=== PATIENT | female | born 1965 | race Caucasian/White ===

== ENCOUNTER → 2017-06-25 09:43 | Outpatient (POV) | payer MEDICARE, MEDICAID, SELFPAY ==
[2017-06-25 10:15] VITALS: BP 163/88; PULSE 103; RESP 18; O2SAT 94; BMI 29.5
--- NOTE | 2017-06-25 10:29 | P.CONS_ITS ---
[facility] Pain Management SOAP Note Subjective:: This patient is a pleasant 51-year-old white female who we are treating for low back pain and lumbar radicular symptoms. She had a lumbar epidural steroid injection approximately 6 weeks ago. She is doing very well after this injection with 82% relief of her back pain. She is able to bend forward and has been much more active with less pain. She has now some increased pain in her left hip and left leg. She does have some swelling of her left leg in the area of the thigh. She is worried about a blood clot. However, she is also tender over the left SI joint. She does have a positive Casper's test. I do believe that she would benefit from a left SI joint injection under fluoroscopy. We will seek approval for a left SI joint injection under fluoroscopy. We will also order a DVT ultrasound of the left leg to rule out any DVT. She is also asking for ibuprofen 800 mg 3 times a day. Will write her prescription for ibuprofen 800 mg 3 times a day. Objective:: Alert to ?3 in no acute distress. Patient has antalgic gait. Patient does have some swelling of the left leg in the thigh area bigger than the right leg. Motor strength of the lower extremities is 5/5. There is no gross sensory deficit. Tenderness over left SI joint. Positive Casper's test on the left side. Assessment:: Degenerative disc disease of lumbar spine with lumbar radiculopathy symptoms. Left-sided sacroiliitis. Plan:: I do believe that she would benefit from a left SI joint injection under fluoroscopy. We will seek approval for a left SI joint injection under fluoroscopy. We will also order a DVT ultrasound of the left leg to rule out any DVT. She is also asking for ibuprofen 800 mg 3 times a day. Will write her prescription for ibuprofen 800 mg 3 times a day.
== END ==
PROVIDERS: PCP Family Medicine; Visit Provider Anesthesiology
DX: M51.16 Intervertebral disc disorders with radiculopathy, lumbar region (principal)
CPT/HCPCS: 99212

== ENCOUNTER → 2017-06-26 08:56 | Outpatient (CLI) | payer MEDICARE, SELFPAY ==
--- NOTE | 2017-06-26 08:59 | NVE_ITS ---
Venous Exam Indications: 729.5 Pain in limb. IMPRESSIONS 1. There is no evidence of significant Reflux. 2. Superficial vein thrombosis lesser saphaneous vein left lower extremity Left lower extremity venous duplex evaluation. Doppler flow study including spectral analysis, color and owens scale imaging. Location: Vascular laboratory. Patient status: Outpatient. CRITICAL FINDINGS - Reported to: Beba Nash office - Read back and verified. - 06/26/17 - 919 - SVT LSV LEFT LEG Tables: Venous flow and imaging: + +-------+ + Location Overall Flow properties + +-------+ + Left common femoral Patent Normal phasicity; spontaneous; normal augmentation; compressible + +-------+ + Left saphenofemoral junction Patent Compressible + +-------+ + Left profunda femoral Patent Compressible + +-------+ + Left femoral Patent Normal phasicity; spontaneous; normal augmentation; compressible + +-------+ + Left greater saphenous Patent Normal phasicity; spontaneous; normal augmentation; compressible + +-------+ + Left popliteal Patent Normal phasicity; spontaneous; normal augmentation; compressible + +-------+ + Left posterior tibial Patent Compressible + +-------+ + Left peroneal Patent Compressible + +-------+ + Left gastrocnemius Patent Compressible + +-------+ + Left soleal Patent Compressible + +-------+ + (Report amended ) Electronically signed by: Dipesh Pimentel [id number]
== END ==
PROVIDERS: PCP Family Medicine; Visit Provider Anesthesiology
DX: M79.605 Pain in left leg (principal)
CPT/HCPCS: 93971

== ENCOUNTER → 2017-07-11 14:21 | Outpatient (CLI) | payer MEDICARE, SELFPAY ==
--- NOTE | 2017-07-11 | NVE_ITS ---
Venous Exam Indications: 451.19 Phlebitis and thrombophlebitis of other. IMPRESSIONS 1. 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 2. No evidence of deep vein thrombosis involving the left lower extremity Left lower extremity venous duplex evaluation. Doppler flow study including spectral analysis, color and owens scale imaging. Location: Vascular laboratory. Patient status: Outpatient. Tables: Venous flow and imaging: + +-------+ + + Location Overall Flow properties Comments + +-------+ + + Left common femoral Patent Normal phasicity; spontaneous; normal augmentation; compressible + +-------+ + + Left saphenofemoral Patent Compressible junction + +-------+ + + Left profunda Patent Compressible femoral + +-------+ + + Left femoral Patent Normal phasicity; spontaneous; normal augmentation; compressible + +-------+ + + Left greater Patent Normal phasicity; saphenous spontaneous; normal augmentation; compressible + +-------+ + + Left popliteal Patent Normal phasicity; spontaneous; normal augmentation; compressible + +-------+ + + Left posterior Patent Compressible tibial + +-------+ + + Left peroneal Patent Compressible + +-------+ + + Left gastrocnemius Patent Compressible + +-------+ + + Left soleal Patent Compressible + +-------+ + + Left lesser Patent Diminished Partially co
== END ==
PROVIDERS: PCP Family Medicine; Visit Provider Nurse Practitioner
DX: I82.4Z2 Acute embolism and thrombosis of unspecified deep veins of left distal lower extremity (principal)
CPT/HCPCS: 93971

== ENCOUNTER 2017-08-17 14:02 | Day surgery (SDC) | payer MEDICARE, SELFPAY ==
[2017-08-17 14:25] VITALS: BP 139/81; PULSE 102; RESP 18; O2SAT 95; BMI 28.5
--- NOTE | 2017-08-17 14:32 | PC.NURSE ---
PATIENT ALERT/ORIENTED AND CALM AT ASSESSMENT WITH NON DISTRESS NOTED. PATIENT BREATHING NORMAL, NON LABORED. NO ISSUES MADE KNOWN TO RN DURING ASSESSMENT.
[2017-08-17 15:07] VITALS: BP 159/89; PULSE 105; RESP 20
[2017-08-17 15:08] VITALS: BP 146/107; PULSE 97; RESP 18
--- NOTE | 2017-08-17 15:09 | P.PCN_ITS ---
- Procedure Date: 08/17/17 Time: 15:05 Anesthesiologist:: Bassem Nash MD Complications:: None Pre-procedure Diagnosis:: Sacroiliitis Post-procedure Diagnosis:: Same Indications for Procedure:: This patient is a pleasant 51-year-old white female who we are treating for left -sided hip pain. She is tender over the left SI joint. She does have a positive Casper's test on left side. We are also treating her for low back pain with lumbar radiculopathy symptoms. She is doing better after a lumbar epidural steroid injection. Today we will do a left SI joint injection under fluoroscopy to see if this will help resolve her hip pain. Procedure Details:: Left SI joint injection under fluoroscopy Informed consent was obtained and the risks and benefits of the procedure was going to the patient. Patient was taken to the procedure room. Patient was placed prone on the procedure table. The left hip was prepped using ChloraPrep. The skin and subcutaneous tissues were anesthetized using lidocaine. I placed a 22-gauge spinal needle into the inferior aspect of the left SI joint. Needle placement was confirmed with dye. After this we injected 5 mL bupivacaine 0.25% and Depo-Medrol 40 mg into the left SI joint. The patient tolerated the procedure well with no complication. Plan and Disposition:: We will follow-up with her in 2 weeks. We will reevaluate her symptoms at that time.
[2017-08-17 15:13] VITALS: BP 150/92; PULSE 101; TEMP 36.1; O2SAT 95
== END 2017-08-17 15:15 | disposition home or self-care (01) ==
LOC: SC.PAINP 14:03
PROVIDERS: PCP Family Medicine; Visit Provider Anesthesiology
DX: M46.1 Sacroiliitis, not elsewhere classified (principal)
CPT/HCPCS: 27096; G0260; J1040; Q9966

== ENCOUNTER → 2017-09-03 13:51 | Outpatient (POV) | payer MEDICARE, MEDICAID, SELFPAY ==
[2017-09-03 14:03] VITALS: BP 143/90; PULSE 58; RESP 16; TEMP 36.4; O2SAT 96; BMI 28.5
--- NOTE | 2017-09-03 14:17 | P.CONS_ITS ---
[facility] Pain Management SOAP Note Subjective:: Patient is a pleasant 52-year-old white female who presents today for follow-up after left SI joint injection. Patient states that the injection helped slightly however all of her pain has returned. Patient is rating her pain a 6 out of 10 today. She states it has been constant and achy and sharp at times. Patient states that her back is doing extremely well after lumbar epidural steroid injections. The only pain that she has is this nerve pain. Patient's tried gabapentin in the past however she had side effects to it. Patient is interested in trying Cymbalta. Patient would like to stay away from opioid pain medications due to the way that they make her feel. ROS General: no recent weight change, no fever, no sleep disturbances Respiratory: no cough, no shortness of air, no recurring pulmonary infections Cardiovascular/Peripheral Vascular: No chest pain, No palpitations, no edema, no shortness of breath. Gastrointestinal: no incontinence, normal bowel movements reported Genitourinary: no incontinence Musculoskeletal: Left leg pain Psychiatric: normal mood/ affect Neurological: [denies weakness in extremities], [denies balance issues] Objective:: Physical Exam General: Alert and oriented x3, no acute distress, pleasant and cooperative, [ on room air] Lungs: Resps E/U, Symmetrical chest expansion, Eyes: PERRL Musculoskeletal: Flexion and extension of lumbar spine somewhat guarded secondary to pain, deep tendon reflexes normal, strength in upper and lower extremities [5/5], [abnormal gait noted], positive Casper's test on the left side Neurological: speech clear, outer diameter grinder tool equal, no gross sensory deficits Assessment:: Sacroiliitis, degenerative disc disease of the lumbar spine Plan:: We will call in the patient Cymbalta 30 mg 1 p.o. daily. I will follow-up with her in 1 month. I believe that this may be helpful with her symptomology. Patient's back pain is doing very well at this time. This note was dictated using voice recognition software and may contain errors or omissions
--- NOTE | 2017-09-04 13:07 | PC.PHONENOTE ---
09/03/17-called in Rx for Cymbalta 30mg daily with no refills to pt's pharmacy
== END ==
PROVIDERS: PCP Family Medicine; Visit Provider Clinical Nurse Specialist Family Health
DX: M46.1 Sacroiliitis, not elsewhere classified (principal)
CPT/HCPCS: 99212

== ENCOUNTER → 2017-09-10 08:40 | Outpatient (POV) | payer MEDICARE, MEDICAID, SELFPAY ==
[2017-09-10 09:06] VITALS: BP 127/86; PULSE 93; RESP 20; O2SAT 95; BMI 26.6
--- NOTE | 2017-09-10 09:52 | HMH.PAINSOAP ---
[facility] Pain Management SOAP Note Subjective:: Vision is a pleasant 52-year-old white female who presents today for follow-up. Patient at last visit was prescribed Cymbalta however after taking 2 doses of it she felt very jittery. She states that she felt like she was going to experience a seizure however she did not experience seizure-like activity. Patient felt jittery for the entirety of the day. Patient stated the next day she was fine. Patient quit taking the Cymbalta. Patient rates her pain today a 5 out of 10 she states that it is constant and achy and sharp at times. Patient has a low back pain that radiates into her bilateral legs. She is done extremely well after lumbar epidural steroid injections. Patient would like to stay away from opioid pain medications due to the way that they make her feel. She denies had a long conversation about potentially just taking a tramadol when she feels bad. Not on a scheduled basis. Patient is interested in trying this. We will discontinue the Cymbalta. ROS General: no recent weight change, no fever, no sleep disturbances Respiratory: no cough, no shortness of air, no recurring pulmonary infections Cardiovascular/Peripheral Vascular: No chest pain, No palpitations, no edema, no shortness of breath. Gastrointestinal: no incontinence, normal bowel movements reported Genitourinary: no incontinence Musculoskeletal: Low back and bilateral leg pain Psychiatric: normal mood/ affect, Neurological: [denies weakness in extremities], [denies balance issues] Objective:: Physical Exam General: Alert and oriented x3, no acute distress, pleasant and cooperative, [on room air] Lungs: Resps E/U, Symmetrical chest expansion, Eyes: PERRL Musculoskeletal: Flexion and extension of lumbar spine somewhat guarded secondary to pain, deep tendon reflexes normal, strength in upper and lower extremities [5/5], [abnormal gait noted] Neurological: speech clear, transport technician equal, no gross sensory deficits Assessment:: Sacroiliitis, degenerative disc disease of the lumbar spine Plan:: Patient is to discontinue the Cymbalta. We will call her in tramadol 50 mg 1 tab p.o. twice daily as needed. We will give her 1 month she is to immediately call us if she has any reaction to this medication. I will follow-up with her in 1 month to see how this is doing. Patient and I also discussed a lump of to that she has on her left leg in comparison to her right leg at this time it does not look very concerning but we will continue to monitor it. Patient and I also briefly discussed neuro stimulation. Petey #[id number] reviewed and appropriate. This note was dictated using voice recognition software and may contain errors or omissions
--- NOTE | 2017-09-10 09:57 | P.CONS_ITS ---
[facility] Pain Management SOAP Note Subjective:: Vision is a pleasant 52-year-old white female who presents today for follow-up. Patient at last visit was prescribed Cymbalta however after taking 2 doses of it she felt very jittery. She states that she felt like she was going to experience a seizure however she did not experience seizure-like activity. Patient felt jittery for the entirety of the day. Patient stated the next day she was fine. Patient quit taking the Cymbalta. Patient rates her pain today a 5 out of 10 she states that it is constant and achy and sharp at times. Patient has a low back pain that radiates into her bilateral legs. She is done extremely well after lumbar epidural steroid injections. Patient would like to stay away from opioid pain medications due to the way that they make her feel. She denies had a long conversation about potentially just taking a tramadol when she feels bad. Not on a scheduled basis. Patient is interested in trying this. We will discontinue the Cymbalta. ROS General: no recent weight change, no fever, no sleep disturbances Respiratory: no cough, no shortness of air, no recurring pulmonary infections Cardiovascular/Peripheral Vascular: No chest pain, No palpitations, no edema, no shortness of breath. Gastrointestinal: no incontinence, normal bowel movements reported Genitourinary: no incontinence Musculoskeletal: Low back and bilateral leg pain Psychiatric: normal mood/ affect, Neurological: [denies weakness in extremities], [denies balance issues] Objective:: Physical Exam General: Alert and oriented x3, no acute distress, pleasant and cooperative, [ on room air] Lungs: Resps E/U, Symmetrical chest expansion, Eyes: PERRL Musculoskeletal: Flexion and extension of lumbar spine somewhat guarded secondary to pain, deep tendon reflexes normal, strength in upper and lower extremities [5/5], [abnormal gait noted] Neurological: speech clear, transition manager equal, no gross sensory deficits Assessment:: Sacroiliitis, degenerative disc disease of the lumbar spine Plan:: Patient is to discontinue the Cymbalta. We will call her in tramadol 50 mg 1 tab p.o. twice daily as needed. We will give her 1 month she is to immediately call us if she has any reaction to this medication. I will follow-up with her in 1 month to see how this is doing. Patient and I also discussed a lump of to that she has on her left leg in comparison to her right leg at this time it does not look very concerning but we will continue to monitor it. Patient and I also briefly discussed neuro stimulation. Petey #[id number] reviewed and appropriate. This note was dictated using voice recognition software and may contain errors or omissions
--- NOTE | 2017-09-11 12:51 | PC.PHONENOTE ---
09/10/17-called in Rx for Tramadol 50mg BID x1 month to clinic pharmacy
== END ==
PROVIDERS: PCP Family Medicine; Visit Provider Clinical Nurse Specialist Family Health
DX: M46.1 Sacroiliitis, not elsewhere classified (principal)
CPT/HCPCS: 99212

== ENCOUNTER → 2017-10-01 09:31 | Outpatient (POV) | payer MEDICARE, MEDICAID, SELFPAY ==
[2017-10-01 09:40] VITALS: BP 132/82; PULSE 102; RESP 18; TEMP 36.7; O2SAT 99; BMI 28.6
--- NOTE | 2017-10-01 10:06 | HMH.PAINSOAP ---
[facility] Pain Management SOAP Note Subjective:: This patient is a pleasant 52-year-old white female who presents today for follow-up. Patient was started on Cymbalta however she felt like she was going to experience seizure-like activity with this. Patient then was changed to tramadol 50 mg 1 tab p.o. twice daily. Patient states she is doing very well with this. Patient states she cannot take it every day however when she does take it it decreases her pain 70-80%. Patient denies extreme side effects with this. She says all side effects are tolerable. Patient's CHRIST #[id number] reviewed and appropriate. Patient states she has low back pain that radiates into her bilateral legs. She has done well with lumbar epidural injections in the past. We are utilizing tramadol as a maintenance between injections. ROS General: no recent weight change, no fever, no sleep disturbances Respiratory: no cough, no shortness of air, no recurring pulmonary infections Cardiovascular/Peripheral Vascular: No chest pain, No palpitations, no edema, no shortness of breath. Gastrointestinal: no incontinence, normal bowel movements reported Genitourinary: no incontinence Musculoskeletal: Low back pain, bilateral leg pain Psychiatric: normal mood/ affect, [denies depression], [denies anxiety] Neurological: [denies weakness in extremities], [denies balance issues] Objective:: Physical Exam General: Alert and oriented x3, no acute distress, pleasant and cooperative, [on room air] Lungs: Resps E/U, Symmetrical chest expansion, Eyes: PERRL Musculoskeletal: Flexion and extension of lumbar spine somewhat guarded secondary to pain, deep tendon reflexes normal, strength in upper and lower extremities [5/5], slightly antalgic gait noted Neurological: speech clear, care administrative tech equal, no gross sensory deficits Assessment:: Sacroiliitis, degenerative disc disease of the lumbar spine with lumbar radiculopathy Plan:: Patient does not need any medication today. Patient is doing well with her tramadol 50 mg 1 p.o. twice daily as needed. Patient will call for refill if necessary. Patient's Christ reviewed and appropriate. We will follow-up with this patient in 3 months. Patient has been instructed to call us if she needs us before her appointment. This note was dictated using voice recognition software and may contain errors or omissions
--- NOTE | 2017-10-01 10:09 | P.CONS_ITS ---
[facility] Pain Management SOAP Note Subjective:: This patient is a pleasant 52-year-old white female who presents today for follow-up. Patient was started on Cymbalta however she felt like she was going to experience seizure-like activity with this. Patient then was changed to tramadol 50 mg 1 tab p.o. twice daily. Patient states she is doing very well with this. Patient states she cannot take it every day however when she does take it it decreases her pain 70-80%. Patient denies extreme side effects with this. She says all side effects are tolerable. Patient's CHRIST #[id number] reviewed and appropriate. Patient states she has low back pain that radiates into her bilateral legs. She has done well with lumbar epidural injections in the past. We are utilizing tramadol as a maintenance between injections. ROS General: no recent weight change, no fever, no sleep disturbances Respiratory: no cough, no shortness of air, no recurring pulmonary infections Cardiovascular/Peripheral Vascular: No chest pain, No palpitations, no edema, no shortness of breath. Gastrointestinal: no incontinence, normal bowel movements reported Genitourinary: no incontinence Musculoskeletal: Low back pain, bilateral leg pain Psychiatric: normal mood/ affect, [denies depression], [denies anxiety] Neurological: [denies weakness in extremities], [denies balance issues] Objective:: Physical Exam General: Alert and oriented x3, no acute distress, pleasant and cooperative, [ on room air] Lungs: Resps E/U, Symmetrical chest expansion, Eyes: PERRL Musculoskeletal: Flexion and extension of lumbar spine somewhat guarded secondary to pain, deep tendon reflexes normal, strength in upper and lower extremities [5/5], slightly antalgic gait noted Neurological: speech clear, safety and health manager equal, no gross sensory deficits Assessment:: Sacroiliitis, degenerative disc disease of the lumbar spine with lumbar radiculopathy Plan:: Patient does not need any medication today. Patient is doing well with her tramadol 50 mg 1 p.o. twice daily as needed. Patient will call for refill if necessary. Patient's Christ reviewed and appropriate. We will follow-up with this patient in 3 months. Patient has been instructed to call us if she needs us before her appointment. This note was dictated using voice recognition software and may contain errors or omissions
== END ==
PROVIDERS: PCP Family Medicine; Visit Provider Clinical Nurse Specialist Family Health
DX: M54.16 Radiculopathy, lumbar region (principal); M46.1 Sacroiliitis, not elsewhere classified
CPT/HCPCS: 99212

== ENCOUNTER 2017-12-20 14:54 | Inpatient (IN) ==
[2017-12-20 15:22] LABS: Basophils # 0.2 K/mm3 (0-0.2); Basophils % 0.6 % (0.1-2.0); Eosinophils # 0.5 K/mm3 (0.0-0.4); Eosinophils % 1.7 % (0.1-12.0); Hematocrit 43.5 % (37.0-47.0); Hemoglobin 14.5 g/dL (12.2-16.2); Lymphocytes % 15.7 K/mm3 (10-50); Mean Corpuscular HGB Conc 33.4 g/dL (31.8-35.4); Mean Corpuscular Hemoglobin 31.4 pg (27.0-31.2); Mean Corpuscular Volume 93.8 fl (81-99); Monocytes # 1.6 K/mm3 (0.1-1.0); Neutrophils # 24.7 K/mm3 (1.8-7.8); Platelet Count 721 K/mm3 (142-424); Red Blood Count 4.63 M/mm3 (4.20-5.40); White Blood Count 32.1 K/mm3 (4.8-10.8)
[2017-12-20 15:44] LABS: Albumin Level 3.9 gm/dL (3.4-5.0); Albumin/Globulin Ratio 0.9 (1.1-1.8); Anion Gap 18.8 mEq/L (5-15); Bilirubin,Total 0.3 mg/dL (0.2-1.0); Calcium 9.3 mg/dL (8.5-10.1); Carbamazepine (Tegretol) 8.4 ug/ml (4.0-12.0); Globulin 4.2 gm/dl (1.3-3.2); Potassium 3.8 mmoL/L (3.5-5.1); Total Protein,Serum 8.1 gm/dL (6.4-8.2)
[2017-12-20 16:01] LABS: Lymphocytes % 16 % (10-50); Monocytes % 5 % (2-9); Neutrophils % 79 % (42-76); Total Cells Counted 100
[2017-12-20 16:02] LABS: RBC Morphology Normal
--- NOTE | 2017-12-20 16:04 | Emergency Department Note ---
ED Disposition Clinical Impression: Acute sinusitis, Acute pansinusitis, Leucocytosis, Post splenectomy syndrome Disposition: Still a Patient Condition on Discharge: Fair Instructions: Sinusitis Referrals: Ellen South APRN [Primary Care Provider] - - Critical Care Critical Care Time: No Attestation: On 12/20/17, the high probability of a clinically significant, sudden or life threatening deterioration of the following system(s) required my full and direct attention, intervention and personal management. The time I documented below is in addition to time spent performing reported procedures but includes the following listed in this critical care notation. Medical Decision Making - Petey Inquiry Pt receiving controlled substance: No Petey was queried for this patient: No Vital Signs: 12/20/17 14:55 12/20/17 16:55 Temperature 98.4 F Temperature Source Oral Pulse Rate [Left Radial] 102 H 96 H Respiratory Rate 28 H 20 Blood Pressure [Right Arm] 156/110 134/70 Blood Pressure Mean [Right Arm] 125 91 Blood Pressure Source [Right Arm] Automatic Cuff Blood Pressure Position [Right Arm] Supine 02 Sat by Pulse Oximetry 97 97 Oxygen Delivery Method Room Air Room Air - Lab Data Lab Results 12/20/17 15:10: WBC 32.1 H*, RBC 4.63, Hgb 14.5, Hct 43.5, MCV 93.8, MCH 31.4 H , MCHC 33.4, RDW 12.0, Plt Count 721 H, MPV 7.0 L, Neut % (Auto) 77.0, Lymph % ( Auto) 15.7, [place] % (Auto) 5.0, Eos % (Auto) 1.7, Baso % (Auto) 0.6, Neut # (Auto ) 24.7 H, Lymph # (Auto) 5.0 H, [place] # (Auto) 1.6 H, Eos # (Auto) 0.5 H, Baso # (Auto) 0.2, Total Counted 100, Neutrophils % (Manual) 79 H, Lymphocytes % ( Manual) 16, Monocytes % (Manual) 5, Platelet Estimate Moderate increase, RBC Morphology Normal 12/20/17 15:10: Sodium 137, Potassium 3.8, Chloride 99, Carbon Dioxide 23, Anion Gap 18.8 H, BUN 10, Creatinine 0.74, Estimated Creat Clear 115, Estimated GFR 82, Est GFR ( Amer) 99, Glucose 152 H, Calcium 9.3, Total Bilirubin 0.3, AST 43 H, ALT 23, Alkaline Phosphatase 153 H, Total Protein 8.1, Albumin 3.9, Globulin 4.2 H, Albumin/Globulin Ratio 0.9 L, Amylase 41, Carbamazepine 8.4 12/20/17 15:10: Total Creatine Kinase 47, CK-MB (CK-2) 0.5, CK-MB (CK-2) Rel Index 1.1, Troponin I < 0.02 12/20/17 15:43: Specimen Source Right radial, O2 % Room air, ABG pH 7.46 H, ABG pCO2 33.4 L, ABG pO2 29.1 L, ABG HCO3 23.0, ABG Total CO2 24.0, ABG O2 Saturation 63 L*, ABG Base Excess -0.9, Jayce Test Acceptable 12/20/17 16:30: Lactic Acid 3.4 H Result diagrams: 12/20/17 15:10 12/20/17 15:10 Orders (Tests/Meds): ED MEDICATIONS Generic Name Dose Route Start Last Admin Trade Name Freq PRN Reason Stop Dose Admin Ertapenem 1 gm/ Sodium 50 mls @ 100 mls/hr 12/20/17 16:15 12/20/17 16:56 Chloride IV 01/03/18 16:14 100 mls/hr Q24H BON Administration Protocol ORDERS Category Date Time Status UDS [Drug Screen,Urine] Stat Lab 12/20/17 15:28 Ordered Urinalysis and Microscopic Stat Lab 12/20/17 15:28 Ordered Blood Culture Stat Micro 12/20/17 16:41 Received ABG PH Stat RT 12/20/17 15:26 Ordered - Radiology Data #1 Image(s): Chest Image Reviewed: Yes I have reviewed radiologist's interpretation Preliminary Findings: Normal/NAD IMPRESSION: Negative chest, no acute finding - CT Data CT Scan: Head Time Received: 17:[address] Reviewed: Yes: I have viewed the radiologist's interpretation Preliminary Findings: Abnormal Findings Narrative: MPRESSION: No acute findings at the brain.. Brain within normal limits Incidental note: Mucosal thickening posterior left sphenoid sinus question small air-fluid level here versus more likely area flat appearing mucosal thickening.remainder the paranasal sinuses are clear and unremarkable. . Bilateral mastoid effusions involving mastoid tip and inferior mastoids IMPRESSION 1. No acute findings in the abdomen or pelvis. Appendix normal. No urinary tract calculi nor obstruction. 2. Perhaps slight increased fluid upper normal caliber of proximal small bowel loops. Unimpressive but conceivably could reflect mild ileus or early enteritis. 3. Liver. Generous volume right lobe & increased since 2008 CT.-It now measures 23 cm length. . No focal lesions nor ductal dilatation 4. Splenectomy. Medical Decision Narrative: I asked the patient about her elevated white count if she had that in the morning before or she had here that she has been diagnosed with CLL she declined. The patient was found to have elevated white count with extensive sinus infection and splenectomy. I spoke with her primary care physician Dr. Alegria who agreed to admit her for IV abx therapy. General Adult HPI - General Chief complaint: Anxiety Stated complaint: stomach pains, vomitting for 3 hrs Time Seen by Provider: 12/20/17 15:00 Mode of Arrival: Ambulatory Limitations: No Limitations Description of Symptoms (Recalled from ER Triage Doc. by RN): PT C/O BILATERAL NECK PAIN LAST NIGHT. WOKE UP THIS MORNING WITH A HEADACHE. LAID BACK DOWN THIS MORNING AND WOKE UP AT 12PM AND VOMITED "BILE." PT STATES THAT THE BILE TASTED LIKE URINE. PT STATES SHE FEELS A FUNNY FEELING IN HER CHEST AND ABD PAIN AROUND UMBILICUS. PT ALSO C/O NAUSEA - History of Present Illness HPI narrative: 52 years old white female who has been experiencing sinus pain since yesterday woke up this morning with right-sided neck spasm applied heat to it followed by cold then she started vomiting 3 followed by dry heaving. All the symptoms above the stimulator her anxiety developed palpitations and shakiness and hyperventilation. She contacted the EMS and arrived in a hemodynamically stable condition provided the above history. Onset (ago): day(s) (Sinus pain that started yesterday. Vomiting started this morning.) Location: face Radiation: non-radiation Quality: dull Consistency: constant Relieving factors: none Exacerbating factors: none Associated symptoms: nausea/vomiting Treatments prior to arrival: none - Related Data Home Medications Medication Instructions Recorded Confirmed Colesevelam HCl [Welchol] 1,250 mg PO DAILY 08/17/17 12/20/17 Estradiol 2 mg PO BID 08/17/17 12/20/17 Levothyroxine Sodium [Synthroid 75 mcg PO DAILY 08/17/17 12/20/17 75mcg (0.075mg) tablet] Lisinopril [Lisinopril 20mg Tab] 20 mg PO DAILY 08/17/17 12/20/17 Metformin HCl 1,000 mg OP BID 08/17/17 12/20/17 Omeprazole [Omeprazole 40mg 40 mg PO BID 08/17/17 12/20/17 Capsule] Potassium Chloride [Pot Chlor 10 10 meq PO DAILY 08/17/17 12/20/17 mEq Tab] carBAMazepine [carBAMazepine 200mg 200 mg PO BID 08/17/17 12/20/17 Tablet] hydrOXYzine HCl [Hydroxyzine HCl] 25 mg PO DIRECTED 08/17/17 12/20/17 hydroCHLOROthiazide [HCTZ 12.5mg 12.5 mg PO DAILY 08/17/17 12/20/17 capsule] raNITIdine HCl [Ranitidine HCl] 150 mg PO DAILY 08/17/17 12/20/17 Allergies Allergy/AdvReac Type Severity Reaction Status Date / Time diphenhydramine Allergy Unknown JITTERY Verified 12/20/17 15:13 [From BENADRYL] latex [LATEX] Allergy Unknown I-RASH Verified 12/20/17 15:13 duloxetine [From Cymbalta] AdvReac Severe seizures Verified 12/20/17 15:13 [facility] History I have reviewed the patient's past medical history: No Medical History: Reports:: Diabetes Mellitus Type 2 (MORNING FSBS 114 PER PATIENT), Hypertension Denies:: Diabetes Mellitus Type 1 Other Medical History: Reports: Thyroid Disease Laterality Cases: Bilateral: Myringotomy (Ear Tubes) Other Surgeries: Yes: Other (STOMACH SURGERIES) Amputation: Yes - Social History Smoking Status: Current every day smoker Tobacco Type: cigarettes # Packs/Day (cigarettes): 1 Alcohol Intake: never Occupational Status: disabled Housing: apartment - Psychiatric History Expresses thoughts of harming self/others: None Suicide Plan Description: No Plan ROS Obtained: Yes All systems reviewed & no additional complaints Physical Exam - General General appearance: alert, in no apparent distress - Head Head exam: atraumatic, normocephalic, normal inspection, other (Frontal sinus tenderness.) - Eye Eye exam: Present: normal appearance, PERRL, EOMI - ENT ENT exam: Present: normal exam, normal oropharynx, mucous membranes moist, TM's normal bilaterally, normal external ear exam - Neck Neck exam: Present: normal inspection, full ROM, trachea midline, other ( Stiffness or rigidity. ). Absent: tenderness, meningismus, lymphadenopathy - Chest Chest inspection: Present: normal inspection, symmetric chest wall rise. Absent : tenderness - Respiratory Respiratory exam: Present: normal lung sounds bilaterally. Absent: respiratory distress - Cardiovascular Cardiovascular exam: Present: regular rate, normal rhythm, normal heart sounds. Absent: JVD - Abdominal Exam Abdominal exam: Present: soft, normal bowel sounds, other. Absent: distention, tenderness, guarding, rebound, rigidity, Marshall's sign (Scars of prior surgery, soft abdomen ,nontender no guarding no rigidity, normal bowel sounds.), tenderness at McBurney's Point - External exam: Present: normal external exam - Extremities Exam Extremities exam: Present: normal inspection, full ROM, normal capillary refill. Absent: calf tenderness - Back Exam Back exam: Present: normal inspection. Absent: tenderness - Neurological Exam Neurological exam: Present: alert, oriented X3, CN II-XII intact, motor sensory deficit, reflexes normal, other (No ataxia, no rombergism, no meningeal signs.) - Psychiatric Psychiatric exam: Present: normal affect, normal mood - Skin Skin exam: Present: warm, dry, intact, normal color - Lymphatic Lymphatic Findings: no adenopathy
[2017-12-20 16:08] LABS: ABG Base Excess -0.9 mmol/L (-2.4-2.3); ABG Oxygen Saturation 63 % (90-100); ABG PCO2 33.4 mmhg (35.0-45.0); ABG PH 7.46 mmol/L (7.35-7.45)
[2017-12-20 16:11] LABS: Allen's Test Acceptable; Oxygen ROOM AIR %
[2017-12-20 16:12] LABS: ABG PO2 29.1 mmhg (80-100)
[2017-12-20 16:13] LABS: Creatine Kinase 47 U/L (26-192)
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
--- NOTE | 2017-12-21 07:25 | Pharmacy Consult Notes ---
[facility] Pharmacy VTE Monitoring - Patient Demographics Admission date: 12/20/17 Report Date: 12/21/17 Time: 07:25 Allergies/Adverse Reactions: Patient Allergies diphenhydramine [From BENADRYL] Allergy (Unknown, Verified 12/20/17 15:13) JITTERY latex [LATEX] Allergy (Unknown, Verified 12/20/17 15:13) I-RASH duloxetine [From Cymbalta] Adverse Reaction (Severe, Verified 12/20/17 15:13) seizures Height: 1.7 m Weight: 78.585 kg Patient Problems: Current Active Problems Acute sinusitis (Acute) Acute pansinusitis (Acute) Leucocytosis (Acute) Post splenectomy syndrome (Acute) - VTE Risk Labs: VTE Related Lab Results Hgb 14.5 g/dL (12.2-16.2) 12/20/17 15:10 Hct 43.5 % (37.0-47.0) 12/20/17 15:10 Plt Count 721 K/mm3 (142-424) H 12/20/17 15:10 BUN 10 mg/dL (7-18) 12/20/17 15:10 Creatinine 0.74 mg/dL (0.55-1.02) 12/20/17 15:10 Estimated Creat Clear 115 mL/min (0-300) 12/20/17 15:10 Was VTE Risk Assessment Performed: Yes VTE Score: 1 VTE Risk Level: Very Low Risk - Prophylaxis VTE Prophylaxis Ordered?: Yes Types of VTE Prophylaxis: TEDS Knee High Location of Applied Device: Bilateral Lower Extremeties - VTE Diagnosis Confirmed Treatment or plan recommended: Continue Current Treatment
[2017-12-21 09:09] LABS: Basophils # 0.1 K/mm3 (0-0.2); Basophils % 1.2 % (0.1-2.0); Eosinophils # 0.4 K/mm3 (0.0-0.4); Eosinophils % 3.8 % (0.1-12.0); Lymphocytes # 4.8 K/mm3 (0.7-4.5); Lymphocytes % 49.1 K/mm3 (10-50); Mean Corpuscular HGB Conc 33.1 g/dL (31.8-35.4); Mean Corpuscular Hemoglobin 31.2 pg (27.0-31.2); Mean Corpuscular Volume 94.3 fl (81-99); Mean Platelet Volume 7.3 fl (7.4-10.4); Monocytes # 0.7 K/mm3 (0.1-1.0); Monocytes % 6.9 % (1.7-9.3); Neutrophils # 3.8 K/mm3 (1.8-7.8); Neutrophils % 38.9 % (37.0-80.0); Platelet Count 656 K/mm3 (142-424); Red Blood Count 3.82 M/mm3 (4.20-5.40); White Blood Count 9.8 K/mm3 (4.8-10.8)
[2017-12-21 09:11] LABS: Hemoglobin 11.8 g/dL (12.2-16.2)
== END 2017-12-21 09:11 | disposition home or self-care (01) ==
LOC: 2ND 14:54 → ER 14:54 → 2ND 17:55
PROVIDERS: ADMIT Family Medicine; ATTEND Family Medicine
CPT/HCPCS: 36415; 70450; 71010; 71045; 74176; 80053; 80156; 82150; 82550; 82553; 82803; 82962; 83605; 84484; 85007; 85025; 87040; 93005; 96365; 96375; 96376; 99285; J1335; J1956; J2405

== ENCOUNTER → 2018-01-21 13:43 | Outpatient (POV) | payer MEDICARE, MEDICAID, SELFPAY ==
--- NOTE | 2018-01-21 13:59 | [facility].PAINSOAP ---
[facility] Pain Management SOAP Note Subjective:: Is a pleasant 52-year-old white female who presents today for follow-up. Patient has been on tramadol 50 mg 1 p.o. twice daily as needed and been doing well with this. However patient feels like it is time for another lumbar epidural steroid injection she states that she gets 80-90% relief up to 3 months with injections. Patient would like to move forward with this. Patient is not on any antibiotics and does not have any open wounds. Patient is not on any anticoagulation therapy. Patient rates her pain a 9 out of 10 she is also having some neck pain along with some shoulder pain. Patient and I discussed utilizing Voltaren gel. Patient's CHRIST #[id number] reviewed and appropriate. ROS General: no recent weight change, no fever, no sleep disturbances Respiratory: no cough, no shortness of air, no recurring pulmonary infections Cardiovascular/Peripheral Vascular: No chest pain, No palpitations, no edema, no shortness of breath. Gastrointestinal: no incontinence, normal bowel movements reported Genitourinary: no incontinence Musculoskeletal: Neck pain, back pain, leg pain Psychiatric: normal mood/ affect, Neurological: [denies weakness in extremities], [denies balance issues] Objective:: Physical Exam General: Alert and oriented x3, no acute distress, pleasant and cooperative, [on room air] Lungs: Resps E/U, Symmetrical chest expansion, Eyes: PERRL Musculoskeletal: Flexion and extension of cervical and lumbar spine somewhat guarded secondary to pain, deep tendon reflexes normal, strength in upper and lower extremities [5/5], [abnormal gait noted] positive straight leg raise test bilaterally at 30? 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 3 times daily for the patient we will also call her in some diclofenac gel. We will follow-up with the patient after her lumbar epidural steroid injection. Patient's CHRIST reviewed and appropriate. Dr. Nash is reviewed this chart and agrees with this plan of care. This note was dictated using voice recognition software and may contain errors or omissions
[2018-01-21 14:01] VITALS: BP 146/99; PULSE 107; RESP 18; O2SAT 98; BMI 26.9
--- NOTE | 2018-01-21 14:02 | P.CONS_ITS ---
[facility] Pain Management SOAP Note Subjective:: Is a pleasant 52-year-old white female who presents today for follow-up. Patient has been on tramadol 50 mg 1 p.o. twice daily as needed and been doing well with this. However patient feels like it is time for another lumbar epidural steroid injection she states that she gets 80-90% relief up to 3 months with injections. Patient would like to move forward with this. Patient is not on any antibiotics and does not have any open wounds. Patient is not on any anticoagulation therapy. Patient rates her pain a 9 out of 10 she is also having some neck pain along with some shoulder pain. Patient and I discussed utilizing Voltaren gel. Patient's CHRIST #[id number] reviewed and appropriate. ROS General: no recent weight change, no fever, no sleep disturbances Respiratory: no cough, no shortness of air, no recurring pulmonary infections Cardiovascular/Peripheral Vascular: No chest pain, No palpitations, no edema, no shortness of breath. Gastrointestinal: no incontinence, normal bowel movements reported Genitourinary: no incontinence Musculoskeletal: Neck pain, back pain, leg pain Psychiatric: normal mood/ affect, Neurological: [denies weakness in extremities], [denies balance issues] Objective:: Physical Exam General: Alert and oriented x3, no acute distress, pleasant and cooperative, [on room air] Lungs: Resps E/U, Symmetrical chest expansion, Eyes: PERRL Musculoskeletal: Flexion and extension of cervical and lumbar spine somewhat guarded secondary to pain, deep tendon reflexes normal, strength in upper and lower extremities [5/5], [abnormal gait noted] positive straight leg raise test bilaterally at 30? Neurological: speech clear, dependency program director equal, no gross sensory deficits Assessment:: Degenerative disc disease lumbar spine with lumbar radiculopathy, myofascial pain Plan:: We will call in: Tramadol 50 mg 1 p.o. 3 times daily for the patient we will also call her in some diclofenac gel. We will follow-up with the patient after her lumbar epidural steroid injection. Patient's CHRIST reviewed and appropriate. Dr. Nash is reviewed this chart and agrees with this plan of care. This note was dictated using voice recognition software and may contain errors or omissions
== END ==
PROVIDERS: PCP Nurse Practitioner; Visit Provider Clinical Nurse Specialist Family Health
DX: M51.16 Intervertebral disc disorders with radiculopathy, lumbar region (principal); M79.1 Myalgia
CPT/HCPCS: 99213

== ENCOUNTER → 2018-02-25 15:01 | Outpatient (POV) | payer MEDICARE, MEDICAID, SELFPAY ==
[2018-02-25 15:32] VITALS: BP 167/92; PULSE 97; RESP 18; O2SAT 98; BMI 33.6
--- NOTE | 2018-02-26 08:36 | HMH.PAINSOAP ---
[facility] Pain Management SOAP Note Subjective:: This patient is a pleasant 52-year-old white female who we are treating for low back pain with lumbar radiculopathy. Patient is following up after lumbar epidural steroid injection. Patient states her pain in her back and her leg has been relieved however she is having SI joint pain bilaterally. Patient is interested in getting an injection in this area. Patient is done well with injections in the past. She is still doing a home stretching program. She is also on anti-inflammatories. Patient is on tramadol 50 mg up to 3 times a day however she takes it sparingly. ROS General: no recent weight change, no fever, no sleep disturbances Respiratory: no cough, no shortness of air, no recurring pulmonary infections Cardiovascular/Peripheral Vascular: No chest pain, No palpitations, no edema, no shortness of breath. Gastrointestinal: no incontinence, normal bowel movements reported Genitourinary: no incontinence Musculoskeletal: Bilateral SI joint pain Psychiatric: normal mood/ affect Neurological: [denies weakness in extremities], [denies balance issues] Objective:: Physical Exam General: Alert and oriented x3, no acute distress, pleasant and cooperative, [on room air] Lungs: Resps E/U, Symmetrical chest expansion, Eyes: PERRL Musculoskeletal: Flexion and extension of lumbar spine somewhat guarded secondary to pain, deep tendon reflexes normal, strength in upper and lower extremities [5/5], slightly antalgic gait noted, positive Casper's test bilaterally Neurological: speech clear, beauty culturist equal, no gross sensory deficits Assessment:: Sacroiliitis, degenerative disc disease lumbar spine with lumbar radiculopathy Plan:: We will schedule bilateral SI joint injections for the patient. I will follow-up with her after her injections. Patient did well with injective therapy in the past. This note was dictated using voice recognition software and may contain errors or omissions
--- NOTE | 2018-02-26 08:39 | P.CONS_ITS ---
[facility] Pain Management SOAP Note Subjective:: This patient is a pleasant 52-year-old white female who we are treating for low back pain with lumbar radiculopathy. Patient is following up after lumbar epidural steroid injection. Patient states her pain in her back and her leg has been relieved however she is having SI joint pain bilaterally. Patient is interested in getting an injection in this area. Patient is done well with injections in the past. She is still doing a home stretching program. She is also on anti-inflammatories. Patient is on tramadol 50 mg up to 3 times a day however she takes it sparingly. ROS General: no recent weight change, no fever, no sleep disturbances Respiratory: no cough, no shortness of air, no recurring pulmonary infections Cardiovascular/Peripheral Vascular: No chest pain, No palpitations, no edema, no shortness of breath. Gastrointestinal: no incontinence, normal bowel movements reported Genitourinary: no incontinence Musculoskeletal: Bilateral SI joint pain Psychiatric: normal mood/ affect Neurological: [denies weakness in extremities], [denies balance issues] Objective:: Physical Exam General: Alert and oriented x3, no acute distress, pleasant and cooperative, [on room air] Lungs: Resps E/U, Symmetrical chest expansion, Eyes: PERRL Musculoskeletal: Flexion and extension of lumbar spine somewhat guarded secondary to pain, deep tendon reflexes normal, strength in upper and lower extremities [5/5], slightly antalgic gait noted, positive Casper's test bilaterally Neurological: speech clear, auto radio mechanic equal, no gross sensory deficits Assessment:: Sacroiliitis, degenerative disc disease lumbar spine with lumbar radiculopathy Plan:: We will schedule bilateral SI joint injections for the patient. I will follow- up with her after her injections. Patient did well with injective therapy in the past. This note was dictated using voice recognition software and may contain errors or omissions
== END ==
PROVIDERS: PCP Family Medicine; Visit Provider Clinical Nurse Specialist Family Health
DX: M46.1 Sacroiliitis, not elsewhere classified (principal); M51.16 Intervertebral disc disorders with radiculopathy, lumbar region
CPT/HCPCS: 99213

== ENCOUNTER → 2018-02-26 10:34 | Outpatient (POV) | payer MEDICARE, MEDICAID, SELFPAY | PROVIDERS: PCP Family Medicine; Visit Provider Otolaryngology | DX: Z00.00 Encounter for general adult medical examination without abnormal findings (principal) ==

== ENCOUNTER → 2018-04-29 10:52 | Outpatient (POV) | payer MEDICARE, SELFPAY ==
[2018-04-29 11:02] VITALS: BP 153/98; PULSE 109; RESP 18; O2SAT 98; BMI 26.2
--- NOTE | 2018-04-29 11:16 | HMH.PAINSOAP ---
[facility] Pain Management SOAP Note Subjective:: Patient is a pleasant 52-year-old white female who presents today for follow-up after bilateral SI joint injections. Patient is doing extremely well and denies any pain in her back. Patient does have an odd pain in her thumb. She is also having difficulty moving it. This is on her left hand. She is has an audible clicking when bending her thumb. We will send her for a x-ray today and send her to orthopedics. ROS General: no recent weight change, no fever, no sleep disturbances Respiratory: no cough, no shortness of air, no recurring pulmonary infections Cardiovascular/Peripheral Vascular: No chest pain, No palpitations, no edema, no shortness of breath. Gastrointestinal: no incontinence, normal bowel movements reported Genitourinary: no incontinence Musculoskeletal: Some pain, back pain at times Psychiatric: normal mood/ affect Neurological: [denies weakness in extremities], [denies balance issues] Objective:: Physical Exam General: Alert and oriented x3, no acute distress, pleasant and cooperative, [on room air] Lungs: Resps E/U, Symmetrical chest expansion, Eyes: PERRL Musculoskeletal: deep tendon reflexes normal, strength in upper and lower extremities [5/5], [abnormal gait noted] Neurological: speech clear, misdraw hand equal, no gross sensory deficits Assessment:: Left thumb pain, sacroiliitis Plan:: We will send her for x-rays of her thumb and send her to orthopedics. Patient will follow-up in our clinic on an as-needed basis. This note was dictated using voice recognition software and may contain errors or omissions
--- NOTE | 2018-04-29 11:28 | XR_ITS ---
XR finger LT min 2V CLINICAL INDICATION: ITS.REASON: LT HAND/THUMB PAIN ORDERING PHYSICIAN: Mini Stafford PATIENT AGE: 52 years Comparison: None FINDINGS: No bony or joint abnormality IMPRESSION: Negative left thumb
== END ==
PROVIDERS: PCP Family Medicine; Visit Provider Clinical Nurse Specialist Family Health
DX: M79.645 Pain in left finger(s) (principal); M46.1 Sacroiliitis, not elsewhere classified
CPT/HCPCS: 73140; 99213

== ENCOUNTER → 2018-05-13 15:56 | Outpatient (CLI) | payer MEDICARE, MEDICAID, SELFPAY ==
--- NOTE | 2018-05-13 15:58 | MM_ITS ---
MM Dig screening mamm BI w/CAD ORDERING PHYSICIAN : Nakul Alegria MD PATIENT AGE: 52 years GENDER: Female COMPARISON: December 2013, October 2012, & April 2017 2016 bilateral digital mammograms INDICATION: ITS.REASON: SCREENING taking estrogen. No new complaints noncontributory family history. TECHNIQUE: Standard CC and MLO images were obtained. R2 CAD reviewed. FINDINGS: . Moderately dense areas heterogeneous breast tissue towards upper-outer quadrant but overall stable pattern with no significant new findings. RIGHT BREAST:Stable fibroglandular pattern follow-up in one year. LEFT BREAST:Stable fibroglandular pattern. Heterogeneous areas unchanged follow-up in one year adequate IMPRESSION: Stable bilateral mammogram. No significant new findings Follow-up one year recommended Asymmetric breast with Regions of of moderately dense heterogeneous tissue bilaterally. BI-RADS Category: 2 Benign Finding(s) RECOMMENDED FOLLOW-UP: 1YR 1 YEAR FOLLOW-UP (A letter has been sent to the patient regarding results of the study.)
== END ==
PROVIDERS: PCP Family Medicine; Visit Provider Family Medicine
DX: Z12.31 Encounter for screening mammogram for malignant neoplasm of breast (principal)
CPT/HCPCS: 77067

== ENCOUNTER → 2018-06-04 08:56 | Outpatient (POV) | payer MEDICARE, MEDICAID, SELFPAY ==
[2018-06-04 09:04] VITALS: BP 159/98; PULSE 89; RESP 18; O2SAT 98; BMI 26.5
--- NOTE | 2018-06-04 09:10 | P.CONS_ITS ---
[facility] Pain Management SOAP Note Subjective:: Is a very pleasant 53-year-old white female who presents today for follow-up. Patient had orthopedic appointments for her thumb and states she is doing much better however her back pain is about a 7 out of 10. Patient states is different than her SI joint pain. Patient states occasional movement makes it worse and it is just in the very base of her back with no radiation. Patient does have a history of spondylosis. I believe facet joint injections may be beneficial for her. Patient is looking for a long-term solution in regards to her pain. Patient is on medication along with anti-inflammatories. Patient has tried and failed physical therapy however she is continuing a home stretching program. She has had good relief with injections in the past. ROS General: no recent weight change, no fever, no sleep disturbances Respiratory: no cough, no shortness of air, no recurring pulmonary infections Cardiovascular/Peripheral Vascular: No chest pain, No palpitations, no edema, no shortness of breath. Gastrointestinal: no incontinence, normal bowel movements reported Genitourinary: no incontinence Musculoskeletal: Back pain Psychiatric: normal mood/ affect Neurological: [denies weakness in extremities], [denies balance issues] Objective:: Physical Exam General: Alert and oriented x3, no acute distress, pleasant and cooperative, [on room air] Lungs: Resps E/U, Symmetrical chest expansion, Eyes: PERRL Musculoskeletal: Flexion and extension of lumbar spine somewhat guarded secondary to pain, deep tendon reflexes normal, strength in upper and lower extremities [5/5], slightly antalgic gait noted, positive Kemps test bilateral lumbar spine, positive facet loading lumbar spine Neurological: speech clear, bar pilot equal, no gross sensory deficits Assessment:: Degenerative disc disease lumbar spine with lumbar spondylosis Plan:: We will schedule L3-L4 L4-L5 bilateral medial branch block/facet joint injections to determine if this is beneficial for her. I believe that she may be a candidate for rhizotomy in the future. I will follow-up with her after her injection. She is not on any anticoagulation therapy. This note was dictated using voice recognition software and may contain errors or omissions
== END ==
PROVIDERS: PCP Family Medicine; Visit Provider Clinical Nurse Specialist Family Health
DX: M51.36 Other intervertebral disc degeneration, lumbar region (principal); M47.896 Other spondylosis, lumbar region
CPT/HCPCS: 99213

== ENCOUNTER → 2018-07-01 13:46 | Outpatient (POV) | payer MEDICARE, MEDICAID, SELFPAY ==
[2018-07-01 14:18] VITALS: BP 162/97; PULSE 93; RESP 18; O2SAT 99; BMI 29.6
--- NOTE | 2018-07-01 14:51 | HMH.PAINSOAP ---
[facility] Pain Management SOAP Note Subjective:: Patient is a pleasant 53-year-old white female who presents today after medial branch block at L3-L4 L4-L5. Patient states after her injection she had 90% relief of her symptoms. Patient is doing well she is having some SI joint pain at this time however she states she did really well after the medial branch block and is interested in repeating it. She states she is much more functional after the injection. ROS General: no recent weight change, no fever, no sleep disturbances Respiratory: no cough, no shortness of air, no recurring pulmonary infections Cardiovascular/Peripheral Vascular: No chest pain, No palpitations, no edema, no shortness of breath. Gastrointestinal: no incontinence, normal bowel movements reported Genitourinary: no incontinence Musculoskeletal: Back pain Psychiatric: normal mood/ affect, Neurological: [denies weakness in extremities], [denies balance issues] Objective:: Physical Exam General: Alert and oriented x3, no acute distress, pleasant and cooperative, [on room air] Lungs: Resps E/U, Symmetrical chest expansion, Eyes: PERRL Musculoskeletal: Flexion and extension of lumbar spine somewhat guarded secondary to pain, deep tendon reflexes normal, strength in upper and lower extremities [5/5], slightly antalgic gait noted, positive Kemps test bilateral lumbar spine Neurological: speech clear, plasma processing technician equal, no gross sensory deficits Assessment:: Degenerative disc disease lumbar spine with lumbar spondylosis and facet arthropathy Plan:: We will repeat her L3-L4 L4-L5 bilateral medial branch block/facet joint injection. I do believe she would be a candidate for rhizotomy given her successful medial branch block. She is not on any anticoagulation therapy. She is continuing a home stretching therapy. Patient is on anti-inflammatories. Dr. Nash has reviewed this note and agrees with this plan of care. This note was dictated using voice recognition software and may contain errors or omissions
== END ==
PROVIDERS: PCP Family Medicine; Visit Provider Clinical Nurse Specialist Family Health
DX: M51.36 Other intervertebral disc degeneration, lumbar region (principal); M47.896 Other spondylosis, lumbar region; M54.06 Panniculitis affecting regions of neck and back, lumbar region
CPT/HCPCS: 99213

== ENCOUNTER → 2018-08-06 10:36 | Outpatient (POV) | payer MEDICARE, MEDICAID, SELFPAY ==
[2018-08-06 11:02] VITALS: BP 148/98; PULSE 98; RESP 18; O2SAT 98; BMI 26.3
--- NOTE | 2018-08-06 11:26 | HMH.PAINSOAP ---
[facility] Pain Management SOAP Note Subjective:: Patient is a pleasant 53-year-old white female who presents today for follow-up after her second medial branch block. Patient states that her back pain has pretty much resolved rating her pain a 2 out of 10. Patient is having some left leg weakness and what she states it has foot drop intermittently on the left side. Patient states she has numbness and tingling on the left leg however she does not have the same back pain treated previously. ROS General: no recent weight change, no fever, no sleep disturbances Respiratory: no cough, no shortness of air, no recurring pulmonary infections Cardiovascular/Peripheral Vascular: No chest pain, No palpitations, no edema, no shortness of breath. Gastrointestinal: no incontinence, normal bowel movements reported Genitourinary: no incontinence Musculoskeletal: Back pain, leg pain on the left side Psychiatric: normal mood/ affect Neurological: [denies weakness in extremities], [denies balance issues] Objective:: Physical Exam General: Alert and oriented x3, no acute distress, pleasant and cooperative, [on room air] Lungs: Resps E/U, Symmetrical chest expansion, Eyes: PERRL Musculoskeletal: Flexion and extension of lumbar spine somewhat guarded secondary to pain, deep tendon reflexes normal, strength in upper and right lower extremities [5/5], [abnormal gait noted] left lower extremity 4/5 Neurological: speech clear, pesticide chemist equal, no gross sensory deficits Assessment:: Degenerative disc disease lumbar spine with lumbar radiculopathy and spondylosis Plan:: We will procure a new MRI for the patient given the difference in pain symptomology and involvement of her left leg. I will follow-up with her after her MRI and reassess her symptoms at that time. Dr. Nash has reviewed this note and agrees with this plan of care. This note was dictated using voice recognition software and may contain errors or omissions
== END ==
PROVIDERS: PCP Family Medicine; Visit Provider Clinical Nurse Specialist Family Health
DX: M51.16 Intervertebral disc disorders with radiculopathy, lumbar region (principal); M47.896 Other spondylosis, lumbar region
CPT/HCPCS: 99213

== ENCOUNTER → 2018-08-12 08:14 | Outpatient (CLI) | payer MEDICARE, MEDICAID, SELFPAY | PROVIDERS: PCP Family Medicine; Visit Provider Clinical Nurse Specialist Family Health | DX: M54.5 Low back pain (principal) ==

== ENCOUNTER → 2018-08-14 14:36 | Outpatient (CLI) | payer MEDICARE, MEDICAID, SELFPAY ==
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
== END ==
PROVIDERS: PCP Family Medicine; Visit Provider Clinical Nurse Specialist Family Health
DX: M54.5 Low back pain (principal)
CPT/HCPCS: 72131

== ENCOUNTER → 2018-08-19 14:56 | Outpatient (POV) | payer MEDICARE, MEDICAID, SELFPAY ==
[2018-08-19 15:24] VITALS: BP 167/95; PULSE 87; RESP 18; O2SAT 98; BMI 26.3
--- NOTE | 2018-08-19 15:45 | HMH.PAINSOAP ---
[facility] Pain Management SOAP Note Subjective:: Is a pleasant 53-year-old white female who presents today after CT scan. Patient CT shows doing this along with degenerative disc disease. Patient rates her pain a 6 out of 10. Patient has been battling sinus infections for quite some time she is currently on antibiotics and steroids. She is going to see a new ENT for consultation. I believe that this is important to get this taken care of prior to any more injections. ROS General: no recent weight change, no fever, no sleep disturbances Respiratory: no cough, no shortness of air, no recurring pulmonary infections Cardiovascular/Peripheral Vascular: No chest pain, No palpitations, no edema, no shortness of breath. Gastrointestinal: no incontinence, normal bowel movements reported Genitourinary: no incontinence Musculoskeletal: Back pain, leg pain Psychiatric: normal mood/ affect Neurological: [denies weakness in extremities], [denies balance issues] Objective:: Physical Exam General: Alert and oriented x3, no acute distress, pleasant and cooperative, [on room air] Lungs: Resps E/U, Symmetrical chest expansion, Eyes: PERRL Musculoskeletal: Flexion and extension of lumbar spine somewhat guarded secondary to pain, deep tendon reflexes normal, strength in upper and lower extremities [5/5], [abnormal gait noted] Neurological: speech clear, licensed optical dispenser equal, no gross sensory deficits Assessment:: Degenerative disc disease lumbar radiculopathy Plan:: I believe at this time the patient needs to finish her antibiotics along with seeing her new ENT. We will follow-up with her in a month or 2 after she has been seen and assessed by her ENT. Patient's been instructed to call the office if she has any issues prior to her next appointment. Dr. Nash has reviewed this note and agrees with this plan of care. This note was dictated using voice recognition software and may contain errors or omissions
--- NOTE | 2018-08-19 15:48 | P.CONS_ITS ---
[facility] Pain Management SOAP Note Subjective:: Is a pleasant 53-year-old white female who presents today after CT scan. Patient CT shows doing this along with degenerative disc disease. Patient rates her pain a 6 out of 10. Patient has been battling sinus infections for quite some time she is currently on antibiotics and steroids. She is going to see a new ENT for consultation. I believe that this is important to get this taken care of prior to any more injections. ROS General: no recent weight change, no fever, no sleep disturbances Respiratory: no cough, no shortness of air, no recurring pulmonary infections Cardiovascular/Peripheral Vascular: No chest pain, No palpitations, no edema, no shortness of breath. Gastrointestinal: no incontinence, normal bowel movements reported Genitourinary: no incontinence Musculoskeletal: Back pain, leg pain Psychiatric: normal mood/ affect Neurological: [denies weakness in extremities], [denies balance issues] Objective:: Physical Exam General: Alert and oriented x3, no acute distress, pleasant and cooperative, [on room air] Lungs: Resps E/U, Symmetrical chest expansion, Eyes: PERRL Musculoskeletal: Flexion and extension of lumbar spine somewhat guarded secondary to pain, deep tendon reflexes normal, strength in upper and lower extremities [5/5], [abnormal gait noted] Neurological: speech clear, team otr truck driver equal, no gross sensory deficits Assessment:: Degenerative disc disease lumbar radiculopathy Plan:: I believe at this time the patient needs to finish her antibiotics along with seeing her new ENT. We will follow-up with her in a month or 2 after she has been seen and assessed by her ENT. Patient's been instructed to call the office if she has any issues prior to her next appointment. Dr. Nash has reviewed this note and agrees with this plan of care. This note was dictated using voice recognition software and may contain errors or omissions
== END ==
PROVIDERS: PCP Family Medicine; Visit Provider Clinical Nurse Specialist Family Health
DX: M51.16 Intervertebral disc disorders with radiculopathy, lumbar region (principal)
CPT/HCPCS: 99213

== ENCOUNTER → 2018-08-27 09:52 | Outpatient (CLI) | payer MEDICARE, SELFPAY ==
[2018-08-27 10:40] LABS: Basophils # 0.2 K/mm3 (0-0.2); Basophils % 1.3 % (0.1-2.0); Eosinophils # 0.1 K/mm3 (0.0-0.4); Eosinophils % 0.8 % (0.1-12.0); Hematocrit 44.8 % (37.0-47.0); Hemoglobin 15.1 g/dL (12.2-16.2); Lymphocytes # 6.1 K/mm3 (0.7-4.5); Lymphocytes % 46.3 % (10-50); Mean Corpuscular HGB Conc 33.7 g/dL (31.8-35.4); Mean Corpuscular Hemoglobin 32.7 pg (27.0-31.2); Mean Platelet Volume 6.8 fl (7.4-10.4); Monocytes # 0.9 K/mm3 (0.1-1.0); Monocytes % 6.8 % (1.7-9.3); Neutrophils # 5.9 K/mm3 (1.8-7.8); Neutrophils % 44.8 % (37.0-80.0); Red Blood Count 4.62 M/mm3 (4.20-5.40); Red Cell Distribution Width 12.9 % (11.5-17.5); White Blood Count 13.3 K/mm3 (4.8-10.8)
[2018-08-27 11:21] LABS: C-Reactive Protein 0.9 mg/L (0.0-0.9)
[2018-08-27 11:33] LABS: Erythrocyte Sedimentation Rate 10 mm/hr (0-30)
[2018-08-27 11:48] LABS: Platelet Count 620 K/mm3 (142-424)
[2018-08-28 08:26] LABS: HIV Screen 4th Generation wRfx Non Reactive (Non Reactive)
[2018-08-28 09:16] LABS: Immunoglobulin A, Qn 146 mg/dL (87-352)
[2018-08-28 14:12] LABS: Immunoglobulin M, Qn 31 mg/dL (26-217)
[2018-08-28 16:14] LABS: IgG, Subclass 1 638 mg/dL (248-810); IgG, Subclass 2 251 mg/dL (130-555); IgG, Subclass 3 44 mg/dL (15-102); Immunoglobulin G, Qn 911 mg/dL (700-1600)
[2018-08-29 15:12] LABS: IgG, Subclass 4 38 mg/dL (2-96)
[2018-09-04 14:26] LABS: Immunoglobulin E, Total 17 IU/mL (6-495)
== END ==
PROVIDERS: Visit Provider Otolaryngology
DX: J32.9 Chronic sinusitis, unspecified (principal); J31.0 Chronic rhinitis; F17.210 Nicotine dependence, cigarettes, uncomplicated
CPT/HCPCS: 36415; 82784; 82785; 82787; 85025; 85651; 86140; 86703; G0432

== ENCOUNTER → 2018-10-15 09:23 | Outpatient (POV) | payer MEDICARE, SELFPAY ==
[2018-10-15 09:42] VITALS: BP 153/82; PULSE 102; RESP 18; O2SAT 98; BMI 25.5
--- NOTE | 2018-10-15 09:49 | HMH.PAINSOAP ---
[facility] Pain Management SOAP Note Subjective:: This is a pleasant 53-year-old white female who presents today with complaints of low back pain. He is received injections in the past, but has been battling a sinus infection for quite some time, and was prescribed antibiotics and steroids. She does report that she is feeling better. She is no Longer taking antibiotics or steroids, she does rate her pain 8 out of 10 today. She also reports that the pain is radiating to her left thigh area. She has continued with her home stretching program. ROS General: no recent weight change, no fever, no sleep disturbances Respiratory: no cough, no shortness of air, no recurring pulmonary infections Cardiovascular/Peripheral Vascular: No chest pain, No palpitations, no edema, no shortness of breath. Gastrointestinal: no incontinence, normal bowel movements reported Genitourinary: no incontinence Musculoskeletal: Back pain, leg pain and SI joint pain Psychiatric: normal mood/ affect, [denies depression], [denies anxiety] Neurological: [denies weakness in extremities], [denies balance issues] Objective:: Physical Exam General: Alert and oriented x3, no acute distress, pleasant and cooperative, [on room air] Lungs: Resps E/U, Symmetrical chest expansion, Eyes: PERRL Musculoskeletal: Flexion and extension of lumbar spine somewhat guarded secondary to pain, deep tendon reflexes normal, strength in upper and lower extremities [5/5], slightly antalgic gait noted,Patient does have a positive Kayla test, SI compression test, and Diaz's test bilaterally. Neurological: speech clear, foreign legal consultant equal, no gross sensory deficits Assessment:: Degenerative disc disease lumbar radiculopathy Plan:: We will schedule the patient for bilateral SI joint injections. Patient has had this in the past with up to 80% relief for 2 months. Continue her home stretching program. Refill her tramadol 50 mg 1 p.o. 4 times daily. We will start decreasing this after her injections. Dr. Nash has reviewed this note and agrees with this plan of care. This note was dictated using voice recognition software and may contain errors or omissions
--- NOTE | 2018-10-15 09:52 | P.CONS_ITS ---
[facility] Pain Management SOAP Note Subjective:: This is a pleasant 53-year-old white female who presents today with complaints of low back pain. He is received injections in the past, but has been battling a sinus infection for quite some time, and was prescribed antibiotics and steroids. She does report that she is feeling better. She is no Longer taking antibiotics or steroids, she does rate her pain 8 out of 10 today. She also reports that the pain is radiating to her left thigh area. She has continued with her home stretching program. ROS General: no recent weight change, no fever, no sleep disturbances Respiratory: no cough, no shortness of air, no recurring pulmonary infections Cardiovascular/Peripheral Vascular: No chest pain, No palpitations, no edema, no shortness of breath. Gastrointestinal: no incontinence, normal bowel movements reported Genitourinary: no incontinence Musculoskeletal: Back pain, leg pain and SI joint pain Psychiatric: normal mood/ affect, [denies depression], [denies anxiety] Neurological: [denies weakness in extremities], [denies balance issues] Objective:: Physical Exam General: Alert and oriented x3, no acute distress, pleasant and cooperative, [on room air] Lungs: Resps E/U, Symmetrical chest expansion, Eyes: PERRL Musculoskeletal: Flexion and extension of lumbar spine somewhat guarded secondary to pain, deep tendon reflexes normal, strength in upper and lower extremities [5/5], slightly antalgic gait noted,Patient does have a positive Kayla test, SI compression test, and Diaz's test bilaterally. Neurological: speech clear, ground surveillance systems operator equal, no gross sensory deficits Assessment:: Degenerative disc disease lumbar radiculopathy Plan:: We will schedule the patient for bilateral SI joint injections. Patient has had this in the past with up to 80% relief for 2 months. Continue her home stretching program. Refill her tramadol 50 mg 1 p.o. 4 times daily. We will start decreasing this after her injections. Dr. Nash has reviewed this note and agrees with this plan of care. This note was dictated using voice recognition software and may contain errors or omissions
--- NOTE | 2018-10-16 14:07 | PC.PHONENOTE ---
called in Rx for Tramadol HCL 50mg QID with 1 refill per provider order
== END ==
PROVIDERS: PCP Family Medicine; Visit Provider Clinical Nurse Specialist Family Health
DX: M51.16 Intervertebral disc disorders with radiculopathy, lumbar region (principal)
CPT/HCPCS: 99212

== ENCOUNTER → 2018-11-05 13:00 | Day surgery (SDC) | payer MEDICARE, SELFPAY ==
--- NOTE | 2018-11-05 13:38 | HMH.PMPROC ---
- Procedure Date: 11/05/18 Time: 13:38 Anesthesiologist:: Mini Stafford APRN Complications:: None Pre-procedure Diagnosis:: Sacroiliitis, degenerative disc disease lumbar spine lumbar radiculopathy Post-procedure Diagnosis:: Same Indications for Procedure:: Patient is a pleasant 53-year-old white female who presents today for follow-up bilateral SI joint injections. She is had this in the past with 80% relief up to a month. She rates her pain today an 8 out of 10. She has a positive Kayla test positive Diaz's test and positive SI joint compression test bilaterally. Physical Exam General: Alert and oriented x3, no acute distress, pleasant and cooperative, [on room air] Lungs: Resps E/U, Symmetrical chest expansion, Eyes: PERRL Musculoskeletal: Flexion and extension of lumbar spine somewhat guarded secondary to pain, deep tendon reflexes normal, strength in upper and lower extremities [5/5], slightly antalgic gait noted Neurological: speech clear, director of education and training equal, no gross sensory deficits Procedure Details:: Informed consent was obtained and the risks and benefits of the procedure were explained to the patient. Patient was taken to the procedure room. Patient was placed prone on the procedure table. The [right] hip was prepped using ChloraPrep as a cleansing solution. The skin and subcutaneous tissues were anesthetized using lidocaine. Using fluoroscopic guidance I placed a 22-gauge spinal needle into the inferior aspect of the [right] SI joint. After this I injected 5 mL bupivacaine 0.25% and Depo-Medrol 40 mg into the [right] SI joint. The patient tolerated the procedure well with no complication. We then moved onto the left side The left hip was prepped using ChloraPrep as a cleansing solution. The skin and subcutaneous tissues were anesthetized using lidocaine. Using fluoroscopic guidance I placed a 22-gauge spinal needle into the inferior aspect of the left SI joint. After this I injected 5 mL bupivacaine 0.25% and Depo-Medrol 40 mg into the left SI joint. The patient tolerated the procedure well with no complication. Plan and Disposition:: We will see the patient back in 2 to 3 weeks reassess her symptoms at that time she instructed to call the office if she has any issues prior to her next appointment. Dr. Nash has reviewed this note and agrees with this plan of care. This note was dictated using voice recognition software and may contain errors or omissions
[2018-11-05 13:39] VITALS: BP 142/106; PULSE 110; RESP 18; TEMP 36.7; O2SAT 94; BMI 26.3
[2018-11-05 13:49] VITALS: BP 139/80; PULSE 90; RESP 18; TEMP 36.7; O2SAT 94
[2018-11-05 15:10] VITALS: BP 168/91; PULSE 100; RESP 18; O2SAT 98; O2SAT 99
== END ==
PROVIDERS: PCP Family Medicine; Visit Provider Clinical Nurse Specialist Family Health
DX: M46.1 Sacroiliitis, not elsewhere classified (principal); M51.16 Intervertebral disc disorders with radiculopathy, lumbar region
CPT/HCPCS: 27096; G0260; J1030; Q9966

== ENCOUNTER → 2018-11-26 10:25 | Outpatient (POV) | payer MEDICARE, SELFPAY ==
[2018-11-26 10:42] VITALS: BP 179/84; PULSE 111; RESP 18; O2SAT 98; BMI 29.8
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
== END ==
PROVIDERS: PCP Family Medicine; Visit Provider Clinical Nurse Specialist Family Health
DX: M51.16 Intervertebral disc disorders with radiculopathy, lumbar region (principal); M54.2 Cervicalgia
CPT/HCPCS: 99212

== ENCOUNTER → 2018-12-02 13:39 | Outpatient (CLI) | payer MEDICARE, SELFPAY ==
--- NOTE | 2018-12-02 13:42 | CT_ITS ---
CT CERVICAL SPINE WITHOUT CONTRAST CT RECONSTRUCTIONS HISTORY:Neck pain radiating down the left arm ORDERING PHYSICIAN: Nanda De Souza PATIENT AGE: 53 years COMPARISON: None Technique: All CT scans at the facility use one or more dose reduction, viz: automated exposure control, ma/kV adjustment per patient size (including targeted exams where dose is matched to indication, i.e. head), or iterative reconstruction technique PROCEDURE: Axial spiral CT scanning performed of the cervical spine beginning at the base of the skull and continuing to the upper T-spine. 3-D multiplanar reconstruction with 3-D manipulation of volumetric data set in image rendering was completed by the radiologist and/or technologist with the supervision of the radiologist on independent workstation. FINDINGS: There is normal alignment. No fracture or dislocation evident. C2-C3: Minimal left foraminal narrowing from facet and uncovertebral hypertrophy. C3-C4: Mild degenerative disc disease with moderate right-sided foraminal narrowing from facet and uncovertebral hypertrophy. C4-C5: Facet hypertrophic change on the left with mild left-sided foraminal narrowing. Mild degenerative disc disease C5-C6: Left-sided facet hypertrophic change with mild left-sided foraminal narrowing. Mild degenerative disc disease C6-C7: Mild right foraminal narrowing from facet hypertrophy. C7-T1: Unremarkable. There are small blebs in the lung apices. There is partial opacification of left mastoid air cells. IMPRESSION: 1. Mild multilevel cervical spondylosis with degenerative disc disease along with facet and uncovertebral arthropathy as described above. Please see above for detailed description at each level 2. Left mastoid sinus disease
== END ==
PROVIDERS: PCP Family Medicine; Visit Provider Psychiatry & Neurology Neurology
DX: M50.30 Other cervical disc degeneration, unspecified cervical region (principal)
CPT/HCPCS: 72125

== ENCOUNTER → 2018-12-02 14:12 | Outpatient (POV) | payer MEDICARE, SELFPAY ==
--- NOTE | 2018-12-02 14:25 | HMH.PAINSOAP ---
[facility] Pain Management SOAP Note Subjective:: Patient is a pleasant 53-year-old white female who presents today for increased neck pain. Patient had occipital nerve blocks in which she has had complete relief of her headaches. Since then she has had an exacerbation of neck pain that is on the left side. It worsens with turning her head. Patient and I discussed a medial branch block and she is interested in this. She is failed oral medications in regards to this. She rates her pain as a 5 out of 10 today. ROS General: no recent weight change, no fever, no sleep disturbances Respiratory: no cough, no shortness of air, no recurring pulmonary infections Cardiovascular/Peripheral Vascular: No chest pain, No palpitations, no edema, no shortness of breath. Gastrointestinal: no incontinence, normal bowel movements reported Genitourinary: no incontinence Musculoskeletal: Neck pain Psychiatric: normal mood/ affect Neurological: [denies weakness in extremities], [denies balance issues] Objective:: Physical Exam General: Alert and oriented x3, no acute distress, pleasant and cooperative, [on room air] Lungs: Resps E/U, Symmetrical chest expansion, Eyes: PERRL Musculoskeletal: Flexion and extension of cervical spine somewhat guarded secondary to pain, deep tendon reflexes normal, strength in upper and lower extremities [5/5], slightly antalgic gait noted positive facet loading cervical spine on the left side Neurological: speech clear, child support agent equal, no gross sensory deficits , Positive Spurling's test Assessment:: Degenerative disc disease cervical spine, cervical facet arthropathy Plan:: We will schedule a C4-C5 C5-C6 medial branch block on the left side believe it be beneficial given her symptomology a follow-up with the patient after her injection reassess her symptoms at that time. She has failed conservative measures including medications. She is also continuing a home stretching program. And is on anti-inflammatories. She is not on any anticoagulation therapy. Dr. Nash has reviewed this note and agrees with this plan of care. This note was dictated using voice recognition software and may contain errors or omissions
[2018-12-02 14:26] VITALS: BP 136/88; PULSE 85; RESP 18; O2SAT 98; BMI 25.8
== END ==
PROVIDERS: PCP Family Medicine; Visit Provider Clinical Nurse Specialist Family Health
DX: M50.30 Other cervical disc degeneration, unspecified cervical region (principal); M54.02 Panniculitis affecting regions of neck and back, cervical region; M54.12 Radiculopathy, cervical region; R51 Headache
CPT/HCPCS: 72125; 99212

== ENCOUNTER → 2019-01-06 13:50 | Outpatient (POV) | payer MEDICARE, SELFPAY ==
[2019-01-06 13:57] VITALS: BP 186/85; PULSE 110; RESP 18; O2SAT 98; BMI 25.8
--- NOTE | 2019-01-06 14:05 | HMH.PAINSOAP ---
[facility] Pain Management SOAP Note Subjective:: Patient is a pleasant 53-year-old white female who presents today for follow-up after C4-C5 C5-C6 bilateral cervical medial branch block. Patient is done extremely well she rates her pain in her neck is 0 she states she is able to turn her neck she is able to lay down on a pillow she is also not having any more headaches. Overall she is extremely pleased with her progress. Patient states her only complaint of pain today is her lower back. It is very facet-like in nature. She has difficulty twisting. It is worse on the left side. She is not on any anticoagulation therapy and is continuing a home stretching program. She is on anti-inflammatories and tramadol 50 mg 1 p.o. 4 times daily that she takes as needed. [facility] #[id number] reviewed and appropriate. ROS General: no recent weight change, no fever, no sleep disturbances Respiratory: no cough, no shortness of air, no recurring pulmonary infections Cardiovascular/Peripheral Vascular: No chest pain, No palpitations, no edema, no shortness of breath. Gastrointestinal: no incontinence, normal bowel movements reported Genitourinary: no incontinence Musculoskeletal: Back pain Psychiatric: normal mood/ affect Neurological: [denies weakness in extremities], [denies balance issues] Objective:: Physical Exam General: Alert and oriented x3, no acute distress, pleasant and cooperative, [on room air] Lungs: Resps E/U, Symmetrical chest expansion, Eyes: PERRL Musculoskeletal: Flexion and extension of lumbar spine somewhat guarded secondary to pain, deep tendon reflexes normal, strength in upper and lower extremities [5/5], slightly antalgic gait noted, positive facet loading lumbar spine positive Kemps test Neurological: speech clear, police booking officer equal, no gross sensory deficits Assessment:: 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 Patient's not on any anticoagulation therapy. He is continuing home stretching program. Dr. Nash has reviewed this note and agrees with this plan of care. This note was dictated using voice recognition software and may contain errors or omissions Pain Management Hx Components *Have you ever received a pneumonia vaccine?: Yes *Have you received a flu vaccine this season?: Yes - *Social History *Occupational Status:: other *Travel in the last 8 weeks: None
--- NOTE | 2019-01-06 14:08 | P.CONS_ITS ---
[facility] Pain Management SOAP Note Subjective:: Patient is a pleasant 53-year-old white female who presents today for follow-up after C4-C5 C5-C6 bilateral cervical medial branch block. Patient is done extremely well she rates her pain in her neck is 0 she states she is able to turn her neck she is able to lay down on a pillow she is also not having any more headaches. Overall she is extremely pleased with her progress. Patient states her only complaint of pain today is her lower back. It is very facet- like in nature. She has difficulty twisting. It is worse on the left side. She is not on any anticoagulation therapy and is continuing a home stretching program. She is on anti-inflammatories and tramadol 50 mg 1 p.o. 4 times daily that she takes as needed. [facility] #[id number] reviewed and appropriate. ROS General: no recent weight change, no fever, no sleep disturbances Respiratory: no cough, no shortness of air, no recurring pulmonary infections Cardiovascular/Peripheral Vascular: No chest pain, No palpitations, no edema, no shortness of breath. Gastrointestinal: no incontinence, normal bowel movements reported Genitourinary: no incontinence Musculoskeletal: Back pain Psychiatric: normal mood/ affect Neurological: [denies weakness in extremities], [denies balance issues] Objective:: Physical Exam General: Alert and oriented x3, no acute distress, pleasant and cooperative, [on room air] Lungs: Resps E/U, Symmetrical chest expansion, Eyes: PERRL Musculoskeletal: Flexion and extension of lumbar spine somewhat guarded secondary to pain, deep tendon reflexes normal, strength in upper and lower extremities [5/5], slightly antalgic gait noted, positive facet loading lumbar spine positive Kemps test Neurological: speech clear, structural steel painter 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 Patient's not on any anticoagulation therapy. He is continuing home stretching program. Dr. Nash has reviewed this note and agrees with this plan of care. This note was dictated using voice recognition software and may contain errors or omissions Pain Management Hx Components *Have you ever received a pneumonia vaccine?: Yes *Have you received a flu vaccine this season?: Yes - *Social History *Occupational Status:: other *Travel in the last 8 weeks: None
== END ==
PROVIDERS: PCP Family Medicine; Visit Provider Clinical Nurse Specialist Family Health
DX: M50.30 Other cervical disc degeneration, unspecified cervical region (principal); M51.36 Other intervertebral disc degeneration, lumbar region; M47.9 Spondylosis, unspecified
CPT/HCPCS: 99212

== ENCOUNTER → 2019-02-03 10:46 | Outpatient (POV) | payer MEDICARE, MEDICAID, SELFPAY ==
[2019-02-03 12:29] VITALS: BP 182/89; PULSE 90; RESP 18; O2SAT 98; BMI 25.8
--- NOTE | 2019-02-03 12:37 | HMH.PAINSOAP ---
[facility] Pain Management SOAP Note Subjective:: Patient is a very pleasant 53-year-old white female who presents today for follow-up after lumbar facet joint injection. She got 100% relief of her symptoms and is doing extremely well. Her neck pain has returned. She has had one cervical medial branch block/facet joint injection at C4-C5 C5-C6 where she got 90% relief of her symptoms for over 3 weeks. Patient is interested in repeating this and potentially having a rhizotomy. She has no current infection. She is not on any anticoagulation therapy. She is failed 6 months of conservative therapy. She is on anti-inflammatories. She is continuing a home stretching program. ROS General: no recent weight change, no fever, no sleep disturbances Respiratory: no cough, no shortness of air, no recurring pulmonary infections Cardiovascular/Peripheral Vascular: No chest pain, No palpitations, no edema, no shortness of breath. Gastrointestinal: no incontinence, normal bowel movements reported Genitourinary: no incontinence Musculoskeletal: Neck pain Psychiatric: normal mood/ affect Neurological: [denies weakness in extremities], [denies balance issues] Objective:: Physical Exam General: Alert and oriented x3, no acute distress, pleasant and cooperative, [on room air] Lungs: Resps E/U, Symmetrical chest expansion, Eyes: PERRL Musculoskeletal: Flexion and extension of cervical spine somewhat guarded secondary to pain, deep tendon reflexes normal, strength in upper and lower extremities [5/5], normal gait noted Neurological: speech clear, credit review analyst equal, no gross sensory deficits Assessment:: Degenerative disc disease cervical spine with cervical spondylosis and facet arthropathy, degenerative disc disease lumbar spine with lumbar facet arthropathy Plan:: We will schedule a repeat C4-C5 C5-C6 cervical medial branch block/facet joint injection bilaterally. Given the efficacy of this in the past I do believe it would be beneficial for her she may be a candidate for rhizotomy in the future. She is been instructed to call the office if she has any issues prior to her next appointment. Dr. Nash has reviewed this note and agrees with this plan of care. This note was dictated using voice recognition software and may contain errors or omissions Pain Management Hx Components *Have you ever received a pneumonia vaccine?: Yes *Have you received a flu vaccine this season?: Yes - *Social History *Occupational Status:: other *Travel in the last 8 weeks: None
== END ==
PROVIDERS: PCP Family Medicine; Visit Provider Clinical Nurse Specialist Family Health
DX: M50.30 Other cervical disc degeneration, unspecified cervical region (principal); M47.892 Other spondylosis, cervical region; M51.36 Other intervertebral disc degeneration, lumbar region; M54.06 Panniculitis affecting regions of neck and back, lumbar region
CPT/HCPCS: 99212

== ENCOUNTER → 2019-03-11 08:29 | Outpatient (POV) | payer MEDICARE, SELFPAY ==
[2019-03-11 08:46] VITALS: BP 138/78; PULSE 88; RESP 18; O2SAT 96; BMI 25.7
--- NOTE | 2019-03-11 12:39 | HMH.PAINSOAP ---
[facility] Pain Management SOAP Note Subjective:: Patient is a pleasant 53-year-old white female who presents today for follow-up after cervical medial branch block. Overall she is doing well she rates her pain a 2 out of 10. She is much more functional. Patient is continuing on her tramadol and is doing well with this as well. ROS General: no recent weight change, no fever, no sleep disturbances Respiratory: no cough, no shortness of air, no recurring pulmonary infections Cardiovascular/Peripheral Vascular: No chest pain, No palpitations, no edema, no shortness of breath. Gastrointestinal: no new onset incontinence, normal bowel movements reported Genitourinary: no new onset incontinence Musculoskeletal: Neck pain Psychiatric: normal mood/ affect Neurological: [denies new onset weakness in extremities], [denies new onset balance issues] Objective:: Physical Exam General: Alert and oriented x3, no acute distress, pleasant and cooperative, [on room air] Lungs: Resps E/U, Symmetrical chest expansion, Eyes: PERRL Musculoskeletal: Flexion and extension of: Cervical and lumbar spine somewhat guarded secondary to pain, deep tendon reflexes normal, strength in upper and lower extremities [5/5], [abnormal gait noted] Neurological: speech clear, dealer support technician equal, no gross sensory deficits Assessment:: 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 Patient is not in need of refills today. Dr. Nash has reviewed this note and agrees with this plan of care. This note was dictated using voice recognition software and may contain errors or omissions [facility] History I have reviewed the patient's past medical history: Yes Medical History: Reports:: Diabetes Mellitus Type 2, Hypertension, MRSA, Seizures Denies:: Cancer, Diabetes Mellitus Type 1 *Have you ever received a pneumonia vaccine?: Yes *Have you received a flu vaccine this season?: No Other Medical History: Reports: Thyroid Disease Laterality Cases: Bilateral: Myringotomy (Ear Tubes) Other Surgeries: Yes: Cholecystectomy, Colonoscopy, Hysterectomy-Total, Splenectomy, Other Amputation: No Fractures: No - *Social History Smoking Status: Current every day smoker Tobacco Type: cigarettes # Packs/Day (cigarettes): 1 Alcohol Intake: never *Occupational Status:: other Housing: apartment Household Members: none *Travel in the last 8 weeks: None Family Hx:: Diabetes, Thyroid Disorder
== END ==
PROVIDERS: PCP Family Medicine; Visit Provider Clinical Nurse Specialist Family Health
DX: M50.30 Other cervical disc degeneration, unspecified cervical region (principal); M54.02 Panniculitis affecting regions of neck and back, cervical region; M51.36 Other intervertebral disc degeneration, lumbar region; M54.06 Panniculitis affecting regions of neck and back, lumbar region
CPT/HCPCS: 99212

== ENCOUNTER → 2019-05-05 12:24 | Outpatient (POV) | payer MEDICARE, MEDICAID, SELFPAY ==
[2019-05-05 13:11] VITALS: BP 155/95; PULSE 90; RESP 18; O2SAT 99; BMI 26.6
--- NOTE | 2019-05-05 13:42 | HMH.PAINSOAP ---
[facility] Pain Management SOAP Note Subjective:: Patient is a pleasant 53-year-old white female who presents today for follow-up. Patient is having additional left leg and low back pain. Patient is done well with injections in the past. Patient would like to move forward with an injection. She has had this in the past with good relief. She rates her pain today an 8 out of 10. ROS General: no recent weight change, no fever, no sleep disturbances Respiratory: no cough, no shortness of air, no recurring pulmonary infections Cardiovascular/Peripheral Vascular: No chest pain, No palpitations, no edema, no shortness of breath. Gastrointestinal: no new onset incontinence, normal bowel movements reported Genitourinary: no new onset incontinence Musculoskeletal: Pain, left leg pain Psychiatric: normal mood/ affect Neurological: [denies new onset weakness in extremities], [denies new onset balance issues] Objective:: Physical Exam General: Alert and oriented x3, no acute distress, pleasant and cooperative, [on room air] Lungs: Resps E/U, Symmetrical chest expansion, Eyes: PERRL Musculoskeletal: Flexion and extension of lumbar spine somewhat guarded secondary to pain, deep tendon reflexes normal, strength in upper and lower extremities [5/5], [abnormal gait noted] Neurological: speech clear, plant attendant or assistant operator equal, no gross sensory deficits Assessment:: Degenerative disc disease lumbar spine with lumbar radiculopathy Plan:: We will schedule an L4-L5 left transforaminal MARIALUISA for the patient. I believeIt would be beneficial given her symptomology. She is not on any anticoagulation therapy and is continuing a home stretching program. I will follow-up with her after her injection reassess her symptoms at that time she is been instructed to call the office if she has any issues prior to her next appointment. Dr. Nash has reviewed this note and agrees with this plan of care. This note was dictated using voice recognition software and may contain errors or omissions [facility] History I have reviewed the patient's past medical history: Yes Medical History: Reports:: Diabetes Mellitus Type 2, Hypertension, MRSA, Seizures Denies:: Cancer, Diabetes Mellitus Type 1 *Have you ever received a pneumonia vaccine?: Yes *Have you received a flu vaccine this season?: Yes Other Medical History: Reports: Thyroid Disease Laterality Cases: Bilateral: Myringotomy (Ear Tubes) Other Surgeries: Yes: Cholecystectomy, Colonoscopy, Hysterectomy-Total, Splenectomy, Other Amputation: No Fractures: No - *Social History Smoking Status: Current every day smoker Tobacco Type: cigarettes # Packs/Day (cigarettes): 1 Alcohol Intake: never *Occupational Status:: other Housing: apartment Household Members: none *Travel in the last 8 weeks: None Family Hx:: Diabetes, Thyroid Disorder
--- NOTE | 2019-05-05 14:03 | P.CONS_ITS ---
[facility] Pain Management SOAP Note Subjective:: Patient is a pleasant 53-year-old white female who presents today for follow-up. Patient is having additional left leg and low back pain. Patient is done well with injections in the past. Patient would like to move forward with an injection. She has had this in the past with good relief. She rates her pain today an 8 out of 10. ROS General: no recent weight change, no fever, no sleep disturbances Respiratory: no cough, no shortness of air, no recurring pulmonary infections Cardiovascular/Peripheral Vascular: No chest pain, No palpitations, no edema, no shortness of breath. Gastrointestinal: no new onset incontinence, normal bowel movements reported Genitourinary: no new onset incontinence Musculoskeletal: Pain, left leg pain Psychiatric: normal mood/ affect Neurological: [denies new onset weakness in extremities], [denies new onset balance issues] Objective:: Physical Exam General: Alert and oriented x3, no acute distress, pleasant and cooperative, [on room air] Lungs: Resps E/U, Symmetrical chest expansion, Eyes: PERRL Musculoskeletal: Flexion and extension of lumbar spine somewhat guarded secondary to pain, deep tendon reflexes normal, strength in upper and lower extremities [5/5], [abnormal gait noted] Neurological: speech clear, structural design engineer equal, no gross sensory deficits Assessment:: Degenerative disc disease lumbar spine with lumbar radiculopathy Plan:: We will schedule an L4-L5 left transforaminal MARIALUISA for the patient. I believeIt would be beneficial given her symptomology. She is not on any anticoagulation therapy and is continuing a home stretching program. I will follow-up with her after her injection reassess her symptoms at that time she is been instructed to call the office if she has any issues prior to her next appointment. Dr. Nash has reviewed this note and agrees with this plan of care. This note was dictated using voice recognition software and may contain errors or omissions [facility] History I have reviewed the patient's past medical history: Yes Medical History: Reports:: Diabetes Mellitus Type 2, Hypertension, MRSA, Seizures Denies:: Cancer, Diabetes Mellitus Type 1 *Have you ever received a pneumonia vaccine?: Yes *Have you received a flu vaccine this season?: Yes Other Medical History: Reports: Thyroid Disease Laterality Cases: Bilateral: Myringotomy (Ear Tubes) Other Surgeries: Yes: Cholecystectomy, Colonoscopy, Hysterectomy-Total, Splenectomy, Other Amputation: No Fractures: No - *Social History Smoking Status: Current every day smoker Tobacco Type: cigarettes # Packs/Day (cigarettes): 1 Alcohol Intake: never *Occupational Status:: other Housing: apartment Household Members: none *Travel in the last 8 weeks: None Family Hx:: Diabetes, Thyroid Disorder
== END ==
PROVIDERS: PCP Family Medicine; Visit Provider Clinical Nurse Specialist Family Health
DX: M51.16 Intervertebral disc disorders with radiculopathy, lumbar region (principal)
CPT/HCPCS: 99212

== ENCOUNTER → 2019-05-19 15:47 | Outpatient (CLI) | payer MEDICARE, MEDICAID, SELFPAY ==
--- NOTE | 2019-05-19 16:11 | MM_ITS ---
PROCEDURE: MM DIG SCREENING MAMM BI W/CAD CLINICAL INDICATION: SCREENING There is a history of breast cancer in the patient's maternal grandmother and maternal aunt. COMPARISON: [facility] DIG MAMM-SCREEN [facility] from 05/08/2016 [facility] DIG MAMM-SCREEN [facility] W/CAD from 05/14/2017 [facility] MM Dig screening mamm BI w/CAD from 05/13/2018 TECHNIQUE: Standard CC and MLO images were obtained. R2 CAD reviewed. FINDINGS: Moderate diffuse heterogenic fibroglandular densities are seen throughout both breasts. There are stable areas of asymmetric glandular elements in the upper outer quadrants of both breast. There is no new or suspicious lesion in either breast and no suspicious microcalcifications. IMPRESSION: Moderate breast density with no suspicious lesions seen BI-RAD Category: 1 Negative FOLLOW-UP: 1YR 1 Year Follow-up (A letter has been sent to the patient regarding results of the study.) Dictated by: Dr. Kris Villa MD 05/21/2019 13:[address] Kris Villa MD in [place] 05/21/2019 13:19
== END ==
PROVIDERS: PCP Family Medicine; Visit Provider Family Medicine
DX: Z12.31 Encounter for screening mammogram for malignant neoplasm of breast (principal)
CPT/HCPCS: 77067

== ENCOUNTER → 2019-05-26 14:59 | Outpatient (POV) | payer MEDICARE, MEDICAID, SELFPAY ==
[2019-05-26 16:26] LABS: Basophils # 0.2 K/mm3 (0-0.2); Basophils % 1.4 % (0.1-2.0); Eosinophils # 0.2 K/mm3 (0.0-0.4); Hematocrit 44.7 % (37.0-47.0); Hemoglobin 14.2 g/dL (12.2-16.2); Lymphocytes # 5.2 K/mm3 (0.7-4.5); Mean Corpuscular HGB Conc 31.8 g/dL (31.8-35.4); Mean Corpuscular Hemoglobin 31.2 pg (27.0-31.2); Mean Platelet Volume 6.7 fl (7.4-10.4); Monocytes # 0.6 K/mm3 (0.1-1.0); Monocytes % 4.9 % (1.7-9.3); Neutrophils # 5.7 K/mm3 (1.8-7.8); Neutrophils % 47.7 % (37.0-80.0); Platelet Count 604 K/mm3 (142-424); Red Blood Count 4.57 M/mm3 (4.20-5.40); Red Cell Distribution Width 13.6 % (11.5-17.5); White Blood Count 11.9 K/mm3 (4.8-10.8)
[2019-05-26 17:37] LABS: Alanine Aminotransferase 11 U/L (12-78); Alkaline Phosphatase 98 U/L (46-116); Anion Gap 15.3 mEq/L (5-15); Aspartate Amino Transferase 21 U/L (15-37); Bilirubin,Total 0.2 mg/dL (0.2-1.0); Blood Urea Nitrogen 7 mg/dL (7-18); Calcium 8.9 mg/dL (8.5-10.1); Carbon Dioxide 25 mmol/L (21.0-32.0); Chloride 98 mmol/L (98-107); Creatinine,Serum 0.42 mg/dL (0.55-1.02); Estimated Glomerular Filt Rate 157 ml/min (>60); GFR (African American) 190 ML/MIN (>60); Glucose 126 mg/dL (74-106); Potassium 4.3 mmoL/L (3.5-5.1); Sodium 134 mmol/L (136-145); Total Protein,Serum 7.2 gm/dL (6.4-8.2)
[2019-05-26 18:23] LABS: Albumin Level 3.7 gm/dL (3.4-5.0); Albumin/Globulin Ratio 1.1 (1.1-1.8); Globulin 3.5 gm/dl (1.3-3.2)
== END ==
PROVIDERS: Visit Provider Nurse Practitioner Family
DX: R10.32 Left lower quadrant pain (principal); R19.4 Change in bowel habit
CPT/HCPCS: 36415; 80053; 85025

== ENCOUNTER → 2019-06-04 08:39 | Outpatient (CLI) | payer MEDICARE, MEDICAID, SELFPAY ==
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
== END ==
PROVIDERS: PCP Family Medicine; Visit Provider Nurse Practitioner Family
DX: R19.4 Change in bowel habit (principal); R10.32 Left lower quadrant pain
CPT/HCPCS: 74177; Q9967

== ENCOUNTER → 2019-06-23 08:43 | Outpatient (POV) | payer MEDICARE, MEDICAID, SELFPAY ==
[2019-06-23 09:20] VITALS: BP 157/92; PULSE 98; RESP 18; O2SAT 98; BMI 26.3
--- NOTE | 2019-06-23 16:27 | P.CONS_ITS ---
[facility] Pain Management SOAP Note Subjective:: Patient is a pleasant 54-year-old white female who presents to day with increased pain. Patient's main pain is in her neck and arm. She rates her pain a 6 out of 10. Patient had a left sided transforaminal epidural injection. She states that it was extremely painful for her and she would like to not do that again. Patient is having blurriness it with her vision along with other issues in regards to her sinuses. She is had rare sinus infections that are fungal in nature in the past. I encouraged her to go see her primary care physician. I do believe that potentially could be exacerbating any pain that she is having. Patient and I discussed doing a short round of steroids to see if this is beneficial but then I do believe we need to discuss a more long-term solution to her plane such as neuro stimulation. ROS General: no recent weight change, no fever, no sleep disturbances Respiratory: no cough, no shortness of air, no recurring pulmonary infections Cardiovascular/Peripheral Vascular: No chest pain, No palpitations, no edema, no shortness of breath. Gastrointestinal: no new onset incontinence, normal bowel movements reported Genitourinary: no new onset incontinence Musculoskeletal: Neck pain, back pain Psychiatric: normal mood/ affect Neurological: [denies new onset weakness in extremities], [denies new onset balance issues] Objective:: Physical Exam General: Alert and oriented x3, no acute distress, pleasant and cooperative, [on room air] Lungs: Resps E/U, Symmetrical chest expansion, Eyes: PERRL Musculoskeletal: Flexion and extension of cervical and lumbar spine somewhat guarded secondary to pain, deep tendon reflexes normal, strength in upper and lower extremities [5/5], [abnormal gait noted] Neurological: speech clear, crane operator cab equal, no gross sensory deficits Assessment:: Degenerative disc disease cervical and lumbar spine with radiculopathy Plan:: I encouraged the patient to see her primary care to get different antibiotics and potentially prophylactic fungal medication for her sinus infection. Patient understands. We will also start her on prednisone 20 mg 1 p.o. twice daily for 5 days. I will follow-up with her in a week reassess her symptoms at that time she has been instructed to call the office if she has any issues prior to her next appointment. Dr. Nash has reviewed this note and agrees with this plan of care. This note was dictated using voice recognition software and may contain errors or omissions [facility] History I have reviewed the patient's past medical history: Yes Medical History: Reports:: Diabetes Mellitus Type 2, Hypertension, MRSA, Seizures Denies:: Cancer, Diabetes Mellitus Type 1 *Have you ever received a pneumonia vaccine?: Yes *Have you received a flu vaccine this season?: Yes Other Medical History: Reports: Thyroid Disease Laterality Cases: Bilateral: Myringotomy (Ear Tubes) Other Surgeries: Yes: Cholecystectomy, Colonoscopy, Hysterectomy-Total, Splenectomy, Other Amputation: No Fractures: No - *Social History Smoking Status: Current every day smoker Tobacco Type: cigarettes # Packs/Day (cigarettes): 1 Alcohol Intake: never *Occupational Status:: other Housing: apartment Household Members: none *Travel in the last 8 weeks: None Family Hx:: Diabetes, Thyroid Disorder
== END ==
PROVIDERS: PCP Family Medicine; Visit Provider Clinical Nurse Specialist Family Health
DX: M50.10 Cervical disc disorder with radiculopathy, unspecified cervical region (principal); E11.9 Type 2 diabetes mellitus without complications; I10 Essential (primary) hypertension; Z86.14 Personal history of Methicillin resistant Staphylococcus aureus infection; Z72.0 Tobacco use
CPT/HCPCS: 99212

== ENCOUNTER → 2019-07-01 09:37 | Outpatient (POV) | payer MEDICARE, MEDICAID, SELFPAY ==
[2019-07-01 09:46] VITALS: BP 136/84; PULSE 98; RESP 18; O2SAT 99; BMI 25.8
--- NOTE | 2019-07-01 09:58 | P.CONS_ITS ---
[facility] Pain Management SOAP Note Subjective:: Patient is a very pleasant 54-year-old white female who presents today for follow-up. Patient is having continual low back and left leg pain. Patient states that it has become an issue in regards to her being able to do her activities of daily living. Patient has had multiple epidural injections and sympathetic blocks which have given her short-term relief however she has not had any long-term relief from it. Patient rates her pain today a 5 out of 10. Patient and I discussed a neurostimulator and she is interested in moving forward with that. Patient is having left leg swelling along with color changes in that area. Patient has burning numbness and tingling in that left leg as well. Patient is tried and failed medications including anticonvulsants and antidepressants. Patient's tried other medications as well however due to side effects she is unable to continue them. Patient has done physical therapy in the past and has continued a home stretching therapy program with the physical therapist guided instruction. She is had pain for over 2 years. ROS General: no recent weight change, no fever, no sleep disturbances Respiratory: no cough, no shortness of air, no recurring pulmonary infections Cardiovascular/Peripheral Vascular: No chest pain, No palpitations, no edema, no shortness of breath. Gastrointestinal: no new onset incontinence, normal bowel movements reported Genitourinary: no new onset incontinence Musculoskeletal: Back pain, left leg pain Psychiatric: normal mood/ affect Neurological: [denies new onset weakness in extremities], [denies new onset balance issues] Objective:: Physical Exam General: Alert and oriented x3, no acute distress, pleasant and cooperative, [on room air] Lungs: Resps E/U, Symmetrical chest expansion, Eyes: PERRL Musculoskeletal: Flexion and extension of lumbar spine somewhat guarded se condary to pain, deep tendon reflexes normal, strength in upper and lower extremities [5/5], [abnormal gait noted] Neurological: speech clear, planimeter operator equal, no gross sensory deficits Assessment:: Degenerative disc disease lumbar spine with lumbar radiculopathy and CRPS type II Plan:: We will schedule the patient for a psychological evaluation to determine if she is a good candidate for a neurostimulator. Patient will be a [employer] neurostimulator trial. We will focus on her low back and leg pain. I will follow-up with her after her psychological evaluation and reassess her at that time. Dr. Nash has reviewed this note and agrees with this plan of care. This note was dictated using voice recognition software and may contain errors or omissions [facility] History I have reviewed the patient's past medical history: Yes Medical History: Reports:: Diabetes Mellitus Type 2, Hypertension, MRSA, Seizures Denies:: Cancer, Diabetes Mellitus Type 1 *Have you ever received a pneumonia vaccine?: Yes *Have you received a flu vaccine this season?: Yes Other Medical History: Reports: Thyroid Disease Laterality Cases: Bilateral: Myringotomy (Ear Tubes) Other Surgeries: Yes: Cholecystectomy, Colonoscopy, Hysterectomy-Total, Splenectomy, Other Amputation: No Fractures: No - *Social History Smoking Status: Current every day smoker Tobacco Type: cigarettes # Packs/Day (cigarettes): 1 Alcohol Intake: never *Occupational Status:: other Housing: apartment Household Members: none *Travel in the last 8 weeks: None Family Hx:: Diabetes, Thyroid Disorder
== END ==
PROVIDERS: PCP Family Medicine; Visit Provider Clinical Nurse Specialist Family Health
DX: M51.16 Intervertebral disc disorders with radiculopathy, lumbar region (principal); G57.72 Causalgia of left lower limb
CPT/HCPCS: 99212

== ENCOUNTER → 2019-10-01 09:12 | Outpatient (CLI) | payer MEDICARE, MEDICAID, SELFPAY ==
[2019-10-01 08:28] VITALS: BMI 26.3
[2019-10-01 10:11] LABS: Basophils # 0.2 K/mm3 (0-0.2); Basophils % 1.6 % (0.1-2.0); Eosinophils # 0.2 K/mm3 (0.0-0.4); Eosinophils % 1.3 % (0.1-12.0); Hematocrit 45.2 % (37.0-47.0); Hemoglobin 14.9 g/dL (12.2-16.2); Lymphocytes # 3.7 K/mm3 (0.7-4.5); Lymphocytes % 32.1 % (10-50); Mean Corpuscular HGB Conc 32.9 g/dL (31.8-35.4); Mean Corpuscular Hemoglobin 32.8 pg (27.0-31.2); Mean Corpuscular Volume 99.5 fl (81-99); Monocytes # 0.8 K/mm3 (0.1-1.0); Monocytes % 7.3 % (1.7-9.3); Neutrophils # 6.6 K/mm3 (1.8-7.8); Neutrophils % 57.7 % (37.0-80.0); Platelet Count 642 K/mm3 (142-424); Red Blood Count 4.54 M/mm3 (4.20-5.40); Red Cell Distribution Width 12.3 % (11.5-17.5); White Blood Count 11.5 K/mm3 (4.8-10.8)
[2019-10-01 11:05] LABS: Anion Gap 13.3 mEq/L (5-15); Blood Urea Nitrogen 8 mg/dl (7-17); Carbon Dioxide 24 mmol/L (22.0-30.0); Chloride 97 mmol/L (98-107); Creatinine Clearance Estimated 189 mL/min (50-200); Estimated Glomerular Filt Rate 165 ml/min (>60); GFR (African American) 200 ML/MIN (>60); Glucose 146 mg/dl (74-100); Potassium 4.3 mmoL/L (3.5-5.1); Sodium 130 mmol/L (136-145)
[2019-10-02 15:06] LABS: Covid-19 Nasal PCR Sendout Lex NOT DETECTED
== END ==
PROVIDERS: Visit Provider Anesthesiology
DX: Z01.818 Encounter for other preprocedural examination (principal); M51.36 Other intervertebral disc degeneration, lumbar region
CPT/HCPCS: 36415; 80048; 85025; U0003

== ENCOUNTER 2019-10-03 10:21 | Day surgery (SDC) | payer MEDICARE, MEDICAID, SELFPAY ==
--- NOTE | 2019-09-30 09:29 | SUR.PREOP ---
09/30/19 @ 4896--PHONE CALL MADE TO PATIENT. PATIENT UNDERSTANDS THAT LAB WORK AND COVID TESTING NEEDS TO BE COMPLETED @ 0900 ON 10/01/19. PATIENT UNDERSTANDS IF LAB WORK AND COVID-19 TESTS ARE NOT COMPLETED BY 12PM ON THAT DATE, THE SURGERY SCHEDULED WILL BE CANCELLED AND RESCHEDULED FOR ANOTHER TIME.
[2019-10-01 08:05] VITALS: BMI 26.3
[2019-10-02 09:03] VITALS: BMI 27.7
[2019-10-03] VITALS (9 sets, daily range): BP systolic 104–186; BP diastolic 68–101; PULSE 90–96; RESP 18; TEMP 36.1; O2SAT 95–99
--- NOTE | 2019-10-03 12:41 | P.PN_ITS ---
[facility] Anesthesia Checklist - Patient Identification Patient Identification: Arm Band - Structural Data Admitted From: Home Planned Operative Procedure/s: neurostimulator trial leads placement under fluoroscopy Consent for Planned Operative Procedure(s) Verified: Yes Verified Documents: Surgical Consent, History and Physical - NPO Status Verified Time NPO: 00:00 - Additional verifications Anesthesia Reactions: No Hx Blood Transfusions: Yes Blood Transfusion Reaction: No - Airway Assessment C-Spine Mobility Assessed: Yes (mp2) TMJ Mobility Assessed: Yes Dentition: Good Dentition - Neurological Assessment Level of Consciousness: Awake, Alert - Anesthesia Plan Anesthesia Risk discussed: Yes Anesthesia Plan: Verified ASA Class: III Anesthesia Type: MAC [facility] History I have reviewed the patient's past medical history: Yes Medical History: Reports:: Diabetes Mellitus Type 2, Hypertension, MRSA, Seizures Denies:: Cancer, Diabetes Mellitus Type 1, Internal Pacemaker *Have you ever received a pneumonia vaccine?: Yes *Have you received a flu vaccine this season?: Yes Other Medical History: Reports: Thyroid Disease. Denies: Blood Transfusion Reaction Anesthesia experience/problems:: nac Laterality Cases: Bilateral: Myringotomy (Ear Tubes) Other Surgeries: Yes: Cholecystectomy, Colonoscopy, Hysterectomy-Total, Splenectomy, Other. No: Pacemaker Amputation: No Fractures: No - *Social History Educational Level: Completed High School Smoking Status: Current every day smoker Tobacco Type: cigarettes # Packs/Day (cigarettes): 1 Alcohol Intake: never Substance Use Type: denies use *Occupational Status:: disabled Housing: apartment Household Members: none *Travel in the last 8 weeks: None Family Hx:: Cancer, Diabetes, Heart Attack, Hyperlipidemia, Hypertension, Kidney Disease, Thyroid Disorder, Substance abuse, Alcoholism
--- NOTE | 2019-10-03 13:36 | P.OP_ITS ---
Date of procedure: 10/03/19 Pre-op Diagnosis:: Degenerative disc disease of lumbar spine with lumbar radiculopathy symptoms Post-op Diagnosis:: Same Procedure performed:: Spinal cord stimulator trial with epidural lead placement x2 Surgeon:: Bassem Nash MD [employer]VIR[employer]MENT[employer]UDIES FACULTY MEMBER:: Prateek Carmona Anesthesia: MAC Estimated blood loss (mL): 1 Clinical Note:: This patient is a pleasant 54-year-old white female who we are treating for low back pain with lumbar radicular symptoms. She has increasing pain in her low back radiating down her left leg. She does have some numbness and tingling in her left leg as well. She is failed all conservative treatments including injections, oral medications and she is not a surgical candidate. She has had a successful psychological evaluation. We will do a spinal cord stimulator trial today to see if this will help with her radicular symptoms and her back pain. Operative findings:: None Operative note:: Spinal cord stimulator trial Informed consent was obtained the risk and benefits of the procedure were explained to the patient. Patient was taken to the procedure room. Back was prepped using ChloraPrep. The skin and subcutaneous tissues were anesthetized using lidocaine. I placed a 17-gauge epidural needle and advanced into the L2- L3 interspace. After confirmation of needle placement in the epidural space stimulating lead was inserted and advanced very easily to the T8-T9 vertebral body. Placement was checked in AP and lateral views. After this a second needle was inserted and advanced again into the L2-L3 interspace. Again after confirmation of needle placement in the epidural space a second stimulating lead was inserted and again advanced very easily to the T8-T9 vertebral body. Placement was checked in AP and lateral views. The stylette and needles were withdrawn. The leads were secured in place. Patient was taken to recovery in stable condition. Patient was programmed by the [employer] resources representative and got good stimulation in all areas of pain. Patient tolerated the procedure well with no complications. Patient was discharged home neurologically intact with good relief of her pain symptoms. Plan and disposition: We will follow-up with her in 3 days for reprogramming. We will follow-up in 1 week for lead pull. If she has any problems or questions she is to call us back in the pain clinic. Condition: stable Disposition: PACU Complications:: None
[2019-10-03 14:25] LABS: POC Glucose,Bedside 132 (70-110)
== END 2019-10-03 14:58 | disposition home or self-care (01) ==
LOC: OR 10:23
PROVIDERS: PCP Family Medicine; Visit Provider Anesthesiology
DX: M51.16 Intervertebral disc disorders with radiculopathy, lumbar region (principal); E11.9 Type 2 diabetes mellitus without complications; I10 Essential (primary) hypertension; E07.9 Disorder of thyroid, unspecified; Z86.69 Personal history of other diseases of the nervous system and sense organs; Z86.14 Personal history of Methicillin resistant Staphylococcus aureus infection; Z72.0 Tobacco use; Z80.9 Family history of malignant neoplasm, unspecified; Z83.3 Family history of diabetes mellitus; Z82.49 Family history of ischemic heart disease and other diseases of the circulatory system; Z83.438 Family history of other disorder of lipoprotein metabolism and other lipidemia; Z81.1 Family history of alcohol abuse and dependence
CPT/HCPCS: 63650 ×2; 82962; 96374; C1778; J2704; J3370

== ENCOUNTER 2019-10-08 10:32 | Outpatient (POV) | payer MEDICARE, MEDICAID, SELFPAY ==
[2019-10-08 09:30] VITALS: BP 137/76; PULSE 94; RESP 18; O2SAT 97; BMI 28.1
--- NOTE | 2019-10-08 14:50 | HMH.PAINSOAP ---
[facility] Pain Management SOAP Note Subjective:: Patient is a pleasant 54-year-old white female who underwent spinal cord stimulator trial with [employer] system. She had 80 to 90% relief in her pain symptoms. She is much more functional. She did very well. This was a successful spinal cord stimulator trial. We will pull her leads today. Her leads were at the T8-T9 vertebral bodies. She had good programming in this area. Objective:: Leads were pulled intact. Patient does have an antalgic gait. Motor strength of the upper and lower extremities is 5/5. There are no gross sensory deficit. Assessment:: Degenerative disc disease of lumbar spine with lumbar radiculopathy symptoms Plan:: We will plan on permanent placement of spinal cord stimulator system. This is a [employer] system. Leads will be at the T8-T9 vertebral bodies. [facility] History I have reviewed the patient's past medical history: Yes Medical History: Reports:: Diabetes Mellitus Type 2, Hypertension, MRSA, Seizures Denies:: Cancer, Diabetes Mellitus Type 1, Internal Pacemaker *Have you ever received a pneumonia vaccine?: Yes *Have you received a flu vaccine this season?: Yes Other Medical History: Reports: Thyroid Disease. Denies: Blood Transfusion Reaction Laterality Cases: Bilateral: Myringotomy (Ear Tubes) Other Surgeries: Yes: Cholecystectomy, Colonoscopy, Hysterectomy-Total, Splenectomy, Other. No: Pacemaker Amputation: No Fractures: No - *Social History Smoking Status: Current every day smoker Tobacco Type: cigarettes # Packs/Day (cigarettes): 1 Alcohol Intake: never Substance Use Type: denies use *Occupational Status:: employed Housing: apartment Household Members: none *Travel in the last 8 weeks: None Family Hx:: Cancer, Diabetes, Heart Attack, Hyperlipidemia, Hypertension, Kidney Disease, Thyroid Disorder, Substance abuse, Alcoholism
== END 2019-10-08 10:50 | disposition home or self-care (01) ==
LOC: SC.PAIN 10:32
PROVIDERS: PCP Family Medicine; Visit Provider Anesthesiology
DX: M51.16 Intervertebral disc disorders with radiculopathy, lumbar region (principal)
CPT/HCPCS: 99212

== ENCOUNTER → 2020-02-10 07:53 | Outpatient (CLI) | payer MEDICARE, MEDICAID, SELFPAY ==
[2020-02-10 08:25] LABS: Basophils # 0.2 K/mm3 (0-0.2); Basophils % 1.6 % (0.1-2.0); Eosinophils # 0.2 K/mm3 (0.0-0.4); Eosinophils % 1.8 % (0.1-12.0); Hematocrit 41.7 % (37.0-47.0); Hemoglobin 14.5 g/dL (12.2-16.2); Lymphocytes # 5.5 K/mm3 (0.7-4.5); Lymphocytes % 44.6 % (10-50); Mean Corpuscular HGB Conc 34.7 g/dL (31.8-35.4); Mean Corpuscular Volume 97.8 fl (81-99); Mean Platelet Volume 7.1 fl (7.4-10.4); Monocytes # 0.9 K/mm3 (0.1-1.0); Neutrophils # 5.6 K/mm3 (1.8-7.8); Platelet Count 633 K/mm3 (142-424); Red Blood Count 4.26 M/mm3 (4.20-5.40); Red Cell Distribution Width 12.4 % (11.5-17.5); White Blood Count 12.4 K/mm3 (4.8-10.8)
[2020-02-10 09:02] LABS: Chloride 93 mmol/L (98-107); Sodium 129 mmol/L (136-145)
[2020-02-10 09:05] LABS: Blood Urea Nitrogen 7 mg/dl (7-17); Estimated Glomerular Filt Rate 230 ml/min (>60); GFR (African American) 278 ML/MIN (>60)
[2020-02-10 09:06] LABS: Calcium 9.5 mg/dl (8.4-10.2); Carbon Dioxide 27 mmol/L (22.0-30.0); Glucose 134 mg/dl (74-100)
[2020-02-10 10:14] LABS: Coronavirus 19 IgG Antibody Negative (Negative); Coronavirus 19 IgM Antibody Negative (Negative)
== END ==
PROVIDERS: Visit Provider Anesthesiology
DX: Z01.818 Encounter for other preprocedural examination (principal); M51.36 Other intervertebral disc degeneration, lumbar region
CPT/HCPCS: 36415; 80048; 85025; 86328

== ENCOUNTER 2020-02-11 07:12 | Day surgery (SDC) | payer MEDICARE, MEDICAID, SELFPAY ==
[2020-02-09 13:58] VITALS: BMI 25.2
[2020-02-11] VITALS (7 sets, daily range): BP systolic 117–153; BP diastolic 72–85; PULSE 99–108; RESP 14–18; TEMP 36.1–36.3; O2SAT 94–97
[2020-02-11 07:45] LABS: POC Glucose,Bedside 134 (70-110)
--- NOTE | 2020-02-11 09:47 | HMH.ANESCL ---
[facility] Anesthesia Checklist - Structural Data Admitted From: Home Planned Operative Procedure/s: nerve stimulator implant Consent for Planned Operative Procedure(s) Verified: Yes - Additional verifications Anesthesia Reactions: No Hx Blood Transfusions: Yes Blood Transfusion Reaction: No - Airway Assessment C-Spine Mobility Assessed: Yes TMJ Mobility Assessed: Yes Dentition: Good Dentition - Neurological Assessment Level of Consciousness: Awake, Alert, Appropriate - Anesthesia Plan Anesthesia Risk discussed: Yes Anesthesia Plan: Verified ASA Class: II Anesthesia Type: MAC [facility] History I have reviewed the patient's past medical history: Yes Medical History: Reports:: Diabetes Mellitus Type 2, Hypertension, Seizures Denies:: Cancer, Diabetes Mellitus Type 1, Internal Pacemaker, MRSA *Have you ever received a pneumonia vaccine?: No *Have you received a flu vaccine this season?: No Other Medical History: Reports: Thyroid Disease. Denies: Blood Transfusion Reaction Anesthesia experience/problems:: none Laterality Cases: Bilateral: Myringotomy (Ear Tubes) Other Surgeries: Yes: Cholecystectomy, Colonoscopy, Hysterectomy-Total, Splenectomy, Other. No: Pacemaker Amputation: No Fractures: No - *Social History Last grade of school completed: High school graduate Smoking Status: Current every day smoker Tobacco Type: cigarettes # Packs/Day (cigarettes): 1 Alcohol Intake: never Substance Use Type: denies use *Occupational Status:: disabled Housing: apartment Household Members: none *Travel in the last 8 weeks: None Family Hx:: Unable to obtain
--- NOTE | 2020-02-11 10:08 | HMH.OPNOTE ---
Date of procedure: 02/11/20 Pre-op Diagnosis:: Degenerative disc disease of lumbar spine with lumbar radiculopathy symptoms Post-op Diagnosis:: Same Procedure performed:: Permanent placement of [employer] spinal cord stimulator system with permanent placement of epidural leads x 2 with tunneling Surgeon:: Bassem Nash MD GUEST RELATIONS COORDINATOR:: Javed Josue Anesthesia: MAC Estimated blood loss (mL): 5 Clinical Note:: Patient is a pleasant 54-year-old white female who we are treating for low back pain with lumbar radicular symptoms. She is failed all previous conservative treatments including physical therapy, oral medications, injections and she has not a surgical candidate. She has had a successful psychological evaluation. She has had a successful spinal cord stimulator trial with 80 to 90% relief in her pain symptoms. She is also much more functional. She presents for permanent placement of her spinal cord stimulator today. Operative findings:: None Operative note:: Informed consent was obtained and the risk and benefits of the procedure was explained to the patient. Patient was taken to the operating room placed prone on the procedure table. She was prepped and draped in sterile fashion. C-arm fluoroscopy was used to view the lumbar spine. The skin and subcutaneous tissues adjacent to the L2-L3 and L3-L4 interspace were anesthetized using lidocaine. I made an incision and dissected down to the lumbar paraspinous fascia. A 17-gauge epidural needle was inserted and advanced into the L3-L4 interspace. After confirmation of needle placement in the epidural space stimulating lead was inserted and advanced very easily to the T7-T8-T9 vertebral body. Lead placement was checked in AP and lateral view. A second needle was then inserted and advanced into the L2-L3 interspace. After confirmation of needle placement in the epidural space stimulating lead was inserted and advanced very easily again to the T7-T8-T9 vertebral body. Again lead placement was checked in AP and lateral views. One lead was at midline and one lead was left of midline. The needles and stylets were withdrawn. The leads were secured in place with anchoring devices and 2-0 Prolene. I tunneled leads from the back to the generator incision created by Dr. Jo I attached the leads to the generator. Impedances were checked and found to be okay. Both incisions were irrigated with bacitracin solution. Both incisions were then closed with 2-0 Vicryl followed by 4-0 nylon. A wound VAC was placed over both incisions. The patient was placed in an abdominal binder and taken recovery in stable condition. She is programmed by the [employer] customer counter representative with good programming and pain relief and stimulation in all areas of pain. Patient tolerated the procedure well with no complications. Patient was discharged home neurologically intact with good relief of pain symptoms. Plan and disposition: We will follow-up with this patient in 1 week for wound check and reprogramming. We will follow-up in 2 weeks for suture removal. If she has any problems or questions she is to call us back in the pain clinic. Condition: stable Disposition: PACU Complications:: None
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
--- NOTE | 2020-02-11 10:23 | P.OP_ITS ---
Date of procedure: 02/11/20 Pre-op Diagnosis:: Degenerative disc disease of the lumbar spine with radiculopathy Post-op Diagnosis:: Same Procedure performed:: Placement of pain stimulator generator Surgeon:: Jaylon Jo MD PLASTIC PARTS FABRICATOR TRIMMER:: Javed Josue, Nakul Serrano, Prateek Carmona, Dung Marcano, Other Anesthesia: MAC Estimated blood loss (mL): 5 Operative findings:: Not applicable Operative note:: Patient was placed prone on the operating table on her back and flank region was prepped and draped in sterile fashion. Once adequate local anesthesia was obtained is 1% Xylocaine with epinephrine as well as IV sedation utilizing anesthesia a paraspinal incision was made by Dr. Stone which 2 epidural leads were placed in the epidural space to the area desired by Dr. Arceo. These leads were then fixed the paraspinal fascia with fixation devices and 2-0 Prolene suture. A right flank incision was then made arch made a pocket for placement of the generator. Utilize a tunneling device and leads were passed on the paraspinal incision of the pocket incision. Both incisions were irrigated with antibiotic solution. Leads fixed to the generator and placed in the pocket cysts. System noted to be working well. Subcutaneous tissues closed with 2-0 Vicryl and skin closed with 4-0 nylon. Wound VAC dressing and a binder applied to the wound. The patient tolerated procedure well was taken recovery room in stable condition. Upon recovery the patient will be discharged home follow-up 1 week for removal of the wound VAC and 2 weeks for removal of this sutures. Antibiotic x1 week per protocol Condition: stable Disposition: PACU Complications:: None
[2020-02-11 10:56] LABS: POC Glucose,Bedside 175 (70-110)
--- NOTE | 2020-02-11 12:51 | PC.NURSE ---
wound vac not suctioning properly, to help rep reinforce dressings . Placed pt on left side lying position. Rep removed right side dressing and reapplied sponge and pravena dressing, reattached suction tube and wound vac worked properly when finished
== END 2020-02-11 12:20 | disposition home or self-care (01) ==
LOC: OR 07:13
PROVIDERS: PCP Family Medicine; Visit Provider Anesthesiology
PROC: (CPT 63650; principal; 2020-02-11 09:00)
DX: M51.16 Intervertebral disc disorders with radiculopathy, lumbar region (principal); E11.9 Type 2 diabetes mellitus without complications; I10 Essential (primary) hypertension; R56.9 Unspecified convulsions; E03.9 Hypothyroidism, unspecified; F41.9 Anxiety disorder, unspecified; F32.9 Major depressive disorder, single episode, unspecified; Z90.49 Acquired absence of other specified parts of digestive tract; Z90.710 Acquired absence of both cervix and uterus; Z90.81 Acquired absence of spleen; Z72.0 Tobacco use; Z96.22 Myringotomy tube(s) status
CPT/HCPCS: 63650 ×2; 63685; 82962; 96374; C1778; C1820; J3370

== ENCOUNTER → 2020-02-20 14:44 | Outpatient (POV) | payer MEDICARE, MEDICAID, SELFPAY ==
[2020-02-20 14:58] VITALS: BP 193/97; PULSE 106; RESP 20; TEMP 36.6; O2SAT 92; BMI 25.2
--- NOTE | 2020-02-20 15:46 | P.CONS_ITS ---
[facility] Pain Management SOAP Note Subjective:: This patient is a pleasant 54-year-old white female who we are treating for low back pain with lumbar radiculopathy symptoms. She is status post permanent placement spinal cord stimulator system with 80 to 90% relief in her pain symptoms. She is doing very well with her stimulator. Incisions have healed very nicely. She has been reprogrammed today to optimize her stimulation. Objective:: Alert and oriented x3 no acute distress. Patient does have an antalgic gait. M otor strength of the lower extremities is 5/5. There are no gross sensory deficit. Incisions are healing very nicely. Assessment:: Degenerative disc disease of lumbar spine with lumbar radiculopathy symptoms Plan:: We will follow-up with her in 1 week. Sutures will be removed at that time. We will reprogram further if needed. [facility] History Medical History: Reports:: Diabetes Mellitus Type 2, Hypertension, Seizures Denies:: Cancer, Diabetes Mellitus Type 1, Internal Pacemaker, MRSA *Have you ever received a pneumonia vaccine?: No *Have you received a flu vaccine this season?: No Other Medical History: Reports: Thyroid Disease. Denies: Blood Transfusion Reaction Laterality Cases: Bilateral: Myringotomy (Ear Tubes) Other Surgeries: Yes: Cholecystectomy, Colonoscopy, Hysterectomy-Total, Splenectomy, Other. No: Pacemaker Amputation: No Fractures: No - *Social History Smoking Status: Current every day smoker Tobacco Type: cigarettes # Packs/Day (cigarettes): 1 Alcohol Intake: never Substance Use Type: denies use *Occupational Status:: other Housing: apartment Household Members: none *Travel in the last 8 weeks: None Family Hx:: Unable to obtain
== END ==
PROVIDERS: PCP Family Medicine; Visit Provider Anesthesiology
DX: M51.16 Intervertebral disc disorders with radiculopathy, lumbar region (principal)
CPT/HCPCS: 99212

== ENCOUNTER → 2020-03-04 11:25 | Outpatient (POV) | payer MEDICARE, MEDICAID, SELFPAY ==
[2020-03-04 12:14] VITALS: BP 112/74; PULSE 85; RESP 18; O2SAT 98; BMI 25.2
--- NOTE | 2020-03-04 12:25 | HMH.PAINSOAP ---
[facility] Pain Management SOAP Note Subjective:: Patient is a very pleasant 54-year-old white female who presents today for follow-up after [employer] spinal cord stimulator placement. Patient says that she was doing well with her stimulator, however, the stimulation has now changed from the left leg and low back to the right leg. Patient says she is not having any pain in the right low back or right leg area. Patient says she is unsure why the stimulation has changed. She did think she was here to see the [employer] stimulator surgical sales representative today, however, the surgical sales representative is unavailable for reprogramming today. She is also here to have her stitches removed. She rates her pain a 4 out of 10. Review of Systems General: No recent weight changes, no fever, no sleep disturbances Respiratory: No cough, no shortness of air, no recurring pulmonary infections Cardiovascular/peripheral vascular: No chest pain, no palpitations, no edema, no shortness of breath Gastrointestinal: No new onset incontinence, normal bowel movements reported Genitourinary: No new onset incontinence Musculoskeletal: Left low back pain, left leg pain with numbness and tingling Psychiatric: Normal mood/affect Neurological: [Denies weakness in extremities], [denies balance issues] Objective:: Physical exam General: Alert and oriented x3, no acute distress, pleasant and cooperative, [on room air] Lungs: Respirations even and unlabored, symmetrical chest expansion Eyes: PERRL Musculoskeletal: Flexion and extension of lumbar spine somewhat guarded secondary to pain, deep tendon reflexes normal, strength in upper and lower extremities [5/5], [abnormal gait noted] Neurological: Speech clear, labor/excavator equal, no gross sensory deficit Integumentary: Incision is well approximated, no redness, no drainage noted to site, no edema noted. Sutures removed Assessment:: Degenerative disc disease lumbar spine with lumbar radiculopathy symptoms Plan:: We will plan to see the patient back in a week for reprogramming with the [employer] spinal cord stimulator. The patient has been instructed to contact the clinic if she has any concerns before next appointment. Her sutures were removed today the incision was well approximated, no redness, no drainage, no edema was noted to the site. The patient and I specifically discussed risk factors for COVID19. These risks include, but are not limited to age greater than 60, heart or lung disease, diabetes, immunosuppression, and travel. We also discussed NSAIDs may worsen COVID19 infection or symptoms. Patient should not use NSAIDs to treat COVID19 signs or symptoms. Patient was also informed that any type of corticosteroid of any form (oral or injection) will decrease the patient's immune system response and may increase the likelihood of COVID19 infection and symptoms[address]. Nash has reviewed this note and agrees with this plan of care. This note was dictated using voice recognition software and make contain errors or omissions. [facility] History I have reviewed the patient's past medical history: Yes Medical History: Reports:: Diabetes Mellitus Type 2, Hypertension, Seizures Denies:: Cancer, Diabetes Mellitus Type 1, Internal Pacemaker, MRSA *Have you ever received a pneumonia vaccine?: Yes *Have you received a flu vaccine this season?: Yes Other Medical History: Reports: Thyroid Disease. Denies: Blood Transfusion Reaction Laterality Cases: Bilateral: Myringotomy (Ear Tubes) Other Surgeries: Yes: Cholecystectomy, Colonoscopy, Hysterectomy-Total, Splenectomy, Other. No: Pacemaker Amputation: No Fractures: No - *Social History Smoking Status: Current every day smoker Tobacco Type: cigarettes # Packs/Day (cigarettes): 1 Alcohol Intake: never Substance Use Type: denies use *Occupational Status:: other Housing: apartment Household Members: none *Travel in the last 8 weeks: None Family Hx:: Unable to obtain
== END ==
PROVIDERS: PCP Family Medicine; Visit Provider Clinical Nurse Specialist Family Health
DX: M51.16 Intervertebral disc disorders with radiculopathy, lumbar region (principal)
CPT/HCPCS: 99213

== ENCOUNTER → 2020-03-18 10:18 | Outpatient (POV) | payer MEDICARE, MEDICAID, SELFPAY ==
[2020-03-18 10:49] VITALS: BP 132/85; PULSE 85; RESP 18; TEMP 36.3; O2SAT 98; BMI 33.2
--- NOTE | 2020-03-18 12:32 | HMH.PAINSOAP ---
[facility] Pain Management SOAP Note Subjective:: Patient is a 54-year-old white female who presents today for follow-up. She is being treated for chronic low back pain with lumbar radiculopathy symptoms. The patient does have a [employer] spinal cord stimulator. She is here today for follow-up. Patient says that she is doing well overall with her stimulator. She does report, however, to have left lateral thigh pain. She says that the stimulator is helping for her left low back area and into her left hip. She also says that she gets relief with the stimulator and to the left lower leg area. She reports to have a pocket to left outer thigh area that is not getting any type of stimulation. She would like to discuss this with the [employer] spinal cord stimulator senior customer service representative. She did make an attempt to contact the senior customer service representative, however, has not been in touch with her. She would like us to contact the stimulator senior customer service representative so that she can meet with her for reprogramming. She says that she still has some occasional low back pain intermittently, however, she says it is very rare and most often only occurs with physical activity. Patient rates her pain a 2 out of 10. Patient did undergo conservative therapies prior to having her stimulator placement. Review of Systems General: No recent weight changes, no fever, no sleep disturbances Respiratory: No cough, no shortness of air, no recurring pulmonary infections Cardiovascular/peripheral vascular: No chest pain, no palpitations, no edema, no shortness of breath Gastrointestinal: No new onset incontinence, normal bowel movements reported Genitourinary: No new onset incontinence Musculoskeletal: Left lateral thigh pain, intermittent left low back pain Psychiatric: Normal mood/affect Neurological: [Denies weakness in extremities], [denies balance issues] Objective:: Physical exam General: Alert and oriented x3, no acute distress, pleasant and cooperative, [on room air] Lungs: Respirations even and unlabored, symmetrical chest expansion Eyes: PERRL Musculoskeletal: Flexion and extension of lumbar spine somewhat guarded secondary to pain, deep tendon reflexes normal, strength in upper and lower extremities [5/5], slightly antalgic gait noted Neurological: Speech clear, military nurse equal, no gross sensory deficit Integumentary: Incision is healed, no redness, no drainage, no edema noted to site Assessment:: Degenerative disc disease lumbar spine with lumbar radiculopathy symptoms Plan:: Overall the patient's doing well with her stimulator. She will likely need some reprogramming with the stimulator senior customer service representative to see if it can help with her left lateral thigh pain. She does feel that the stimulator is very beneficial to her pain at this time. We will plan to see her back for reprogramming. She has been educated to call the clinic if she has any concerns before her next appointment. The patient and I specifically discussed risk factors for COVID19. These risks include, but are not limited to age greater than 60, heart or lung disease, diabetes, immunosuppression, and travel. We also discussed NSAIDs may worsen COVID19 infection or symptoms. Patient should not use NSAIDs to treat COVID19 signs or symptoms. Patient was also informed that any type of corticosteroid of any form (oral or injection) will decrease the patient's immune system response and may increase the likelihood of COVID19 infection [address] symptoms[address] Nash has reviewed this note and agrees with this plan of care. This note was dictated using voice recognition software and make contain errors or omissions. [facility] History I have reviewed the patient's past medical history: Yes Medical History: Reports:: Diabetes Mellitus Type 2, Hypertension, Seizures Denies:: Cancer, Diabetes Mellitus Type 1, Internal Pacemaker, MRSA *Have you ever received a pneumonia vaccine?: Yes *Have you received a flu vaccine this
--- NOTE | 2020-05-12 10:23 | PC.NURSE ---
called in Rx for prednisone 20mg BID x5 days per md order
== END ==
PROVIDERS: PCP Family Medicine; Visit Provider Clinical Nurse Specialist Family Health
DX: M51.16 Intervertebral disc disorders with radiculopathy, lumbar region (principal)
CPT/HCPCS: 99212

== ENCOUNTER → 2020-05-24 08:55 | Outpatient (CLI) | payer MEDICARE, MEDICAID, SELFPAY ==
--- NOTE | 2020-05-24 08:55 | MM_ITS ---
PROCEDURE: MM DIG SCREENING MAMM BI W/CAD Digital Breast Tomosynthesis Included CLINICAL INDICATION: Routine Screening Mammogram There is a history of breast cancer in the patient's maternal grandmother and 2 maternal aunts. Patient is currently on estrogen COMPARISON: MG DMSB DIG MAMM-SCREEN CHARY W/CAD from 05/14/2017 MG SCBI MM Dig screening mamm BI w/CAD from 05/13/2018 MG MM DIG SCREENING MAMM BI W/CAD from 05/19/2019 TECHNIQUE: Standard CC and MLO images and 3D Tomosynthesis was obtained. R2 CAD reviewed. FINDINGS: Moderate diffuse somewhat heterogenic fibroglandular densities are seen in the central portions of both breast and the findings are fairly symmetrical and bilateral. There is a mole marker left breast. There is minimal faint vascular calcification each breast. There are stable focal glandular elements outer quadrant right breast. There is no suspicious lesion and no suspicious microcalcifications. IMPRESSION: Moderate breast density with no suspicious lesions seen BI-RAD Category: 2 Benign Finding(s) FOLLOW-UP: 1YR 1 Year Follow-up (A letter has been sent to the patient regarding results of the study.) Dictated by: Dr. Kris Villa MD 05/26/2020 13:11 Dr. Kris Villa MD in [place] 05/26/2020 13:11
== END ==
PROVIDERS: PCP Family Medicine; Visit Provider Nurse Practitioner Obstetrics & Gynecology
DX: Z12.31 Encounter for screening mammogram for malignant neoplasm of breast (principal)
CPT/HCPCS: 77063; 77067

== ENCOUNTER → 2020-06-14 12:25 | Outpatient (CLI) | payer MEDICARE, MEDICAID, SELFPAY ==
--- NOTE | 2020-06-14 12:33 | XR_ITS ---
PROCEDURE: XR HAND RT MIN 3V CLINICAL INDICATION: BL trigger thumb COMPARISON: No exams were available for comparison FINDINGS: No fracture or dislocation. No lytic or blastic change. There is normal mineralization. The joint spaces are well-preserved. No significant degenerative/arthritic changes. No erosive changes evident. Other findings:Small ununited ossification center noted at the tip of the ulnar styloid IMPRESSION: Negative right hand Dictated by: Jayce Yeung MD 06/14/2020 15:00 Jayce Yeung MD in [place] 06/14/2020 15:00
--- NOTE | 2020-06-14 12:33 | XR_ITS ---
PROCEDURE: XR HAND LT MIN 3V CLINICAL INDICATION: BL trigger thumb COMPARISON: CR XR HAND RT MIN 3V from 06/14/2020 FINDINGS: No fracture or dislocation. No lytic or blastic change. There is normal mineralization. The joint spaces are well-preserved. No significant degenerative/arthritic changes. No erosive changes evident. Other findings:None. IMPRESSION: Negative left hand Dictated by: Jayce Yeung MD 06/14/2020 15:01 Jayce Yeung MD in [place] 06/14/2020 15:01
--- NOTE | 2020-06-14 12:33 | XR_ITS ---
PROCEDURE: XR CERVICAL SPINE 5V CLINICAL INDICATION: CERVICALGIA Right-sided neck pain COMPARISON: No exams were available for comparison FINDINGS: No fracture or dislocation. No lytic or blastic change. Mild degenerative disc disease C3-C4. Minimal anterolisthesis noted at C3-C4 C4-C5 and C5-C6 which may be physiologic. Facet arthritic changes are present C3-C7 with resultant foraminal narrowing on the right at C3-C4 and on the left at C4-C5 and C5-C6. No lytic or blastic change. IMPRESSION: Cervical spondylosis and facet arthritic change as described above Dictated by: Jayce Yeung MD 06/14/2020 14:58 Jayce Yeung MD in [place] 06/14/2020 14:58
== END ==
PROVIDERS: PCP Nurse Practitioner Family; Visit Provider Orthopaedic Surgery
DX: M65.311 Trigger thumb, right thumb (principal); M65.312 Trigger thumb, left thumb; M54.2 Cervicalgia
CPT/HCPCS: 72050; 73130

== ENCOUNTER → 2020-06-17 09:51 | Outpatient (POV) | payer MEDICARE, MEDICAID, SELFPAY ==
[2020-06-17 10:21] VITALS: BP 122/74; PULSE 74; RESP 18; O2SAT 98; BMI 24.9
--- NOTE | 2020-06-17 16:56 | HMH.PAINSOAP ---
[facility] Pain Management SOAP Note Subjective:: Patient is a pleasant 55-year-old white female who presents today for follow-up. She is being treated for chronic low back pain with lumbar radiculopathy symptoms. Patient is having increased pain. She does have a [employer] spinal cord stimulator which does work well however her pain is new and increasing. She rates her pain a 7 out of 10. She is not had any updated imaging. I am concerned in regards to her pain. Patient states that she gets reprogrammed and she has about 3 days of success however her pain then returned. Patient has tried and failed anti-inflammatory medications. ROS General: no recent weight change, no fever, no sleep disturbances Respiratory: no cough, no shortness of air, no recurring pulmonary infections Cardiovascular/Peripheral Vascular: No chest pain, No palpitations, no edema, no shortness of breath. Gastrointestinal: no new onset incontinence, normal bowel movements reported Genitourinary: no new onset incontinence Musculoskeletal: Back pain, leg pain Psychiatric: normal mood/ affect Neurological: [denies new onset weakness in extremities], [denies new onset balance issues] Objective:: Physical Exam General: Alert and oriented x3, no acute distress, pleasant and cooperative, [on room air] Lungs: Resps E/U, Symmetrical chest expansion, Eyes: PERRL Musculoskeletal: Flexion and extension of lumbar spine somewhat guarded secondary to pain, deep tendon reflexes normal, strength in upper and lower extremities [5/5], [abnormal gait noted] Neurological: speech clear, gynecologist equal, no gross sensory deficits Assessment:: Degenerative disc disease lumbar spine lumbar radiculopathy symptoms Plan:: Patient's failed anti-inflammatories along with steroids. Patient and I discussed an updated CT scan she would like to move forward with this. She does have a neurostimulator. It will be reprogrammed tomorrow. I will follow-up with her after the CT reassess her symptoms at that time she has been instructed to call the office if she has any issues prior to her next appointment. Dr. Nash has reviewed this note and agrees with this plan of care. This note was dictated using voice recognition software and may contain errors or omissions [facility] History I have reviewed the patient's past medical history: Yes Medical History: Reports:: Diabetes Mellitus Type 2, Hypertension, Seizures Denies:: Cancer, Diabetes Mellitus Type 1, Internal Pacemaker, MRSA *Have you ever received a pneumonia vaccine?: Yes *Have you received a flu vaccine this season?: Yes Other Medical History: Reports: Arthritis, Thyroid Disease. Denies: Blood Transfusion Reaction Laterality Cases: Bilateral: Myringotomy (Ear Tubes) Other Surgeries: Yes: Cholecystectomy, Colonoscopy, Diagnostic Lap, Hysterectomy-Total, Splenectomy, Other. No: Pacemaker Amputation: No Fractures: No - *Social History Smoking Status: Current every day smoker Tobacco Type: cigarettes # Packs/Day (cigarettes): 1 Alcohol Intake: never Substance Use Type: denies use *Occupational Status:: other Housing: apartment Household Members: none *Travel in the last 8 weeks: None Family Hx:: Unable to obtain
== END ==
PROVIDERS: PCP Family Medicine; Visit Provider Clinical Nurse Specialist Family Health
DX: M51.16 Intervertebral disc disorders with radiculopathy, lumbar region (principal)
CPT/HCPCS: 99212; G0463

== ENCOUNTER → 2020-06-22 09:47 | Outpatient (CLI) | payer MEDICARE, MEDICAID, SELFPAY ==
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
== END ==
PROVIDERS: PCP Family Medicine; Visit Provider Clinical Nurse Specialist Family Health
DX: M54.5 Low back pain (principal)
CPT/HCPCS: 72131

== ENCOUNTER → 2020-07-01 15:01 | Outpatient (POV) | payer MEDICARE, MEDICAID, SELFPAY ==
[2020-07-01 16:12] VITALS: BP 139/85; PULSE 71; RESP 18; TEMP 36.8; O2SAT 99; BMI 26.3
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
== END ==
PROVIDERS: PCP Family Medicine; Visit Provider Clinical Nurse Specialist Family Health
DX: M51.16 Intervertebral disc disorders with radiculopathy, lumbar region (principal)
CPT/HCPCS: 99212; G0463

== ENCOUNTER → 2020-09-20 09:45 | Outpatient (POV) | payer MEDICARE, MEDICAID, SELFPAY ==
[2020-09-20 09:59] VITALS: BP 138/71; PULSE 68; RESP 18; O2SAT 98; BMI 25.8
--- NOTE | 2020-09-20 10:06 | P.CONS_ITS ---
[facility] Pain Management SOAP Note Subjective:: Patient is a pleasant 55-year-old white female who presents today for follow-up. Patient rates her pain today 7 out of 10. She states that this is better than it has been recently. Patient has a [employer] neurostimulator. She states she has met with the small business sales representative multiple times with no success in regards to programming. Patient is interested in getting it removed. Patient has been seen by Dr. Brito and has completed a myelogram. Her follow-up will be next month. Patient is on tramadol. Patient's not getting much relief of her back pain and her leg pain. Patient states that when she gets reprogram she will have about 24 hours of relief and then her pain returns and she starts having intercostal issues as well. ROS General: no recent weight change, no fever, no sleep disturbances Respiratory: no cough, no shortness of air, no recurring pulmonary infections Cardiovascular/Peripheral Vascular: No chest pain, No palpitations, no edema, no shortness of breath. Gastrointestinal: no new onset incontinence, normal bowel movements reported Genitourinary: no new onset incontinence Musculoskeletal: Back pain, leg pain Psychiatric: normal mood/ affect Neurological: [denies new onset weakness in extremities], [denies new onset balance issues] Objective:: Physical Exam General: Alert and oriented x3, no acute distress, pleasant and cooperative, [on room air] Lungs: Resps E/U, Symmetrical chest expansion, Eyes: PERRL Musculoskeletal: Flexion and extension of lumbar spine somewhat guarded secondary to pain, deep tendon reflexes normal, strength in upper and lower extremities [5/5], [abnormal gait noted] Neurological: speech clear, pot filler equal, no gross sensory deficits Assessment:: Degenerative disc disease lumbar spine lumbar radiculopathy, back pain Plan:: We will schedule the patient for neurostimulator removal. Patient's been instructed to call the office if she has any issues prior to her next appointment. Patient will continue her tramadol. I will follow-up with the patient after her explant. Patient's not on any blood thinners. Dr. Nash has reviewed this note and agrees with this plan of care. This note was dictated using voice recognition software and may contain errors or omissions [facility] History I have reviewed the patient's past medical history: Yes Medical History: Reports:: Diabetes Mellitus Type 2, Hypertension, Seizures Denies:: Cancer, Diabetes Mellitus Type 1, Internal Pacemaker, MRSA *Have you ever received a pneumonia vaccine?: Yes *Have you received a flu vaccine this season?: Yes Other Medical History: Reports: Arthritis, Thyroid Disease. Denies: Blood Transfusion Reaction Laterality Cases: Bilateral: Myringotomy (Ear Tubes) Other Surgeries: Yes: Cholecystectomy, Colonoscopy, Diagnostic Lap, Hysterectomy-Total, Splenectomy, Other. No: Pacemaker Amputation: No Fractures: No - *Social History Smoking Status: Current every day smoker Tobacco Type: cigarettes # Packs/Day (cigarettes): 1 Alcohol Intake: never Substance Use Type: denies use *Occupational Status:: other Housing: apartment Household Members: none *Travel in the last 8 weeks: None Family Hx:: Unable to obtain
== END ==
PROVIDERS: PCP Family Medicine; Visit Provider Clinical Nurse Specialist Family Health
DX: M51.16 Intervertebral disc disorders with radiculopathy, lumbar region (principal)
CPT/HCPCS: 99212; G0463

== ENCOUNTER → 2020-10-11 07:22 | Outpatient (CLI) | payer MEDICARE, MEDICAID, SELFPAY ==
[2020-10-11 08:10] LABS: Basophils # 0.2 K/mm3 (0-0.2); Basophils % 1.5 % (0.1-2.0); Eosinophils # 0.2 K/mm3 (0.0-0.4); Eosinophils % 1.6 % (0.1-12.0); Hematocrit 45.1 % (37.0-47.0); Hemoglobin 14.3 g/dL (12.2-16.2); Lymphocytes # 5.7 K/mm3 (0.7-4.5); Lymphocytes % 47.4 % (10-50); Mean Corpuscular HGB Conc 31.8 g/dL (31.8-35.4); Mean Corpuscular Hemoglobin 31.8 pg (27.0-31.2); Mean Corpuscular Volume 99.9 fl (81-99); Mean Platelet Volume 6.8 fl (7.4-10.4); Monocytes % 8.3 % (1.7-9.3); Neutrophils % 41.2 % (37.0-80.0); Platelet Count 562 K/mm3 (142-424); Red Blood Count 4.51 M/mm3 (4.20-5.40); Red Cell Distribution Width 11.9 % (11.5-17.5); White Blood Count 12.1 K/mm3 (4.8-10.8)
[2020-10-11 09:18] LABS: Chloride 98 mmol/L (98-107); Potassium 4.8 mmoL/L (3.5-5.1); Sodium 134 mmol/L (136-145)
[2020-10-11 09:20] LABS: Blood Urea Nitrogen 10 mg/dl (7-17)
[2020-10-11 09:21] LABS: Anion Gap 14.8 mEq/L (5-15); Calcium 9.6 mg/dl (8.4-10.2); Carbon Dioxide 26 mmol/L (22.0-30.0); Estimated Glomerular Filt Rate 165 ml/min (>60); GFR (African American) 199 ML/MIN (>60); Glucose 123 mg/dl (74-100)
== END ==
PROVIDERS: Visit Provider Anesthesiology
DX: Z01.818 Encounter for other preprocedural examination (principal); Z20.822 Contact with and (suspected) exposure to COVID-19
CPT/HCPCS: 36415; 80048; 85025; U0003

== ENCOUNTER 2020-10-13 06:11 | Day surgery (SDC) | payer MEDICARE, MEDICAID, SELFPAY ==
[2020-10-06 13:07] VITALS: BMI 26.2
[2020-10-13] VITALS (11 sets, daily range): BP systolic 102–158; BP diastolic 69–87; PULSE 84–105; RESP 16–20; TEMP 36.1–36.5; O2SAT 94–98
[2020-10-13 06:40] LABS: POC Glucose,Bedside 134 (70-110)
--- NOTE | 2020-10-13 07:07 | HMH.ANESCL ---
[facility] Anesthesia Checklist - Patient Identification Patient Identification: Arm Band - Structural Data Admitted From: Home Planned Operative Procedure/s: Stimulator explant Consent for Planned Operative Procedure(s) Verified: Yes - NPO Status Verified Time NPO: 00:00 - Additional verifications Anesthesia Reactions: No Hx Blood Transfusions: Yes Blood Transfusion Reaction: No - Airway Assessment C-Spine Mobility Assessed: Yes TMJ Mobility Assessed: Yes Dentition: Poor Dentition (Broken) - Neurological Assessment Level of Consciousness: Awake Hx Seizures: Yes Numbness or tingling in extremities: No - Anesthesia Plan Anesthesia Risk discussed: Yes Anesthesia Plan: Verified ASA Class: III Anesthesia Type: General [facility] History I have reviewed the patient's past medical history: Yes Medical History: Reports:: Diabetes Mellitus Type 2, Hypertension, Seizures Denies:: Cancer, Diabetes Mellitus Type 1, Internal Pacemaker, MRSA *Have you ever received a pneumonia vaccine?: Yes *Have you received a flu vaccine this season?: Yes Other Medical History: Reports: Arthritis, Thyroid Disease. Denies: Blood Transfusion Reaction Anesthesia experience/problems:: Woke up in the OR Laterality Cases: Bilateral: Myringotomy (Ear Tubes) Other Surgeries: Yes: Cholecystectomy, Colonoscopy, Diagnostic Lap, Hysterectomy-Total, Splenectomy, Other. No: Pacemaker Amputation: No Fractures: No - *Social History Smoking Status: Current every day smoker Tobacco Type: cigarettes # Packs/Day (cigarettes): 1 Alcohol Intake: never Substance Use Type: denies use *Occupational Status:: disabled Housing: house Household Members: none *Travel in the last 8 weeks: None Family Hx:: No significant family history
--- NOTE | 2020-10-13 08:05 | HMH.OPNOTE ---
Date of procedure: 10/13/20 Pre-op Diagnosis:: Malfunctioning pain stimulator system Post-op Diagnosis:: Same Procedure performed:: Removal of pain stimulator system (leads and generator) Surgeon:: Jaylon Jo MD DIGITAL SALES REPRESENTATIVE:: Javed Josue, Nakul Serrano, Prateek Carmona, Dung Marcano, Other Anesthesia: GETA Estimated blood loss (mL): 2 Operative findings:: Not applicable Operative note:: Once adequate general endotracheal anesthesia was obtained the patient was placed prone on the operating table and her back and flank regions were prepped and draped in sterile fashion. Preoperatively the patient was examined with fluoroscopy noting only 2 leads. An incision was then made over the lead insertion site and with careful dissection the leads and the fixation devices were removed without difficulty. An incision was then made over the generator and it was likewise removed as well as the residual leads. Both incisions irrigated with antibiotic solution. Subcutaneous tissues closed with 2-0 Vicryl. Skin closed arm stitches of 4-0 nylon. Wound VAC dressings and a binder applied to the wound. The patient taught procedure well taken recovery and stabilization. Upon recovery the patient be discharged home follow-up in 1 week for removal of the wound VAC system and in 2 weeks for removal of the stitches Bactrim DS twice daily x1 week per protocol. The patient tolerated procedure well Condition: stable Disposition: PACU Complications:: None
--- NOTE | 2020-10-13 08:48 | P.PN_ITS ---
[facility] Anesthesia Record Part I Intake, IV Amount: 500 Estimated blood loss (mL): 0 Urine output (mL): 0 Blood Pressure: 158/87 SaO2: 97 Pulse Rate: 105 Respiratory Rate: 20 Temperature: 97.7 F Patient is:: Drowsy Stable to PACU at:: 08:44
[2020-10-13 09:07] LABS: POC Glucose,Bedside 130 (70-110)
[2020-10-14 10:03] VITALS: BP 124/72; PULSE 91; TEMP 36.5
--- NOTE | 2020-10-14 10:03 | HMH.ANESII ---
[facility] Anesthesia Record Part II Discharge Time: 09:14 Destination: Surgical Day Care (OP Surgery) PACU nurse assessment reviewed?: Yes Patient Condition:: Good Anesthesia Complications:: None Swallowing reflex intact?: Yes Cyanosis?: No Blood Pressure: 124/72 Pulse Rate: 91 Temperature: 97.7 F Mental Status: Alert & Oriented Pain level:: 4 Nausea and/or vomitting:: None Intake, IV Amount: 500
== END 2020-10-13 10:30 | disposition home or self-care (01) ==
LOC: OR 06:13
PROVIDERS: PCP Family Medicine; Visit Provider Surgery
DX: T85.192A Other mechanical complication of implanted electronic neurostimulator of spinal cord electrode (lead), initial encounter (principal); E11.9 Type 2 diabetes mellitus without complications; I10 Essential (primary) hypertension; R56.9 Unspecified convulsions; M19.90 Unspecified osteoarthritis, unspecified site; E07.9 Disorder of thyroid, unspecified; Z90.49 Acquired absence of other specified parts of digestive tract; Z90.81 Acquired absence of spleen; Z90.710 Acquired absence of both cervix and uterus; Z72.0 Tobacco use; Z88.8 Allergy status to other drugs, medicaments and biological substances; Z91.040 Latex allergy status; Z79.899 Other long term (current) drug therapy
CPT/HCPCS: 63661; 63688; 82962; 96374; J3370

== ENCOUNTER → 2020-10-21 08:28 | Outpatient (POV) | payer MEDICARE, MEDICAID, SELFPAY ==
[2020-10-21 08:44] VITALS: BP 159/90; PULSE 85; RESP 18; O2SAT 98; BMI 26.2
--- NOTE | 2020-10-21 09:18 | HMH.PAINSOAP ---
[facility] Pain Management SOAP Note Subjective:: Patient is a 55-year-old white female who presents today for follow-up after explant of [employer] spinal cord stimulator. Patient is having a 9 out of 10 pain today. She says that her pain is in her left low back area radiating into her left leg. She is having difficulty standing and walking on her left leg. She says she is having to manually lift her leg for movement. She did see Dr. Brito and Dr. Langley recently and had a nerve conduction study as well as a myelogram. She was told she does have nerve impingement in her left lower extremity, however, is not a surgical candidate. She has been taking Tylenol as well as tramadol and ibuprofen with no relief. She says that the pain is also going into her left buttock. She is having numbness as well as burning and tingling into her left lower extremity. The pain does not go to the foot. She does report to have neuropathy, however in her bilateral lower extremities. She has tried gabapentin in the past with no relief. She says that it caused her to feel drunk . She would like to try a different type of medication. She has asked for a change in her tramadol. She and I discussed we can try Lyrica to see if this gives her relief of her neuropathic pain. Has not tried Lyrica in the past. Review of Systems General: No recent weight changes, no fever, no sleep disturbances Respiratory: No cough, no shortness of air, no recurring pulmonary infections Cardiovascular/peripheral vascular: No chest pain, no palpitations, no edema, no shortness of breath Gastrointestinal: No new onset incontinence, normal bowel movements reported Genitourinary: No new onset incontinence Musculoskeletal: Left low back pain with radiation into left buttock, left leg numbness and tingling Psychiatric: Normal mood/affect Neurological: Weakness in left lower extremity, recent balance issues and left leg Objective:: Physical exam General: Alert and oriented x3, no acute distress, pleasant and cooperative, [on room air] Lungs: Respirations even and unlabored, symmetrical chest expansion Eyes: PERRL Musculoskeletal: Flexion and extension of lumbar spine somewhat guarded secondary to pain, deep tendon reflexes normal, strength in upper and lower extremities [5/5], [abnormal gait noted] Neurological: Speech clear, bell clerk equal, no gross sensory deficit Assessment:: Degenerative disc disease lumbar spine with lumbar radiculopathy symptoms Plan:: We will start the patient on Lyrica 75 mg 1 tablet p.o. twice daily. We will see if this gives the patient any relief. We will follow up with her in 2 weeks to reevaluate her symptoms. Her Petey #[id number] has been reviewed and is appropriate. Risks and benefits of the medication have been explained to the patient. Dr. Nash has reviewed this note and agrees with this plan of care. This note was dictated using voice recognition software and make contain errors or omissions. [facility] History I have reviewed the patient's past medical history: Yes Medical History: Reports:: Diabetes Mellitus Type 2, Hypertension, Seizures Denies:: Cancer, Diabetes Mellitus Type 1, Internal Pacemaker, MRSA *Have you ever received a pneumonia vaccine?: Yes *Have you received a flu vaccine this season?: Yes Other Medical History: Reports: Arthritis, Thyroid Disease. Denies: Blood Transfusion Reaction Laterality Cases: Bilateral: Myringotomy (Ear Tubes) Other Surgeries: Yes: Cholecystectomy, Colonoscopy, Diagnostic Lap, Hysterectomy-Total, Splenectomy, Other. No: Pacemaker Amputation: No Fractures: No - *Social History Smoking Status: Current every day smoker Tobacco Type: cigarettes # Packs/Day (cigarettes): 1 Alcohol Intake: never Substance Use Type: denies use *Occupational Status:: other Housing: house Household Members: none *Travel in the last 8 weeks: None Family Hx:: No significant family history
== END ==
PROVIDERS: Visit Provider Clinical Nurse Specialist Family Health
DX: M51.16 Intervertebral disc disorders with radiculopathy, lumbar region (principal)
CPT/HCPCS: 99212; G0463

== ENCOUNTER → 2020-11-04 10:37 | Outpatient (POV) | payer MEDICARE, MEDICAID, SELFPAY ==
[2020-11-04 10:51] VITALS: BP 194/100; PULSE 99; RESP 18; O2SAT 97; BMI 24.7
--- NOTE | 2020-11-04 10:55 | HMH.PAINSOAP ---
[facility] Pain Management SOAP Note Subjective:: Patient is a 55-year-old white female who presents today after explant of [employer] spinal cord stimulator. Her pain is a 4 out of 10. She is here today to have her sutures removed. She has seen Dr. Brito and Dr. Langley recently to have a nerve conduction study as well as a myelogram. She was told she does have nerve impingement in her left lower extremity and is not a surgical candidate. Patient was previously taking Tylenol and tramadol as well as ibuprofen with no relief. She was started on gabapentin 75 mg 1 tablet p.o. twice daily at her last visit. She says this is giving her more relief than anything she has tried at this point. Unfortunately, the medication is causing her to have severe drowsiness. She also takes tramadol 50 mg 1 tablet p.o. 4 times daily. We did discuss decreasing her Lyrica dosing to 50 mg 1 tablet p.o. 3 times daily to see if this is beneficial for her drowsiness. She would like to try this. She will also have her sutures removed today. Review of Systems General: No recent weight changes, no fever, no sleep disturbances Respiratory: No cough, no shortness of air, no recurring pulmonary infections Cardiovascular/peripheral vascular: No chest pain, no palpitations, no edema, no shortness of breath Gastrointestinal: No new onset incontinence, normal bowel movements reported Genitourinary: No new onset incontinence Musculoskeletal: Left leg pain, low back pain Psychiatric: Normal mood/affect Neurological: [Denies weakness in extremities], [denies balance issues] Objective:: Physical exam General: Alert and oriented x3, no acute distress, pleasant and cooperative, [on room air] Lungs: Respirations even and unlabored, symmetrical chest expansion Eyes: PERRL Musculoskeletal: Flexion and extension of lumbar spine somewhat guarded secondary to pain, deep tendon reflexes normal, strength in upper and lower extremities [5/5], [abnormal gait noted] Neurological: Speech clear, application coordinator equal, no gross sensory deficit Assessment:: Degenerative disc disease lumbar spine with lumbar radiculopathy symptoms Plan:: We will decrease the patient's Lyrica to 50 mg 1 tablet p.o. 3 times daily. We will follow up with her in 2 weeks to reevaluate her symptoms. Patient sutures were removed today. No redness, drainage, or edema is noted to the site. Risks and benefits of the medication have been explained in detail to the patient. The patient has been advised to consult with his/her primary care provider and pharmacist regarding drug-drug interaction of medications currently prescribed. Patient has been instructed to contact the clinic with any concerns before the next appointment. Dr. Nash has reviewed this note and agrees with this plan of care. This note was dictated using voice recognition software and make contain errors or omissions. [facility] History I have reviewed the patient's past medical history: Yes Medical History: Reports:: Diabetes Mellitus Type 2, Hypertension, Seizures Denies:: Cancer, Diabetes Mellitus Type 1, Internal Pacemaker, MRSA *Have you ever received a pneumonia vaccine?: Yes *Have you received a flu vaccine this season?: Yes Other Medical History: Reports: Arthritis, Thyroid Disease. Denies: Blood Transfusion Reaction Laterality Cases: Bilateral: Myringotomy (Ear Tubes) Other Surgeries: Yes: Cholecystectomy, Colonoscopy, Diagnostic Lap, Hysterectomy-Total, Splenectomy, Other. No: Pacemaker Amputation: No Fractures: No - *Social History Smoking Status: Current every day smoker Tobacco Type: cigarettes # Packs/Day (cigarettes): 1 Alcohol Intake: never Substance Use Type: denies use *Occupational Status:: unemployed Housing: house Household Members: none *Travel in the last 8 weeks: None Family Hx:: No significant family history
== END ==
PROVIDERS: Visit Provider Clinical Nurse Specialist Family Health
DX: M51.16 Intervertebral disc disorders with radiculopathy, lumbar region (principal)
CPT/HCPCS: 99212; G0463

== ENCOUNTER → 2020-11-18 10:29 | Outpatient (POV) | payer MEDICARE, MEDICAID, SELFPAY ==
[2020-11-18 10:45] VITALS: BP 154/84; PULSE 89; RESP 18; O2SAT 95; BMI 24.7
--- NOTE | 2020-11-18 13:29 | P.CONS_ITS ---
[facility] Pain Management SOAP Note Subjective:: Patient is a 55-year-old white female who presents today after explant of [employer] spinal cord stimulator. Her pain is a 4 out of 10 today. She is complaining mostly of bilateral hand pain. She says that she has been doing more activity recently and is noticing to be having some inflammation of her hands. She does have arthritis. She is requesting oral steroids today. She and I discussed that we would want her to be 6 weeks postoperative of her explant before giving her oral steroids. We would like to assure the patient has healed well from her procedure. She is 4 weeks postoperative at this time. Patient is managed in the clinic with tramadol 50 mg 1 tablet p.o. 4 times daily and Lyrica 50 mg 1 tablet p.o. 3 times daily. She is doing well with her medication regimen. She will need refills today. The patient's Petey and drug screens have been appropriate. Review of Systems General: No recent weight changes, no fever, no sleep disturbances Respiratory: No cough, no shortness of air, no recurring pulmonary infections Cardiovascular/peripheral vascular: No chest pain, no palpitations, no edema, no shortness of breath Gastrointestinal: No new onset incontinence, normal bowel movements reported Genitourinary: No new onset incontinence Musculoskeletal: Bilateral hand pain Psychiatric: Normal mood/affect Neurological: [Denies weakness in extremities], [denies balance issues] Objective:: Physical exam General: Alert and oriented x3, no acute distress, pleasant and cooperative, [on room air] Lungs: Respirations even and unlabored, symmetrical chest expansion Eyes: PERRL Musculoskeletal: Flexion and extension of bilateral wrist somewhat guarded secondary to pain, deep tendon reflexes normal, strength in upper and lower extremities [5/5], normal gait noted Neurological: Speech clear, director funeral equal, no gross sensory deficit Assessment:: Bilateral hand pain, degenerative disc disease lumbar spine with lumbar radiculopathy symptoms Plan:: We will refill the patient's tramadol 50 mg 1 tablet p.o. 4 times daily and Lyrica 50 mg 1 tablet p.o. 3 times daily. We will give her 3 months of medication see her back in the clinic in 3 months for reevaluation. We are cindy ble to give the patient corticosteroids at this time due to her recent explant. [facility] History I have reviewed the patient's past medical history: Yes Medical History: Reports:: Diabetes Mellitus Type 2, Hypertension, Seizures Denies:: Cancer, Diabetes Mellitus Type 1, Internal Pacemaker, MRSA *Have you ever received a pneumonia vaccine?: Yes *Have you received a flu vaccine this season?: Yes Other Medical History: Reports: Arthritis, Thyroid Disease. Denies: Blood Transfusion Reaction Laterality Cases: Bilateral: Myringotomy (Ear Tubes) Other Surgeries: Yes: Cholecystectomy, Colonoscopy, Diagnostic Lap, Hysterectomy-Total, Splenectomy, Other. No: Pacemaker Amputation: No Fractures: No - *Social History Smoking Status: Current every day smoker Tobacco Type: cigarettes # Packs/Day (cigarettes): 1 Alcohol Intake: never Substance Use Type: denies use *Occupational Status:: unemployed Housing: house Household Members: none *Travel in the last 8 weeks: None Family Hx:: No significant family history
== END ==
PROVIDERS: Visit Provider Clinical Nurse Specialist Family Health
DX: M51.16 Intervertebral disc disorders with radiculopathy, lumbar region (principal)
CPT/HCPCS: 99212; G0463

== ENCOUNTER → 2021-02-17 10:38 | Outpatient (POV) | payer MEDICARE, MEDICAID, SELFPAY ==
[2021-02-17 11:01] VITALS: BP 155/97; PULSE 102; RESP 18; O2SAT 95; BMI 25.7
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
== END ==
PROVIDERS: PCP Family Medicine; Visit Provider Clinical Nurse Specialist Family Health
DX: M50.10 Cervical disc disorder with radiculopathy, unspecified cervical region (principal); M51.16 Intervertebral disc disorders with radiculopathy, lumbar region
CPT/HCPCS: 99212; G0463

== ENCOUNTER → 2021-02-21 06:56 | Outpatient (CLI) | payer MEDICARE, MEDICAID, SELFPAY ==
--- NOTE | 2021-02-21 07:00 | CT_ITS ---
PROCEDURE: CT CERVICAL SPINE WO CON CLINICAL INDICATION: NECK PAIN COMPARISON: CT SPCERVWO CT cervical spine wo con from 12/02/2018 TECHNIQUE: Axial images obtained with sagittal and coronal reformats. All CT scans at the facility use one or more dose reduction, viz: automated exposure control, ma/kV adjustment per patient size (including targeted exams where dose is matched to indication, i.e. head), or iterative reconstruction technique. Axial spiral CT scanning performed of the cervical spine beginning at the base of the skull and continuing to the upper T-spine. 3-D multiplanar reconstruction with 3-D manipulation of volumetric data set in image rendering was completed by the radiologist and/or technologist with the supervision of the radiologist on independent workstation. FINDINGS: There is 2 mm anterolisthesis of C2 on C3-C3 on C4-C4 on C5 and C5 on C6. No acute fracture or dislocation. No lytic or blastic change. C2-C3: Mild degenerative disc disease. Mild left-sided foraminal narrowing from facet hypertrophic change C3-C4: Degenerative disc disease. Moderate right-sided foraminal narrowing from facet and uncovertebral hypertrophy not significantly changed. C4-C5: Mild degenerative disc disease with mild left-sided foraminal narrowing from facet hypertrophy slightly worse. C5-C6: Mild degenerative disc disease with mild left-sided foraminal narrowing from facet hypertrophy not significantly changed C6-C7: Mild right-sided foraminal narrowing from facet hypertrophic change not significantly changed. Upper thoracic images show COPD with centrilobular emphysema. There is mild opacification of the inferior aspect of the mastoid sinus on the left IMPRESSION: Multilevel cervical spondylosis as described above. No acute fracture or dislocation. Dictated by: Jayce Yeung MD 02/21/2021 12:28 Jayce Yeung MD in [place] 02/21/2021 12:28
== END ==
PROVIDERS: PCP Family Medicine; Visit Provider Clinical Nurse Specialist Family Health
DX: M54.2 Cervicalgia (principal)
CPT/HCPCS: 72125

== ENCOUNTER → 2021-03-08 08:47 | Outpatient (POV) | payer MEDICARE, MEDICAID, SELFPAY ==
[2021-03-08 09:02] VITALS: BP 151/92; PULSE 97; RESP 18; O2SAT 96; BMI 25.8
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
== END ==
PROVIDERS: Visit Provider Clinical Nurse Specialist Family Health
DX: M51.16 Intervertebral disc disorders with radiculopathy, lumbar region (principal); M50.10 Cervical disc disorder with radiculopathy, unspecified cervical region
CPT/HCPCS: 99212; G0463

== ENCOUNTER 2021-03-18 14:08 | Day surgery (SDC) | payer MEDICARE, MEDICAID, SELFPAY ==
[2021-03-18 14:53] VITALS: BP 151/79; PULSE 101; RESP 18; TEMP 36.5; O2SAT 97; BMI 25.5
--- NOTE | 2021-03-18 15:48 | HMH.PMPROC ---
- Procedure Date: 03/18/21 Time: 15:48 Anesthesiologist:: Bassem Nash MD Complications:: None Pre-procedure Diagnosis:: Degenerative disc disease of the cervical spine with cervical radiculopathy symptoms Post-procedure Diagnosis:: Same Indications for Procedure:: Patient is a pleasant 55-year-old white female who we are treating for neck pain with cervical radiculopathy symptoms. She has increasing neck pain with radicular symptoms into both shoulders and arms. We will plan on cervical epidural steroid injection today to see if this helps with her pain symptoms. Procedure Details:: Cervical epidural steroid injection under fluoroscopy Informed consent was obtained and the risks and benefits of the procedure was explained to the patient. The patient was taken to the procedure room placed prone on the procedure table. The neck was prepped using ChloraPrep. The skin and subcutaneous tissues were anesthetized using lidocaine. I placed a 18-gauge epidural needle into the C5-C6 interspace and advanced using [id number] to air and fluoroscopic guidance. After confirmation of needle placement in the epidural space with dye, I injected 3 mL's lidocaine 1.5% and Depo-Medrol 80 mg. The patient tolerated the procedure well with no complications. Plan and Disposition:: We will follow-up with her in 2 weeks. Will reevaluate symptoms at that time.
[2021-03-18 15:53] VITALS: BP 158/89; PULSE 82; RESP 20; O2SAT 96
[2021-03-18 15:55] VITALS: BP 152/85; PULSE 80; RESP 20; O2SAT 96
[2021-03-18 16:07] VITALS: BP 148/85; PULSE 86; RESP 18; TEMP 36.5
== END 2021-03-18 16:05 | disposition home or self-care (01) ==
LOC: SC.PAINP 14:09
PROVIDERS: PCP Family Medicine; Visit Provider Anesthesiology
DX: M50.10 Cervical disc disorder with radiculopathy, unspecified cervical region (principal); I10 Essential (primary) hypertension; E11.9 Type 2 diabetes mellitus without complications; R56.9 Unspecified convulsions; K21.9 Gastro-esophageal reflux disease without esophagitis; E07.9 Disorder of thyroid, unspecified; F41.9 Anxiety disorder, unspecified; F32.9 Major depressive disorder, single episode, unspecified; Z72.0 Tobacco use; Z91.040 Latex allergy status; Z91.09 Other allergy status, other than to drugs and biological substances
CPT/HCPCS: 62321; J1040; Q9966

== ENCOUNTER → 2021-04-05 10:04 | Outpatient (POV) | payer MEDICARE, MEDICAID, SELFPAY ==
[2021-04-05 10:27] VITALS: BP 170/90; PULSE 103; RESP 18; O2SAT 95; BMI 25.0
--- NOTE | 2021-04-05 12:01 | HMH.PAINSOAP ---
[facility] Pain Management SOAP Note Subjective:: Patient is a 55-year-old white female who presents today for follow-up after a cervical epidural steroid injection at C5-C6 area. She was previously having severe neck pain with radicular symptoms into both shoulders and arms. Patient says she got excellent relief with the injection. She does rate her pain a 3 out of 10. She says the pain is now soreness only to the area. She is much more functional and able to use her arms and hands without pain. She reports the numbness and tingling to her left arm to also have subsided since the injection. Heat does make the pain worse to her neck and arm. She says cold packs gave her significant relief to the area. We do manage the patient for neck and low back pain in our clinic with Rifton 5 mg 1 tablet p.o. 3 times daily as well as Lyrica 50 mg 1 tablet p.o. 3 times daily. The medications give the patient significant relief, up to 60% as well. Overall she is doing well since the injection. Review of Systems General: No recent weight changes, no fever, no sleep disturbances Respiratory: No cough, no shortness of air, no recurring pulmonary infections Cardiovascular/peripheral vascular: No chest pain, no palpitations, no edema, no shortness of breath Gastrointestinal: No new onset incontinence, normal bowel movements reported Genitourinary: No new onset incontinence Musculoskeletal: Intermittent neck pain, intermittent low back pain Psychiatric: [Normal mood/affect] Neurological: [Denies weakness in extremities], [denies balance issues] Objective:: Physical exam General: Alert and oriented x3, no acute distress, pleasant and cooperative Lungs: Respirations even and unlabored, symmetrical chest expansion Eyes: PERRL Musculoskeletal: Flexion and extension of cervical and lumbar [spine] somewhat guarded secondary to pain, normal gait noted Neurological: Speech clear, no gross sensory deficit Assessment:: Degenerative disc disease cervical spine cervical radiculopathy symptoms, degenerative disc disease lumbar spine with lumbar radiculopathy symptoms Plan:: Patient is a 55-year-old white female following up after cervical epidural steroid injection. She got significant relief. She says that she has gotten approximately 90% relief at this time I have her neck pain and left shoulder and left arm pain. The numbness and tingling has subsided. The left arm pain has nearly subsided as well. We do manage the patient with oral medications for her chronic low back pain and neck pain with Rifton 5 mg 1 tablet p.o. 3 times daily and Lyrica as 50 mg 1 tablet p.o. 3 times daily. The patient will get refill on her Rifton at this time. She does not need refills on the Lyrica. We will see her back in 1 month for medication refill. The patient's Christ #[id number] has been reviewed and is appropriate. Drug screens have been appropriate. Morphine equivalent is 15. Risks and benefits of the medication have been explained in detail to the patient. The patient does understand the risk of dependence on the medication when given over a prolonged period. Patient has been advised of risks of oversedation with the prescribed medication. Narcan has been offered to the paitent in the event of oversedation. Patient has been advised that a family member should also be educated regarding administration of Narcan. The patient has been advised to consult with his/her primary care provider and pharmacist regarding drug-drug interaction of medications currently prescribed. Patient has been prescribed a controlled substance after being counseled on the medication, medication safety, and possible side effects. [facility] report has been obtained and reviewed prior to prescription and found to be appropriate. Opioid contract was reviewed and signed by the patient, and that they have agreed to all of the terms set forth by our compliance program. Patient has been inst
== END ==
PROVIDERS: Visit Provider Clinical Nurse Specialist Family Health
DX: M50.10 Cervical disc disorder with radiculopathy, unspecified cervical region (principal); M51.16 Intervertebral disc disorders with radiculopathy, lumbar region
CPT/HCPCS: 99212; G0463

== ENCOUNTER → 2021-05-05 10:33 | Outpatient (POV) | payer MEDICARE, MEDICAID, SELFPAY ==
[2021-05-05 10:44] VITALS: BP 177/80; PULSE 110; RESP 18; O2SAT 96; BMI 26.7
--- NOTE | 2021-05-05 10:56 | HMH.PAINSOAP ---
[facility] Pain Management SOAP Note Subjective:: Patient is a 55-year-old white female who presents today for follow-up after cervical epidural steroid injection at C5-C6 area. She is continuing to get significant relief. Today, patient rates her pain a 3/10. She is also managed with oral medications. She gets Waverly 5 mg 1 tablet p.o. 3 times daily and Lyrica 50 mg 1 tablet p.o. 3 times daily. She gets up to 60% relief with her oral medication for her low back pain. She is here today for refills. Patient's [facility] #[id number] has been reviewed and is appropriate. Drug screen is appropriate. Morphine equivalent is 15. Review of Systems General: No recent weight changes, no fever, no sleep disturbances Respiratory: No cough, no shortness of air, no recurring pulmonary infections Cardiovascular/peripheral vascular: No chest pain, no palpitations, no edema, no shortness of breath Gastrointestinal: No new onset incontinence, normal bowel movements reported Genitourinary: No new onset incontinence Musculoskeletal: Low back pain with radiation into bilateral lower extremities Psychiatric: [Normal mood/affect] Neurological: [Denies weakness in extremities], [denies balance issues] Objective:: Physical exam General: Alert and oriented x3, no acute distress, pleasant and cooperative Lungs: Respirations even and unlabored, symmetrical chest expansion Eyes: PERRL Musculoskeletal: Flexion and extension of lumbar [spine] somewhat guarded secondary to pain, [antalgic gait noted] Neurological: Speech clear, no gross sensory deficit Assessment:: Degenerative disc disease lumbar spine with lumbar radiculopathy symptoms, degenerative disc disease cervical spine with cervical radiculopathy symptoms Plan:: We will continue the patient's Waverly 5 mg 1 tablet p.o. 3 times daily and Lyrica 50 mg 1 tablet p.o. 3 times daily. We will give the patient a month medication see her back in 1 month for further evaluation. Risks and benefits of the medication have been explained in detail to the patient. The patient does understand the risk of dependence on the medication when given over a prolonged period. Patient has been advised of risks of oversedation with the prescribed medication. Narcan has been offered to the paitent in the event of oversedation. Patient has been advised that a family member should also be educated regarding administration of Narcan. The patient has been advised to consult with his/her primary care provider and pharmacist regarding drug-drug interaction of medications currently prescribed. Patient has been prescribed a controlled substance after being counseled on the medication, medication safety, and possible side effects. [facility] report has been obtained and reviewed prior to prescription and found to be appropriate. Opioid contract was reviewed and signed by the patient, and that they have agreed to all of the terms set forth by our compliance program. Patient has been instructed to contact the clinic with any concerns before the next appointment. Dr. Nash has reviewed this note and agrees with this plan of care. This note was dictated using voice recognition software and make contain errors or omissions. [facility] History I have reviewed the patient's past medical history: Yes Medical History: Reports:: Diabetes Mellitus Type 2, Hypertension Denies:: Cancer, Diabetes Mellitus Type 1, Internal Pacemaker, MRSA, Seizures *Have you ever received a pneumonia vaccine?: No *Have you received a flu vaccine this season?: Yes Other Medical History: Reports: Arthritis, Thyroid Disease. Denies: Blood Transfusion Reaction Laterality Cases: Bilateral: Myringotomy (Ear Tubes) Other Surgeries: Yes: Cholecystectomy, Colonoscopy, Diagnostic Lap, Hysterectomy-Total, Splenectomy, Other. No: Pacemaker Amputation: No Fractures: No - *Social History Smoking Status: Current every day smoker Tobacco Type: cigarettes # Packs/Day (cigar
== END ==
PROVIDERS: Visit Provider Clinical Nurse Specialist Family Health
DX: M51.16 Intervertebral disc disorders with radiculopathy, lumbar region (principal); M50.10 Cervical disc disorder with radiculopathy, unspecified cervical region
CPT/HCPCS: 99212; G0463

== ENCOUNTER → 2021-06-06 10:21 | Outpatient (POV) | payer MEDICARE, MEDICAID, SELFPAY ==
[2021-06-06 10:33] VITALS: BP 181/80; PULSE 97; RESP 18; O2SAT 96; BMI 25.8
--- NOTE | 2021-06-06 11:33 | HMH.PAINSOAP ---
[facility] Pain Management SOAP Note Subjective:: Patient is a 56-year-old white female who presents today for follow-up. She recently had a cervical epidural steroid injection C5-C6 area. Patient did get significant relief. Pain is starting to return. She rates her pain 4 out of 10. She is also managing the clinic with Phoenix 5 mg 1 tablet p.o. 3 times daily and Lyrica 50 mg 1 tablet p.o. 3 times daily. Patient is having inner ear infections and is on chronic corticosteroids. She has been advised to stop taking Lyrica while taking steroids due to history of seizures with Lyrica and corticosteroids given together. She has not been taking Lyrica. She is only taking her Phoenix at this time. She does not need refill on the Lyrica. She would like to proceed with a repeat cervical epidural steroid injection. She did get significant relief her neck pain and left arm pain. She says the pain does radiate into the left shoulder and left arm. She has tried physical therapy for more than 6 weeks, continues with stretching, and has had anti-inflammatories in the past. Review of Systems General: No recent weight changes, no fever, no sleep disturbances Respiratory: No cough, no shortness of air, no recurring pulmonary infections Cardiovascular/peripheral vascular: No chest pain, no palpitations, no edema, no shortness of breath Gastrointestinal: No new onset incontinence, normal bowel movements reported Genitourinary: No new onset incontinence Musculoskeletal: Neck pain with radiation to left shoulder and arm with numbness and tingling Psychiatric: [Normal mood/affect] Neurological: Weakness left upper extremity Objective:: Physical exam General: Alert and oriented x3, no acute distress, pleasant and cooperative Lungs: Respirations even and unlabored, symmetrical chest expansion Eyes: PERRL Musculoskeletal: Flexion and extension of cervical [spine] somewhat guarded secondary to pain, normal gait noted Neurological: Speech clear, no gross sensory deficit Assessment:: Degenerative disc disease cervical spine cervical radiculopathy symptoms Plan:: We will schedule the patient for a repeat cervical epidural steroid injection at C5-C6 area. She did get significant relief with her previous injection. We will continue Phoenix 5 mg 1 tablet p.o. 3 times daily. She will hold her Lyrica at this time while taking corticosteroids. [facility] #[id number] has been reviewed and is appropriate. Drug screen is appropriate. Morphine equivalency is 15. Possible side effects of corticosteroids have been discussed with the patient. Risks and benefits of the procedure have been explained to the patient. Patient would like to proceed with the procedure. Patient has been instructed to contact the clinic with any concerns before the next appointment. Risks and benefits of the medication have been explained in detail to the patient. The patient does understand the risk of dependence on the medication when given over a prolonged period. Patient has been advised of risks of oversedation with the prescribed medication. Narcan has been offered to the paitent in the event of oversedation. Patient has been advised that a family member should also be educated regarding administration of Narcan. The patient has been advised to consult with his/her primary care provider and pharmacist regarding drug-drug interaction of medications currently prescribed. Patient has been prescribed a controlled substance after being counseled on the medication, medication safety, and possible side effects. [facility] report has been obtained and reviewed prior to prescription and found to be appropriate. Opioid contract was reviewed and signed by the patient, and that they have agreed to all of the terms set forth by our compliance program. Patient has been instructed to contact the clinic with any concerns before the next appointment. Dr. Nash has reviewed this note a
== END ==
PROVIDERS: Visit Provider Clinical Nurse Specialist Family Health
DX: M50.10 Cervical disc disorder with radiculopathy, unspecified cervical region (principal)
CPT/HCPCS: 99212; G0463

== ENCOUNTER 2021-06-24 09:00 | Day surgery (SDC) | payer MEDICARE, MEDICAID, SELFPAY ==
[2021-06-24 09:09] VITALS: BP 190/97; PULSE 101; RESP 20; TEMP 36.7; O2SAT 95; BMI 25.8
[2021-06-24 09:58] VITALS: BP 176/86; PULSE 96; RESP 18; O2SAT 97
[2021-06-24 10:01] VITALS: PULSE 99; RESP 18; O2SAT 97
--- NOTE | 2021-06-24 10:17 | HMH.PMPROC ---
- Procedure Date: 06/24/21 Time: 10:17 Anesthesiologist:: Bassem Nash MD Complications:: None Pre-procedure Diagnosis:: Degenerative disc disease of the cervical spine with cervical radiculopathy symptoms Post-procedure Diagnosis:: Same Indications for Procedure:: This patient is a pleasant 56-year-old white female who we are treating for neck pain with cervical radicular symptoms. She is done well with previous cervical epidural steroid injections. Her last 1 was a few months ago. Her pain is starting to return. We will plan on a repeat cervical epidural steroid injection under fluoroscopy today. Procedure Details:: Cervical epidural steroid injection under fluoroscopy Informed consent was obtained and the risks and benefits of the procedure was explained to the patient. The patient was taken to the procedure room placed prone on the procedure table. The neck was prepped using ChloraPrep. The skin and subcutaneous tissues were anesthetized using lidocaine. I placed a 18-gauge epidural needle into the C5-C6 interspace and advanced using [id number] to air and fluoroscopic guidance. After confirmation of needle placement in the epidural space with dye, I injected 3 mL's lidocaine 1.5% and Depo-Medrol 80 mg. The patient tolerated the procedure well with no complications. Plan and Disposition:: We will follow-up with her in 2 weeks. Will reevaluate symptoms at that time.
[2021-06-24 10:20] VITALS: BP 190/89; PULSE 98; RESP 20; O2SAT 96
== END 2021-06-24 10:21 | disposition home or self-care (01) ==
LOC: SC.PAINP 09:02
PROVIDERS: PCP Family Medicine; Visit Provider Anesthesiology
DX: M50.13 Cervical disc disorder with radiculopathy, cervicothoracic region (principal); I10 Essential (primary) hypertension; E11.9 Type 2 diabetes mellitus without complications; E78.5 Hyperlipidemia, unspecified; K21.9 Gastro-esophageal reflux disease without esophagitis; M19.90 Unspecified osteoarthritis, unspecified site; Z72.0 Tobacco use; Z88.8 Allergy status to other drugs, medicaments and biological substances
CPT/HCPCS: 62321; J1040; Q9966

== ENCOUNTER → 2021-07-07 10:45 | Outpatient (POV) | payer MEDICARE, MEDICAID, SELFPAY ==
[2021-07-07 11:03] VITALS: BP 162/90; PULSE 112; RESP 18; O2SAT 96; BMI 25.8
--- NOTE | 2021-07-07 11:41 | HMH.PAINSOAP ---
[facility] Pain Management SOAP Note Subjective:: Patient is a 56-year-old white female who presents today for follow-up. She did have an epidural steroid injection on 06/24/2021. She got significant relief, but pain has returned to the neck and is worse in the low back at this time. Patient says she did go shopping over the last few days and felt the pain to worsen due to prolonged standing and walking. Pain is better with extension at waist. She says that it is low back going into buttock. She has had lumbar epidural steroid injections in the past which have given her relief for short-term at about 70 to 80%. Actually do anything she is also managed with oral medications. We did give the patient Highland. Review of Systems General: No recent weight changes, no fever, no sleep disturbances Respiratory: No cough, no shortness of air, no recurring pulmonary infections Cardiovascular/peripheral vascular: No chest pain, no palpitations, no edema, no shortness of breath Gastrointestinal: No new onset incontinence, normal bowel movements reported Genitourinary: No new onset incontinence Musculoskeletal: Low back pain, chronic neck pain Psychiatric: [Normal mood/affect] Neurological: [Denies weakness in extremities], [denies balance issues] Objective:: Physical exam General: Alert and oriented x3, no acute distress, pleasant and cooperative Lungs: Respirations even and unlabored, symmetrical chest expansion Eyes: PERRL Musculoskeletal: Flexion and extension of cervical and lumbar [spine] somewhat guarded secondary to pain, [antalgic gait noted] Neurological: Speech clear, no gross sensory deficit Assessment:: Degenerative disc disease cervical lumbar spine with cervical lumbar radiculopathy symptoms Plan:: Patient will get refill on her oral medication today of Highland 5 mg 1 tablet p.o. 3 times daily. She will likely need a lumbar epidural steroid injection in the future. She would like to postpone at this time but will likely call the clinic in the next few weeks to discuss scheduling the procedure. If she does wish to proceed we will schedule her for lumbar epidural steroid injection at L IV-L V. We will also, at this time, give her prednisone 20 mg 1 tablet p.o. twice daily for 5 days. Risks and benefits of the medication have been explained in detail to the patient. The patient does understand the risk of dependence on the medication when given over a prolonged period. Patient has been advised of risks of oversedation with the prescribed medication. Narcan has been offered to the paitent in the event of oversedation. Patient has been advised that a family member should also be educated regarding administration of Narcan. The patient has been advised to consult with his/her primary care provider and pharmacist regarding drug-drug interaction of medications currently prescribed. Patient has been prescribed a controlled substance after being counseled on the medication, medication safety, and possible side effects. [facility] report has been obtained and reviewed prior to prescription and found to be appropriate. Opioid contract was reviewed and signed by the patient, and that they have agreed to all of the terms set forth by our compliance program. Patient has been instructed to contact the clinic with any concerns before the next appointment. Dr. Nash has reviewed this note and agrees with this plan of care. This note was dictated using voice recognition software and make contain errors or omissions. [facility] History I have reviewed the patient's past medical history: Yes Medical History: Reports:: Diabetes Mellitus Type 2, Hyperlipidemia, Hypertension Denies:: Cancer, Diabetes Mellitus Type 1, Internal Pacemaker, MRSA, Seizures *Have you ever received a pneumonia vaccine?: No *Have you received a flu vaccine this season?: Yes Other Medical History: Reports: Arthritis, Thyroid Disease. Denies: Blood Transfusion Reaction Laterality
== END ==
PROVIDERS: Visit Provider Clinical Nurse Specialist Family Health
DX: M50.13 Cervical disc disorder with radiculopathy, cervicothoracic region (principal)
CPT/HCPCS: 99212; G0463

== ENCOUNTER → 2021-07-20 15:27 | Outpatient (CLI) | payer MEDICARE, MEDICAID, SELFPAY ==
--- NOTE | 2021-07-20 15:27 | MM_ITS ---
PROCEDURE INFORMATION: Exam: MG Bilateral Screening 3D Mammography Exam date and time: 07/20/2021 3:27 PM Age: 56 years old Clinical indication: Encounter for screening mammogram for malignant neoplasm of breast TECHNIQUE: Imaging protocol: Bilateral Screening tomosynthesis and 2D mammography including computer-aided detection (CAD) when performed. COMPARISON: 1. MG MM DIG SCREENING MAMM BI W/CAD 05/24/2020 9:03 AM 2. MG MM DIG SCREENING MAMM BI W/CAD 05/19/2019 4:28 PM FINDINGS: MAMMOGRAPHY: Breast composition: The breast tissue is heterogeneously dense, which may obscure small masses. Mass: Questionable 0.8 cm mass in the middle third of the right upper outer quadrant Architectural distortion: None. Calcifications: No suspicious calcifications. Asymmetric density: None. Skin thickening: None. Axillary adenopathy: None. IMPRESSION: Patient to be recalled for spot compression views of the right breast in the CC and MLO projections, a full 90 degree lateral view, and right breast ultrasound for further evaluation of a right breast mass. ASSESSMENT: BI-RADS Category 0: Incomplete- Need Additional Imaging Evaluation and/or Prior Mammograms for Comparison
== END ==
PROVIDERS: PCP Family Medicine; Visit Provider Nurse Practitioner Obstetrics & Gynecology
DX: Z12.31 Encounter for screening mammogram for malignant neoplasm of breast (principal)
CPT/HCPCS: 77063; 77067

== ENCOUNTER → 2021-08-03 14:29 | Outpatient (CLI) | payer MEDICARE, MEDICAID, SELFPAY ==
--- NOTE | 2021-08-03 14:29 | MM_ITS ---
PROCEDURE INFORMATION: Exam: US Right Breast, Complete MG Right Diagnostic Breast Tomosynthesis Exam date and time: 08/03/2021 2:29 PM Age: 56 years old Clinical indication: Callback from screening mammogram for a questionable mass in the right upper outer quadrant. TECHNIQUE: Imaging protocol: Complete ultrasound of all four quadrants of the Right breast and the retroareolar regions, including ultrasound of the axilla when performed. Right Diagnostic tomosynthesis and 2D mammography including computer-aided detection (CAD) when performed. Unilateral or bilateral exam. COMPARISON: 1. MG MM DIG SCREENING MAMM BI W/CAD 07/20/2021 3:25 PM 2. MG MM DIG SCREENING MAMM BI W/CAD 05/24/2020 9:03 AM 3. MG MM DIG SCREENING MAMM BI W/CAD 05/19/2019 4:28 PM FINDINGS: MAMMOGRAPHY: In the right upper outer quadrant there is a persistent 1.2 cm mixed density, circumscribed mass on spot compression views, best seen on MLO projection. ULTRASOUND: Probably benign isoechoic to hyperechoic circumscribed solid mass in parallel orientation in the 2 o'clock position 6 cm from the nipple measures approximately 0.8 x 0.8 x 0.3 cm. This may represent a lipoma and is an incidental finding. This does not correlate with the finding in the right upper outer quadrant on mammogram. Follow-up is recommended. In the 10 o'clock position 8 cm from the nipple there is a heterogeneous complex mixed echogenicity solid mass measuring 1.4 x 1.0 x 1.5 cm. Internal area of increased echogenicity also noted within the mass. Some posterior acoustical shadowing is noted. This possibly correlates with the mammographic finding. Tissue sampling is recommended. Probably benign septated cyst in the 10 o'clock position 10 cm from the nipple measuring 0.7 x 0.7 x 0.4 cm. This is an incidental finding. Follow-up is recommended. Anechoic benign-appearing simple cyst in the retroareolar right breast measures 0.3 x 0.2 x 0.3 cm. Benign-appearing fatty lymph nodes in the right axilla, largest measuring 1.2 cm. IMPRESSION: Recommend right breast ultrasound-guided core needle biopsy of a suspicious indeterminate complex 1.5 cm solid mass in the 10 o'clock position of the right upper outer quadrant . This mass possibly correlates with the screening detected mass however one-to-one correlation is uncertain. Recommend post biopsy diagnostic mammogram to confirm biopsy clip placement and to confirm concordance with the targeted mammographic finding. Also recommend 6 month follow-up ultrasound of the right breast to confirm stability of a probably benign solid mass in the 2 o'clock position and a probably benign septated cyst in the 10 o'clock position, both incidental findings. ASSESSMENT: BI-RADS Category 4: Suspicious
== END ==
PROVIDERS: PCP Family Medicine; Visit Provider Nurse Practitioner Obstetrics & Gynecology
DX: R92.8 Other abnormal and inconclusive findings on diagnostic imaging of breast (principal)
CPT/HCPCS: 76641; 77061; 77065; G0279

== ENCOUNTER → 2021-08-04 10:34 | Outpatient (POV) | payer MEDICARE, MEDICAID, SELFPAY ==
[2021-08-04 11:00] VITALS: BP 180/99; PULSE 114; RESP 20; TEMP 36.7; O2SAT 98; BMI 26.6
--- NOTE | 2021-08-04 15:40 | HMH.PAINSOAP ---
[facility] Pain Management SOAP Note Subjective:: Patient is a pleasant 56-year-old female who is here for medication refill and follow-up. Patient is currently being treated for degenerative disc disease of the cervical ,lumbar spine with cervical ,lumbar radiculopathy symptoms. Patient is being managed with Toughkenamon 5 mg 3 times a day. Patient denies any side effects from the medications. Patient denies any changes to the location and type of pain. Patient states that this is adequately helping manage his pain. Rates pain as 3 out of 10. [facility] number [id number] with an active morphine equivalent 15. Drug screens have been reviewed and appropriate. General: No recent weight changes, no fever, no sleep disturbances Respiratory: No cough, no shortness of air, no recurring pulmonary infections Cardiovascular/peripheral vascular: No chest pain, no palpitations, no edema, no shortness of breath Gastrointestinal: No new onset incontinence, normal bowel movements reported Genitourinary: No new onset incontinence Musculoskeletal: Low back pain Psychiatric: [Normal mood/affect] Neurological: [Denies weakness in extremities], [denies balance issues] Objective:: General: Alert and oriented x3, no acute distress, pleasant and cooperative, [on room air] Lungs: Respirations even and unlabored, symmetrical chest expansion Eyes: PERRL Musculoskeletal: Flexion and extension of cervical and lumbar [spine] somewhat guarded secondary to pain, [antalgic gait noted] Neurological: Speech clear, no gross sensory deficit Assessment:: Degenerative disc disease of the cervical and lumbar spine with cervical and lumbar radiculopathy symptoms Plan:: We will continue the patient's Toughkenamon 5 mg 3 times a day. We will provide the patient with 1 month of refills. We would like to see the patient back in 1 month for follow-up and reevaluation of chronic pain syndrome. Patient has been advised of risks of oversedation with the prescribed medication. Narcan has been offered to the paitent in the event of oversedation. Patient has been advised that a family member should also be educated regarding administration of Narcan. Patient has been instructed to contact the clinic with any concerns before the next appointment. Dr. Nash has reviewed this note and agrees with this plan of care. This note was dictated using voice recognition software and make contain errors or omissions. [facility] History Medical History: Reports:: Diabetes Mellitus Type 2, Hyperlipidemia, Hypertension Denies:: Cancer, Diabetes Mellitus Type 1, Internal Pacemaker, MRSA, Seizures *Have you ever received a pneumonia vaccine?: Yes *Have you received a flu vaccine this season?: Yes Other Medical History: Reports: Arthritis, Thyroid Disease. Denies: Blood Transfusion Reaction Laterality Cases: Bilateral: Myringotomy (Ear Tubes) Other Surgeries: Yes: Cholecystectomy, Colonoscopy, Diagnostic Lap, Hysterectomy-Total, Splenectomy, Other. No: Pacemaker Amputation: No Fractures: No - *Social History Smoking Status: Current every day smoker Tobacco Type: cigarettes # Packs/Day (cigarettes): 1 Alcohol Intake: never Substance Use Type: denies use *Occupational Status:: unemployed Housing: house Household Members: none *Travel in the last 8 weeks: None Family Hx:: Other
== END ==
PROVIDERS: Visit Provider Student in an Organized Health Care Education/Training Program
DX: M50.10 Cervical disc disorder with radiculopathy, unspecified cervical region (principal); M54.16 Radiculopathy, lumbar region
CPT/HCPCS: 99212; G0463

== ENCOUNTER → 2021-09-01 07:31 | Outpatient (CLI) | payer MEDICARE, MEDICAID, SELFPAY ==
--- NOTE | 2021-09-01 07:32 | US_ITS ---
FINAL REPORT CLINICAL HISTORY: rt breast nodule 1000 --CORE BX-- DR CARBAJAL TO READ FINDINGS: ULTRASOUND-GUIDED right as BIOPSY TECHNIQUE: Limited images were obtained to localize region of interest. The was prepped in a routine sterile fashion and locally anesthetized with 1% lidocaine. Using ultrasound guidance a 19 gauge guide needle was directed toward the lesion of interest. Coaxial technique was utilized. The needle was positioned within the outer periphery of the lesion. A total of 4 passes were made with a 18-gauge gauge core biopsy needle. Biopsy marker clip was deployed within the lesion. Procedure was well tolerated . CONCLUSION: 1. Technically successful ultrasound guided core biopsy of right breast lesion as above. 2. Biopsy marker clip deployed in good position Authenticated by Jake Carbajal MD on 09/02/2021 06:00:08 PM [facility]
--- NOTE | 2021-09-01 08:29 | MM_ITS ---
FINAL REPORT CLINICAL HISTORY: . clip placement , s/p breast biopsy with clip placement FINDINGS: MAMMOGRAM RIGHT TECHNIQUE: Standard digital 2-D views COMPARISON: 08/03/2021 DENSITY: There are scattered areas of fibroglandular density FINDINGS: Partially obscured rounded focal asymmetry is again noted in the right upper outer quadrant. Biopsy marker clip is noted along the lateral aspect of the lesion corresponding to recently biopsied sonographic nodule. Clip is noted to be in good position. IMPRESSION: Imaging document satisfactory position of clip placement within partially obscured right breast nodule RECOMMENDATION: Pending histopathology results Authenticated by Jake Gagnon MD on 09/02/2021 06:01:40 PM [facility]
== END ==
PROVIDERS: PCP Family Medicine; Visit Provider Nurse Practitioner Obstetrics & Gynecology
DX: R92.8 Other abnormal and inconclusive findings on diagnostic imaging of breast (principal)
CPT/HCPCS: 19083; 77065; 88305

== ENCOUNTER → 2021-09-06 08:50 | Outpatient (POV) | payer MEDICARE, MEDICAID, SELFPAY ==
[2021-09-06 08:58] VITALS: BP 177/97; PULSE 117; RESP 20; TEMP 36.3; O2SAT 97; BMI 25.7
--- NOTE | 2021-09-06 09:14 | HMH.PAINSOAP ---
[facility] Pain Management SOAP Note Subjective:: This patient is a very pleasant 56-year-old white female who returns to our clinic today for medication refill appointment. Is currently being managed on [place] 5 mg 3 times daily. Patient states pain medicine significantly reduces her pain in her cervical spine as well as left shoulder and left arm. However, at times she has breakthrough pain in the left cervical spine. She is responded very well to facet cervical blocks in the past. We will schedule this for her again today in the next 3 to 4 weeks. [facility] #[id number] was reviewed and appropriate. Objective:: Is awake alert oriented x3. In no acute distress. Some slight resistance to flexion and extension of the cervical spine due to pain on the left side. Deep tendon reflexes upper and lower extremities normal. Gait is normal. There is no gross sensory deficit. Assessment:: Degenerative disc disease cervical spine multilevels. Cervical facet arthropathy. Plan:: We will schedule the patient for left-sided C5-6, C6-7 cervical facet blocks. [facility] History Medical History: Reports:: Diabetes Mellitus Type 2, Hyperlipidemia, Hypertension Denies:: Cancer, Diabetes Mellitus Type 1, Internal Pacemaker, MRSA, Seizures *Have you ever received a pneumonia vaccine?: Yes *Have you received a flu vaccine this season?: Yes Other Medical History: Reports: Arthritis, Thyroid Disease. Denies: Blood Transfusion Reaction Laterality Cases: Bilateral: Myringotomy (Ear Tubes) Other Surgeries: Yes: Cholecystectomy, Colonoscopy, Diagnostic Lap, Hysterectomy-Total, Splenectomy, Other. No: Pacemaker Amputation: No Fractures: No - *Social History Smoking Status: Current every day smoker Tobacco Type: cigarettes # Packs/Day (cigarettes): 1 Alcohol Intake: never Substance Use Type: denies use *Occupational Status:: unemployed Housing: house Household Members: none *Travel in the last 8 weeks: None Family Hx:: Other
[2021-09-06 12:01] LABS: Amphetamine/Metha Screen,Urine Negative ng/ml (<1000); Barbiturates Screen,Urine Negative ng/ml (<200)
[2021-09-06 12:02] LABS: Benzodiazepines Screen,Urine Negative ng/ml (<200); Cannabinoid Screen,Urine Negative ng/ml (<50)
[2021-09-06 12:03] LABS: Cocaine Screen,Urine Negative ng/ml (<300)
[2021-09-06 12:04] LABS: Methadone Screen,Urine Negative ng/ml (<300); Opiate Screen,Urine Positive ng/ml (<300)
[2021-09-06 12:05] LABS: Phencyclidine Screen,Urine Negative ng/ml (<25)
[2021-09-14 20:09] LABS: Codeine Negative (Cutoff=100); Hydrocodone Positive (.); Hydromorphone Positive (.); Morphine Negative (Cutoff=100); Opiates Positive (.)
== END ==
PROVIDERS: Visit Provider Nurse Anesthetist, Certified Registered
DX: M50.10 Cervical disc disorder with radiculopathy, unspecified cervical region (principal); Z79.891 Long term (current) use of opiate analgesic
CPT/HCPCS: 80305; 80361; 80365; 99212; G0463; G0480

== ENCOUNTER → 2021-09-06 14:52 | Outpatient (POV) | payer MEDICARE, MEDICAID, SELFPAY | PROVIDERS: Visit Provider Dermatology | DX: Z00.00 Encounter for general adult medical examination without abnormal findings (principal) ==

== ENCOUNTER → 2021-10-06 08:27 | Outpatient (POV) | payer MEDICARE, MEDICAID, SELFPAY ==
[2021-10-06 08:40] VITALS: BP 159/93; PULSE 98; RESP 20; TEMP 36.2; O2SAT 95; BMI 27.6
--- NOTE | 2021-10-06 09:14 | HMH.PAINSOAP ---
[facility] Pain Management SOAP Note Subjective:: Patient is a pleasant 56-year-old female who is here for medication refill and follow-up. Patient is currently being treated for degenerative disc disease of the cervical spine with cervical radicular symptoms, left shoulder and left arm pain. Patient is being managed with [place] 5 mg 3 times a day. Patient denies any side effects from the medications. Patient denies any changes to the location and type of pain. Patient states that this is adequately helping manage their pain. Rates pain as 5 out of 10. [facility] number [id number] with an active morphine equivalent 15. Drug screens have been reviewed and appropriate. Patient also presents today with more frequent falls in the last 2 to 3 weeks. Patient states that she just feels like her left knee gives up on her. She says that she has some pins and needle pains at night. She denies any swelling, constant pain, warmness on her knee. She has never been diagnosed with arthritis of the left knee. Review of Systems: General: No recent weight changes, no fever, no sleep disturbances Respiratory: No cough, no shortness of air, no recurring pulmonary infections Cardiovascular/peripheral vascular: No chest pain, no palpitations, no edema, no shortness of breath Gastrointestinal: No new onset incontinence, normal bowel movements reported Genitourinary: No new onset incontinence Musculoskeletal: Neck pain, left shoulder pain, left arm pain Psychiatric: [Normal mood/affect] Neurological: [Denies weakness in extremities], [denies balance issues] Objective:: Physical Exam: General: Alert and oriented x3, no acute distress, pleasant and cooperative Lungs: Respirations even and unlabored, symmetrical chest expansion Eyes: PERRL Musculoskeletal: Flexion and extension of cervical [spine] somewhat guarded secondary to pain, [antalgic gait noted]; Left Knee: There is no swelling, erythema, warmness. There is full range of motion. Negative anterior drawer test. Negative valgus and varus stress test. No tenderness to palpation around the left knee. Neurological: Speech clear, no gross sensory deficit Assessment:: Degenerative disc disease of cervical spine with cervical radiculopathy symptoms chronic left shoulder pain, left arm pain Left knee pain Plan:: We will continue the patient's [place] 5 mg 3 times a day. We will provide the patient with 1 month of refills. We would like to see the patient back in 1 month for follow-up and reevaluation of chronic pain syndrome. For the patient's left knee, we will order a bilateral weighted knee x-ray. If the patient is negative for osteoarthritis, we will consider referring the patient to orthopedics for further evaluation. Patient has been advised of risks of oversedation with the prescribed medication. Narcan has been offered to the patient in the event of oversedation. Patient has been advised that a family member should also be educated regarding administration of Narcan. Patient has been instructed to contact the clinic with any concerns before the next appointment. Dr. Nash has reviewed this note and agrees with this plan of care. This note was dictated using voice recognition software and make contain errors or omissions. [facility] History Medical History: Reports:: Diabetes Mellitus Type 2, Hyperlipidemia, Hypertension Denies:: Cancer, Diabetes Mellitus Type 1, Internal Pacemaker, MRSA, Seizures *Have you ever received a pneumonia vaccine?: Yes *Have you received a flu vaccine this season?: Yes Other Medical History: Reports: Arthritis, Thyroid Disease. Denies: Blood Transfusion Reaction Laterality Cases: Bilateral: Myringotomy (Ear Tubes) Other Surgeries: Yes: Cholecystectomy, Colonoscopy, Diagnostic Lap, Hysterectomy-Total, Splenectomy, Other. No: Pacemaker Amputation: No Fractures: No - *Social History Smoking Status: Current every day smoker Tobacco Type: cigarettes # Packs/Day (cigarettes):
== END ==
PROVIDERS: Visit Provider Student in an Organized Health Care Education/Training Program
DX: M50.10 Cervical disc disorder with radiculopathy, unspecified cervical region (principal); M25.512 Pain in left shoulder; G89.29 Other chronic pain; M79.602 Pain in left arm
CPT/HCPCS: 99212; G0463

== ENCOUNTER → 2021-10-27 09:21 | Outpatient (CLI) | payer MEDICARE, MEDICAID, SELFPAY ==
--- NOTE | 2021-10-27 09:28 | XR_ITS ---
FINAL REPORT CLINICAL HISTORY: CHARY KNEE PAIN FINDINGS: LEFT KNEE: 4 views of the left knee obtained. There is no acute fracture or dislocation. The joint spaces are intact. No joint effusion is identified. There is no soft tissue abnormality. IMPRESSION: No acute fracture Reviewed, Interpreted and Dictated by Josh Cameron III, MD Transcribed by Rosamaria Trammell Authenticated and . [facility]
--- NOTE | 2021-10-27 09:28 | XR_ITS ---
FINAL REPORT CLINICAL HISTORY: CHARY KNEE PAIN FINDINGS: RIGHT KNEE: 4 views of the right knee obtained. There is no acute fracture or dislocation. There are mild degenerative changes. No joint effusion is identified. There is no soft tissue abnormality. IMPRESSION: Degenerative changes with no acute fracture. Reviewed, Interpreted and Dictated by Josh Cameron III, MD Transcribed by Rosamaria Trammell Authenticated and [facility][1]
== END ==
PROVIDERS: PCP Family Medicine; Visit Provider Anesthesiology
DX: M25.562 Pain in left knee (principal); M25.561 Pain in right knee
CPT/HCPCS: 73564

== ENCOUNTER 2021-10-28 08:53 | Day surgery (SDC) | payer MEDICARE, MEDICAID, SELFPAY ==
[2021-10-28 09:18] VITALS: BP 180/98; PULSE 100; RESP 18; TEMP 36.6; O2SAT 96; BMI 27.7
[2021-10-28 09:35] VITALS: BP 200/100; PULSE 98; RESP 18; O2SAT 98
[2021-10-28 09:36] VITALS: BP 210/100; PULSE 98; RESP 18; O2SAT 98
--- NOTE | 2021-10-28 09:43 | HMH.PMPROC ---
- Procedure Date: 10/28/21 Time: 09:43 Anesthesiologist:: Bassem Nash MD Complications:: None Pre-procedure Diagnosis:: Degenerative disc disease of cervical spine with cervical radiculopathy symptoms Post-procedure Diagnosis:: Same Indications for Procedure:: Patient is a pleasant 56-year-old white female who been treating for neck pain with cervical radicular symptoms. Most of her pain previously was on the left side and she was scheduled for cervical medial branch blocks today however she got best relief from the cervical epidural steroid injection. She would like to repeat cervical epidural steroid injection today. We will plan on a cervical epidural steroid injection under fluoroscopy today. Procedure Details:: Cervical epidural steroid injection under fluoroscopy Informed consent was obtained and the risks and benefits of the procedure was explained to the patient. The patient was taken to the procedure room placed prone on the procedure table. The neck was prepped using ChloraPrep. The skin and subcutaneous tissues were anesthetized using lidocaine. I placed a 18-gauge epidural needle into the C5-C6 interspace and advanced using [id number] to air and fluoroscopic guidance. After confirmation of needle placement in the epidural space with dye, I injected 3 mL's lidocaine 1.5% and Depo-Medrol 80 mg. The patient tolerated the procedure well with no complications. Plan and Disposition:: We will follow-up with her in 2 weeks. Will reevaluate her symptoms at that time.
[2021-10-28 09:47] VITALS: BP 181/93; PULSE 92; RESP 19; O2SAT 96
== END 2021-10-28 09:48 | disposition home or self-care (01) ==
LOC: SC.PAINP 08:54
PROVIDERS: PCP Nurse Practitioner Family; Visit Provider Anesthesiology
DX: M50.122 Cervical disc disorder at C5-C6 level with radiculopathy (principal); I10 Essential (primary) hypertension; E11.9 Type 2 diabetes mellitus without complications; E78.5 Hyperlipidemia, unspecified; Z91.040 Latex allergy status; M47.896 Other spondylosis, lumbar region
CPT/HCPCS: 62321; J1040; Q9966

== ENCOUNTER 2021-11-11 10:00 | Day surgery (SDC) | payer MEDICARE, MEDICAID, SELFPAY ==
[2021-11-11 10:11] VITALS: BP 157/85; PULSE 105; RESP 20; TEMP 36.6; O2SAT 94; BMI 27.6
[2021-11-11 10:28] VITALS: BP 179/99; PULSE 79; RESP 20
[2021-11-11 10:38] VITALS: BP 167/89; PULSE 94; RESP 20; O2SAT 97
--- NOTE | 2021-11-11 10:50 | HMH.PMPROC ---
- Procedure Date: 11/11/21 Time: 10:50 Anesthesiologist:: Diaz Mcnair CRNA Complications:: None Pre-procedure Diagnosis:: Of disc disease lumbar spine multilevels. Lumbar radiculopathy symptoms. Post-procedure Diagnosis:: Same Indications for Procedure:: Patient is a very pleasant 56-year-old female who comes to our clinic today for lumbar epidural steroid injection. She has had these in the past with significant provement. She describes her low back pain at is constant, dull, aching. She also complains of bilateral hip and leg radicular symptoms. She rates her pain 7/10. Procedure Details:: Procedure: Lumbar epidural steroid injection under fluoroscopy Informed consent was obtained and the risks and benefits of the procedure were explained to the patient. The patient was taken to the procedure room and noninvasive monitors placed, including noninvasive blood pressure cuff and pulse oximeter. The back was viewed using C-arm Fluoroscopy and prepped using Betadine as a cleansing solution and the L4-L5 interspace was palpated. Skin and subcutaneous tissues were anesthetized using lidocaine 1.5% and a 25-gauge needle. After this, an 18-gauge Touhy epidural needle was placed into the L4-L5 interspace and advanced using fluoroscopic guidance and loss of resistance to air until the epidural space was encountered. After confirmation of needle placement in the epidural space, with dye, a solution containing lidocaine 1.5%, 4 mL and Depo-Medrol 80 mg were incrementally injected into the lumbar epidural space. The patient tolerated the procedure well with no complications. The patient was observed in the Pain Clinic and then discharged home neurologically intact. Plan and Disposition:: Patient was discharged without incident.
== END 2021-11-11 10:39 | disposition home or self-care (01) ==
LOC: SC.PAINP 10:01
PROVIDERS: PCP Nurse Practitioner Family; Visit Provider Nurse Anesthetist, Certified Registered
DX: M51.16 Intervertebral disc disorders with radiculopathy, lumbar region (principal); I10 Essential (primary) hypertension
CPT/HCPCS: 62323; J1040

== ENCOUNTER → 2021-12-06 13:52 | Outpatient (POV) | payer MEDICARE, MEDICAID, SELFPAY ==
[2021-12-06 14:15] VITALS: BP 189/96; PULSE 104; RESP 20; TEMP 36.4; O2SAT 96; BMI 26.2
--- NOTE | 2021-12-06 14:23 | HMH.PAINSOAP ---
[facility] Pain Management SOAP Note Subjective:: This patient is a very pleasant 56-year-old female that comes our clinic today for medication refills. We are currently managing her with [place] 5 mg 1 p.o. 3 times daily. Patient doing very well on her current medical regime. Also, patient is recently status post lumbar epidural steroid injection at the L4-5 level. This was on 11/11/2021. Patient reports significant improvement terms of her lumbar back pain as well as bilateral hip and leg radicular symptoms. Patient denies any side effects from the pain medication. Her Petey #[id number] has been reviewed and appropriate. Her UDS has been appropriate. Patient complaining of some left knee pain. She states when walking any distance the pain increases significantly. Patient has been told in the past she has some arthritis in both knees. However, only the left one is painful. She describes pain as intermittent, constant, stabbing, dull aching. I discussed in detail with the patient regarding intra-articular cortisone injection to the left knee. She wishes to proceed. We will get this scheduled for her. Objective:: Patient is awake alert [place] x3. In no acute distress. Flexion-extension lumbar spine normal. Deep tendon reflexes upper lower extremities normal. Motor strength upper and lower extremities normal. There is no gross sensory deficit. Gait is normal. Assessment:: Degenerative disc disease lumbar spine multilevels. Lumbar radiculopathy symptoms. Osteoarthritis left knee. Plan:: We will refill the patient's pain medication. [place] 5 mg 1 p.o. 3 times daily. Also, we will schedule the patient for left intra-articular steroid injection. [facility] History Medical History: Reports:: Diabetes Mellitus Type 2, Hyperlipidemia, Hypertension Denies:: Cancer, Diabetes Mellitus Type 1, Internal Pacemaker, MRSA, Seizures *Have you ever received a pneumonia vaccine?: Yes *Have you received a flu vaccine this season?: Yes Other Medical History: Reports: Arthritis, Hypothyroidism, Thyroid Disease. Denies: Blood Transfusion Reaction Laterality Cases: Bilateral: Myringotomy (Ear Tubes) Other Surgeries: Yes: Cholecystectomy, Colonoscopy, Diagnostic Lap, Hysterectomy-Total, Splenectomy, Other. No: Pacemaker Amputation: No Fractures: No - *Social History Smoking Status: Current every day smoker Tobacco Type: cigarettes # Packs/Day (cigarettes): 1 Alcohol Intake: never Substance Use Type: denies use *Occupational Status:: unemployed Housing: house Household Members: none *Travel in the last 8 weeks: None Family Hx:: No significant family history
== END ==
PROVIDERS: PCP Nurse Practitioner Family; Visit Provider Nurse Anesthetist, Certified Registered
DX: M51.16 Intervertebral disc disorders with radiculopathy, lumbar region (principal); M17.12 Unilateral primary osteoarthritis, left knee
CPT/HCPCS: 99212; G0463

== ENCOUNTER 2021-12-16 12:59 | Day surgery (SDC) | payer MEDICARE, MEDICAID, SELFPAY ==
[2021-12-16 13:06] VITALS: BP 154/78; PULSE 94; RESP 18; TEMP 36.5; O2SAT 94; BMI 27.7
--- NOTE | 2021-12-16 13:12 | HMH.PMPROC ---
- Procedure Date: 12/16/21 Time: 13:12 Anesthesiologist:: Diaz Mcnair CRNA Complications:: None Pre-procedure Diagnosis:: Osteoarthritis left knee Post-procedure Diagnosis:: Same Indications for Procedure:: Patient is a very pleasant 56-year-old female who comes our clinic today for left intra-articular knee injection. Patient states pain intensifies with ambulation. Patient complains of pain with flexion and extension. She rates her pain 7/10 today. Procedure Details:: Details of the procedure were explained to the patient. The patient's left knee was cleansed using chlorhexidine as a cleansing solution. Using a 25-gauge inch and half needle the left knee joint was accessed from the left lateral anterior position. This was done without difficulty. No resistance. After negative aspiration a solution containing 4 cc of 1% lidocaine +4 cc of 0.25% Marcaine and 40 mg of Depo-Medrol was injected. Patient tolerated the procedure without difficulty. There were no complications. Plan and Disposition:: Patient was discharged without incident.
[2021-12-16 13:15] VITALS: BP 125/85; PULSE 65; RESP 20
[2021-12-16 13:16] VITALS: BP 166/82; PULSE 97; RESP 20; O2SAT 95
== END 2021-12-16 13:17 | disposition home or self-care (01) ==
LOC: SC.PAINP 12:59
PROVIDERS: PCP Nurse Practitioner Family; Visit Provider Nurse Anesthetist, Certified Registered
DX: M17.12 Unilateral primary osteoarthritis, left knee (principal); E11.9 Type 2 diabetes mellitus without complications; I10 Essential (primary) hypertension; E78.5 Hyperlipidemia, unspecified; Z72.0 Tobacco use
CPT/HCPCS: 20610; J1040

== ENCOUNTER → 2022-01-05 14:22 | Outpatient (POV) | payer MEDICARE, MEDICAID, SELFPAY ==
[2022-01-05 14:29] VITALS: BP 187/89; PULSE 100; RESP 20; BMI 27.7
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
[2022-01-05 15:33] LABS: Amphetamine/Metha Screen,Urine Negative ng/ml (<1000); Barbiturates Screen,Urine Negative ng/ml (<200)
[2022-01-05 15:34] LABS: Benzodiazepines Screen,Urine Negative ng/ml (<200)
[2022-01-05 15:35] LABS: Cannabinoid Screen,Urine Negative ng/ml (<50); Cocaine Screen,Urine Negative ng/ml (<300)
[2022-01-05 15:36] LABS: Methadone Screen,Urine Negative ng/ml (<300); Opiate Screen,Urine Positive ng/ml (<300)
[2022-01-05 15:37] LABS: Phencyclidine Screen,Urine Negative ng/ml (<25)
[2022-01-10 17:31] LABS: Codeine Negative (Cutoff=100); Hydrocodone Positive (.); Hydromorphone Positive (.); Morphine Negative (Cutoff=100); Opiates Positive (.)
== END ==
PROVIDERS: PCP Nurse Practitioner Family; Visit Provider Nurse Practitioner Family
DX: M51.16 Intervertebral disc disorders with radiculopathy, lumbar region (principal); M46.1 Sacroiliitis, not elsewhere classified; M70.62 Trochanteric bursitis, left hip; M17.12 Unilateral primary osteoarthritis, left knee; Z79.891 Long term (current) use of opiate analgesic
CPT/HCPCS: 80305; 80361; 80365; 99212; G0463; G0480

== ENCOUNTER → 2022-02-07 09:29 | Outpatient (POV) | payer MEDICARE, MEDICAID, SELFPAY ==
[2022-02-07 09:38] VITALS: BP 172/87; PULSE 110; RESP 20; O2SAT 96; BMI 27.7
--- NOTE | 2022-02-07 09:47 | EXP.PAIN.SOA ---
[facility] Pain Management SOAP Note Subjective:: Patient is a pleasant 56-year-old female who presents today for follow-up and medication refill. We are currently treating the patient for degenerative disc disease of lumbar spine multilevels with lumbar radiculopathy symptoms, osteoarthritis of her left knee, sacroiliitis. Patient states her pain today is a 4 out of 10. She states primarily in her low back and radiating into her left leg. Patient describes this as a ache, throbbing sensation accompanied by numbness. Patient has recently been lifting 24 packs of water and feels like she may have thrown her back out. Patient also states she has had additional stiffness in the mornings however it is relieved when she is up and moving around. She believes this is just from her arthritis which she takes Tylenol arthritis as needed for this issue. Patient is currently managed with [place] 5 mg 3 times a day. Patient denies any side effects from this medication. She states this medication is adequately managing her pain. She is requesting a refill at today's visit. Review of systems General: No recent weight changes, no fever no sleep disturbances Respiratory: No cough, no shortness of air, no recurring pulmonary infections cardiovascular/peripheral vascular: No chest pain, no palpitations, no edema, no shortness of breath Gastrointestinal: No new onset incontinence, normal bowel movements reported Genitourinary: No new onset incontinence Musculoskeletal: Low back pain, left leg pain Psychiatric: Normal mood/affect Neurological: Denies weakness in extremities, denies balance issues Objective:: Physical exam General: Alert and oriented x3, no acute distress, pleasant and cooperative Respiratory: Respirations even and unlabored, symmetrical chest expansion Eyes: PERRL Musculoskeletal: Flexion and extension of lumbar spine somewhat guarded secondary to pain, antalgic gait noted. Extreme point tenderness along left SI and positive left Casper's, Kulwant's, Gaenslen's, compression and distraction exam Neurological: Speech clear, no gross sensory deficit Assessment:: Degenerative disc disease of lumbar spine multilevels with lumbar radiculopathy symptoms, osteoarthritis of left knee, sacroiliitis. Plan:: Patient is experiencing moderate pain in her low back that radiates into her left leg. Patient had extreme point tenderness along her left SI and positive left Casper's, Kulwant's, Gaenslen's, compression and distraction exam during today's visit. Patient is already scheduled for SI injections in the next week or 2. I will reorder the patient's [place] 5 mg 3 times a day and provide a 1 month supply of this medication. Patient will follow-up in 1 month. Patient will return to clinic in 1 month for reevaluation of symptoms and medication refill. Patient has been instructed to contact the clinic with any concerns before the next appointment. Dr. Nash has reviewed this note and agrees with this plan of care. This note was dictated using voice recognition software and may contain errors or omissions. PFSH PFSH Social History Smoking Status: Current every day smoker tobacco type: cigarettes packs per day: 1 second hand exposure: No alcohol intake: never substance use type: denies use current occupational status: other Travel in the last 8 weeks: None household members: none housing: house current occupational exposures/hazards: No caffeine: Yes
== END | disposition home or self-care (01) ==
PROVIDERS: PCP Nurse Practitioner Family; Visit Provider Nurse Anesthetist, Certified Registered
DX: M51.16 Intervertebral disc disorders with radiculopathy, lumbar region (principal); M17.12 Unilateral primary osteoarthritis, left knee; Z72.0 Tobacco use
CPT/HCPCS: 99212; G0463

== ENCOUNTER 2022-02-14 08:31 | Day surgery (SDC) | payer MEDICARE, MEDICAID, SELFPAY ==
[2022-02-14 09:08] VITALS: BP 155/93; PULSE 100; RESP 18; TEMP 36.6; O2SAT 94; BMI 28.1
[2022-02-14 09:16] VITALS: RESP 18; O2SAT 95
[2022-02-14 09:17] VITALS: RESP 18; O2SAT 95
--- NOTE | 2022-02-14 09:22 | EXP.PAIN.PRO ---
Procedure Date: 02/14/22 Time: : Anesthesiologist:: Diaz Mcnair CRNA Complications:: None Pre-procedure Diagnosis:: Left sacroiliitis Post-procedure Diagnosis:: Same Indications for Procedure:: Patient is a pleasant Degenerative disc disease of cervical spine with cervical radiculopathy symptoms, low back pain, right hip pain 56-year-old female that comes to our clinic today for left SI joint injection. Also sharp stabbing at times. She rates her pain 7/10. She has had this done in the past with significant improvement. She describes her left SI joint pain as constant, dull, aching. Procedure Details:: Details of the procedure were explained to the patient. The patient taken the procedure room placed in the prone position. The area over the left posterior hip was cleaned using chlorhexidine as a cleansing solution. Under fluoroscopy guidance a marker was placed over the left SI joint. The skin and subcutaneous tissue was anesthetized using 1% lidocaine and 25-gauge needle. At this time using fluoroscopy guidance a 3 and half inch 22-gauge spinal needle was used to access the left lower one third of the SI joint. After negative aspiration. 4 cc of 0.25% Marcaine and 1 cc of 40 mg Depo-Medrol was injected. Patient tolerated procedure without difficulty. There are no complications. Plan and Disposition:: Patient was discharged without incident.
[2022-02-14 09:25] VITALS: BP 172/100; PULSE 105; RESP 18; O2SAT 96
== END 2022-02-14 09:25 | disposition home or self-care (01) ==
PROVIDERS: PCP Nurse Practitioner Family; Visit Provider Nurse Anesthetist, Certified Registered
DX: M46.1 Sacroiliitis, not elsewhere classified (principal); M50.10 Cervical disc disorder with radiculopathy, unspecified cervical region
CPT/HCPCS: 27096; G0260; J1030

== ENCOUNTER → 2022-03-02 13:39 | Outpatient (CLI) | payer MEDICARE, MEDICAID, SELFPAY ==
--- NOTE | 2022-03-02 13:39 | MM_ITS ---
PROCEDURE INFORMATION: Exam: US Right Breast, Complete MG Right Diagnostic Breast Tomosynthesis Exam date and time: 03/02/2022 2:50 PM Age: 56 years old Clinical indication: Short-term radiographic followup; Right breast; mass. Benign right breast biopsy TECHNIQUE: Imaging protocol: Complete ultrasound of all four quadrants of the Right breast and the retroareolar regions, including ultrasound of the axilla when performed. Right Diagnostic tomosynthesis and 2D mammography including computer-aided detection (CAD) when performed. Unilateral or bilateral exam. COMPARISON: US BIOPSY BREAST RT 09/01/2021 7:57 AM FINDINGS: MAMMOGRAPHY: The breasts are heterogeneously dense, which may obscure small masses. There is no stellate mass, architectural distortion or suspicious microcalcifications to suggest malignancy. A clip guo the site of biopsy in the middle third of the right upper outer quadrant. No skin thickening or axillary adenopathy. ULTRASOUND: Sonographic images of the right 2 o'clock axis 6 cm from the nipple demonstrates cursors over a prominent subcutaneous fat lobule. In the right 9 o'clock axis 2 cm from the nipple is a hypoechoic heterogeneous well-circumscribed ovoid mass likely representing focal fibrocystic change measuring 0.5 x 0.4 x 0.2 cm in dimension, new compared to prior examination. An island of dense fibroglandular structures with minimal interspersed subcentimeter cystic change measuring 1.4 x 1.1 x 1.4 cm in the 10 o'clock axis 8 cm from the nipple is a stable finding. This is the site of prior biopsy. Subcentimeter cystic changes noted in the right 10 o'clock axis 6 cm from the nipple as well as in the retroareolar region. No axillary adenopathy. IMPRESSION: 1. Interval development of a sonographically visible probably benign mass in the 9 o'clock axis 2 cm from the nipple. A six-month follow-up targeted right breast ultrasound is recommended to ensure stability over time. 2. Accurate correlation between the mammographic and sonographic findings of a right upper outer quadrant breast mass. Biopsy revealed pseudoangiomatous stromal hyperplasia. 3. Previously noted solid 0.8 cm mass in the 2 o'clock axis 6 cm from the nipple is not seen on the current examination. ASSESSMENT: BI-RADS Category 3: Probably benign
== END ==
PROVIDERS: PCP Nurse Practitioner Family; Visit Provider Surgery
DX: R92.8 Other abnormal and inconclusive findings on diagnostic imaging of breast (principal)
CPT/HCPCS: 76641; 77061; 77065; G0279

== ENCOUNTER → 2022-03-06 08:41 | Outpatient (POV) | payer MEDICARE, MEDICAID, SELFPAY ==
[2022-03-06 09:00] VITALS: BP 168/81; PULSE 118; RESP 20; TEMP 36.6; O2SAT 98; BMI 28.5
--- NOTE | 2022-03-06 09:40 | A.OFFVIS_ITS ---
[facility] Pain Management SOAP Note Subjective:: Patient is a pleasant 56-year-old female who presents today for follow-up after a left SI injection on 02/14/2022. Patient's Been treated for left-sided sacroiliitis, chronic low back pain. After her injection, patient had significant relief of about 70 to 80%. Denies any issues after an injection. States that she was able to increase her activity after the injection. She typically gets injections every 2 to 3 months for management of her left SI pain. She is also taking oral medications. She is prescribed Wausa 5 mg 3 times a day. Denies any side effects from this medication. She is stable on this medication. She is needing refills on this medication. Petey [id number] fibronectin morphine equivalent of 15. Drug screen is appropriate. Review of Systems: General: No recent weight changes, no fever, no sleep disturbances Respiratory: No cough, no shortness of air, no recurring pulmonary infections Cardiovascular/peripheral vascular: No chest pain, no palpitations, no edema, no shortness of breath Gastrointestinal: No new onset incontinence, normal bowel movements reported Genitourinary: No new onset incontinence Musculoskeletal: Low back pain, left hip pain Psychiatric: [Normal mood/affect] Neurological: [Denies weakness in extremities], [denies balance issues] Objective:: Physical Exam: General: Alert and oriented x3, no acute distress, pleasant and cooperative Lungs: Respirations even and unlabored, symmetrical chest expansion Eyes: PERRL Musculoskeletal: Flexion and extension of lumbar [spine] somewhat guarded secondary to pain, [antalgic gait noted]; improving left hip pain Neurological: Speech clear, no gross sensory deficit Assessment:: Sacroiliitis, degenerative disease lumbar spine with lumbar radiculopathy symptoms Plan:: Patient is still getting relief from the left SI injection. She typically gets 2 to 3 months of relief from this injection. We will continue the patient's Wausa 5 mg 3 times a day. We will provide the patient with 1 month worth of refill. We will follow this patient in 1 month. Patient has been instructed to contact the clinic with any concerns before the next appointment. Dr. Nash has reviewed this note and agrees with this plan of care. This note was dictated using voice recognition software and make contain errors or omissions. [facility] Social History Smoking Status: Current every day smoker tobacco type: cigarettes packs per day: 1 second hand exposure: No alcohol intake: never substance use type: denies use current occupational status: disabled Travel in the last 8 weeks: None household members: none housing: house current occupational exposures/hazards: No caffeine: Yes
== END | disposition home or self-care (01) ==
PROVIDERS: Visit Provider Nurse Practitioner Family
DX: M51.16 Intervertebral disc disorders with radiculopathy, lumbar region (principal); M46.1 Sacroiliitis, not elsewhere classified; Z72.0 Tobacco use
CPT/HCPCS: 99212; G0463

== ENCOUNTER → 2022-04-06 09:28 | Outpatient (POV) | payer MEDICARE, MEDICAID, SELFPAY ==
--- NOTE | 2022-04-06 09:47 | EXP.PAIN.SOA ---
[facility] Pain Management SOAP Note Subjective:: Patient is a pleasant 56-year-old female who presents today for medication refill and follow-up. We are currently treating the patient for sacroiliitis, chronic low back pain. Today the patient rates her pain a 5 out of 10. She states the pain is primarily in her neck along both sides that radiates into her shoulders. Patient denies any new trauma or injury. Patient denies any change location or type of pain she experiences. Patient does states this affects her ability to perform activities of daily living due to limited range of motion of her neck. Patient is currently managed with Glenwood 5 mg 3 times a day. Patient denies any side effects from this medication. She states this medication does adequately help manage her pain symptoms. Patient states she will need a refill on the of this month. Patient previously has done injective therapy that has provided significant improvement of her symptoms including SI injections. Patient states she is currently doing well still in her left SI region following her last injection on 02/14/2022. her Petey is [phone]. It has been reviewed and appropriate. Review of Systems: General: No recent weight changes, no fever, no sleep disturbances Respiratory: No cough, no shortness of air, no recurring pulmonary infections Cardiovascular/peripheral vascular: No chest pain, no palpitations, no edema, no shortness of breath Gastrointestinal: No new onset incontinence, normal bowel movements reported Genitourinary: No new onset incontinence Musculoskeletal: Neck pain, bilateral shoulder pain Psychiatric: [Normal mood/affect] Neurological: [Denies weakness in extremities], [denies balance issues] Objective:: Physical Exam: General: Alert and oriented x3, no acute distress, pleasant and cooperative Lungs: Respirations even and unlabored, symmetrical chest expansion Eyes: PERRL Musculoskeletal: Flexion and extension of cervical [spine] somewhat guarded secondary to pain, [antalgic gait noted]. Extreme point tenderness along bilateral cervical paraspinous and bilateral trapezius muscles Neurological: Speech clear, no gross sensory deficit Assessment:: Sacroiliitis, chronic low back pain, neck pain, myofascial pain of bilateral cervical paraspinous and bilateral trapezius Plan:: Patient is experiencing significant pain along her neck and bilateral shoulders. Patient did have limited range of motion of her cervical spine and extreme point tenderness along bilateral cervical paraspinous and bilateral trapezius muscles during today's exam. I have recommended that we do trigger point injections at the sites. Risk and benefits were discussed with the patient. She would like to proceed forward with this plan of care. I will refill the patient's Glenwood 5 mg 3 times a day and provide a 1 month supply of this medication. We will schedule the patient for TPI of bilateral cervical paraspinous and bilateral trapezius muscles. Patient has been advised of risks of oversedation with the prescribed medication. Narcan has been offered to the patient in the event of oversedation. Patient has been advised that a family member should also be educated regarding administration of Narcan. Patient has been instructed to contact the clinic with any concerns before the next appointment. Dr. Nash has reviewed this note and agrees with this plan of care. This note was dictated using voice recognition software and make contain errors or omissions. [facility] Social History Smoking Status: Current every day smoker tobacco type: cigarettes packs per day: 1 second hand exposure: No alcohol intake: never substance use type: denies use current occupational status: disabled Travel in the last 8 weeks: None household members: none housing: house current occupational exposures/hazards: No caffeine: Yes
[2022-04-06 10:17] VITALS: BP 171/86; PULSE 106; RESP 18; O2SAT 96; BMI 27.6
== END | disposition home or self-care (01) ==
PROVIDERS: PCP Nurse Practitioner Family; Visit Provider Nurse Practitioner Family
DX: M46.1 Sacroiliitis, not elsewhere classified (principal); M79.18 Myalgia, other site; M54.2 Cervicalgia; M54.50 Low back pain, unspecified; G89.29 Other chronic pain
CPT/HCPCS: 99212; G0463

== ENCOUNTER → 2022-04-06 10:03 | Outpatient (CLI) | payer MEDICARE, MEDICAID, SELFPAY ==
[2022-04-06 10:50] LABS: Amphetamine/Metha Screen,Urine Negative ng/ml (<1000)
[2022-04-06 10:52] LABS: Barbiturates Screen,Urine Negative ng/ml (<200); Cannabinoid Screen,Urine Negative ng/ml (<50)
[2022-04-06 10:53] LABS: Benzodiazepines Screen,Urine Negative ng/ml (<200)
[2022-04-06 10:54] LABS: Cocaine Screen,Urine Negative ng/ml (<300); Methadone Screen,Urine Negative ng/ml (<300)
[2022-04-06 10:55] LABS: Opiate Screen,Urine Positive ng/ml (<300)
[2022-04-06 10:56] LABS: Phencyclidine Screen,Urine Negative ng/ml (<25)
[2022-04-11 22:17] LABS: Codeine Negative (Cutoff=100); Hydrocodone Positive (.); Hydromorphone Positive (.); Morphine Negative (Cutoff=100); Opiates Positive (.)
== END ==
PROVIDERS: PCP Nurse Practitioner Family; Visit Provider Nurse Practitioner Family
DX: Z79.891 Long term (current) use of opiate analgesic (principal)
CPT/HCPCS: 80305; 80361; 80365; 99212; G0463; G0480

== ENCOUNTER 2022-05-09 13:32 | Day surgery (SDC) | payer MEDICARE, MEDICAID, SELFPAY ==
[2022-05-09 13:47] VITALS: BP 160/91; PULSE 101; RESP 18; TEMP 36.3; O2SAT 97; BMI 26.2
--- NOTE | 2022-05-09 13:59 | EXP.PAIN.PRO ---
Procedure Date: 05/09/22 Time: 13:48 Anesthesiologist:: Diaz Mcnair CRNA Complications:: None Pre-procedure Diagnosis:: Myofascial pain bilateral trapezius muscles Post-procedure Diagnosis:: Same. Indications for Procedure:: Patient is a very pleasant 56-year-old female that comes our clinic today for bilateral trapezius muscles trigger point injection. Patient has extreme point tenderness over the bilateral trapezius muscles bilaterally. Patient rates the pain 8/10. Patient has had trigger point injections in the these muscles in the past with significant improvement. We also medically manage the patient with hydrocodone 5 mg 1 p.o. 3 times daily. She is due a refill at this time. We will send this in for her today. Patient does not complain of any side effects from the pain medication. Patient states pain medication does help with her pain. Her Petey #[id number] has been reviewed and appropriate. Her UDS is been appropriate in the past. Procedure Details:: Details of the procedure were explained to the patient. The patient taken the procedure room placed in the sitting position. The area over the bilateral trapezius muscles was cleansed using chlorhexidine as a cleansing solution. Using a solution of 0.25% Marcaine and 1% lidocaine and 40 mg of Depo-Medrol and a 25-gauge needle 3 separate areas on the left trapezius muscle was injected with 2 cc after negative aspiration. The same procedure was carried out over the right trapezius muscle. Patient tolerated procedure without difficulty. There are no complications. Plan and Disposition:: Patient was discharged without incident.
[2022-05-09 14:00] VITALS: BP 169/80; PULSE 101; RESP 18; TEMP 36.3; O2SAT 100
== END 2022-05-09 14:02 | disposition home or self-care (01) ==
PROVIDERS: PCP Nurse Practitioner Family; Visit Provider Nurse Anesthetist, Certified Registered
DX: M79.18 Myalgia, other site (principal); F17.210 Nicotine dependence, cigarettes, uncomplicated
CPT/HCPCS: 20552; J1040

== ENCOUNTER → 2022-06-01 15:04 | Outpatient (POV) | payer MEDICARE, MEDICAID, SELFPAY ==
[2022-06-01 15:27] VITALS: BP 151/84; PULSE 105; RESP 18; O2SAT 98; BMI 27.6
--- NOTE | 2022-06-01 15:32 | EXP.PAIN.SOA ---
[facility] Pain Management SOAP Note Subjective:: Patient is a pleasant 57-year-old female who presents today for follow-up of trigger point injections at bilateral trapezius muscles on 05/09/2022. We are currently treating the patient for neck pain, cervical radiculopathy symptoms, shoulder pain, myofascial pain of bilateral trapezius muscles, sacroiliitis, chronic low back pain. Today she rates her pain a 3 out of 10. Patient states her trigger point injections only helped for approximately 2 to 3 days and then caused worsening symptoms for approximately 1 week after. Patient states she continues to experience pain throughout her body however the most bothersome currently is her neck pain with some radiating symptoms into her shoulders. Patient did previously have a injection earlier last year that did provide approximately 4 to 6 months relief at at least 50% improvement. Patient is interested in repeating this injection at today's visit. Patient is currently managed with Groom 5 mg 3 times a day. Patient denies any side effects from this medication. She states this medication does help with her pain symptoms. She is requesting a refill at today's visit. Patient does not drive and is requesting oral medication of steroid until she can get in for her next injection. Her Petey is [phone]. Its been reviewed and appropriate. Review of Systems: General: No recent weight changes, no fever, no sleep disturbances Respiratory: No cough, no shortness of air, no recurring pulmonary infections Cardiovascular/peripheral vascular: No chest pain, no palpitations, no edema, no shortness of breath Gastrointestinal: No new onset incontinence, normal bowel movements reported Genitourinary: No new onset incontinence Musculoskeletal: Neck pain Psychiatric: [Normal mood/affect] Neurological: [Denies weakness in extremities], [denies balance issues] Objective:: Physical Exam: General: Alert and oriented x3, no acute distress, pleasant and cooperative Lungs: Respirations even and unlabored, symmetrical chest expansion Eyes: PERRL Musculoskeletal: Flexion and extension of cervical [spine] somewhat guarded secondary to pain, [antalgic gait noted] Neurological: Speech clear, no gross sensory deficit ORT score updated with low risk Family history of alcohol abuse Personal history of depression Assessment:: Neck pain, cervical radiculopathy symptoms, shoulder pain, myofascial pain of bilateral trapezius muscles, sacroiliitis, chronic low back pain Plan:: Patient continues to experience significant pain in her neck with radiating symptoms into her shoulders. Patient did have limited range of motion of her cervical spine during today's visit. I have discussed with the patient that she may benefit from a repeat cervical epidural steroid injection. Risk and benefits were discussed with the patient and she would like to proceed forward with this plan of care. Patient previously had a cervical epidural in October 2021 that provided 50% improvement lasting 4 to 6 months. I will refill the patient's Groom 5 mg 3 times a day and provide a 1 month supply of this medication. I will also send in a prescription for prednisone 20 mg twice daily for 5 days. We will schedule the patient for a SHERRY C5-C6. Patient has been advised of risks of oversedation with the prescribed medication. Narcan has been offered to the patient in the event of oversedation. Patient has been advised that a family member should also be educated regarding administration of Narcan. Patient has been instructed to contact the clinic with any concerns before the next appointment. Dr. Nash has reviewed this note and agrees with this plan of care. This note was dictated using voice recognition software and make contain errors or omissions. [facility] Disclaimer: The information contained in this section may have been updated after the patient was seen, as this information can be updated by other users. Med[facility]
== END | disposition home or self-care (01) ==
PROVIDERS: PCP Nurse Practitioner Family; Visit Provider Nurse Practitioner Family
DX: M54.12 Radiculopathy, cervical region (principal); M54.50 Low back pain, unspecified; G89.29 Other chronic pain; M46.1 Sacroiliitis, not elsewhere classified; M79.18 Myalgia, other site; M25.519 Pain in unspecified shoulder
CPT/HCPCS: 99212; G0463

== ENCOUNTER 2022-06-06 13:53 | Day surgery (SDC) | payer MEDICARE, MEDICAID, SELFPAY ==
[2022-06-06 14:12] VITALS: BP 159/79; PULSE 115; RESP 16; TEMP 36.7; O2SAT 96; BMI 27.6
--- NOTE | 2022-06-06 14:29 | P.PCN_ITS ---
Procedure Date: 06/06/22 Time: 14:29 Anesthesiologist:: Diaz Mncair CRNA Complications:: None Pre-procedure Diagnosis:: Degenerative disc disease cervical spine multilevels. Cervical radiculopathy. Post-procedure Diagnosis:: Same. Indications for Procedure:: Very pleasant 57-year-old female that comes our clinic today for a therapeutic cervical epidural steroid injection. Patient has had significant improvement in her cervical neck pain as well as bilateral arm radicular symptoms with previous cervical epidural steroid injections. She rates her pain today 6/10. Procedure Details:: Procedure:Cervical epidural steroid injection Informed consent was obtained and the risks and benefits of the procedure were explained to the patient. The patient was taken to the procedure room and noninvasive monitors placed, including noninvasive blood pressure cuff and pulse oximeter. The neck was prepped using Chloraprep as a cleansing solution. The C7- T1 interspace was viewed using fluroscopy. The skin and subcutaneous tissues were anesthetized using lidocaine 1.5% and a 25-gauge needle. After this an 18- gauge Touhy epidural needle was placed into the C7-T1 interspace under fluroscopy guidance and advanced using loss of resistance to air until the epidural space was encountered. After confirmation of needle placement in the epidural space using contrast dye, a solution containing normal saline, 2 mL and Depo-Medrol 80 mg was incrementally injected into the cervical epidural space.~ The patient tolerated the procedure well with no complications. The patient was observed in the Pain Clinic and then discharged home neurologically intact. Plan and Disposition:: Patient was discharged without incident.
[2022-06-06 14:30] VITALS: BP 166/93; PULSE 108; RESP 18; O2SAT 96
== END 2022-06-06 14:30 | disposition home or self-care (01) ==
PROVIDERS: PCP Nurse Practitioner Family; Visit Provider Nurse Anesthetist, Certified Registered
DX: M50.13 Cervical disc disorder with radiculopathy, cervicothoracic region (principal); F17.210 Nicotine dependence, cigarettes, uncomplicated
CPT/HCPCS: 62321; J1040; Q9966

== ENCOUNTER → 2022-07-10 09:34 | Outpatient (POV) | payer MEDICARE, MEDICAID, SELFPAY ==
--- NOTE | 2022-07-10 10:00 | EXP.PAIN.SOA ---
[facility] Pain Management SOAP Note Subjective:: Patient is a pleasant 57-year-old female who presents today for follow-up of cervical epidural at C7-T1 on 06/06/2022. We are currently treating the patient for degenerative disc disease of cervical and lumbar spine with cervical and lumbar radiculopathy symptoms, shoulder pain, myofascial pain, sacroiliitis, chronic pain. Today she rates her pain a 3 out of 10. Patient states that she has had at least 80% improvement in her neck and radicular symptoms following the cervical epidural. Patient does state that she is experiencing a flareup of her low back pain along the left side that radiates into her left leg. Patient does describe this as a aching, throbbing sensation that is worse with increased activity. Patient cannot tolerate prolonged sitting, standing, walking due to the pain. Patient does state this affects her ability to perform activities of daily living such as cooking and cleaning. Patient denies any new trauma or injury. Patient denies any change location or type of pain she experiences. Patient has had multiple injections in the past including epidurals and SI injections that did provide significant improvement. Patient is currently managed with Hamburg 5 mg 3 times a day. Patient denies any side effects from this medication. She is requesting a refill at today's visit. Her Petey is [phone]. Its been reviewed and appropriate. Review of Systems: General: No recent weight changes, no fever, no sleep disturbances Respiratory: No cough, no shortness of air, no recurring pulmonary infections Cardiovascular/peripheral vascular: No chest pain, no palpitations, no edema, no shortness of breath Gastrointestinal: No new onset incontinence, normal bowel movements reported Genitourinary: No new onset incontinence Musculoskeletal: Low back pain, left leg pain Psychiatric: [Normal mood/affect] Neurological: [Denies weakness in extremities], [denies balance issues] Objective:: Physical Exam: General: Alert and oriented x3, no acute distress, pleasant and cooperative Lungs: Respirations even and unlabored, symmetrical chest expansion Eyes: PERRL Musculoskeletal: Flexion and extension of lumbar [spine] somewhat guarded secondary to pain, [antalgic gait noted] point tenderness along left SI with positive left Casper's, Kulwant's, Gaenslen's, compression and distraction exam Neurological: Speech clear, no gross sensory deficit Assessment:: Degenerative disc disease of cervical and lumbar spine with cervical and lumbar radiculopathy symptoms, shoulder pain, myofascial pain, sacroiliitis, chronic pain Plan:: Patient had significant relief of her neck and radiating upper extremities following her cervical epidural. Patient is experiencing worsening pain symptoms in her low back with limited range of motion. I have discussed with the patient that she may benefit from a repeat left SI injection. Patient did have point tenderness along her left SI with positive left Casper's, Kulwant's, Gaenslen's, compression and distraction exam. Risk and benefits of this injection were explained to the patient. She would like to proceed forward with this plan of care. I will also refill the patient's Hamburg 5 mg 3 times a day and provide a 1 month supply of this medication. We will schedule the patient for a diagnostic left SI injection. Patient has been advised of risks of oversedation with the prescribed medication. Narcan has been offered to the patient in the event of oversedation. Patient has been advised that a family member should also be educated regarding administration of Narcan. Patient has been instructed to contact the clinic with any concerns before the next appointment. Dr. Nash has reviewed this note and agrees with this plan of care. This note was dictated using voice recognition software and make contain errors or omissions. [facility] Disclaimer: The information contained in this section may have been updat
[2022-07-10 10:43] VITALS: BP 149/87; PULSE 103; RESP 19; O2SAT 97; BMI 27.6
== END | disposition home or self-care (01) ==
PROVIDERS: PCP Nurse Practitioner Family; Visit Provider Nurse Practitioner Family
DX: M51.16 Intervertebral disc disorders with radiculopathy, lumbar region (principal); M50.13 Cervical disc disorder with radiculopathy, cervicothoracic region
CPT/HCPCS: 99212; G0463

== ENCOUNTER → 2022-07-10 10:13 | Outpatient (CLI) | payer MEDICARE, MEDICAID, SELFPAY ==
[2022-07-10 14:24] LABS: Amphetamine/Metha Screen,Urine Negative ng/ml (<1000); Barbiturates Screen,Urine Negative ng/ml (<200); Benzodiazepines Screen,Urine Negative ng/ml (<200); Cannabinoid Screen,Urine Negative ng/ml (<50); Cocaine Screen,Urine Negative ng/ml (<300); Methadone Screen,Urine Negative ng/ml (<300); Opiate Screen,Urine Positive ng/ml (<300); Phencyclidine Screen,Urine Negative ng/ml (<25)
[2022-07-15 16:10] LABS: Codeine Negative (Cutoff=100); Hydrocodone Positive (.); Hydromorphone Positive (.); Morphine Negative (Cutoff=100); Opiates Positive (.)
== END ==
LOC: LAB 10:15
PROVIDERS: PCP Nurse Practitioner Family; Visit Provider Nurse Practitioner Family
DX: Z79.891 Long term (current) use of opiate analgesic (principal)
CPT/HCPCS: 80305; 80361; 80365; 99212; G0463; G0480

== ENCOUNTER 2022-08-01 07:44 | Day surgery (SDC) | payer MEDICARE, MEDICAID, SELFPAY ==
[2022-08-01 08:13] VITALS: BP 164/96; PULSE 104; RESP 18; TEMP 36.5; O2SAT 97; BMI 27.6
[2022-08-01 08:18] VITALS: BP 135/78; PULSE 78; RESP 18; O2SAT 97
[2022-08-01 08:21] VITALS: BP 185/90; PULSE 99; RESP 18; O2SAT 97
[2022-08-01 08:27] VITALS: BP 135/78; PULSE 78; RESP 18; O2SAT 97
--- NOTE | 2022-08-01 08:47 | EXP.PAIN.PRO ---
Procedure Date: 08/01/22 Time: 08:05 Anesthesiologist:: Diaz Mcnair CRNA Complications:: None Pre-procedure Diagnosis:: Left sacroiliitis Post-procedure Diagnosis:: Same Indications for Procedure:: Very pleasant 57-year-old female who returns our clinic today for a therapeutic left sacroiliac joint injection. Patient had significant improvement in terms of her left posterior hip pain as well as left low lumbar pain after receiving her first left sacroiliac joint injection. She rates her pain today 10. Procedure Details:: Procedure: Left sacroiliac injection under fluoroscopy Informed consent was obtained and the risk and benefits of the procedure were explained to the patient.~ The patient was taken to the procedure room and noninvasive monitors were placed including noninvasive blood pressure cuff and pulse oximeter.~ The patient was placed prone on the procedure table.~ The~ left hip was cleansed using Betadine as a cleansing solution.~ C-arm fluorosocpy was used to view the left SI joint.~ The skin and subcutaneous tissues were anesthetized using Lidocaine 1.5% and a 25-gauge needle.~ After this, a 22-gauge spinal needle was inserted under fluoroscopic guidance into the inferior aspect of the left SI joint.~ Omnipaque dye was injected and a good spread was seen throughout the joint.~ After this, approximately 5 mL of bupivacaine 0.25% and Depo-Medrol 40 mg was incrementally injected into the sacroiliac joint.~ The patient tolerated the procedure well with no complications.~ The patient was observed in the Pain Clinic for a period of 30-45 minutes, then discharged home neurologically intact.~ Plan and Disposition:: Patient was discharged without incident.
== END 2022-08-01 08:21 | disposition home or self-care (01) ==
LOC: SC.PAINP 07:44
PROVIDERS: PCP Nurse Practitioner Family; Visit Provider Nurse Anesthetist, Certified Registered
DX: M46.1 Sacroiliitis, not elsewhere classified (principal); F17.210 Nicotine dependence, cigarettes, uncomplicated
CPT/HCPCS: 27096; G0260; J1040

== ENCOUNTER → 2022-08-10 08:35 | Outpatient (CLI) | payer MEDICARE, MEDICAID, SELFPAY ==
--- NOTE | 2022-08-10 08:38 | CT_ITS ---
FINAL REPORT TECHNIQUE: Thin section axial CT images were obtained through the neck after intravenous contrast administration. Coronal and sagittal reformats were also obtained. This study was performed with techniques to keep radiation doses as low as reasonably achievable (ALARA). Individualized dose reduction techniques using automated exposure control or adjustment of mA and/or kV according to the patient''s size were employed. CLINICAL HISTORY: CERVICAL ADENOPATHY COMPARISON: CT cervical spine 02/21/2021 FINDINGS: The nasopharynx, oropharynx, hypopharynx and larynx are unremarkable. There are multiple small bilateral nodes which are stable. No neck mass identified. There is no adenopathy. The thyroid gland is unremarkable. There is mild mucosal thickening of the left sphenoid sinus. There are moderate degenerative changes of the cervical spine. IMPRESSION: Multiple small bilateral stable nodes in the neck. No neck mass or adenopathy identified. Reviewed, Interpreted and Dictated by Josh Cameron III, MD Transcribed by Farhana Leo Authenticated and . [facility]
== END ==
LOC: RAD 08:35
PROVIDERS: PCP Nurse Practitioner Family; Visit Provider Nurse Practitioner Family
DX: R59.0 Localized enlarged lymph nodes (principal)
CPT/HCPCS: 70491; Q9967

== ENCOUNTER → 2022-08-17 10:15 | Outpatient (POV) | payer MEDICARE, MEDICAID, SELFPAY ==
[2022-08-17 11:05] VITALS: BP 118/77; PULSE 108; RESP 18; O2SAT 97; BMI 25.7
--- NOTE | 2022-08-17 11:09 | EXP.PAIN.SOA ---
[facility] Pain Management SOAP Note Subjective:: Patient is a pleasant 57-year-old female who presents today for follow-up of left SI injection on 08/01/2022. We are currently treating the patient for degenerative disc disease of cervical and lumbar spine with cervical and lumbar radiculopathy symptoms, shoulder pain, myofascial pain, sacroiliitis, chronic pain. Today she states that she has had significant improvement following this injection of at least 70%. She does state that her leg pain has completely gone away. She does state that she has been able to increase her activity with less pain symptoms and do more activities of daily living such as cooking and cleaning with less pain symptoms. Patient is currently managed with R[place] 5 mg 3 times a day. Patient denies any side effects from this medication. Her Petey is [phone]. Its been reviewed and appropriate. Review of Systems: General: No recent weight changes, no fever, no sleep disturbances Respiratory: No cough, no shortness of air, no recurring pulmonary infections Cardiovascular/peripheral vascular: No chest pain, no palpitations, no edema, no shortness of breath Gastrointestinal: No new onset incontinence, normal bowel movements reported Genitourinary: No new onset incontinence Musculoskeletal: Low back pain Psychiatric: [Normal mood/affect] Neurological: [Denies weakness in extremities], [denies balance issues] Objective:: Physical Exam: General: Alert and oriented x3, no acute distress, pleasant and cooperative Lungs: Respirations even and unlabored, symmetrical chest expansion Eyes: PERRL Musculoskeletal: Flexion and extension of lumbar [spine] somewhat guarded secondary to pain, [antalgic gait noted] Neurological: Speech clear, no gross sensory deficit Assessment:: Degenerative disc disease of cervical and lumbar spine with cervical and lumbar radiculopathy symptoms, shoulder pain, myofascial pain, sacroiliitis, chronic pain Plan:: Patient has had significant improvement following her left SI injection and does not require any additional injective therapy at this time. I will refill the patient's R[place] 5 mg 3 times a day and provide a 1 month supply of this medication. Patient will return to clinic in 1 month for reevaluation of symptoms, medication refill and follow-up. Patient has been advised of risks of oversedation with the prescribed medication. Narcan has been offered to the patient in the event of oversedation. Patient has been advised that a family member should also be educated regarding administration of Narcan. Patient has been instructed to contact the clinic with any concerns before the next appointment. Dr. Nash has reviewed this note and agrees with this plan of care. This note was dictated using voice recognition software and make contain errors or omissions. [facility] Disclaimer: The information contained in this section may have been updated after the patient was seen, as this information can be updated by other users. Medical History Anxiety Arthritis Chronic GERD Depression Diabetes mellitus Hyperlipidemia Hypertension Family History Other No significant family history Social History Smoking Status: Current every day smoker tobacco type: cigarettes packs per day: 1 second hand exposure: No alcohol intake: never substance use type: denies use current occupational status: disabled Travel in the last 8 weeks: None household members: none housing: house current occupational exposures/hazards: No caffeine: Yes
== END | disposition home or self-care (01) ==
PROVIDERS: PCP Nurse Practitioner Family; Visit Provider Nurse Practitioner Family
DX: M51.16 Intervertebral disc disorders with radiculopathy, lumbar region (principal); M50.10 Cervical disc disorder with radiculopathy, unspecified cervical region; M25.519 Pain in unspecified shoulder; M79.10 Myalgia, unspecified site; M46.1 Sacroiliitis, not elsewhere classified; G89.29 Other chronic pain
CPT/HCPCS: 99212; G0463

== ENCOUNTER → 2022-09-14 08:40 | Outpatient (POV) | payer MEDICARE, MEDICAID, SELFPAY ==
[2022-09-14 09:01] VITALS: BP 157/78; PULSE 101; RESP 18; O2SAT 97; BMI 29.7
--- NOTE | 2022-09-14 09:01 | EXP.PAIN.SOA ---
[facility] Pain Management SOAP Note Subjective:: Patient is a pleasant 57-year-old female who presents today for follow-up. We are currently treating the patient for degenerative disc disease of cervical and lumbar spine with cervical and lumbar radiculopathy symptoms, shoulder pain, myofascial pain, sacroiliitis, chronic pain. Today she rates her pain a 3 out of 10. Patient states she has been experiencing new pain going down her right leg and describes it as an aching, throbbing sensation that only presents at night. Patient states she is unsure whether or not if she pulled something. She does state that her back is still doing well from her last epidural as well as her left SI continues to do well. Patient is currently managed with [place] 5 mg 3 times a day. She states that she does not need a refill on this medication at this time. Her Petey is [phone]. Its been reviewed and appropriate. Review of Systems: General: No recent weight changes, no fever, no sleep disturbances Respiratory: No cough, no shortness of air, no recurring pulmonary infections Cardiovascular/peripheral vascular: No chest pain, no palpitations, no edema, no shortness of breath Gastrointestinal: No new onset incontinence, normal bowel movements reported Genitourinary: No new onset incontinence Musculoskeletal: Right leg pain Psychiatric: [Normal mood/affect] Neurological: [Denies weakness in extremities], [denies balance issues] Objective:: Physical Exam: General: Alert and oriented x3, no acute distress, pleasant and cooperative Lungs: Respirations even and unlabored, symmetrical chest expansion Eyes: PERRL Musculoskeletal: Flexion and extension of lumbar [spine] somewhat guarded secondary to pain, [antalgic gait noted] Neurological: Speech clear, no gross sensory deficit Assessment:: Degenerative disc disease of cervical and lumbar spine with cervical and lumbar radiculopathy symptoms, right shoulder pain, myofascial pain, sacroiliitis, chronic pain Plan:: Patient is experiencing significant pain in her lower extremities that is worse at night. I have discussed with the patient that I will order ropinirole 0.25 mg at bedtime and provide a 14-day supply of this medication. Patient has been counseled to contact our office if this does provide significant improvement for additional refills. Patient will return to clinic in 1 month for medication refill and follow-up. Patient has been instructed to contact the clinic with any concerns before the next appointment. Dr. Nash has reviewed this note and agrees with this plan of care. This note was dictated using voice recognition software and make contain errors or omissions. [facility] Disclaimer: The information contained in this section may have been updated after the patient was seen, as this information can be updated by other users. Medical History Anxiety Arthritis Chronic GERD Depression Diabetes mellitus Hyperlipidemia Hypertension Family History Other No significant family history Social History Smoking Status: Current every day smoker tobacco type: cigarettes packs per day: 1 second hand exposure: No alcohol intake: never substance use type: denies use current occupational status: disabled Travel in the last 8 weeks: None household members: none housing: house current occupational exposures/hazards: No caffeine: Yes
== END | disposition home or self-care (01) ==
PROVIDERS: PCP Nurse Practitioner Family; Visit Provider Nurse Practitioner Family
DX: M51.16 Intervertebral disc disorders with radiculopathy, lumbar region (principal); M50.10 Cervical disc disorder with radiculopathy, unspecified cervical region; M46.1 Sacroiliitis, not elsewhere classified; M25.511 Pain in right shoulder; M79.10 Myalgia, unspecified site; G89.29 Other chronic pain
CPT/HCPCS: 99212; G0463

== ENCOUNTER → 2022-09-21 09:07 | Outpatient (CLI) | payer MEDICARE, MEDICAID, SELFPAY ==
[2022-09-21 10:11] LABS: Basophils # 0.1 K/mm3 (0-0.2); Eosinophils # 0.2 K/mm3 (0.0-0.4); Eosinophils % 1.5 % (0.1-12.0); Hematocrit 43.3 % (37.0-47.0); Hemoglobin 14.6 g/dL (12.2-16.2); Lymphocytes % 34.7 % (10-50); Mean Corpuscular HGB Conc 33.7 g/dL (31.8-35.4); Mean Corpuscular Hemoglobin 33.6 pg (27.0-31.2); Mean Corpuscular Volume 99.6 fl (81-99); Mean Platelet Volume 7.7 fl (7.4-10.4); Monocytes # 0.9 K/mm3 (0.1-1.0); Monocytes % 7.5 % (1.7-9.3); Neutrophils # 6.4 K/mm3 (1.8-7.8); Neutrophils % 55.4 % (37.0-80.0); Platelet Count 609 K/mm3 (142-424); Red Blood Count 4.35 M/mm3 (4.20-5.40); Red Cell Distribution Width 12.6 % (11.5-17.5); White Blood Count 11.5 K/mm3 (4.8-10.8)
[2022-09-21 10:29] LABS: Iron 170 ug/dL (37-170)
[2022-09-21 11:53] LABS: Total Iron Binding Capacity 319 ug/dL (265-497)
== END ==
PROVIDERS: PCP Nurse Practitioner Family; Visit Provider Internal Medicine Medical Oncology
DX: D72.820 Lymphocytosis (symptomatic) (principal); D64.9 Anemia, unspecified; D75.838 Other thrombocytosis
CPT/HCPCS: 36415; 81270; 82728; 83540; 83550; 85025

== ENCOUNTER → 2022-10-05 08:04 | Outpatient (POV) | payer MEDICARE, MEDICAID, SELFPAY ==
[2022-10-05 08:14] VITALS: BP 139/76; PULSE 107; RESP 18; O2SAT 98; BMI 27.1
--- NOTE | 2022-10-05 08:41 | EXP.PAIN.SOA ---
[facility] Pain Management SOAP Note Subjective:: Patient is a pleasant 57-year-old female who presents today for medication refill and follow-up. We are currently treating the patient for degenerative disc disease of cervical and lumbar spine with cervical and lumbar radiculopathy symptoms, shoulder pain, myofascial pain, sacroiliitis, chronic pain, left knee pain. Today she rates her pain a 9 out of 10. Patient does state that she is experiencing more pain in her low back and left knee. Patient denies any new trauma or injury. She denies any change to location or type of pain she experiences. Patient states that she continues to use her heating pad and is managed with her [place] 5 mg 3 times a day. Patient denies any side effects from this medication. Patient is possibly interested in injection in the future however she states due to her busy schedule here the last little bit she believes it will not be until next month when she will be available. She does state that she has some trouble getting rides to these doctors visits and her sister is currently working in the school system. She states that when school is over she should have more availability. She does state that she is scheduled to have a procedure with her urologist at the end of the month. At her last visit she was prescribed ropinirole 0.25 mg at night and she does state this did provide significant improvement in her leg symptoms however after a couple of nights it made her more jittery to where she could not sleep. She does state that occasionally certain medications will do this. Her Petey is [phone]. Its been reviewed and appropriate. Review of Systems: General: No recent weight changes, no fever, no sleep disturbances Respiratory: No cough, no shortness of air, no recurring pulmonary infections Cardiovascular/peripheral vascular: No chest pain, no palpitations, no edema, no shortness of breath Gastrointestinal: No new onset incontinence, normal bowel movements reported Genitourinary: No new onset incontinence Musculoskeletal: Low back pain, left knee pain Psychiatric: [Normal mood/affect] Neurological: [Denies weakness in extremities], [denies balance issues] Objective:: Physical Exam: General: Alert and oriented x3, no acute distress, pleasant and cooperative Lungs: Respirations even and unlabored, symmetrical chest expansion Eyes: PERRL Musculoskeletal: Flexion and extension of lumbar [spine] somewhat guarded secondary to pain, [antalgic gait noted] Neurological: Speech clear, no gross sensory deficit Assessment:: Degenerative disc disease of cervical and lumbar spine with cervical and lumbar radiculopathy symptoms, myofascial pain, shoulder pain, sacroiliitis, left knee pain, chronic pain Plan:: I will refill her [place] 5 mg 3 times a day and provide a 1 month supply of this medication. I will also send in a prescription of pramipexole 0.25 mg at bedtime and provide a 2-week supply of this medication. I have counseled the patient that she may benefit from a lumbar epidural steroid injection. Risk and benefits were discussed with the patient and she states that she may want to proceed forward at a later date. Patient can call and schedule this injection of a LESI L4-L5 over the phone. Patient will return to clinic in 1 month for reevaluation of symptoms, medication refill and follow-up. Patient has been advised of risks of oversedation with the prescribed medication. Narcan has been offered to the patient in the event of oversedation. Patient has been advised that a family member should also be educated regarding administration of Narcan. Patient has been instructed to contact the clinic with any concerns before the next appointment. Dr. Nash has reviewed this note and agrees with this plan of care. This note was dictated using voice recognition software and make contain errors or omissions. [facility] Disclaimer: The information contained in this section may have been upda
== END | disposition home or self-care (01) ==
PROVIDERS: PCP Nurse Practitioner Family; Visit Provider Nurse Practitioner Family
DX: M51.16 Intervertebral disc disorders with radiculopathy, lumbar region (principal); M50.10 Cervical disc disorder with radiculopathy, unspecified cervical region; M79.10 Myalgia, unspecified site; M25.519 Pain in unspecified shoulder; M46.1 Sacroiliitis, not elsewhere classified; M25.562 Pain in left knee; G89.29 Other chronic pain
CPT/HCPCS: 99212; G0463

== ENCOUNTER → 2022-10-05 08:48 | Outpatient (CLI) | payer MEDICARE, MEDICAID, SELFPAY ==
[2022-10-05 10:10] LABS: Amphetamine/Metha Screen,Urine Negative ng/ml (<1000); Benzodiazepines Screen,Urine Negative ng/ml (<200)
[2022-10-05 10:11] LABS: Barbiturates Screen,Urine Negative ng/ml (<200)
[2022-10-05 10:12] LABS: Cannabinoid Screen,Urine Negative ng/ml (<50); Methadone Screen,Urine Negative ng/ml (<300)
[2022-10-05 10:13] LABS: Cocaine Screen,Urine Negative ng/ml (<300)
[2022-10-05 10:14] LABS: Opiate Screen,Urine Positive ng/ml (<300); Phencyclidine Screen,Urine Negative ng/ml (<25)
[2022-10-12 18:08] LABS: Codeine Negative (Cutoff=100); Hydrocodone Positive (.); Hydromorphone Positive (.); Morphine Negative (Cutoff=100); Opiates Positive (.)
== END ==
LOC: LAB 08:49
PROVIDERS: PCP Nurse Practitioner Family; Visit Provider Nurse Practitioner Family
DX: Z79.891 Long term (current) use of opiate analgesic (principal)
CPT/HCPCS: 80305; 80361; 80365; 99212; G0463; G0480

== ENCOUNTER → 2022-11-06 08:59 | Outpatient (POV) | payer MEDICARE, MEDICAID, SELFPAY ==
--- NOTE | 2022-11-06 09:28 | EXP.PAIN.SOA ---
[facility] Pain Management SOAP Note Subjective:: Patient is a pleasant 57-year-old female who presents today for medication refill and follow-up. We are currently treating the patient for degenerative disc disease of cervical and lumbar spine with cervical and lumbar radiculopathy symptoms, shoulder pain, left knee pain, myofascial pain, sacroiliitis, chronic pain. Today she rates her pain a 3 out of 10. Patient denies any new trauma or injury. Patient denies any change in location or type of pain she experiences. She does state today that her left knee is bothering her. She does describe this as an aching, throbbing sensation that is worse with increased activity. Patient denies believe it is related to arthritis. She states the last 3 days have been persistently worse due to the cool wet weather. Patient has had 1 intra-articular injection in the past that did provide significant relief. She is interested in repeating this injection at today's visit. Patient does state her pain does interfere with the ability to perform activities of daily living such as cooking and cleaning. She is currently managed with [place] 5 mg 3 times a day. Patient denies any side effects from this medication. Her Petey is [phone]. Its been reviewed and appropriate. Review of Systems: General: No recent weight changes, no fever, no sleep disturbances Respiratory: No cough, no shortness of air, no recurring pulmonary infections Cardiovascular/peripheral vascular: No chest pain, no palpitations, no edema, no shortness of breath Gastrointestinal: No new onset incontinence, normal bowel movements reported Genitourinary: No new onset incontinence Musculoskeletal: Left knee pain Psychiatric: [Normal mood/affect] Neurological: [Denies weakness in extremities], [denies balance issues] Objective:: Physical Exam: General: Alert and oriented x3, no acute distress, pleasant and cooperative Lungs: Respirations even and unlabored, symmetrical chest expansion Eyes: PERRL Musculoskeletal: Flexion and extension of left knee somewhat guarded secondary to pain, [antalgic gait noted] Neurological: Speech clear, no gross sensory deficit Assessment:: Degenerative disc disease of cervical and lumbar spine with cervical and lumbar radiculopathy symptoms, shoulder pain, left knee pain, myofascial pain, sacroiliitis, chronic pain Plan:: Patient is experiencing significant pain in her left knee with limited range of motion. I have discussed with the patient that she may benefit from a left knee intra-articular injection. Risk and benefits were discussed with the patient and she would like to proceed forward with this plan of care. I will refill the patient's [place] 5 mg 3 times a day and provide a 1 month supply of this medication. We will schedule the patient for a left intra-articular knee injection. Patient has been advised of risks of oversedation with the prescribed medication. Narcan has been offered to the patient in the event of oversedation. Patient has been advised that a family member should also be educated regarding administration of Narcan. Patient has been instructed to contact the clinic with any concerns before the next appointment. Dr. Nash has reviewed this note and agrees with this plan of care. This note was dictated using voice recognition software and make contain errors or omissions. [facility] Disclaimer: The information contained in this section may have been updated after the patient was seen, as this information can be updated by other users. Medical History Anxiety Arthritis Chronic GERD Depression Diabetes mellitus Hyperlipidemia Hypertension Hypothyroidism Seizures Surgical History Hx of myringotomy Family History Other No significant family history Social History (Reviewed 10/19/22 @ 0
[2022-11-06 09:53] VITALS: BP 127/84; PULSE 104; RESP 18; O2SAT 97; BMI 60.4
== END | disposition home or self-care (01) ==
PROVIDERS: PCP Nurse Practitioner Family; Visit Provider Nurse Practitioner Family
DX: M51.16 Intervertebral disc disorders with radiculopathy, lumbar region (principal); M50.10 Cervical disc disorder with radiculopathy, unspecified cervical region; M79.10 Myalgia, unspecified site; M46.1 Sacroiliitis, not elsewhere classified; M25.562 Pain in left knee; G89.29 Other chronic pain
CPT/HCPCS: 99212; G0463

== ENCOUNTER 2022-11-14 07:42 | Day surgery (SDC) | payer MEDICARE, MEDICAID, SELFPAY ==
[2022-11-14 08:05] VITALS: BP 166/88; PULSE 92; RESP 16; TEMP 36.3; O2SAT 96; BMI 27.6
[2022-11-14 08:31] VITALS: BP 170/100; PULSE 86; RESP 18; O2SAT 98
[2022-11-14 08:33] VITALS: BP 170/100; PULSE 86; RESP 18; O2SAT 98
[2022-11-14 08:35] VITALS: BP 161/90; PULSE 83; RESP 18; O2SAT 96
--- NOTE | 2022-11-14 08:39 | P.PCN_ITS ---
Procedure Date: 11/14/22 Time: 08:20 Anesthesiologist:: Diaz Mcnair CRNA Complications:: None Pre-procedure Diagnosis:: Osteoarthritis left knee. Chronic left knee pain. Post-procedure Diagnosis:: Same. Indications for Procedure:: Very pleasant 57-year-old female that comes our clinic today for left intra- articular knee injection. Patient reports having intra-articular left knee injection in the past with significant improvement terms of her overall left knee pain. She rates her pain today 7/10. Patient complains of pain in the knee joint with ambulation. Procedure Details:: Procedure Details: Left intra-articular knee injection Informed consent was obtained risk and benefits of the procedure were explained to the patient. Patient was taken the procedure room the left knee was prepped using ChloraPrep. A 25-gauge needle was used to inject 10 mL bupivacaine 0.25% and Depo-Medrol 40 mg into the left knee. The patient tolerated the procedure well with no complications. Plan and Disposition:: Patient was discharged without incident.
== END 2022-11-14 08:35 | disposition home or self-care (01) ==
LOC: SC.PAINP 07:43
PROVIDERS: PCP Nurse Practitioner Family; Visit Provider Nurse Anesthetist, Certified Registered
DX: M17.12 Unilateral primary osteoarthritis, left knee (principal); M25.562 Pain in left knee; G89.29 Other chronic pain
CPT/HCPCS: 20610; J1040

== ENCOUNTER → 2022-12-06 14:57 | Outpatient (POV) | payer MEDICARE, MEDICAID, SELFPAY ==
--- NOTE | 2022-12-06 15:04 | EXP.PAIN.SOA ---
[facility] Pain Management SOAP Note Subjective:: Patient is a pleasant 57-year-old female who presents today for follow-up of left intra-articular knee injection on 11/22/2022. We are currently treating the patient for degenerative disc disease of cervical and lumbar spine with cervical and lumbar radiculopathy symptoms, shoulder pain, left knee pain, myofascial pain, sacroiliitis, chronic pain. Today she rates her pain a 2 out of 10. Patient denies any new trauma or injury. Patient denies any change location or type of pain she experiences. She does state that following her knee injection she did have approximately 90% improvement and did last up until about the last week. She does state that following the injection the stabbing and dull ache pain she had been experiencing has not returned. she does state that she has been having a little bit more neck pain however she did recently come down with a sinus infection and was prescribed prednisone and that has helped her neck pain as well. She is currently managed with [place] 5 mg 3 times a day. Patient denies any side effects from this medication. Her Petey is [phone]. Its been reviewed and appropriate. Review of Systems: General: No recent weight changes, no fever, no sleep disturbances Respiratory: No cough, no shortness of air, no recurring pulmonary infections Cardiovascular/peripheral vascular: No chest pain, no palpitations, no edema, no shortness of breath Gastrointestinal: No new onset incontinence, normal bowel movements reported Genitourinary: No new onset incontinence Musculoskeletal: Neck pain Psychiatric: [Normal mood/affect] Neurological: [Denies weakness in extremities], [denies balance issues] Objective:: Physical Exam: General: Alert and oriented x3, no acute distress, pleasant and cooperative Lungs: Respirations even and unlabored, symmetrical chest expansion Eyes: PERRL Musculoskeletal: Flexion and extension of cervical [spine] somewhat guarded secondary to pain, [antalgic gait noted] Neurological: Speech clear, no gross sensory deficit Assessment:: Degenerative disc disease of cervical and lumbar spine with cervical and lumbar radiculopathy symptoms, shoulder pain, left knee pain, myofascial pain, sacroiliitis, chronic pain Plan:: I will refill the patient's [place] 5 mg 3 times a day and provide a 1 month supply of this medication. Patient will return to clinic in 1 month for reevaluation of symptoms and medication refill. Patient has been advised of risks of oversedation with the prescribed medication. Narcan has been offered to the patient in the event of oversedation. Patient has been advised that a family member should also be educated regarding administration of Narcan. Patient has been instructed to contact the clinic with any concerns before the next appointment. Dr. Nash has reviewed this note and agrees with this plan of care. This note was dictated using voice recognition software and make contain errors or omissions. [facility] Disclaimer: The information contained in this section may have been updated after the patient was seen, as this information can be updated by other users. Medical History Anxiety Arthritis Chronic GERD Depression Diabetes mellitus Hyperlipidemia Hypertension Hypothyroidism Seizures Surgical History Hx of myringotomy Family History Other No significant family history Social History Smoking Status: Current every day smoker tobacco type: cigarettes packs per day: 1 second hand exposure: No alcohol intake: never substance use type: denies use current occupational status: disabled Travel in the last 8 weeks: None household members: none housing: house current occupational exposures/hazards: No caff
[2022-12-06 15:17] VITALS: BP 149/88; PULSE 112; RESP 18; O2SAT 96; BMI 27.4
== END | disposition home or self-care (01) ==
PROVIDERS: PCP Nurse Practitioner Family; Visit Provider Nurse Practitioner Family
DX: M50.10 Cervical disc disorder with radiculopathy, unspecified cervical region (principal); M51.16 Intervertebral disc disorders with radiculopathy, lumbar region; M25.519 Pain in unspecified shoulder; M25.562 Pain in left knee; M79.10 Myalgia, unspecified site; M46.1 Sacroiliitis, not elsewhere classified; G89.29 Other chronic pain
CPT/HCPCS: 99212; G0463

== ENCOUNTER → 2022-12-13 11:00 | Outpatient (CLI) | payer MEDICARE, MEDICAID, SELFPAY | PROVIDERS: Visit Provider Student in an Organized Health Care Education/Training Program | DX: J32.9 Chronic sinusitis, unspecified (principal); B95.7 Other staphylococcus as the cause of diseases classified elsewhere | CPT/HCPCS: 87070; 87186 ==

== ENCOUNTER → 2022-12-19 07:06 | Outpatient (CLI) | payer MEDICARE, MEDICAID, SELFPAY ==
--- NOTE | 2022-12-19 07:07 | CT_ITS ---
FINAL REPORT TECHNIQUE: Multiple axial CT sections were performed through the face without IV contrast. Coronal reconstruction images were performed. This study was performed with techniques to keep radiation doses as low as reasonably achievable (ALARA). Individualized dose reduction techniques using automated exposure control or adjustment of mA and/or kV according to the patient's size were employed. CLINICAL HISTORY: sinusitis, left ear and face pressure, sinus headache COMPARISON: 12/20/2017 FINDINGS: Facial Bones: No displaced facial bone fractures. Paranasal sinuses, nasal passages and mastoid air cells: There is mild mucosal thickening of the left sphenoid sinus. The remaining paranasal sinuses are clear. The nasal septum is minimally deviated to the right. The left inferior turbinate is extremely hypoplastic or surgically resected. The middle ear space is clear. There is near complete opacification of the left mastoid air cells which may be seen with mastoiditis., new since previous. The right mastoid air cells are clear. Bony orbits and optic globes: No orbital fractures. The optic globes are unremarkable and symmetric. Soft tissues: No significant soft tissue swelling. IMPRESSION: Mild left sphenoid sinus inflammatory change. Opacification of the left mastoid air cells raising question of mastoiditis. Reviewed, Interpreted and Dictated by Jake Gagnon MD Transcribed by Catherine Rojo Authenticated and [facility]
== END ==
LOC: RAD 07:07
PROVIDERS: PCP Nurse Practitioner Family; Visit Provider Student in an Organized Health Care Education/Training Program
DX: J32.9 Chronic sinusitis, unspecified (principal)
CPT/HCPCS: 70486

== ENCOUNTER → 2023-01-10 15:26 | Outpatient (POV) | payer MEDICARE, MEDICAID, SELFPAY ==
[2023-01-10 15:53] VITALS: BP 163/91; PULSE 98; RESP 18; O2SAT 95; BMI 25.3
--- NOTE | 2023-01-10 16:01 | EXP.PAIN.SOA ---
[facility] Pain Management SOAP Note Subjective:: Patient is a pleasant 57-year-old female who presents today for medication refill and follow-up. We are currently treating the patient for degenerative disc disease of cervical and lumbar spine with cervical and lumbar radiculopathy symptoms, shoulder pain, left knee pain, myofascial pain, sacroiliitis, chronic pain. Today she rates her pain a 4 out of 10. Patient denies any new trauma or injury. She does state that her pain today is more related to her neck. She states she has tenderness into both her shoulders and that this has been going on the last week unrelated to any new injury. She states the pain is an aching sensation that is worse with increased activity. Patient has been sleeping on a heating pad and taking Tylenol arthritis for additional improvement. She is currently managed with [place] 5 mg 3 times a day. She denies any side effects from this medication. Her Petey is [id number]. Its been reviewed and appropriate. Review of Systems: General: No recent weight changes, no fever, no sleep disturbances Respiratory: No cough, no shortness of air, no recurring pulmonary infections Cardiovascular/peripheral vascular: No chest pain, no palpitations, no edema, no shortness of breath Gastrointestinal: No new onset incontinence, normal bowel movements reported Genitourinary: No new onset incontinence Musculoskeletal: Neck pain, shoulder pain Psychiatric: [Normal mood/affect] Neurological: [Denies weakness in extremities], [denies balance issues] Objective:: Physical Exam: General: Alert and oriented x3, no acute distress, pleasant and cooperative Lungs: Respirations even and unlabored, symmetrical chest expansion Eyes: PERRL Musculoskeletal: Flexion and extension of cervical [spine] somewhat guarded secondary to pain, [antalgic gait noted] point tenderness along bilateral cervical paraspinous, trapezius and rhomboid muscles Neurological: Speech clear, no gross sensory deficit Assessment:: degenerative disc disease of cervical and lumbar spine with cervical and lumbar radiculopathy symptoms, shoulder pain, left knee pain, myofascial pain, sacroiliitis, chronic pain Plan:: Patient is experiencing significant pain in her neck and shoulders with tenderness on palpation around her bilateral cervical paraspinous, trapezius and rhomboid muscles. I have discussed with the patient that she may benefit from trigger point injections at these locations. Risk and benefits were explained to the patient and she would like to proceed forward with this plan of care. I will also refill the patient's [place] 5 mg 3 times a day and provide a 1 month supply of this medication. Patient will be scheduled for trigger point injections of her bilateral cervical paraspinous, trapezius and rhomboid muscles. Patient has been advised of risks of oversedation with the prescribed medication. Narcan has been offered to the patient in the event of oversedation. Patient has been advised that a family member should also be educated regarding administration of Narcan. Patient has been instructed to contact the clinic with any concerns before the next appointment. Dr. Nash has reviewed this note and agrees with this plan of care. This note was dictated using voice recognition software and make contain errors or omissions. [facility] Disclaimer: The information contained in this section may have been updated after the patient was seen, as this information can be updated by other users. Medical History Anxiety Arthritis Chronic GERD Depression Diabetes mellitus Hyperlipidemia Hypertension Hypothyroidism Seizures Surgical History Hx of myringotomy Family History Other No significant family history Social History (Reviewed 12/13/22 @ 15:34 by Aletha Rader
== END | disposition home or self-care (01) ==
PROVIDERS: PCP Nurse Practitioner Family; Visit Provider Nurse Practitioner Family
DX: M50.10 Cervical disc disorder with radiculopathy, unspecified cervical region (principal); M51.16 Intervertebral disc disorders with radiculopathy, lumbar region; M25.519 Pain in unspecified shoulder; M25.562 Pain in left knee; M79.10 Myalgia, unspecified site; M46.1 Sacroiliitis, not elsewhere classified; G89.29 Other chronic pain
CPT/HCPCS: 99212; G0463

== ENCOUNTER 2023-01-30 07:55 | Day surgery (SDC) | payer MEDICARE, SELFPAY ==
[2023-01-30 08:14] VITALS: BP 145/89; PULSE 103; RESP 18; TEMP 36.5; O2SAT 96; BMI 24.7
[2023-01-30 08:27] VITALS: BP 164/95; PULSE 88; RESP 18; O2SAT 97
[2023-01-30 08:29] VITALS: BP 164/95; PULSE 88; RESP 18; O2SAT 97
[2023-01-30 08:40] VITALS: BP 160/90; PULSE 82; RESP 20
--- NOTE | 2023-01-30 08:42 | P.PCN_ITS ---
Procedure Date: 01/30/23 Time: 08:15 Anesthesiologist:: Diaz Mcnair CRNA Complications:: None Pre-procedure Diagnosis:: Myofascial pain posterior cervical paraspinous as well as bilateral trapezius muscles. Post-procedure Diagnosis:: Same Indications for Procedure:: Very pleasant 57-year-old female comes our clinic today for bilateral inferior cervical paraspinous muscle injection as well as bilateral trapezius muscle trigger point injections. Patient has posterior cervical neck pain as well as bilateral shoulder pain she describes as constant, dull, aching. She is responding very well to trigger point injections in these areas in the past. She rates her pain 7/10 Procedure Details:: Details of the procedure explained the patient. Patient taken to procedure room placed in sitting position. The area over the posterior cervical spine as well as bilateral trapezius muscle was cleansed using chlorhexidine as a cleansing solution. Using a solution of 0.25% Marcaine +1% lidocaine and 40 mg of Depo- Medrol 2 cc was injected after negative aspiration in the bilateral inferior cervical paraspinous muscles of the bilateral trapezius muscles in 2 separate areas. Patient tolerated procedure without difficulty. There are no co mplications Plan and Disposition:: Patient was discharged without incident.
== END 2023-01-30 08:40 | disposition home or self-care (01) ==
PROVIDERS: PCP Nurse Practitioner Family; Visit Provider Nurse Anesthetist, Certified Registered
DX: M79.18 Myalgia, other site (principal)
CPT/HCPCS: 20553; J1040

== ENCOUNTER → 2023-02-14 08:41 | Outpatient (POV) | payer MEDICARE, SELFPAY ==
[2023-02-14 08:58] VITALS: BP 161/97; PULSE 93; RESP 18; O2SAT 96; BMI 25.2
--- NOTE | 2023-02-14 08:59 | EXP.PAIN.SOA ---
[facility] Pain Management SOAP Note Subjective:: Patient is a pleasant 57-year-old female who presents today for follow-up of trigger point injections of her posterior cervical paraspinous and bilateral trapezius muscles on 01/30/2023. We are currently treating the patient for degenerative disc disease of cervical and lumbar spine with cervical and lumbar radiculopathy symptoms, shoulder pain, left knee pain, myofascial pain, sacroiliitis, chronic pain. Today she rates her pain a 5 out of 10. Patient states she did have 95% improvement following her trigger point injections. Today she does state that her pain is more related to her left knee and some in her low back. Patient states she has been moving and feels like she may have aggravated her knee pain. She does describe this as a aching sensation that is worse with increased activity. Patient does state the pain interferes with her ability perform activities of daily living such as cooking and cleaning. Patient does also use a heating pad and take Tylenol arthritis in addition to her prescribed [place] 5 mg 3 times a day. Her Petey is [phone]. Its been reviewed and appropriate. Review of Systems: General: No recent weight changes, no fever, no sleep disturbances Respiratory: No cough, no shortness of air, no recurring pulmonary infections Cardiovascular/peripheral vascular: No chest pain, no palpitations, no edema, no shortness of breath Gastrointestinal: No new onset incontinence, normal bowel movements reported Genitourinary: No new onset incontinence Musculoskeletal: Left knee pain, low back pain Psychiatric: [Normal mood/affect] Neurological: [Denies weakness in extremities], [denies balance issues] Objective:: Physical Exam: General: Alert and oriented x3, no acute distress, pleasant and cooperative Lungs: Respirations even and unlabored, symmetrical chest expansion Eyes: PERRL Musculoskeletal: Flexion and extension of left knee somewhat guarded secondary to pain, [antalgic gait noted] Neurological: Speech clear, no gross sensory deficit Assessment:: Degenerative disc disease of cervical and lumbar spine with cervical and lumbar radiculopathy symptoms, shoulder pain, left knee pain, myofascial pain, sacroiliitis, chronic pain syndrome Plan:: Patient has had significant improvement following her trigger point injections however she does have a flareup of her knee pain. Patient did have limited range of motion of her left knee during today's exam. I have discussed with the patient that she may benefit from an intra-articular knee injection. Risk and benefits were discussed with the patient and she would like to proceed forward with this plan of care. I will also send in the patient's [place] 5 mg 3 times a day and provide a 1 month supply of this medication. Patient will be scheduled for left knee intra-articular injection. Patient has been instructed to contact the clinic with any concerns before the next appointment. Dr. Nash has reviewed this note and agrees with this plan of care. This note was dictated using voice recognition software and make contain errors or omissions. [facility] Disclaimer: The information contained in this section may have been updated after the patient was seen, as this information can be updated by other users. Medical History Anxiety Arthritis Chronic GERD Depression Diabetes mellitus Hyperlipidemia Hypertension Hypothyroidism Seizures Surgical History Hx of myringotomy Family History Other No significant family history Social History Smoking Status: Current every day smoker tobacco type: cigarettes packs per day: 1 second hand exposure: No alcohol intake: never substance use type: denies use current occupational status: other Travel
== END | disposition home or self-care (01) ==
PROVIDERS: Visit Provider Nurse Practitioner Family
DX: M50.10 Cervical disc disorder with radiculopathy, unspecified cervical region (principal); M51.16 Intervertebral disc disorders with radiculopathy, lumbar region; M25.519 Pain in unspecified shoulder; M25.562 Pain in left knee; M79.18 Myalgia, other site; M46.1 Sacroiliitis, not elsewhere classified; G89.4 Chronic pain syndrome
CPT/HCPCS: 99212; G0463

== ENCOUNTER 2023-02-27 08:31 | Day surgery (SDC) | payer MEDICARE, SELFPAY ==
[2023-02-27 08:44] VITALS: BP 147/80; PULSE 82; RESP 18; TEMP 36.6; O2SAT 98; BMI 24.3
[2023-02-27 09:18] VITALS: BP 153/86; PULSE 77; RESP 16; O2SAT 98
--- NOTE | 2023-02-27 09:43 | EXP.PAIN.PRO ---
Procedure Date: 02/27/23 Time: 09:00 Anesthesiologist:: Diaz Mcnair CRNA Complications:: None Pre-procedure Diagnosis:: Degenerative disc disease lumbar spine multilevels. Lumbar radiculopathy. Post-procedure Diagnosis:: Same. Indications for Procedure:: Patient is a very pleasant 57-year-old female who comes our clinic today for right L2-3 and L3-4 transforaminal epidural steroid injection. Patient currently having low back pain she describes as constant, dull, aching. Also, patient complains of right hip and leg radicular symptoms to the foot. Patient has [employer] spinal cord stimulator. Patient is concerned there has been a movement in 1 or both leads since repositioned 3 months ago. Examining the leads under live fluoroscopy left spinal cord stimulator lead has indeed slipped caudad to vertebral levels. I had a conversation with Dr. Nash regarding this development. He will see her on March 16 to discuss options of treatment. Procedure Details:: Details of the procedure were explained to the patient. The patient was taken the procedure room placed in the prone position. The area of the lumbar spine was cleansed using chlorhexidine as a cleansing solution. At this time using fluoroscopy guidance markers were placed on the right lateral border of the L2 and L3 vertebral body. The skin and subcutaneous tissue was anesthetized using 1% lidocaine and 25-gauge needle. At this time using a 22-gauge 3-1/2 inch spinal needle the right upper one third of the L2-3 foramen was accessed. The same was done at the right L3-4 foramen. Needle positions were confirmed and a lateral view using fluoroscopy and contrast dye. At this time 1 cc of 1% lidocaine +20 mg of Depo-Medrol was injected at each level after negative aspiration. Coffey were removed. Band-Aid applied. Patient tolerated the procedure without difficulty. There are no complications. Plan and Disposition:: Patient was discharged without incident.
--- NOTE | 2023-02-27 09:55 | EXP.PAIN.PRO ---
Procedure Date: 02/27/23 Time: 09:00 Anesthesiologist:: Diaz Mcnair CRNA Complications:: None Pre-procedure Diagnosis:: Osteoarthritis left knee. Chronic left knee pain. Post-procedure Diagnosis:: Same. Indications for Procedure:: Patient is a very pleasant 57-year-old female comes our clinic today for a left intra-articular knee injection of cortisone. Patient has had this in the past with significant improvement terms of her overall left knee pain. Patient has difficulty with ambulation due to left knee pain. Patient has difficulty standing due to left knee pain. She rates her pain 8/10. Patient discussed with me regarding low back pain she describes as constant, dull, aching. Patient also complains of bilateral hip and leg radicular symptoms at times. She will discuss this further at her next follow-up. Procedure Details:: Informed consent was obtained risk and benefits of the procedure were explained to the patient. Patient was taken the procedure room the left knee was prepped using ChloraPrep. A 25-gauge needle was used to inject 10 mL bupivacaine 0.25% and Depo-Medrol 40 mg into each knee. The patient tolerated the procedure well with no complications. Plan and Disposition:: Plan and Disposition:: Patient was discharged without incident.
== END 2023-02-27 09:18 | disposition home or self-care (01) ==
PROVIDERS: PCP Nurse Practitioner; Visit Provider Nurse Anesthetist, Certified Registered
DX: M17.12 Unilateral primary osteoarthritis, left knee (principal); M25.562 Pain in left knee; G89.29 Other chronic pain
CPT/HCPCS: 20610; J1040

== ENCOUNTER → 2023-03-19 12:42 | Outpatient (CLI) | payer MEDICARE, SELFPAY ==
[2023-03-19 13:05] LABS: Basophils # 0.2 K/mm3 (0-0.2); Basophils % 1.4 % (0.1-2.0); Eosinophils # 0.1 K/mm3 (0.0-0.4); Eosinophils % 1.3 % (0.1-12.0); Hematocrit 41.5 % (37.0-47.0); Hemoglobin 14.5 g/dL (12.2-16.2); Lymphocytes # 5.5 K/mm3 (0.7-4.5); Lymphocytes % 50.4 % (10-50); Mean Corpuscular Hemoglobin 34.5 pg (27.0-31.2); Mean Corpuscular Volume 98.6 fl (81-99); Mean Platelet Volume 7.4 fl (7.4-10.4); Monocytes # 0.6 K/mm3 (0.1-1.0); Monocytes % 5.5 % (1.7-9.3); Neutrophils # 4.5 K/mm3 (1.8-7.8); Neutrophils % 41.5 % (37.0-80.0); Platelet Count 546 K/mm3 (142-424); Red Cell Distribution Width 12.4 % (11.5-17.5); White Blood Count 10.9 K/mm3 (4.8-10.8)
[2023-03-19 13:09] LABS: MANUAL DIFFERENTIAL MANUAL DIFFERENTIAL (MANUAL DIFF)
[2023-03-19 13:24] LABS: Chloride 95 mmol/L (98-107); Potassium 4.3 mmoL/L (3.5-5.1); Sodium 129 mmol/L (136-145)
[2023-03-19 13:27] LABS: Anion Gap 12.3 mEq/L (5-15); Blood Urea Nitrogen 8 mg/dl (7-17); Calcium 9.4 mg/dl (8.4-10.2); Carbon Dioxide 26 mmol/L (22.0-30.0); Estimated Glomerular Filt Rate 163 ml/min (>60); GFR (African American) 198 ML/MIN (>60); Glucose 103 mg/dl (74-100)
[2023-03-19 13:35] LABS: Eosinophils % 1 % (0-3); Lymphocytes % 61 % (10-50); Monocytes % 2 % (2-9); Neutrophils % 36 % (42-76); Platelet Estimate Moderate Increase; Total Cells Counted 100
[2023-03-19 13:36] LABS: Macrocytosis 1+; RBC Morphology Normal
== END ==
PROVIDERS: PCP Family Medicine; Visit Provider Student in an Organized Health Care Education/Training Program
DX: Z01.818 Encounter for other preprocedural examination (principal)
CPT/HCPCS: 36415; 80048; 85007; 85025

== ENCOUNTER → 2023-03-23 08:26 | Outpatient (POV) | payer MEDICARE, SELFPAY ==
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
[2023-03-23 09:49] VITALS: BP 126/75; PULSE 89; RESP 18; O2SAT 96; BMI 24.3
== END ==
LOC: SC.PAIN 08:27
PROVIDERS: PCP Nurse Practitioner; Visit Provider Anesthesiology
DX: M51.16 Intervertebral disc disorders with radiculopathy, lumbar region (principal); M47.26 Other spondylosis with radiculopathy, lumbar region; M25.562 Pain in left knee; M46.1 Sacroiliitis, not elsewhere classified
CPT/HCPCS: 99212; G0463

== ENCOUNTER 2023-03-28 06:02 | Day surgery (SDC) | payer MEDICARE, SELFPAY ==
[2023-03-26 13:37] VITALS: BMI 25.5
[2023-03-28] VITALS (10 sets, daily range): BP systolic 112–146; BP diastolic 69–91; PULSE 80–95; RESP 14–18; TEMP 36.3–36.7; O2SAT 93–96
--- NOTE | 2023-03-28 06:19 | ECG_ITS ---
APPROVED REPORT Exam: Resting ECG HR:74 bpm ECG Measurements Heart Rate 74 AXES NV 196 P 66 QRSd 81 QRS 52 QT 395 T 65 QTc 422 Conclusion SINUS RHYTHM NORMAL ECG UNCONFIRMED REPORT Electronically signed by : Nakul Alvarez MD 03/29/2023 21:41:07
[2023-03-28 06:31] LABS: POC Glucose,Bedside 147 (70-110)
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
--- NOTE | 2023-03-28 07:58 | EXP.OP.NOTE ---
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 Patient was prepped and draped in usual fashion. First examined the left ear. Patient had significant tympanosclerosis from her previous sets of ear tubes. She had a monomeric area more posteriorly as well as retraction of her pars flaccida though there was no obvious cholesteatoma. A myringotomy was made in the anterior-inferior quadrant through some of the existing tympanosclerosis. Mild serous effusion was suctioned from the middle ear space. A Pan modified T-tube was then placed. Ciprodex drops were instilled into the ear and the patient was turned back over to anesthesia to be awoken. Condition: stable Disposition: PACU Complications:: none
--- NOTE | 2023-03-28 08:11 | EXP.ANES.I ---
[facility] Anesthesia Record Part I Anesthesia Record I Intake, IV Amount: 800 Hydration: Adequate Estimated blood loss (mL): 0 Urine output (mL): 0 Blood Products used (#): none Blood Pressure: 126/91 SaO2: 94 Pulse Rate: 95 Airway Patency: Patent Respiratory Rate: 18 Temperature: 97.7 F Patient is:: Drowsy and Stable
[2023-03-28 08:18] LABS: POC Glucose,Bedside 129 (70-110)
--- NOTE | 2023-03-28 12:20 | EXP.ANES.II ---
[facility] Anesthesia Record Part II Anesthesia Record Part II Discharge Time: 08:32 Destination: Surgical Day Care (OP Surgery) PACU nurse assessment reviewed?: Yes Patient Condition:: Good Anesthesia Complications:: None Swallowing reflex intact?: Yes Airway Patency: Patent Cyanosis?: No Blood Pressure: 128/75 SaO2: 94 Respiratory Rate: 15 Pulse Rate: 85 Temperature: 97.8 F Mental Status: Alert & Oriented Pain level:: 0 Nausea and/or vomitting:: None Intake, IV Amount: 0 Hydration: Adequate
== END 2023-03-28 08:53 | disposition home or self-care (01) ==
PROVIDERS: PCP Nurse Practitioner; Visit Provider Student in an Organized Health Care Education/Training Program
PROC: (CPT 69436; principal; 2023-03-28 07:30)
DX: H69.92 Unspecified Eustachian tube disorder, left ear (principal); H74.02 Tympanosclerosis, left ear; H65.02 Acute serous otitis media, left ear; E11.9 Type 2 diabetes mellitus without complications
CPT/HCPCS: 69436; 82962; 93005; J2405

== ENCOUNTER 2023-04-03 11:13 | Day surgery (SDC) | payer MEDICARE, SELFPAY ==
[2023-04-03 11:25] VITALS: BP 145/83; PULSE 94; RESP 16; TEMP 36.4; O2SAT 97; BMI 24.5
[2023-04-03 11:32] VITALS: BP 162/78; PULSE 100; O2SAT 97
[2023-04-03 11:36] VITALS: BP 162/78; PULSE 88; O2SAT 97
--- NOTE | 2023-04-03 11:37 | P.PCN_ITS ---
Procedure Date: 04/03/23 Time: 11:30 Anesthesiologist:: Diaz Mcnair CRNA Complications:: None Pre-procedure Diagnosis:: Right sacroiliitis. Post-procedure Diagnosis:: Same. Indications for Procedure:: Patient is a very pleasant 57-year-old female that comes our clinic today for a right sacroiliac joint injection. Patient has extreme point tenderness over the right posterior hip/sacroiliac joint. She has difficulty transitioning from sitting to standing. Difficulty with ambulation secondary to increased pain in the posterior hip region. She rates her pain 7/10. Procedure Details:: Procedure: Right sacroliliac joint injection under fluoroscopy Informed consent was obtained and the risk and benefits of the procedure were explained to the patient.~ The patient was taken to the procedure room and noninvasive monitors were placed including noninvasive blood pressure cuff and pulse oximeter.~ The patient was placed prone on the procedure table.~ The~ right hip was cleansed using Betadine as a cleansing solution.~ C-arm fluoros ocpy was used to view the right SI joint.~ The skin and subcutaneous tissues were anesthetized using Lidocaine 1.5% and a 25-gauge needle.~ After this, a 22- gauge spinal needle was inserted under fluoroscopic guidance into the inferior aspect of the right SI joint.~ Omnipaque dye was injected and a good spread was seen throughout the joint.~ After this, approximately 5 mL of bupivacaine 0.25% and Depo-Medrol 40 mg was incrementally injected into the sacroiliac joint.~ The patient tolerated the procedure well with no complications.~ The patient was observed in the Pain Clinic, then discharged home neurologically intact.~ Plan and Disposition:: Patient was discharged without incident.
[2023-04-03 11:40] VITALS: BP 171/85; PULSE 86; RESP 16; O2SAT 97
== END 2023-04-03 11:40 | disposition home or self-care (01) ==
PROVIDERS: PCP Nurse Practitioner; Visit Provider Nurse Anesthetist, Certified Registered
DX: M46.1 Sacroiliitis, not elsewhere classified (principal)
CPT/HCPCS: 27096; G0260; J1040

== ENCOUNTER → 2023-04-16 12:56 | Outpatient (POV) | payer MEDICARE, SELFPAY ==
--- NOTE | 2023-04-16 13:06 | EXP.PAIN.SOA ---
[facility] Pain Management SOAP Note Subjective:: Patient is a pleasant 57-year-old female who presents today for follow-up of right SI injection on 04/03/2023. We are currently treating the patient for degenerative disc disease of cervical and lumbar spine with cervical and lumbar radiculopathy symptoms, shoulder pain, left knee pain, myofascial pain, sacroiliitis, chronic pain. Today she rates her pain a 5 out of 10. She denies any new trauma or injury. She does state that she had at least 90% improvement following this injection and it is providing additional relief even now. Patient does state her pain today is more related to her arthritis that is throughout multiple joints. She continues to use a heating pad and take Tylenol arthritis in addition to her prescribed Milford 5 mg 3 times a day. She denies any side effects from this medication. She is requesting a refill. Her Petey has been reviewed and appropriate. Review of Systems: General: No recent weight changes, no fever, no sleep disturbances Respiratory: No cough, no shortness of air, no recurring pulmonary infections Cardiovascular/peripheral vascular: No chest pain, no palpitations, no edema, no shortness of breath Gastrointestinal: No new onset incontinence, normal bowel movements reported Genitourinary: No new onset incontinence Musculoskeletal: Hand pain, left hip pain Psychiatric: [Normal mood/affect] Neurological: [Denies weakness in extremities], [denies balance issues] Objective:: Physical Exam: General: Alert and oriented x3, no acute distress, pleasant and cooperative Lungs: Respirations even and unlabored, symmetrical chest expansion Eyes: PERRL Musculoskeletal: Flexion and extension of lumbar [spine] somewhat guarded secondary to pain, [antalgic gait noted] Neurological: Speech clear, no gross sensory deficit Assessment:: Degenerative disc disease of cervical and lumbar spine with cervical and lumbar radiculopathy symptoms, myofascial pain, shoulder pain, hip pain, left leg pain, sacroiliitis, chronic pain syndrome Plan:: Patient has had significant improvement in her right SI following her injection and does not require any additional injection therapy at this time. I will refill the patient's Milford 5 mg 3 times a day and provide a 1 month supply of this medication. Patient will return to clinic in 1 month for reevaluation of symptoms and plan of care. Patient has been advised of risks of oversedation with the prescribed medication. Narcan has been offered to the patient in the event of oversedation. Patient has been advised that a family member should also be educated regarding administration of Narcan. Patient has been instructed to contact the clinic with any concerns before the next appointment. Dr. Nash has reviewed this note and agrees with this plan of care. This note was dictated using voice recognition software and make contain errors or omissions. [facility] Disclaimer: The information contained in this section may have been updated after the patient was seen, as this information can be updated by other users. Medical History Anxiety Arthritis Chronic GERD COPD (chronic obstructive pulmonary disease) Depression Diabetes mellitus Hyperlipidemia Hypertension Hypothyroidism Pre-op exam Seizure disorder Seizures Surgical History Hx of myringotomy Family History Other Family history of myocardial infarction Family history of stroke No significant family history Social History Smoking Status: Current every day smoker tobacco type: cigarettes packs per day: 1 second hand exposure: No alcohol intake: never substance use type: denies use current occupational status: other Travel in the last 8 weeks: None ho
[2023-04-16 13:12] VITALS: BP 117/77; PULSE 94; RESP 18; O2SAT 95; BMI 23.5
== END | disposition home or self-care (01) ==
PROVIDERS: PCP Nurse Practitioner Family; Visit Provider Nurse Practitioner Family
DX: M50.10 Cervical disc disorder with radiculopathy, unspecified cervical region (principal); M51.16 Intervertebral disc disorders with radiculopathy, lumbar region; M79.10 Myalgia, unspecified site; M25.519 Pain in unspecified shoulder; M25.562 Pain in left knee; M46.1 Sacroiliitis, not elsewhere classified; G89.4 Chronic pain syndrome; M79.605 Pain in left leg
CPT/HCPCS: 99212; G0463

== ENCOUNTER → 2023-04-30 11:07 | Outpatient (CLI) | payer MEDICARE, SELFPAY ==
[2023-04-30 12:36] LABS: Alanine Aminotransferase 16 U/L (12-78); Albumin Level 4.1 g/dl (3.5-5.0); Albumin/Globulin Ratio 1.5 (1.1-1.8); Alkaline Phosphatase 80 U/L (38-126); Anion Gap 11.5 mEq/L (5-15); Aspartate Amino Transferase 31 U/L (14-36); Bilirubin,Total 0.3 mg/dl (0.2-1.3); Blood Urea Nitrogen 10 mg/dl (7-17); Calcium 8.9 mg/dl (8.4-10.2); Carbon Dioxide 27 mmol/L (22.0-30.0); Chloride 95 mmol/L (98-107); Estimated Glomerular Filt Rate 163 ml/min (>60); GFR (African American) 198 ML/MIN (>60); Globulin 2.8 g/dL (1.3-3.2); Glucose 96 mg/dl (74-100); Potassium 4.5 mmoL/L (3.5-5.1); Sodium 129 mmol/L (136-145); Total Protein,Serum 6.9 g/dl (6.3-8.2)
== END ==
PROVIDERS: PCP Nurse Practitioner; Visit Provider Nurse Practitioner
DX: R10.30 Lower abdominal pain, unspecified (principal)
CPT/HCPCS: 36415; 80053

== ENCOUNTER → 2023-05-03 07:27 | Outpatient (CLI) | payer MEDICARE, SELFPAY ==
--- NOTE | 2023-05-03 07:32 | CT_ITS ---
FINAL REPORT CLINICAL HISTORY: LOWER ABD PAIN COMPARISON: 06/04/2019 FINDINGS: CT OF THE ABDOMEN AND PELVIS WITH CONTRAST Axial CT images of the abdomen and pelvis were obtained after the administration of oral and iv contrast. Coronal reformatted images were also obtained and reviewed.This study was performed with techniques to keep radiation doses as low as reasonably achievable (ALARA). Individualized dose reduction techniques using automated exposure control or adjustment of mA and/or kV according to the patient's size were employed. Abdomen: The lung bases are clear. The heart is normal in size. There has been partial hepatic resection. The liver is otherwise unremarkable. Post cholecystectomy. Post splenectomy. There are several presumed splenules in the upper abdomen. No adrenal mass is present. The pancreas has an unremarkable appearance. The kidneys are normal, without evidence of mass or hydronephrosis. The aorta is normal in caliber. There is no free fluid or adenopathy. No mass or abnormal fluid collection is seen. Multiple radiopaque foreign bodies in the thorax and abdomen are stable. Pelvis: The appendix normal. There are several colonic diverticula. Post hysterectomy. The urinary bladder is unremarkable. No inflammatory process is seen. There is no evidence of mass or adenopathy. There is no evidence of bowel obstruction. IMPRESSION: Chronic changes without evidence of acute intra-abdominal process. Reviewed, Interpreted and Dictated by Josh Cameron III, MD Transcribed by Farhana Leo Authenticated and [facility]
== END ==
LOC: RAD 07:28
PROVIDERS: PCP Nurse Practitioner; Visit Provider Nurse Practitioner
DX: R10.30 Lower abdominal pain, unspecified (principal)
CPT/HCPCS: 74177; Q9967

== ENCOUNTER → 2023-05-14 08:44 | Outpatient (POV) | payer MEDICARE, SELFPAY ==
--- NOTE | 2023-05-14 08:56 | EXP.PAIN.SOA ---
[facility] Pain Management SOAP Note Subjective:: Patient is a pleasant 57-year-old female who presents today for 1 month follow-up and medication refill. We are currently treating the patient for degenerative disc disease of cervical and lumbar spine with cervical and lumbar radiculopathy symptoms, shoulder pain, knee pain, myofascial pain, sacroiliitis, chronic pain syndrome. Today she rates her pain a 5 out of 10. Patient denies any new trauma or injury. She does state that she has started to have more pain in her low back and it radiates down her bilateral lower extremities. Patient states that she has been waking up in the morning around 4 AM for the last week due to the pain. She describes it as an aching, throbbing sensation with numbness and tingling. Patient does state the pain interferes with her ability perform activities of daily living such as cooking and cleaning. Patient has had epidurals in the past that did provide more than 50% relief. Patient is interested in injection therapy. She is currently prescribed Orient 5 mg 3 times a day and does take Tylenol arthritis as well. Patient continues to use a heating pad and do home exercise and stretching for longer than 6 weeks with minimal relief. Her Petey has been reviewed and is appropriate. Review of Systems: General: No recent weight changes, no fever, no sleep disturbances Respiratory: No cough, no shortness of air, no recurring pulmonary infections Cardiovascular/peripheral vascular: No chest pain, no palpitations, no edema, no shortness of breath Gastrointestinal: No new onset incontinence, normal bowel movements reported Genitourinary: No new onset incontinence Musculoskeletal: Low back pain, bilateral leg pain Psychiatric: [Normal mood/affect] Neurological: [Denies weakness in extremities], [denies balance issues] Objective:: Physical Exam: General: Alert and oriented x3, no acute distress, pleasant and cooperative Lungs: Respirations even and unlabored, symmetrical chest expansion Eyes: PERRL Musculoskeletal: Flexion and extension of lumbar [spine] somewhat guarded secondary to pain, [antalgic gait noted] Neurological: Speech clear, no gross sensory deficit Assessment:: Degenerative disc disease of cervical and lumbar spine with cervical and lumbar radiculopathy symptoms, shoulder pain, left knee pain, myofascial pain, sacroiliitis, chronic pain syndrome Plan:: Patient is experiencing worsening pain in her low back and legs with limited range of motion. I have discussed with patient that she may benefit from a lumbar epidural steroid injection. Risk and benefits were discussed with the patient and she would like to proceed forward with this plan of care. I will also send in a refill of her Orient 5 mg 3 times a day and provide a 1 month supply of this medication. Patient will be scheduled for an LESI L4-L5. All epidurals are done under fluoroscopic guidance to confirm placement. Patient has been advised of risks of oversedation with the prescribed medication. Narcan has been offered to the patient in the event of oversedation. Patient has been advised that a family member should also be educated regarding administration of Narcan. Patient has been instructed to contact the clinic with any concerns before the next appointment. Dr. Nash has reviewed this note and agrees with this plan of care. This note was dictated using voice recognition software and make contain errors or omissions. [id number] Disclaimer: The information contained in this section may have been updated after the patient was seen, as this information can be updated by other users. Medical History Anxiety Arthritis Chronic GERD COPD (chronic obstructive pulmonary disease) Depression Diabetes mellitus Hyperlipidemia Hypertension Hypothyroidism Pre-op exam Seizure disorder Seizures Surgical History (Reviewed 04/03/23 @ 11:25 by Mesha Otero
[2023-05-14 08:57] VITALS: BP 162/72; PULSE 106; RESP 18; O2SAT 95; BMI 23.5
== END ==
LOC: SC.PAIN 08:45
PROVIDERS: PCP Family Medicine; Visit Provider Nurse Practitioner Family
DX: M50.10 Cervical disc disorder with radiculopathy, unspecified cervical region (principal); M51.16 Intervertebral disc disorders with radiculopathy, lumbar region; M25.519 Pain in unspecified shoulder; M25.562 Pain in left knee; M79.10 Myalgia, unspecified site; M46.1 Sacroiliitis, not elsewhere classified; G89.4 Chronic pain syndrome
CPT/HCPCS: 99212; G0463

== ENCOUNTER 2023-05-24 13:12 | Emergency (ER) | payer MEDICARE, SELFPAY ==
[2023-05-24 13:21] VITALS: BP 126/71; PULSE 88; RESP 20; TEMP 36.8; O2SAT 95; BMI 23.0
[2023-05-24 13:30] VITALS: BP 110/61; PULSE 85; O2SAT 97
--- NOTE | 2023-05-24 13:52 | XR_ITS ---
FINAL REPORT CLINICAL HISTORY: n/v COMPARISON: None FINDINGS: The heart size is normal. The mediastinum is normal. There is no focal infiltrate or edema. There are mild chronic changes in the lung bases. There are no pleural effusions. There is no pneumothorax. There is no osseous abnormality. IMPRESSION: No acute cardiopulmonary process Reviewed, Interpreted and Dictated by Pacheco Shoemaker MD Transcribed by Malka Goldberg Authenticated and [facility]
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
[2023-05-24 14:00] VITALS: BP 138/73; PULSE 89; O2SAT 96
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
[2023-05-24 14:12] LABS: Alanine Aminotransferase 19 U/L (12-78); Albumin Level 4.1 g/dl (3.5-5.0); Albumin/Globulin Ratio 1.5 (1.1-1.8); Alkaline Phosphatase 97 U/L (38-126); Anion Gap 10.6 mEq/L (5-15); Aspartate Amino Transferase 40 U/L (14-36); Bilirubin,Total 0.5 mg/dl (0.2-1.3); Blood Urea Nitrogen 15 mg/dl (7-17); Carbon Dioxide 26 mmol/L (22.0-30.0); Chloride 100 mmol/L (98-107); Creatinine Clearance Estimated 141 mL/min (50-200); Estimated Glomerular Filt Rate 163 ml/min (>60); GFR (African American) 198 ML/MIN (>60); Globulin 2.8 g/dL (1.3-3.2); Glucose 150 mg/dl (74-100); Potassium 3.6 mmoL/L (3.5-5.1); Sodium 133 mmol/L (136-145); Total Protein,Serum 6.9 g/dl (6.3-8.2)
--- NOTE | 2023-05-24 14:13 | ECG_ITS ---
APPROVED REPORT Exam: Resting ECG HR:84 bpm ECG Measurements Heart Rate 84 AXES DE 201 P 71 QRSd 82 QRS 64 QT 378 T 73 QTc 419 Conclusion SINUS RHYTHM NONSPECIFIC T-WAVE ABNORMALITY BORDERLINE ECG UNCONFIRMED REPORT Electronically signed by : Nakul Alvarez MD 05/25/2023 07:47:42
[2023-05-24] MEDS: LACTATED RINGERS 1000ML 1,000 ML 999 ML IV (14:17)
[2023-05-24] MEDS: carBAMazepine 200MG TABLET 200 MG PO (14:17)
[2023-05-24 14:21] LABS: Basophils # 0.1 K/mm3 (0-0.2); Basophils % 0.8 % (0.1-2.0); Eosinophils # 0.1 K/mm3 (0.0-0.4); Eosinophils % 0.8 % (0.1-12.0); Hematocrit 44.8 % (37.0-47.0); Hemoglobin 15.3 g/dL (12.2-16.2); Lymphocytes # 1.4 K/mm3 (0.7-4.5); Lymphocytes % 9.6 % (10-50); Mean Corpuscular HGB Conc 34.2 g/dL (31.8-35.4); Mean Corpuscular Hemoglobin 33.8 pg (27.0-31.2); Mean Corpuscular Volume 98.9 fl (81-99); Mean Platelet Volume 8.1 fl (7.4-10.4); Monocytes # 0.7 K/mm3 (0.1-1.0); Monocytes % 4.8 % (1.7-9.3); Neutrophils % 83.9 % (37.0-80.0); Platelet Count 605 K/mm3 (142-424); Red Blood Count 4.53 M/mm3 (4.20-5.40); Red Cell Distribution Width 12.5 % (11.5-17.5); White Blood Count 14.3 K/mm3 (4.8-10.8)
[2023-05-24 14:34] LABS: Troponin I < 0.01 ng/ml (0.00-0.034)
[2023-05-24] MEDS: SODIUM CHLORIDE 0.9% 10ML FLUSH SYRINGE 10 ML IV (14:43)
[2023-05-24] MEDS: IOPAMIDOL-370 (76%);100ML BOTTLE 75 ML IV (14:44)
[2023-05-24 15:00] VITALS: BP 150/81; PULSE 83; O2SAT 97
[2023-05-24 15:04] LABS: Microscopic, Urine URINE MICROSCOPIC (MICROSCOPIC)
[2023-05-24 15:08] LABS: Appearance,Urine SL CLOUDY (Clear); Blood, Urine Negative (Negative); Color,Urine YELLOW (Yellow); Glucose,Urine (UA) Negative (Negative); Ketones,Urine TRACE (Negative); Leukocyte Esterase,Urine Negative (Negative); Nitrate,Urine Negative (Negative); Protein,Urine TRACE (Negative); Specific Gravity, Urine 1.025 (1.005-1.030); Urobilinogen,Urine 0.2 EU/dl (0.2)
[2023-05-24 15:11] LABS: Bilirubin,Urine 1+ (Negative)
[2023-05-24 15:28] LABS: Bacteria,Urine 2+ /lpf
[2023-05-24 15:30] VITALS: BP 145/76; PULSE 86; O2SAT 96
--- NOTE | 2023-05-24 16:05 | PC.NURSE ---
Dr. Aguero at to discuss POC/results
--- NOTE | 2023-05-24 16:12 | ED_ITS ---
Discharge Plan Disposition Patient Disposition: Still a Patient Prescriptions Prescriptions: New promethazine 12.5 mg suppository 12.5 mg IA TID PRN (Reason: nausea and vomiting) Qty: 12 0RF Rx Instructions: do not give 3rd daily dose after evening meal or within 4hr before bed ondansetron 4 mg tablet,disintegrating 4 mg PO Q6H PRN (Reason: nausea and vomiting) 5 Days Qty: 20 0RF No Action aspirin [Soren Chewable Aspirin] 81 mg tablet,chewable 81 mg PO DAILY cholecalciferol (vitamin D3) 50,000 unit capsule 50,000 unit PO QWEEK ergocalciferol (vitamin D2) 1,250 mcg (50,000 unit) capsule 1,250 mcg PO DAILY Patient Comments: TAKE ONE CAPSULE BY MOUTH ONCE A WEEK hydroxyzine pamoate [Vistaril] 25 mg capsule 50 mg PO QHS PRN (Reason: anxiety ) potassium chloride 20 mEq tablet,ER particles/crystals 20 meq PO DAILY lisinopril 20 mg tablet 20 mg PO DAILY fluoxetine 10 mg capsule 20 mg PO DAILY calcipotriene 0.005 % cream 1 applic topical BID Patient Comments: APPLY TOPICALLY TO THE AFFECTED AREA(S) TWICE DAILY DIRECTED -- FOR EXTERNAL USE ONLY-- icosapent ethyl 1 gram capsule 2 g PO BID Patient Comments: TAKE TWO CAPSULES BY MOUTH TWICE DAILY montelukast [Singulair] 10 mg tablet 10 mg PO DAILY omeprazole magnesium [Prilosec OTC] 20 mg tablet,delayed release (DR/EC) 20 mg PO DAILY estradiol 2 mg tablet 2 mg PO BID Qty: 180 4RF Probiotic 10 billion cell Capsule 1 cell PO DAILY levothyroxine 75 MCG tablet 75 mcg PO DAILY carbamazepine 200 MG tablet 200 mg PO BID Patient Comments: metformin 1,000 MG tablet 500 mg PO BID Patient Comments: hydrochlorothiazide 12.5 MG capsule 12.5 mg PO DAILY Patient Comments: hydrocodone-acetaminophen 5-325 mg tablet 1 tab PO TID Qty: 90 0RF Referrals Follow up/Referrals: Davina Sunshine MD [Primary Care Provider] - See instructions Activity Restrictions/Add. Instructions Additional Instructions/Restrictions: Your workup today did not yield an emergent medical condition. Your symptoms are most likely consistent with a viral syndrome with nausea vomiting and diarrhea he also had associated dehydration. Nausea medications have been sent to your pharmacy please return with significant worsening of your abdominal pain inability to tolerate any fluids by mouth or any other concerns Clinical Impressions Clinical Impression: Nausea vomiting and diarrhea, Acute dehydration Instructions Patient Instructions: DI for Diarrhea and Traveler's Diarrhea -- Adult, DI for Diarrhea and Traveler's Diarrhea -- Child, DI for Nausea -- Adult, DI for Nausea -- Child Discharge ED Provider: Delroy Colindres Adult HPI <Dhruv Aguero MD - Last Filed: 05/24/23 16:14> General Chief complaint: Nausea/Vomiting/Diarrhea Stated complaint: N/V Time Seen by Provider: 05/24/23 13:44 Mode of Arrival: EMS Source of Information: Patient and EMS Limitations: No Limitations Description of Symptoms (Recalled from ER Triage Doc. by RN): pt to ed via ems c/o n/v/d and generalized weakness. pt states she has not been able to keep her daily seizure medications down and is concerned she may have one. Related Data Home Medications Medication Instructions Recorded Confirmed carbamazepine 200 mg tablet 200 mg PO BID SEIZURE 08/17/17 05/14/23 hydrochlorothiazide 12.5 mg capsule 12.5 mg PO DAILY High blood 08/17/17 05/14/23 pressure levothyroxine 75 mcg tablet 75 mcg PO DAILY THYROID 08/17/17 05/14/23 metformin 1,000 mg tablet 500 mg PO BID Diabetes 08/17/17 05/14/23 aspirin 81 mg chewable tablet 81 mg PO DAILY Blood thinner 05/13/18 05/14/23 (Soren Chewable Low Dose Aspirin) cholecalciferol (vitamin D3) 1,250 50,000 unit PO QWEEK Supplement 05/13/18 05/14/23 mcg (50,000 unit) capsule calcipotriene 0.005 % topical cream 1 applic topical BID Skin condition 09/21/22 05/14/23 fluoxetine 10 mg capsule 20 mg PO DAILY MOOD 09/21/22 05/14/23 hydroxyzine pamoate 25 mg capsule 50 mg PO QHS PRN anxiety 09/21/22 05/14/23 (Vistaril) icosapent ethyl 1 gram capsule 2 g PO BID Cholesterol 09/21/22 05/14/23 lisinopril 20 mg tablet 20 mg PO DAILY BLOOD PRESSURE 09/21/22 05/14/23 potassium chloride 20 mEq 20 meq PO DAILY SUPPLIMENT 09/21/22 05/14/23 tablet,extended release(part/cryst) montelukast 10 mg tablet 10 mg PO DAILY Breathing Problems 12/13/22 05/14/23 (Singulair) omeprazole magnesium 20 mg 20 mg PO DAILY STOMACH 12/13/22 05/14/23 tablet,delayed release (Prilosec OTC) ergocalciferol (vitamin D2) 1,250 1,250 mcg PO DAILY . 01/24/23 05/14/23 mcg (50,000 unit) capsule Lactobacillus acidophilus 10 1 cell PO DAILY stomach 03/26/23 05/14/23 billion cell capsule (Probiotic) Previous Rx's Medication Instructions Recorded estradiol 2 mg tablet 2 mg PO BID Supplement #180 tabs 05/17/18 hydrocodone 5 mg-acetaminophen 325 1 tab PO TID . #90 tabs 05/14/23 mg tablet ondansetron 4 mg disintegrating 4 mg PO Q6H PRN nausea and 05/24/23 tablet vomiting 5 days #20 tabs promethazine 12.5 mg rectal 12.5 mg IA TID PRN nausea and 05/24/23 suppository vomiting #12 ea Allergies Allergy/AdvReac Type Severity Reaction Status Date / Time [id number] Reductase Allergy Mild dizzy Verified 04/03/23 11:25 Inhibitor [Snpsrym-Umg-Egg Reductase Inhibitor] diphenhydramine Allergy Unknown JITTERY Verified 04/03/23 11:25 [From BENADRYL] latex [LATEX] Allergy Unknown I-RASH Verified 04/03/23 11:25 duloxetine [From Cymbalta] AdvReac Severe seizures Verified 04/03/23 11:25 <Delroy Colindres MD - Last Filed: 06/17/23 09:36> History of Present Illness HPI narrative: 58-year-old female with history of seizures presents to the ER with concerns of nausea, vomiting, diarrhea and generalized weakness. Patient states she has not been able to keep anything down since late last night and is concerned that by missing her antiepileptic medications she may have a seizure. She has not had a seizure today but wants to get her symptoms under control so she can take her medications. [facility] <Dhruv Aguero MD - Last Filed: 05/24/23 16:14> [facility] Disclaimer: The information contained in this section may have been updated after the patient was seen, as this information can be updated by other users. Medical History (Updated 05/24/23 @ 16:12 by Dhruv Aguero MD) Anxiety Arthritis Chronic GERD COPD (chronic obstructive pulmonary disease) Depression Diabetes mellitus Hyperlipidemia Hypertension Hypothyroidism Pre-op exam Seizure disorder Seizures Surgical History Hx of myringotomy Family History Other Family history of myocardial infarction Family history of stroke No significant family history Social History Smoking Status: Never smoker second hand exposure: No alcohol intake: never substance use type: denies use current occupational status: other Travel in the last 8 weeks: None household members: none housing: house current occupational exposures/hazards: No caffeine: Yes <Dhruv Aguero MD - Last Filed: 05/24/23 16:14> ROS Obtained: Yes All systems reviewed & no additional complaints except as documented <Delroy Colindres MD - Last Filed: 06/17/23 09:36> Constitutional Constitutional: Denies chills, Denies fever(s), Denies headache(s) and Denies weakness Eyes Eyes: Denies change in vision ENT Ears, Nose, Mouth, and Throat: Denies dizziness, Denies headache(s), Denies nasal congestion and Denies sore throat Cardiovascular Cardiovascular: Denies chest pain, Denies dyspnea and Denies leg edema Respiratory Respiratory: Denies cough and Denies dyspnea Gastrointestinal Gastrointestingal: Reports diarrhea, nausea and vomiting; Denies abdominal pain or constipation Genitourinary Female Genitourinary: Denies dysuria Musculoskeletal Musculoskeletal: Denies arthralgias, Denies myalgias, Denies numbness and Denies tingling Integumentary/Breasts Skin/Breast: Denies change in pigmentation Neurologic Neurologic: Denies dizziness, Denies headache(s), Denies numbness, Denies tingling and Denies weakness Physical Exam <Dhruv Aguero MD - Last Filed: 05/24/23 16:14> General General appearance: alert and in no apparent distress Respiratory Respiratory exam: Present normal lung sounds bilaterally Cardiovascular Cardiovascular exam: Present regular rate Neurological Exam Neurological exam: Present alert and oriented X3 <Delroy Colindres MD - Last Filed: 06/17/23 09:36> Head Head exam: atraumatic and normocephalic Eye Eye exam: Present PERRL and EOMI ENT ENT exam: Present mucous membranes moist Neck Neck exam: Present normal inspection and full ROM Chest Chest inspection: Present symmetric chest wall rise Respiratory Respiratory exam: Absent wheezes or stridor Abdominal Exam Abdominal exam: Present soft and tenderness (Very mild diffuse tenderness, no nacute abdomen); Absent distention, guarding or rebound Extremities Exam Extremities exam: Present full ROM Psychiatric Psychiatric exam: Present normal affect and normal mood Skin Skin exam: Present warm and dry Medical Decision Making <Dhruv Aguero MD - Last Filed: 05/24/23 16:14> Petey Inquiry Pt receiving controlled substance: No Vital Signs: 05/24/23 13:21 05/24/23 13:30 05/24/23 14:00 Temperature 98.2 F Temperature Source Tympanic Pulse Rate 85 89 Pulse Rate [Left Radial] 88 Respiratory Rate 20 Blood Pressure 110/61 138/73 Blood Pressure [Right Arm] 126/71 Blood Pressure Mean 77 93 Blood Pressure Mean [Right Arm] 89 02 Sat by Pulse Oximetry 95 97 96 Oxygen Delivery Method Room Air Room Air Room Air 05/24/23 15:00 05/24/23 15:30 05/24/23 16:32 Temperature 98.2 F Temperature Source Pulse Rate 83 86 86 Pulse Rate [Left Radial] Respiratory Rate 20 Blood Pressure 150/81 H 145/76 H 162/85 H Blood Pressure [Right Arm] Blood Pressure Mean 97 94 Blood Pressure Mean [Right Arm] 02 Sat by Pulse Oximetry 97 96 Oxygen Delivery Method Room Air Room Air Room Air Lab Data Lab results reviewed: Yes I reviewed the patient's lab results. Lab Results 05/24/23 13:20: WBC 14.3 H, RBC 4.53, Hgb 15.3, Hct 44.8, MCV 98.9, MCH 33.8 H, MCHC 34.2, RDW 12.5, Plt Count 605 H, MPV 8.1, Neut % (Auto) 83.9 H, Lymph % (Auto) 9.6 L, Lane % (Auto) 4.8, Eos % (Auto) 0.8, Baso % (Auto) 0.8, Neut # (Auto) 12.0 H, Lymph # (Auto) 1.4, Lane # (Auto) 0.7, Eos # (Auto) 0.1, Baso # (Auto) 0.1, Sodium 133 L, Potassium 3.6, Chloride 100, Carbon Dioxide 26, Anion Gap 10.6, BUN 15, Creatinine 0.40 L, Estimated Creat Clear 141, Estimated GFR 163, Est GFR ( Amer) 198, Glucose 150 H, Calcium 8.0 L, Total Bilirubin 0.5, AST 40 H, ALT 19, Alkaline Phosphatase 97, Troponin I < 0.01, Total Protein 6.9, Albumin 4.1, Globulin 2.8, Albumin/Globulin Ratio 1.5 05/24/23 14:23: Urine Color Yellow, Urine Appearance Sl cloudy, Urine pH 6.0, Ur Specific [place] 1.025, Urine Protein Trace, Urine Glucose (UA) Negative, Urine Ketones Trace, Urine Blood Negative, Urine Nitrate Negative, Urine Bilirubin 1+ A, Urine Urobilinogen 0.2, Ur Leukocyte Esterase Negative, Urine RBC None, Urine WBC None, Ur Squamous Epith Cells 5-10, Urine Bacteria 2+ 05/24/23 13:20 05/24/23 13:20 Orders (Tests/Meds): ED MEDICATIONS Discontinued Medications Generic Name Dose Route Start Last Admin Trade Name Carterq PRN Reason Stop Dose Admin Carbamazepine 200 mg 05/24/23 09:00 05/24/23 14:17 Carbamazepine 200mg Tablet PO 05/24/23 09:01 200 mg ONCE ONE Administration Lactated Ringer's 1,000 mls @ 999 mls/hr 05/24/23 13:52 05/24/23 14:17 Lactated Ringer's 1000 Ml Bag IV 05/24/23 14:52 999 mls/hr .Q1H1M ONE Administration Iopamidol 75 ml 05/24/23 14:42 05/24/23 14:44 Iopamidol-370 (76%);100ml Bottle IV 05/24/23 14:43 75 ml ONCE ONE Administration Sodium Chloride 10 ml 05/24/23 13:27 05/24/23 14:43 Sodium Chloride 0.9% 10ml Flush Syringe IV 06/23/23 13:26 10 ml NEEDED PRN Administration Maintain IV Site Sodium Chloride 10 ml 05/24/23 14:42 Sodium Chloride 0.9% 10ml Syr (Rad Only) IV 06/23/23 14:41 NEEDED PRN Maintain IV Site ORDERS Category Date Time Status CT abdomen pelvis w con Stat Cat Scan 05/24/23 13:52 Completed CXR --portable [XR chest portable] Stat Exams 05/24/23 13:52 Completed CBC w/Auto Diff [Complete Blood Count Auto Diff] Stat Lab 05/24/23 13:20 Completed CMP [Comprehensive Metabolic Panel] Stat Lab 05/24/23 13:20 Completed Trop I [Troponin I] Stat Lab 05/24/23 13:20 Completed Urinalysis and Microscopic Stat Lab 05/24/23 14:23 Completed Urine Culture Stat Micro 05/24/23 14:23 Completed ECG initial [place] Routine Y 05/24/23 14:13 Completed Medical Decision Narrative: I took over care from Dr. Colindres at 4 PM. Chest x-ray performed which I first interpreted shows no acute cardiopulmonary emergency labs largely unremarkable there is a nonspecific leukocytosis and thrombocytosis which are likely secondary to acute inflammatory or infectious etiology. Given the patient's nausea vomiting diarrhea this is most likely viral in pathology. Serial abd ominal exams were benign she is tolerating p.o. and feels much better after IV fluids and symptomatic medications. CT scan performed which I personally interpreted which shows some fluid-filled nondilated loops of bowel which are most likely associated with enteritis however may represent a mild ileus nonetheless this is not consistent with a obstruction and her symptoms are dramatically improved on my serial assessments. T medics were prescribed for the patient return precautions discussed and she was discharged in improved and stable condition. <Delroy Colindres MD - Last Filed: 06/17/23 09:36> Vital Signs: 05/24/23 13:21 05/24/23 13:30 05/24/23 14:00 Temperature 98.2 F Temperature Source Tympanic Pulse Rate 85 89 Pulse Rate [Left Radial] 88 Respiratory Rate 20 Blood Pressure 110/61 138/73 Blood Pressure [Right Arm] 126/71 Blood Pressure Mean 77 93 Blood Pressure Mean [Right Arm] 89 02 Sat by Pulse Oximetry 95 97 96 Oxygen Delivery Method Room Air Room Air Room Air 05/24/23 15:00 05/24/23 15:30 05/24/23 16:32 Temperature 98.2 F Temperature Source Pulse Rate 83 86 86 Pulse Rate [Left Radial] Respiratory Rate 20 Blood Pressure 150/81 H 145/76 H 162/85 H Blood Pressure [Right Arm] Blood Pressure Mean 97 94 Blood Pressure Mean [Right Arm] 02 Sat by Pulse Oximetry 97 96 Oxygen Delivery Method Room Air Room Air Room Air Lab Data Lab Results 05/24/23 13:20: WBC 14.3 H, RBC 4.53, Hgb 15.3, Hct 44.8, MCV 98.9, MCH 33.8 H, MCHC 34.2, RDW 12.5, Plt Count 605 H, MPV 8.1, Neut % (Auto) 83.9 H, Lymph % (Auto) 9.6 L, Lane % (Auto) 4.8, Eos % (Auto) 0.8, Baso % (Auto) 0.8, Neut # (Auto) 12.0 H, Lymph # (Auto) 1.4, Lane # (Auto) 0.7, Eos # (Auto) 0.1, Baso # (Auto) 0.1, Sodium 133 L, Potassium 3.6, Chloride 100, Carbon Dioxide 26, Anion Gap 10.6, BUN 15, Creatinine 0.40 L, Estimated Creat Clear 141, Estimated GFR 163, Est GFR ( Amer) 198, Glucose 150 H, Calcium 8.0 L, Total Bilirubin 0.5, AST 40 H, ALT 19, Alkaline Phosphatase 97, Troponin I < 0.01, Total Protein 6.9, Albumin 4.1, Globulin 2.8, Albumin/Globulin Ratio 1.5 05/24/23 14:23: Urine Color Yellow, Urine Appearance Sl cloudy, Urine pH 6.0, Ur Specific [place] 1.025, Urine Protein Trace, Urine Glucose (UA) Negative, Urine Ketones Trace, Urine Blood Negative, Urine Nitrate Negative, Urine Bilirubin 1+ A, Urine Urobilinogen 0.2, Ur Leukocyte Esterase Negative, Urine RBC None, Urine WBC None, Ur Squamous Epith Cells 5-10, Urine Bacteria 2+ Orders (Tests/Meds): ED MEDICATIONS Discontinued Medications Generic Name Dose Route Start Last Admin Trade Name Freq PRN Reason Stop Dose Admin Carbamazepine 200 mg 05/24/23 09:00 05/24/23 14:17 Carbamazepine 200mg Tablet PO 05/24/23 09:01 200 mg ONCE ONE Administration Lactated Ringer's 1,000 mls @ 999 mls/hr 05/24/23 13:52 05/24/23 14:17 Lactated Ringer's 1000 Ml Bag IV 05/24/23 14:52 999 mls/hr .Q1H1M ONE Administration Iopamidol 75 ml 05/24/23 14:42 05/24/23 14:44 Iopamidol-370 (76%);100ml Bottle IV 05/24/23 14:43 75 ml ONCE ONE Administration Sodium Chloride 10 ml 05/24/23 13:27 05/24/23 14:43 Sodium Chloride 0.9% 10ml Flush Syringe IV 06/23/23 13:26 10 ml NEEDED PRN Administration Maintain IV Site Sodium Chloride 10 ml 05/24/23 14:42 Sodium Chloride 0.9% 10ml Syr (Rad Only) IV 06/23/23 14:41 NEEDED PRN Maintain IV Site ORDERS Category Date Time Status CT abdomen pelvis w con Stat Cat Scan 05/24/23 13:52 Completed CXR --portable [XR chest portable] Stat Exams 05/24/23 13:52 Completed CBC w/Auto Diff [Complete Blood Count Auto Diff] Stat Lab 05/24/23 13:20 Completed CMP [Comprehensive Metabolic Panel] Stat Lab 05/24/23 13:20 Completed Trop I [Troponin I] Stat Lab 05/24/23 13:20 Completed Urinalysis and Microscopic Stat Lab 05/24/23 14:23 Completed Urine Culture Stat Micro 05/24/23 14:23 Completed ECG initial [place] Routine Y 05/24/23 14:13 Completed Medical Decision Narrative: In summary, this 58year old female with a history of epilepsy on antiepileptic medications which she has been unable to take today which complicates current condition and increases overall morbidity presents to the emergency department today with nausea, vomiting, diarrhea. On initial evaluation patient is hemodynamically stable, afebrile, abdominal exam is nonacute but does demon strate mild diffuse tenderness without rebound or guarding. Differential diagnosis includes but is not limited to viral syndrome, colitis, enteritis, electrolyte abnormality, dehydration, leukocytosis, anemia, urinary tract infection, bowel obstruction, ileus, and less likely but still considered is atypical presentation of ACS. Based on these concerns, I ordered appropriate labs and imaging including CT abdomen pelvis and cardiac workup. ECG personally interpreted demonstrates normal sinus rhythm, rate 84, normal axis, no STEMI. Patient received IV fluids, antiemetics for treatment. Labs personally reviewed demonstrate mild leukocytosis, no anemia, thrombocytosis present, nonactionable. No actionable electrolyte abnormalities, no significant findings of dehydration, no kidney dysfunction, UA negative for signs of infection, initial troponin undetectably low at less than 0.01. XR personally interpreted demonstrates no acute intrathoracic abnormality such as pneumothorax, lobar infiltrate, or mediastinal widening. See radiology read for full interpretation. CT imaging pending at the time of physician handoff. Patient handed off to Dr. Aguero for further management and disposition. I took over care from Dr. Colindres at 4 PM. Chest x-ray performed which I first interpreted shows no acute cardiopulmonary emergency labs largely unremarkable there is a nonspecific leukocytosis and thrombocytosis which are likely secondary to acute inflammatory or infectious etiology. Given the patient's nausea vomiting diarrhea this is most likely viral in pathology. Serial abdominal exams were benign she is tolerating p.o. and feels much better after IV fluids and symptomatic medications. CT scan performed which I personally interpreted which shows some fluid-filled nondilated loops of bowel which are most likely associated with enteritis however may represent a mild ileus nonetheless this is not consistent with a obstruction and her symptoms are dramatically improved on my serial assessments. T medics were prescribed for the patient return precautions discussed and she was discharged in improved and stable condition. Critical Care <Dhruv Aguero MD - Last Filed: 05/24/23 16:14> Critical Care Time Critical Care Time: No
[2023-05-24 16:32] VITALS: BP 162/85; PULSE 86; RESP 20; TEMP 36.8; O2SAT 96
== END 2023-05-24 16:33 | disposition still patient (30) ==
PROVIDERS: Emergency Provider Emergency Medicine; PCP Family Medicine
DX: E86.0 Dehydration (principal); R11.2 Nausea with vomiting, unspecified; R19.7 Diarrhea, unspecified; R53.1 Weakness; G40.909 Epilepsy, unspecified, not intractable, without status epilepticus; J44.9 Chronic obstructive pulmonary disease, unspecified; E11.9 Type 2 diabetes mellitus without complications; I10 Essential (primary) hypertension; E78.5 Hyperlipidemia, unspecified
CPT/HCPCS: 71045; 74177; 80053; 81001; 84484; 85025; 87086; 93005; 96360; 99285; Q9967

== ENCOUNTER 2023-06-05 08:40 | Day surgery (SDC) | payer MEDICARE, MEDICAID, SELFPAY ==
[2023-06-05 08:59] VITALS: BP 158/96; PULSE 100; RESP 18; O2SAT 100; BMI 23.0
[2023-06-05 09:27] VITALS: BP 159/90; PULSE 98; RESP 16; O2SAT 100
--- NOTE | 2023-06-05 09:53 | EXP.PAIN.PRO ---
Procedure Date: 06/05/23 Time: 09:15 Anesthesiologist:: Diaz Mcnair CRNA Complications:: None Pre-procedure Diagnosis:: Degenerative disc lumbar spine multilevels. Lumbar radiculopathy. Degenerative disc cervical spine multilevels. Cervical radiculopathy. Post-procedure Diagnosis:: Same. Indications for Procedure:: Patient is a very pleasant 58-year-old female that comes our clinic today for lumbar epidural steroid injection at the L4-5 level. Patient reports having low back pain as well as bilateral hip and leg radicular symptoms in the feet. She rates her pain 8/10. Procedure Details:: Procedure: Lumbar epidural steroid injection under fluoroscopy Informed consent was obtained and the risks and benefits of the procedure were explained to the patient. The patient was taken to the procedure room and noninvasive monitors placed, including noninvasive blood pressure cuff and pulse oximeter. The back was viewed using C-arm Fluoroscopy and prepped using Chloraprep as a cleansing solution and the L4-L5 interspace was palpated. Skin and subcutaneous tissues were anesthetized using lidocaine 1.5% and a 25-gauge needle. After this, an 18-gauge Touhy epidural needle was placed into the L4-L5 interspace and advanced using fluoroscopic guidance and loss of resistance to air until the epidural space was encountered. After confirmation of needle placement in the epidural space, with dye, a solution containing normal saline, 3 mL and Depo-Medrol 80 mg were incrementally injected into the lumbar epidural space. The patient tolerated the procedure well with no complications. The patient was observed in the Pain Clinic and then discharged home neurologically intact. Plan and Disposition:: Patient was discharged out incident.
[2023-06-05] MEDS: methylPREDNISolone ACETATE 80MG/ML VIAL 80 MG (09:54)
[2023-06-05 09:55] VITALS: BP 142/85; PULSE 96; RESP 18; O2SAT 97
[2023-06-05 09:56] VITALS: BP 142/85; PULSE 68; RESP 18; O2SAT 97
== END 2023-06-05 09:27 | disposition home or self-care (01) ==
LOC: SC.PAINP 08:41
PROVIDERS: PCP Family Medicine; Visit Provider Nurse Anesthetist, Certified Registered
DX: M51.16 Intervertebral disc disorders with radiculopathy, lumbar region (principal)
CPT/HCPCS: 62323; J1040

== ENCOUNTER 2023-06-06 12:02 | Outpatient (CLI) | payer MEDICARE, MEDICAID, SELFPAY ==
[2023-06-06 12:16] LABS: Adenovirus F 40/41, stool Not Detected (NotDetected); Astrovirus Not Detected (NotDetected); Clostridium Difficile A/B, PCR Not Detected (NotDetected); Cryptosporidium Not Detected (NotDetected); Cyclospora Cayetanesis Not Detected (NotDetected); Entamoeba histolytica Not Detected (NotDetected); Enteroaggregative E coli Not Detected (NotDetected); Enteropathogenic E coli Not Detected (NotDetected); Enterotoxigenic E coli Not Detected (NotDetected); Giardia lamblia Not Detected (NotDetected); Norovirus Not Detected (NotDetected); Plesimonas Shigalloides, PCR Not Detected (NotDetected); Rotavirus A Not Detected (NotDetected); Salmonella, PCR Not Detected (NotDetected); Sapovirus Not Detected (NotDetected); Shiga-like toxin E coli Not Detected (NotDetected); Shigella Enterovasive E coli Not Detected (NotDetected); Vibrio Cholerae Not Detected (NotDetected); Vibrio, PCR Not Detected (NotDetected); Yersinia Entercolitica, PCR Not Detected (NotDetected)
[2023-06-06 14:02] LABS: C-Reactive Protein 9.4 mg/L (0-4)
[2023-06-07 15:10] LABS: Deamidated Gliadin Abs, IgA 3 units (0-19); Deamidated Gliadin Abs, IgG 2 units (0-19); Tissue Transglutaminase IgA Ab <2 U/mL (0-3); Tissue Transglutaminase IgG Ab <2 U/mL (0-5)
[2023-06-07 16:46] LABS: Endomysial IgA Antibody Negative (Negative)
[2023-06-08 08:29] LABS: Reticulin IgA Antibody Negative titer (Neg:<1:2.5)
[2023-06-08 14:12] LABS: Strongyloides IgG Antibody Negative (Negative)
[2023-06-09 22:35] LABS: Calprotectin, Fecal 85 ug/g (0-120)
[2023-06-11 09:49] LABS: Campylobacter Detected (NotDetected)
[2023-06-11 12:15] LABS: Pancreatic Elastase, Fecal 362 (>200)
[2023-06-15 15:11] LABS: Fats, Neutral Normal (.); Fats, Total Normal (.)
== END 2023-06-06 23:59 ==
LOC: LAB.DROPOF 12:04
PROVIDERS: PCP Family Medicine; Visit Provider Internal Medicine
DX: R19.7 Diarrhea, unspecified (principal); A04.5 Campylobacter enteritis; R79.82 Elevated C-reactive protein (CRP)
CPT/HCPCS: 36415; 82656; 82705; 83516; 83993; 86140; 86255; 86256; 86682; 87177; 87506

== ENCOUNTER → 2023-06-18 09:11 | Outpatient (POV) | payer MEDICARE, MEDICAID, SELFPAY ==
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
[2023-06-18 12:26] VITALS: BP 156/93; PULSE 96; RESP 18; O2SAT 96; BMI 23.5
== END | disposition home or self-care (01) ==
PROVIDERS: PCP Family Medicine; Visit Provider Nurse Practitioner Family
DX: M50.10 Cervical disc disorder with radiculopathy, unspecified cervical region (principal); M51.16 Intervertebral disc disorders with radiculopathy, lumbar region; M25.519 Pain in unspecified shoulder; M25.569 Pain in unspecified knee; M46.1 Sacroiliitis, not elsewhere classified; M79.10 Myalgia, unspecified site; G89.4 Chronic pain syndrome
CPT/HCPCS: 99212; G0463

== ENCOUNTER 2023-07-12 08:31 | Outpatient (CLI) | payer MEDICARE, MEDICAID, SELFPAY ==
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
--- NOTE | 2023-07-12 08:46 | CT_ITS ---
FINAL REPORT CLINICAL HISTORY: MID/LOW BACK PAIN FINDINGS: Axial CT images of the thoracic spine were obtained without contrast. Sagittal and coronal reformatted images were also obtained. This study was performed with techniques to keep radiation doses as low as reasonably achievable (ALARA). Individualized dose reduction techniques using automated exposure control or adjustment of mA and/or kV according to the patient's size were employed. There is no evidence of fracture. Mild and moderate degenerative changes are seen at multiple levels with multilevel osteophytes. The vertebral alignment is normal. There is no evidence of significant canal stenosis. No paraspinous soft tissue abnormality is identified. Note is made of mild pulmonary scarring and emphysema. IMPRESSION: Multilevel degenerative change without acute bony abnormality. Reviewed, Interpreted and Dictated by Josh Cameron III, MD Transcribed by Catherine Rojo Authenticated and [facility]
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
== END 2023-07-12 23:59 ==
LOC: RAD 08:32
PROVIDERS: PCP Family Medicine; Visit Provider Nurse Practitioner Family
DX: M54.6 Pain in thoracic spine (principal); M54.50 Low back pain, unspecified
CPT/HCPCS: 72084; 72128; 72131

== ENCOUNTER → 2023-07-19 10:19 | Outpatient (POV) | payer MEDICARE, MEDICAID, SELFPAY ==
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
[2023-07-19 12:31] VITALS: BP 148/86; PULSE 86; RESP 18; O2SAT 95; BMI 23.8
== END | disposition home or self-care (01) ==
PROVIDERS: PCP Family Medicine; Visit Provider Nurse Practitioner Family
DX: M50.123 Cervical disc disorder at C6-C7 level with radiculopathy (principal); M51.14 Intervertebral disc disorders with radiculopathy, thoracic region; M51.16 Intervertebral disc disorders with radiculopathy, lumbar region; M25.511 Pain in right shoulder; M25.512 Pain in left shoulder; M46.1 Sacroiliitis, not elsewhere classified; G89.4 Chronic pain syndrome
CPT/HCPCS: 99212; G0463

== ENCOUNTER 2023-08-14 07:59 | Day surgery (SDC) | payer MEDICARE, MEDICAID, SELFPAY ==
[2023-08-14 08:41] VITALS: BP 149/93; PULSE 78; RESP 16; TEMP 36.9; O2SAT 98; BMI 24.1
[2023-08-14 08:58] VITALS: BP 164/64; PULSE 97; RESP 18; O2SAT 95
[2023-08-14] MEDS: methylPREDNISolone ACETATE 80MG/ML VIAL 80 MG (08:58)
[2023-08-14 08:59] VITALS: BP 164/64; PULSE 90; RESP 18; O2SAT 95
[2023-08-14 09:00] VITALS: BP 199/98; PULSE 78; RESP 18; O2SAT 98
[2023-08-14] MEDS: IOPAMIDOL-200 (41%);10ML VIAL 10 ML IV (09:02)
--- NOTE | 2023-08-14 09:23 | P.PCN_ITS ---
Procedure Date: 08/14/23 Time: 09:00 Anesthesiologist:: Diaz Mcnair CRNA Complications:: None Pre-procedure Diagnosis:: Degenerative disc disease of cervical spine with cervical radiculopathy symptoms. Post-procedure Diagnosis:: Same Indications for Procedure:: Patient is a pleasant 58-year-old female who presents to the clinic today for cervical epidural steroid injection. She complains of cervical neck pain with bilateral arm numbness and pain. Patient rates pain 8/10 Procedure Details:: Procedure:Cervical epidural steroid injection Informed consent was obtained and the risks and benefits of the procedure were explained to the patient. The patient was taken to the procedure room and noninvasive monitors placed, including noninvasive blood pressure cuff and pulse oximeter. The neck was prepped using Chloraprep as a cleansing solution. The C6- C7 interspace was viewed using fluroscopy. The skin and subcutaneous tissues were anesthetized using lidocaine 1.5% and a 25-gauge needle. After this an 18- gauge Touhy epidural needle was placed into the C6-C7 interspace under fluroscopy guidance and advanced using loss of resistance to air until the epidural space was encountered. After confirmation of needle placement in the epidural space using contrast dye, a solution containing normal saline, 2 mL and Depo-Medrol 80 mg was incrementally injected into the cervical epidural space.~ The patient tolerated the procedure well with no complications. The patient was observed in the Pain Clinic and then discharged home neurologically intact. Plan and Disposition:: Patient discharged from the clinic without incident.
== END 2023-08-14 09:00 | disposition home or self-care (01) ==
PROVIDERS: PCP Family Medicine; Visit Provider Nurse Anesthetist, Certified Registered
DX: M50.123 Cervical disc disorder at C6-C7 level with radiculopathy (principal)
CPT/HCPCS: 62321; J1040; Q9966

== ENCOUNTER 2023-09-13 08:15 | Outpatient (POV) | payer MEDICARE, MEDICAID, SELFPAY ==
[2023-09-13 08:30] VITALS: BP 165/81; PULSE 92; RESP 16; O2SAT 97; BMI 24.1
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
== END 2023-09-13 23:59 | disposition home or self-care (01) ==
PROVIDERS: PCP Nurse Practitioner Family; Visit Provider Nurse Practitioner Family
DX: M50.10 Cervical disc disorder with radiculopathy, unspecified cervical region (principal); M51.14 Intervertebral disc disorders with radiculopathy, thoracic region; M51.16 Intervertebral disc disorders with radiculopathy, lumbar region; M25.519 Pain in unspecified shoulder; M46.1 Sacroiliitis, not elsewhere classified; G89.4 Chronic pain syndrome
CPT/HCPCS: 99212; G0463

== ENCOUNTER 2023-10-17 08:22 | Outpatient (POV) | payer MEDICARE, MEDICAID, SELFPAY ==
[2023-10-17 08:41] VITALS: BP 162/87; PULSE 82; RESP 16; O2SAT 96; BMI 23.5
--- NOTE | 2023-10-17 08:49 | A.OFFVIS_ITS ---
[facility] Pain Management SOAP Note Subjective:: Patient is a pleasant 58-year-old female who presents today for 1 month follow- up and medication refill. Today she rates her pain a 5 out of 10. Patient does state that she is just allover sore where she has been doing more in the garden. Patient denies any new trauma or injury. Patient is currently managed with [place] 5 mg 3 times a day and compounded cream. Patient is asking whether or not if we could possibly try an anti-inflammatory. She denies any heart or kidney issues. Her Petey has been reviewed and is appropriate. Review of Systems: General: No recent weight changes, no fever, no sleep disturbances Respiratory: No cough, no shortness of air, no recurring pulmonary infections Cardiovascular/peripheral vascular: No chest pain, no palpitations, no edema, no shortness of breath Gastrointestinal: No new onset incontinence, normal bowel movements reported Genitourinary: No new onset incontinence Musculoskeletal: Low back pain Psychiatric: [Normal mood/affect] Neurological: [Denies weakness in extremities], [denies balance issues] Objective:: Physical Exam: General: Alert and oriented x3, no acute distress, pleasant and cooperative Lungs: Respirations even and unlabored, symmetrical chest expansion Eyes: PERRL Musculoskeletal: Flexion and extension of lumbar [spine] somewhat guarded secondary to pain, [antalgic gait noted] Neurological: Speech clear, no gross sensory deficit Assessment:: Degenerative disc disease of cervical, thoracic and lumbar spine with cervical, thoracic, lumbar radiculopathy symptoms, bilateral sacroiliitis, chronic pain syndrome Plan:: Will refill the patient's [place] and provide a 1 month supply of this medication. I have discussed with the patient that we can add diclofenac 50 mg twice daily and provide a 1 month supply of this medication. Patient acknowledges understanding agrees with this plan of care. Patient has been counseled not to take any additional NSAIDs while taking this medication and to take it with food to minimize GI upset. Patient will return to clinic in 1 month for reevaluation of symptoms and plan of care. Risks and benefits of the medication have been explained in detail to the patient. The patient does understand the risk of dependence on the medication when given over a prolonged period. Patient has been advised of risks of oversedation with the prescribed medication. Narcan has been offered to the paitent in the event of oversedation. Patient has been advised that a family member should also be educated regarding administration of Narcan. The patient has been advised to consult with his/her primary care provider and pharmacist regarding drug-drug interaction of medications currently prescribed. Patient has been prescribed a controlled substance after being counseled on the medication, medication safety, and possible side effects. Opioid contract was reviewed and signed by the patient, and that they have agreed to all of the terms set forth by our compliance program. Patient has been instructed to contact the clinic with any concerns before the next appointment. Dr. Nash has reviewed this note and agrees with this plan of care. This note was dictated using voice recognition software and make contain errors or omissions. [facility] Disclaimer: The information contained in this section may have been updated after the patient was seen, as this information can be updated by other users. Medical History Seizure disorder COPD (chronic obstructive pulmonary disease) Pre-op exam Seizures Hypothyroidism Depression Anxiety Chronic GERD Arthritis Hypertension Hyperlipidemia Diabetes mellitus Surgical History Hx of myringotomy Family History Other Family history of myocardial infarction Family history of stroke No significant family history Social History Smoking Status: Never smoker second hand exposure: No alcohol intake: never substance use type: denies use current occupational status: other Travel in the last 8 weeks: None household members: none housing: house current occupational exposures/hazards: No caffeine: Yes
== END 2023-10-17 23:59 | disposition home or self-care (01) ==
PROVIDERS: PCP Nurse Practitioner; Visit Provider Nurse Practitioner Family
DX: M50.10 Cervical disc disorder with radiculopathy, unspecified cervical region (principal); M51.14 Intervertebral disc disorders with radiculopathy, thoracic region; M51.16 Intervertebral disc disorders with radiculopathy, lumbar region; M46.1 Sacroiliitis, not elsewhere classified; G89.4 Chronic pain syndrome
CPT/HCPCS: 99212; G0463

== ENCOUNTER 2023-11-15 09:06 | Outpatient (POV) | payer MEDICARE, MEDICAID, SELFPAY ==
[2023-11-15 09:29] VITALS: BP 161/82; BP 176/89; PULSE 89; RESP 16; O2SAT 96; BMI 24.1
--- NOTE | 2023-11-15 09:41 | A.OFFVIS_ITS ---
[facility] Pain Management SOAP Note Subjective:: Patient is a pleasant 58-year-old female who presents today for medication refill and follow-up. Today she rates her pain an 8 out of 10. Patient states she has been having a lot more pain throughout her low back and hips. Patient describes this as a constant aching, throbbing sensation that is worse with increased activity. She does state the pain is interfering with her ability to perform activities of daily living such as cooking and cleaning. Patient states that she has been doing a lot more gardening and does not know if this just kind of flared up her overall back pain. Patient is interested in injection therapy to help with this worsening pain. Patient is currently managed with [place] 5 mg 3 times a day, diclofenac 50 mg twice a day and compounded cream. She denies any side effects from this medication. Patient does state that she only needs her pain medicine refilled and that she only does the anti-inflammatory as needed. Patient has been using those medications along with a heating pad for her current pain. Her Petey has been reviewed and is appropriate. Review of Systems: General: No recent weight changes, no fever, no sleep disturbances Respiratory: No cough, no shortness of air, no recurring pulmonary infections Cardiovascular/peripheral vascular: No chest pain, no palpitations, no edema, no shortness of breath Gastrointestinal: No new onset incontinence, normal bowel movements reported Genitourinary: No new onset incontinence Musculoskeletal: Low back pain, bilateral hip pain Psychiatric: [Normal mood/affect] Neurological: [Denies weakness in extremities], [denies balance issues] Objective:: Physical Exam: General: Alert and oriented x3, no acute distress, pleasant and cooperative Lungs: Respirations even and unlabored, symmetrical chest expansion Eyes: PERRL Musculoskeletal: Flexion and extension of lumbar [spine] somewhat guarded secondary to pain, [antalgic gait noted] extreme point tenderness along bilateral SIs with positive bilateral Casper's, Kulwant's, Gaenslen's, compression and distraction exam Neurological: Speech clear, no gross sensory deficit Assessment:: Degenerative disc disease of cervical, thoracic and lumbar spine with cervical, thoracic and lumbar radiculopathy symptoms, bilateral sacroiliitis, chronic pain syndrome Plan:: Patient is experiencing significant pain throughout her low back and bilateral hips. Patient did have limited range of motion of her lumbar spine with extreme point tenderness along her bilateral SIs and positive bilateral Casper's, Kulwant' s, Gaenslen's, compression and distraction exam. I have discussed with the patient that she may benefit from bilateral SI injections. Patient has had these in the past and did get typically 3 months improvement for more had approximately 80% relief. Patient was reviewed the risk and benefits and she would like to proceed forward with this plan of care. I will also order the refills on the patient's [place] and provide a 1 month supply of this medication. Patient has continued to do at home exercising and stretching between injections for longer than 6 weeks with minimal relief. Patient will be scheduled for bilateral SI injections under fluoroscopy. Risks and benefits of the medication have been explained in detail to the patient. The patient does understand the risk of dependence on the medication when given over a prolonged period. Patient has been advised of risks of oversedation with the prescribed medication. Narcan has been offered to the paitent in the event of overs edation. Patient has been advised that a family member should also be educated regarding administration of Narcan. The patient has been advised to consult with his/her primary care provider and pharmacist regarding drug-drug interaction of medications currently prescribed. Patient has been prescribed a controlled substance after being counseled on the medication, medication safety, and possible side effects. Opioid contract was reviewed and signed by the patient, and that they have agreed to all of the terms set forth by our compliance program. Patient has been instructed to contact the clinic with any concerns before the next appointment. Dr. Nash has reviewed this note and agrees with this plan of care. This note was dictated using voice recognition software and make contain errors or omissions. [facility] Disclaimer: The information contained in this section may have been updated after the patient was seen, as this information can be updated by other users. Medical History Seizure disorder COPD (chronic obstructive pulmonary disease) Pre-op exam Seizures Hypothyroidism Depression Anxiety Chronic GERD Arthritis Hypertension Hyperlipidemia Diabetes mellitus Surgical History Hx of myringotomy Family History Other Family history of myocardial infarction Family history of stroke No significant family history Social History Smoking Status: Never smoker second hand exposure: No alcohol intake: never substance use type: denies use current occupational status: unemployed Travel in the last 8 weeks: None household members: none housing: house current occupational exposures/hazards: No caffeine: Yes
== END 2023-11-15 23:59 | disposition home or self-care (01) ==
PROVIDERS: PCP Nurse Practitioner; Visit Provider Nurse Practitioner Family
DX: M46.1 Sacroiliitis, not elsewhere classified (principal); M50.10 Cervical disc disorder with radiculopathy, unspecified cervical region; M51.16 Intervertebral disc disorders with radiculopathy, lumbar region; M51.14 Intervertebral disc disorders with radiculopathy, thoracic region; G89.4 Chronic pain syndrome
CPT/HCPCS: 99212; G0463

== ENCOUNTER 2023-12-03 06:57 | Emergency (ER) | payer MEDICARE, MEDICAID, SELFPAY ==
[2023-12-03 06:59] VITALS: BP 127/74; PULSE 89; RESP 20; TEMP 36.8; O2SAT 94; BMI 25.0
[2023-12-03 07:01] VITALS: BP 127/74; O2SAT 93
--- NOTE | 2023-12-03 07:11 | XR_ITS ---
FINAL REPORT CLINICAL HISTORY: vomiting and diaphoresis FINDINGS: A single portable view of the chest was obtained. The heart size and pulmonary vascularity are within normal limits. The mediastinum is within normal limits. Mild left base opacities favor atelectasis or pneumonia. The bony thorax is intact. IMPRESSION: Mild left base opacities favor atelectasis or pneumonia. Reviewed, Interpreted and Dictated by Josh Cameron III, MD Transcribed by Daisy Hogue Authenticated and . [facility]
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
[2023-12-03] MEDS: ACETAMINOPHEN 1,000MG/100ML VIAL 1000 MG IV (07:17)
[2023-12-03] MEDS: KETOROLAC 30MG/ML VIAL 15 MG IV (07:17)
[2023-12-03] MEDS: ONDANSETRON 4MG/2ML VIAL 4 MG IV (07:17)
[2023-12-03] MEDS: LACTATED RINGERS 1000ML 1,000 ML 999 ML IV ×2 (07:17→08:36)
[2023-12-03 07:24] LABS: Basophils # 0.2 K/mm3 (0-0.2); Basophils % 1.9 % (0.1-2.0); Eosinophils # 0.1 K/mm3 (0.0-0.4); Eosinophils % 1.2 % (0.1-12.0); Hematocrit 43.9 % (37.0-47.0); Hemoglobin 14.2 g/dL (12.2-16.2); Mean Corpuscular HGB Conc 32.5 g/dL (31.8-35.4); Mean Corpuscular Hemoglobin 33.6 pg (27.0-31.2); Mean Corpuscular Volume 103.6 fl (81-99); Mean Platelet Volume 7.3 fl (7.4-10.4); Monocytes # 0.9 K/mm3 (0.1-1.0); Monocytes % 10.3 % (1.7-9.3); Neutrophils # 6.2 K/mm3 (1.8-7.8); Neutrophils % 74.7 % (37.0-80.0); Platelet Count 576 K/mm3 (142-424); Red Blood Count 4.23 M/mm3 (4.20-5.40); Red Cell Distribution Width 12.9 % (11.5-17.5); White Blood Count 8.4 K/mm3 (4.8-10.8)
--- NOTE | 2023-12-03 07:25 | ECG_ITS ---
APPROVED REPORT Exam: Resting ECG HR:89 bpm ECG Measurements Heart Rate 89 AXES VT 198 P 78 QRSd 88 QRS 71 QT 378 T 77 QTc 425 Conclusion SINUS RHYTHM NORMAL ECG Electronically signed by : KAMILAH JUAN, 12/03/2023 14:39:51
[2023-12-03 07:26] LABS: Alanine Aminotransferase 27 U/L (12-78); Albumin Level 4.7 g/dl (3.5-5.0); Albumin/Globulin Ratio 1.5 (1.1-1.8); Alkaline Phosphatase 95 U/L (38-126); Anion Gap 11.3 mEq/L (5-15); Aspartate Amino Transferase 68 U/L (14-36); Bilirubin,Total 0.5 mg/dl (0.2-1.3); Blood Urea Nitrogen 11 mg/dl (7-17); Calcium 9.6 mg/dl (8.4-10.2); Carbon Dioxide 28 mmol/L (22.0-30.0); Chloride 96 mmol/L (98-107); Creatinine Clearance Estimated 133 mL/min (50-200); Estimated Glomerular Filt Rate 126 ml/min (>60); GFR (African American) 152 ML/MIN (>60); Globulin 3.2 g/dL (1.3-3.2); Glucose 170 mg/dl (74-100); Potassium 4.3 mmoL/L (3.5-5.1); Sodium 131 mmol/L (136-145); Total Protein,Serum 7.9 g/dl (6.3-8.2)
[2023-12-03 07:27] LABS: VBG Base Excess -1.2 mmol/L (-2.4-2.3); VBG HCO3 24.2 mmol/L (23-30); VBG Oxygen Saturation 48.4 % (50-70); VBG PCO2 43.6 mmol/L (35-51); VBG PH 7.36 mmol/L (7.31-7.41); VBG PO2 26.2 mmol/L (28-40); VBG Total CO2 25.5 mmol/L (23-27)
[2023-12-03 07:29] LABS: Lactate Venous 3.4 mmol/L (0.4-2.0)
[2023-12-03 07:30] VITALS: BP 101/57; PULSE 85; O2SAT 94
[2023-12-03 07:48] LABS: Troponin I < 0.01 ng/ml (0.00-0.034)
[2023-12-03 07:53] LABS: Lipase 55 U/L (23-300)
[2023-12-03 08:00] VITALS: BP 111/52; PULSE 91; O2SAT 96
[2023-12-03 08:30] VITALS: BP 112/65; PULSE 87; O2SAT 97
[2023-12-03] MEDS: LIDOCAINE 5% TRANSDERMAL PATCH 1 EACH TP (09:09)
[2023-12-03 09:10] LABS: Microscopic, Urine URINE MICROSCOPIC (MICROSCOPIC)
[2023-12-03 09:11] LABS: Appearance,Urine CLEAR (Clear); Bilirubin,Urine Negative (Negative); Blood, Urine Negative (Negative); Color,Urine YELLOW (Yellow); Glucose,Urine (UA) Negative (Negative); Ketones,Urine Negative (Negative); Leukocyte Esterase,Urine Negative (Negative); Nitrate,Urine Negative (Negative); PH,Urine 6.5 (5.0-8.5); Protein,Urine Negative (Negative); Specific Gravity, Urine 1.015 (1.005-1.030); Urobilinogen,Urine 0.2 EU/dl (0.2)
[2023-12-03 09:24] LABS: Bacteria,Urine Trace /lpf
[2023-12-03 09:28] VITALS: BP 123/70; PULSE 87; RESP 16; TEMP 36.8; O2SAT 97
[2023-12-03 11:29] LABS: Reflex Lactic Add Lactic Reflex
== END 2023-12-03 09:28 | disposition home or self-care (01) ==
PROVIDERS: Emergency Provider Emergency Medicine; PCP Nurse Practitioner
DX: R11.2 Nausea with vomiting, unspecified; E87.1 Hypo-osmolality and hyponatremia; R61 Generalized hyperhidrosis; R53.81 Other malaise; F17.210 Nicotine dependence, cigarettes, uncomplicated; J44.9 Chronic obstructive pulmonary disease, unspecified; E11.9 Type 2 diabetes mellitus without complications; E03.9 Hypothyroidism, unspecified; E78.5 Hyperlipidemia, unspecified; I10 Essential (primary) hypertension; K21.9 Gastro-esophageal reflux disease without esophagitis; Z79.84 Long term (current) use of oral hypoglycemic drugs; R07.89 Other chest pain; W19.XXXA Unspecified fall, initial encounter
CPT/HCPCS: 71045; 80053; 81001; 82803; 83690; 84484; 85025; 93005; 96361; 96374; 96375; 99284; J0131; J1885; J2405; J7120

== ENCOUNTER 2023-12-04 09:41 | Day surgery (SDC) | payer MEDICARE, MEDICAID, SELFPAY ==
[2023-12-04 09:53] VITALS: BP 159/77; PULSE 85; RESP 18; TEMP 36.7; O2SAT 93; BMI 24.1
--- NOTE | 2023-12-04 10:05 | P.PCN_ITS ---
Procedure Date: 12/04/23 Time: 10:00 Anesthesiologist:: Diaz Mcnair CRNA Complications:: None Pre-procedure Diagnosis:: Bilateral sacroiliitis Post-procedure Diagnosis:: Same Indications for Procedure:: Patient is a pleasant 58-year-old female comes to clinic today for bilateral sacroiliac joint injections. She describes the low lumbar back pain off midline bilaterally as constant, dull, aching. She has extreme point tenderness over the bilateral sacroiliac joint. She rates her pain 7/10. Patient describes difficulty transitioning from sitting to standing due to low lumbar back pain off the midline bilaterally. Procedure Details:: Procedure: Bilateral sacroiliac joint injections under fluoroscopy Informed consent was obtained and the risks and benefits of the procedure were explained to the patient.~ The patient was taken to the procedure room and noninvasive monitors were placed including a noninvasive blood pressure cuff and pulse oximeter.~ The patient was placed prone on the procedure table. Both hips were cleansed using Betadine as a cleansing solution. C-arm fluoroscopy was used to view the right sacroiliac joint.~ The skin and subcutaneous tissues were anesthetized using lidocaine 1.5% and a 25-gauge needle.~ After this, a 22-gauge spinal needle was inserted under fluoroscopic guidance into the inferior aspect of the right sacroiliac joint.~ Omnipaque dye was injected and good spread was seen throughout the joint.~ After this, approximately 5 mL of bupivacaine, 0.25% and Depo-Medrol, 40 mg was incrementally injected into the right sacroiliac joint. We then moved to the left sacroiliac joint.~ The skin and subcutaneous tissues were anesthetized using lidocaine 1.5% and a 25-gauge needle.~ After this, a 22- gauge spinal needle was inserted under fluoroscopic guidance into the inferior aspect of the left sacroiliac joint.~ Omnipaque dye was injected and good spread was seen throughout the joint. After this, approximately 5 mL of bupivacaine, 0.25% and Depo-Medrol, 40 mg was incrementally injected into the left sacroiliac joint.~ The patient tolerated the procedure well with no complications. The patient was observed in the Pain Clinic and then was discharged home neurologically intact. Plan and Disposition:: Patient was discharged without incident.
[2023-12-04] MEDS: LIDOCAINE 1% 5ML PF VIAL 5 ML (10:06)
[2023-12-04] MEDS: BUPIVACAINE 0.25% 10ML INJ 25 MG IJ (10:06)
[2023-12-04] MEDS: methylPREDNISolone ACETATE 80MG/ML VIAL 80 MG (10:06)
[2023-12-04 10:07] VITALS: BP 153/73; PULSE 90; RESP 18; O2SAT 95
[2023-12-04 10:08] VITALS: BP 153/73; PULSE 90; RESP 18; O2SAT 95
[2023-12-04 10:12] VITALS: BP 175/78; PULSE 98; RESP 18; O2SAT 93
== END 2023-12-04 10:12 | disposition home or self-care (01) ==
PROVIDERS: PCP Family Medicine; Visit Provider Nurse Anesthetist, Certified Registered
DX: M46.1 Sacroiliitis, not elsewhere classified (principal)
CPT/HCPCS: 27096; G0260; J1010

== ENCOUNTER → 2023-12-18 06:07 | Day surgery (SDC) | payer MEDICARE, MEDICAID, SELFPAY ==
[2023-12-14 13:35] VITALS: BMI 24.3
[2023-12-18] MEDS: TETRACAINE 0.5% OPTH SOL 15ML OP ×3 (06:55→07:05)
[2023-12-18] MEDS: PHENYLEPHRINE 2.5% OPHTH SOLN 2ML OP ×3 (06:55→07:05)
[2023-12-18] MEDS: CYCLOPENTOLATE 2% OPHTH SOLN 2ML BOTTLE OP ×3 (06:55→07:05)
[2023-12-18 06:59] VITALS: BP 134/75; PULSE 75; RESP 18; TEMP 36.4; O2SAT 96
[2023-12-18] MEDS: LACTATED RINGERS 1000ML 1,000 ML 25 ML IV (07:00)
[2023-12-18 07:09] LABS: POC Glucose,Bedside 139 (70-110)
[2023-12-18 08:41] VITALS: BP 137/81; PULSE 75; RESP 16; TEMP 36.7; O2SAT 95
[2023-12-18] MEDS: TOBRAMYCIN/DEX OPTH SUSP 2.5ML OP (08:45)
[2023-12-18] MEDS: TIMOLOL 0.5% OPTH SOLN 5ML OP (08:45)
[2023-12-18] MEDS: MIDAZOLAM 2MG/2ML VIAL 1 MG IV (08:45)
[2023-12-18] MEDS: LIDOCAINE 1% PF 2ML AMPULE 2 ML IJ (08:45)
[2023-12-18 08:46] VITALS: BP 140/66; PULSE 75; RESP 16; TEMP 36.7; O2SAT 96
[2023-12-18 08:51] VITALS: BP 137/65; PULSE 79; RESP 16; TEMP 36.7; O2SAT 96
[2023-12-18 08:56] VITALS: BP 149/76; PULSE 79; RESP 16; TEMP 36.7; O2SAT 97
--- NOTE | 2023-12-18 12:09 | P.PCN_ITS ---
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 The patient reports that this interferes with ADLs such as reading, watching TV and/or driving or the vision is like looking through a foggy haze and is very troubling. The patient was examined and found to have a visually significant cataract with best corrected vision of [20/400] by refraction and/or glare testing. Treatment options, risks and benefits were explained and the patient elected to have cataract surgery in an attempt to improve their vision. The patient had the eye anesthetized with topical tetracaine, the eye ways prepped and draped in the usual fashion for cataract surgery. A paracentesis and a temporal keratotomy were made. 0.2cc of 1% lidocaine PF was placed into the anterior chamber. And aqueous/viscoelastic exchange was done and a 360 degree capsulorexis was performed. Through hydrodissection and delineation with BSS on a cannula was done. The lens nucleus was phecoemulsified with CDE of [7.93]. Residual cortical material was removed using automated I&A The capsular bag was deepened with viscoelastica and a PCIOL was placed in the capsular bag with good centration and stability. Residual viscoelastic was removed using automated I&A. The keratotomy incision was hydrated with BSS on a cannula. The wound were checked and found to be water tight. IOP was checked digitally and adjusted as needed so as not to be too high. 1 drop of timolol 0.5%, ofloxacin, prednisolone acetate and ketorolac was instilled and eye shield taped over the eye. The patient was taken to recovery in good condition and will be seen postoperatively.
== END | disposition home or self-care (01) ==
PROVIDERS: PCP Family Medicine; Visit Provider Ophthalmology
PROC: (CPT 66984; principal; 2023-12-18 08:00)
DX: H25.11 Age-related nuclear cataract, right eye (principal); H53.8 Other visual disturbances
CPT/HCPCS: 66984; 82962; J2250; J7120; V2632

== ENCOUNTER 2023-12-19 11:15 | Outpatient (POV) | payer MEDICARE, MEDICAID, SELFPAY ==
[2023-12-19 11:29] VITALS: BP 139/77; PULSE 98; RESP 16; O2SAT 96; BMI 24.3
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
== END 2023-12-19 23:59 | disposition home or self-care (01) ==
PROVIDERS: PCP Nurse Practitioner; Visit Provider Nurse Practitioner Family
DX: M51.36 Other intervertebral disc degeneration, lumbar region (principal); M54.16 Radiculopathy, lumbar region; M46.1 Sacroiliitis, not elsewhere classified
CPT/HCPCS: 99212; G0463

== ENCOUNTER 2024-01-08 08:30 | Day surgery (SDC) | payer MEDICARE, MEDICAID, SELFPAY ==
[2024-01-07 14:12] VITALS: BMI 23.9
[2024-01-08 09:25] VITALS: BP 144/79; PULSE 81; RESP 16; TEMP 36.4; O2SAT 95
[2024-01-08] MEDS: TROPICAMIDE 1% OPTH SOLN 2ML OP (09:30)
[2024-01-08] MEDS: TETRACAINE 0.5% OPTH SOL 15ML OP (09:30)
[2024-01-08] MEDS: APRACLONIDINE 0.5% OPHTH SOLN 5ML OP (09:30)
[2024-01-08] MEDS: PHENYLEPHRINE 2.5% OPHTH SOLN 2ML OP (09:31)
[2024-01-08 09:40] LABS: POC Glucose,Bedside 120 (70-110)
--- NOTE | 2024-01-08 11:07 | P.PCN_ITS ---
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 The patient has noticed that the vision has decreased from the previous good level postop. The patient reports that he/she is having trouble reading and/or driving or that glare is giving them a problem. On exam, the patient was found to have visually significant posterior capsular opacification. The treatment options, risks and benefits were explained and the patient elected to have YAG laser capsulotomy in an attempt to improve the vision. Of note, the best corrected visual acuity is in the 23/30 or worse range by refraction or glare testing. The eye was dilated and 1 drop of 0.5% Iopidine applied. YAG laser energy was applied to the posterior capsular bag with good formation of an opening and no complications were noted. The patient will be seen back for follow up in 2 weeks 200mj energy 45 pulses
--- NOTE | 2024-01-08 11:09 | HMH.PROCNOTE ---
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 The patient has noticed that the vision has decreased from the previous good level postop. The patient reports that he/she is having trouble reading and/or driving or that glare is giving them a problem. On exam, the patient was found to have visually significant posterior capsular opacification. The treatment options, risks and benefits were explained and the patient elected to have YAG laser capsulotomy in an attempt to improve the vision. Of note, the best corrected visual acuity is in the 23/30 or worse range by refraction or glare testing. The eye was dilated and 1 drop of 0.5% Iopidine applied. YAG laser energy was applied to the posterior capsular bag with good formation of an opening and no complications were noted. The patient will be seen back for follow up in 2 weeks 162mj energy 37pulses
== END 2024-01-08 11:04 | disposition home or self-care (01) ==
LOC: OUTP 08:32
PROVIDERS: PCP Nurse Practitioner; Visit Provider Ophthalmology
PROC: (CPT 66821; principal; 2024-01-08 09:30)
DX: H26.492 Other secondary cataract, left eye (principal); E11.8 Type 2 diabetes mellitus with unspecified complications; Z79.84 Long term (current) use of oral hypoglycemic drugs
CPT/HCPCS: 66821; 82962

== ENCOUNTER 2024-01-16 08:10 | Outpatient (POV) | payer MEDICARE, MEDICAID, SELFPAY ==
[2024-01-16 08:42] VITALS: BP 156/87; PULSE 82; RESP 16; TEMP 36.6; O2SAT 97; BMI 24.3
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
== END 2024-01-16 23:59 | disposition home or self-care (01) ==
PROVIDERS: PCP Family Medicine; Visit Provider Nurse Practitioner Family
DX: M51.16 Intervertebral disc disorders with radiculopathy, lumbar region (principal); F17.210 Nicotine dependence, cigarettes, uncomplicated; Z73.89 Other problems related to life management difficulty; Z79.899 Other long term (current) drug therapy; Z96.82 Presence of neurostimulator
CPT/HCPCS: 99212; G0463

== ENCOUNTER 2024-01-29 08:27 | Day surgery (SDC) | payer MEDICARE, MEDICAID, SELFPAY ==
[2024-01-29 08:36] VITALS: BP 161/82; PULSE 94; RESP 16; TEMP 36.6; O2SAT 95; BMI 24.5
[2024-01-29 08:55] VITALS: BP 170/97; PULSE 94; RESP 18; O2SAT 96
[2024-01-29] MEDS: methylPREDNISolone ACETATE 80MG/ML VIAL 80 MG (08:55)
[2024-01-29 09:00] VITALS: BP 157/92; PULSE 91; RESP 18; O2SAT 96
[2024-01-29 09:01] VITALS: BP 170/97; PULSE 94; RESP 18; O2SAT 96
--- NOTE | 2024-01-29 09:21 | EXP.PAIN.PRO ---
Procedure Date: 01/29/24 Time: 08:45 Anesthesiologist:: Diaz Mcnair CRNA Complications:: None Pre-procedure Diagnosis:: Degenerative disc lumbar spine multilevels. Lumbar radiculopathy. Lumbar postlaminectomy syndrome. Post-procedure Diagnosis:: Same. Indications for Procedure:: Patient is a pleasant 58-year-old female comes our clinic today for repeat lumbar epidural steroid injection at the L4-5 level. Patient reports significant improvement terms of her overall low back pain as well as bilateral hip and leg radicular symptoms with previous injections at the same level. She rates her pain today 6/10. Procedure Details:: Procedure: Lumbar epidural steroid injection under fluoroscopy Informed consent was obtained and the risks and benefits of the procedure were explained to the patient. The patient was taken to the procedure room and noninvasive monitors placed, including noninvasive blood pressure cuff and pulse oximeter. The back was viewed using C-arm Fluoroscopy and prepped using Chloraprep as a cleansing solution and the L4-L5 interspace was palpated. Skin and subcutaneous tissues were anesthetized using lidocaine 1.5% and a 25-gauge needle. After this, an 18-gauge Touhy epidural needle was placed into the L4-L5 interspace and advanced using fluoroscopic guidance and loss of resistance to air until the epidural space was encountered. After confirmation of needle placement in the epidural space, with dye, a solution containing normal saline, 3 mL and Depo-Medrol 80 mg were incrementally injected into the lumbar epidural space. The patient tolerated the procedure well with no complications. The patient was observed in the Pain Clinic and then discharged home neurologically intact. Plan and Disposition:: Patient was discharged without incident.
== END 2024-01-29 09:02 | disposition home or self-care (01) ==
PROVIDERS: PCP Nurse Practitioner; Visit Provider Nurse Anesthetist, Certified Registered
DX: M51.16 Intervertebral disc disorders with radiculopathy, lumbar region (principal); M96.1 Postlaminectomy syndrome, not elsewhere classified
CPT/HCPCS: 62323; J1010

== ENCOUNTER 2024-02-18 10:55 | Outpatient (POV) | payer MEDICARE, MEDICAID, SELFPAY ==
[2024-02-18 11:10] VITALS: BP 150/94; PULSE 94; RESP 16; O2SAT 98; BMI 24.3
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
== END 2024-02-18 23:59 | disposition home or self-care (01) ==
PROVIDERS: PCP Nurse Practitioner; Visit Provider Nurse Practitioner Family
DX: M50.10 Cervical disc disorder with radiculopathy, unspecified cervical region (principal); Z96.82 Presence of neurostimulator; F17.210 Nicotine dependence, cigarettes, uncomplicated; Z73.89 Other problems related to life management difficulty; Z79.899 Other long term (current) drug therapy
CPT/HCPCS: 99212; G0463

== ENCOUNTER 2024-03-04 09:49 | Day surgery (SDC) | payer MEDICARE, MEDICAID, SELFPAY ==
[2024-03-04 10:18] VITALS: BP 146/77; BP 161/84; PULSE 88; PULSE 89; RESP 16; TEMP 36.8; O2SAT 96; O2SAT 97; BMI 23.8
[2024-03-04] MEDS: methylPREDNISolone ACETATE 80MG/ML VIAL 80 MG (10:21)
[2024-03-04 10:22] VITALS: BP 165/78; PULSE 95; RESP 18; O2SAT 96
[2024-03-04] MEDS: IOPAMIDOL-200 (41%);10ML VIAL 10 ML IV (10:23)
--- NOTE | 2024-03-04 11:16 | P.PCN_ITS ---
Procedure Date: 03/04/24 Time: 09:30 Anesthesiologist:: Diaz Mcnair CRNA Complications:: None Pre-procedure Diagnosis:: Degenerative disc cervical spine multilevels. Cervical radiculopathy. Post-procedure Diagnosis:: Same. Indications for Procedure:: Patient is a very pleasant 58-year-old female who comes our clinic today for repeat cervical epidural steroid injection. Patient reports significant improvement in terms of her posterior cervical neck pain as well as bilateral arm radicular symptoms. Left arm greater than right in terms of radiculopathy. She rates her pain today 8/10. Procedure Details:: Procedure:Cervical epidural steroid injection Informed consent was obtained and the risks and benefits of the procedure were explained to the patient. The patient was taken to the procedure room and noninvasive monitors placed, including noninvasive blood pressure cuff and pulse oximeter. The neck was prepped using Chloraprep as a cleansing solution. The C6- C7 interspace was viewed using fluroscopy. The skin and subcutaneous tissues were anesthetized using lidocaine 1.5% and a 25-gauge needle. After this an 18- gauge Touhy epidural needle was placed into the C6-C7 interspace under fluroscopy guidance and advanced using loss of resistance to air until the epidural space was encountered. After confirmation of needle placement in the epidural space using contrast dye, a solution containing normal saline, 2 mL and Depo-Medrol 80 mg was incrementally injected into the cervical epidural space.~ The patient tolerated the procedure well with no complications. The patient was observed in the Pain Clinic and then discharged home neurologically intact. Plan and Disposition:: Patient was discharged without incident.
== END 2024-03-04 10:25 | disposition home or self-care (01) ==
PROVIDERS: PCP Nurse Practitioner; Visit Provider Nurse Anesthetist, Certified Registered
DX: M50.30 Other cervical disc degeneration, unspecified cervical region (principal); M54.12 Radiculopathy, cervical region
CPT/HCPCS: 62321; J1010; Q9966

== ENCOUNTER 2024-03-17 08:40 | Outpatient (POV) | payer MEDICARE, MEDICAID, SELFPAY ==
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
[2024-03-17 09:37] VITALS: BP 166/94; PULSE 88; RESP 18; O2SAT 96; BMI 24.1
== END 2024-03-17 23:59 | disposition home or self-care (01) ==
PROVIDERS: PCP Nurse Practitioner; Visit Provider Nurse Practitioner Family
DX: M79.18 Myalgia, other site (principal); F17.210 Nicotine dependence, cigarettes, uncomplicated; Z73.89 Other problems related to life management difficulty; Z79.899 Other long term (current) drug therapy
CPT/HCPCS: 99212; G0463

== ENCOUNTER 2024-03-28 08:43 | Day surgery (SDC) | payer MEDICARE, MEDICAID, SELFPAY ==
[2024-03-28 08:55] VITALS: BP 172/88; PULSE 88; RESP 16; TEMP 36.6; O2SAT 98; BMI 23.1
[2024-03-28] MEDS: BUPIVACAINE 0.25% 10ML INJ 25 MG IJ (09:03)
[2024-03-28] MEDS: methylPREDNISolone ACETATE 80MG/ML VIAL 80 MG (09:03)
[2024-03-28] MEDS: LIDOCAINE 1% 5ML PF VIAL 5 ML (09:03)
[2024-03-28 09:10] VITALS: BP 170/88; PULSE 88; RESP 16; O2SAT 98
--- NOTE | 2024-03-28 09:22 | EXP.PAIN.PRO ---
Procedure Date: 03/28/24 Time: 09:10 Anesthesiologist:: Diaz Mcnair CRNA Complications:: None Pre-procedure Diagnosis:: Myofascial pain left posterior cervical paraspinous muscle. Bilateral trapezius muscles. Post-procedure Diagnosis:: Same. Indications for Procedure:: Patient is a pleasant 58-year-old female who comes our clinic today for left posterior cervical paraspinous muscle trigger point injection as well as bilateral trapezius muscles. Patient is status post cervical epidural steroid injection 1 month ago. She reports left arm radicular symptoms have subsided. However, she is continue to have this muscular pain that she describes as constant, dull, aching, sharp, stabbing. She rates the pain 10/10. Procedure Details:: Details of the procedure explained to the patient. The patient taken procedure room placed in sitting position. The area of the posterior cervical spine as well as bilateral trapezius muscles was cleaned using chlorhexidine as a cleansing solution. Using a 25-gauge inch and half needle the left posterior paraspinous muscle was injected into separate areas with 2 cc in each area of a solution containing 0.25% Marcaine +1% lidocaine and 10 mg of Depo-Medrol. The bilateral trapezius muscles were injected in 3 separate areas using the same solution and 2 cc in 3 separate areas on each trapezius muscle. Patient tolerated procedure without difficulty. There are no complications. Plan and Disposition:: Patient was discharged without incident.
== END 2024-03-28 09:10 | disposition home or self-care (01) ==
LOC: SC.PAINP 08:44
PROVIDERS: PCP Nurse Practitioner; Visit Provider Nurse Anesthetist, Certified Registered
DX: M79.18 Myalgia, other site (principal)
CPT/HCPCS: 20553; J1010

== ENCOUNTER 2024-04-16 08:42 | Outpatient (POV) | payer MEDICARE, MEDICAID, SELFPAY ==
--- OUTSIDE RECORDS SUMMARY | 2024-04-16 08:45 | XMS_ITS | Encounter Summary ---
Author Organization [employer] Address [address] [place] [address] Care Team Providers Care Nurse Tech Name Role Phone Unavailable Primary Care Provider Unavailabl e Encounter Details Date Type Department Care Team (Late st Contact Info) Description 08/18/2020 Historic Encounter [facility] [address] [place] [address] Davina Pickard MD [facility] [address] [address] Social History Tobacco Use Types Packs/Day Years Used Date Smoking Tobacco: Never Assessed Comments Unknown Sex and Gender Information Value Date Recorded Sex Assigned at Not on file Legal Sex Female 6:31 PM CDT Gender Identity Not on file Sexual Orientation Not on file documented as of this encounter Plan of Treatment Not on file documented as of this encounter Procedures Procedure Name Priority Date/Time Associated Diagnosis Comments CT THORACIC SPINE WITH IV CONTRAST Routine 08/18/2020 2:10 PM EDT documented in this encounter Results * CT spine thoracic with IV contrast (08/18/2020 2:10 PM EDT) Anatomical Region Laterality Modality C-spine, T-spine, L-spine, Chest Computed Tomography 08/18/2020 2:10 PM EDT Narrative 08/18/2020 8:34 PM EDT CERVICAL, LUMBAR, THORACIC CT WITH CONTRAST - POST MYELOGRAM ??08/18/2020 11:00 AM HISTORY: Neck, lumbar, thoracic back pain. PROCEDURE: After the patient's myelogram, axial images were obtained through the entire spine by computed tomography. Sagittal reconstruction images were performed. This study was performed with techniques to keep radiation doses as low as reasonably achievable, (ALARA). Individualized dose reduction techniques using automated exposure control or adjustment of mA and/or kV according to the patient size were employed. FINDINGS: ?? Cervical: Left mastoiditis is incidentally noted. Contrast is identified in the thecal space. There is mild diffuse degenerative disc disease. C3-4: There is marked right facet hypertrophic change resulting in moderate neural foraminal stenosis without central stenosis. C4-5: There is moderate bilateral facet hypertrophic change resulting in mild bilateral neural foraminal stenosis without central stenosis. C5-6: There is severe left facet hypertrophic change. There is mild left neural foraminal stenosis without central stenosis. C5-6: There is mild facet hypertrophic change. There is no significant stenosis. C7-T1: There is no significant stenosis. Thoracic: Contrast is identified in the thecal space. A stimulator terminates in the mid thoracic spine. There is mild to moderate diffuse degenerative disc disease. A mild disc bulge is present at T9-10 paracentric to the right resulting in mild right neural foraminal stenosis and minimal central stenosis to the right of midline. Axial imaging demonstrates no significant central canal stenosis. Lumbar: There is mild diffuse degenerative disc disease. Contrast is identified in the thecal space. 2 stimulators enter the central canal in the upper lumbar spine. The disc heights are maintained with the exception of mild disc space narrowing at L2-3. Facet hypertrophic changes are present throughout the lumbar spine. There is mild bilateral neural foraminal stenosis at L2-3 and L3-4 from facet hypertrophic change and a broad-based disc bulge. There is mild bilateral neural foraminal stenosis at L5-S1. There is no acute fracture. There is no significant central canal stenosis. IMPRESSION: Degenerative disc disease throughout the cervical, thoracic, and lumbar spine without critical stenosis. Images reviewed, interpreted, and dictated by Marcia Pickard MD Procedure Note Davina Pickard MD - 09/12/2022 CERVICAL, LUMBAR, THORACIC CT WITH CONTRAST - POST MYELOGRAM 08/18/2020 11:00 AM HISTORY: Neck, lumbar, thoracic back pain. PROCEDURE: After the patient's myelogram, axial images were obtained through the entire spine by computed tomography. Sagittal reconstruction images were performed. This study was performed with techniques to keep radiation doses as low as reasonably achievable, (ALARA). Individualized dose reduction techniques using automated exposure control or adjustment of mA and/or kV according to the patient size were employed. FINDINGS: Cervical: Left mastoiditis is incidentally noted. Contrast is identified in the thecal space. There is mild diffuse degenerative disc disease. C3-4: There is marked right facet hypertrophic change resulting in moderate neural foraminal stenosis without central stenosis. C4-5: There is moderate bilateral facet hypertrophic change resulting in mild bilateral neural foraminal stenosis without central stenosis. C5-6: There is severe left facet hypertrophic change. There is mild left neural foraminal stenosis without central stenosis. C5-6: There is mild facet hypertrophic change. There is no significant stenosis. C7-T1: There is no significant stenosis. Thoracic: Contrast is identified in the thecal space. A stimulator terminates in the mid thoracic spine. There is mild to moderate diffuse degenerative disc disease. A mild disc bulge is present at T9-10 paracentric to the right resulting in mild right neural foraminal stenosis and minimal central stenosis to the right of midline. Axial imaging demonstrates no significant central canal stenosis. Lumbar: There is mild diffuse degenerative disc disease. Contrast is identified in the thecal space. 2 stimulators enter the central canal in the upper lumbar spine. The disc heights are maintained with the exception of mild disc space narrowing at L2-3. Facet hypertrophic changes are present throughout the lumbar spine. There is mild bilateral neural foraminal stenosis at L2-3 and L3-4 from facet hypertrophic change and a broad-based disc bulge. There is mild bilateral neural foraminal stenosis at L5-S1. There is no acute fracture. There is no significant central canal stenosis. IMPRESSION: Degenerative disc disease throughout the cervical, thoracic, and lumbar spine without critical stenosis. Images reviewed, interpreted, and dictated by Marcia Pickard MD us Davina Pickard MD IMG CT ORDERABLES Final R esult documented in this encounter Visit Diagnoses Not on filedocumented in this encounter
--- OUTSIDE RECORDS SUMMARY | 2024-04-16 08:45 | XMS_ITS | Encounter Summary ---
Author Organization [facility] Address [address] [place] [address] Care Team Providers Care Supervisor Shed Workers Name Role Phone Unavailable Primary Care Provider Unavailabl e Encounter Details Date Type Department Care Team (Late st Contact Info) Description 10/31/2020 Abstract [facility] [address] [place] [address] Dental, Provider, DDS [address] [place] [id number] Social History Tobacco Use Types Packs/Day Years Used Date Smoking Tobacco: Never Assessed Comments Unknown Sex and Gender Information Value Date Recorded Sex Assigned at Not on file Legal Sex Female 7:47 PM EDT Gender Identity Not on file Sexual Orientation Not on file documented as of this encounter Plan of Treatment Not on file documented as of this encounter Procedures Procedure Name Priority Date/Time Associated Diagnosis Comments 15 EXTRACTION Routine 12/03/2017 12:00 AM EDT documented in this encounter Visit Diagnoses Not on filedocumented in this encounter
--- OUTSIDE RECORDS SUMMARY | 2024-04-16 08:45 | XMS_ITS | Clinical Summary ---
Author Organization [facility] Address [address] [place] [address] Care Team Providers Care Electrical Engineering Manager Name Role Phone Unavailable Primary Care Provider Unavailabl e Social History Tobacco Use Types Packs/Day Years Used Date Smoking Tobacco: Never Assessed Comments Unknown Sex and Gender Information Value Date Recorded Sex Assigned at Not on file Legal Sex Female 7:47 PM EDT Gender Identity Not on file Sexual Orientation Not on file Plan of Treatment Health Maintenance Due Date Last Done Comments Dental Oral Exam 1963 Dental Prophylaxis 1963 Dental X-Ray: Bitewings 1963 Dental X-Ray: Full Mouth 1963 [facility]-Depression Screening 1963 [facility]-Infant/Child/Adol SDOH Screenings 1963 [facility]- SDOH Screenings 1981 [facility]-Adult SDOH Screenings 1981 [facility]-DTaP,Tdap,and Td Vaccine s (1 - Tdap) 1982 [facility]-Pap Smear 1984 [facility]-Cervical Cancer Screening 1993 [facility]-HPV/Cotest 1993 CT Colonography 2008 Colonoscopy 2008 FIT-DNA 2008 FIT 2008 FOBT 2008 Sigmoidoscopy 2008 [facility]-Colorectal Cancer Screening 2008 [facility]-Zoster Vaccines (1 of 2) 2013 [id number] Vaccine (1 - 20 24-25 season) 2024 [facility]-Influenza Vaccine (#1) 2024 [facility]-RSV Vaccine: 60+ Years o r (1 - 1-dose 75+ series) 2038 [facility]-HIB Vaccines Aged Out No longer e ligible based on patient's age to complete this topic [facility]-HPV Vaccines Aged Out No longer e ligible based on patient's age to complete this topic [facility]-Hepatitis A Vaccines Aged Out No longer eligible based on patient's age to complete this topic [facility]-IPV Vaccines Aged Out No longer e ligible based on patient's age to complete this topic [facility]-Pneumococcal Vaccine: Pediatrics (0 to 5 Years) and At-Risk Patients (6 to 64 Years) Aged Out No long er eligible based on patient's age to complete this topic [facility]-Rotavirus Vaccines Aged Out No lo nger eligible based on patient's age to complete this topic
--- OUTSIDE RECORDS SUMMARY | 2024-04-16 08:45 | XMS_ITS | Encounter Summary ---
Author Organization [employer] Address [address] [place], [place] [id number] Care Team Providers Care Local Company Refrigerated Truck Driver Name Role Phone Unavailable Primary Care Provider Unavailabl e Encounter Details Date Type Department Care Team (Late st Contact Info) Description 08/18/2020 Transcribed Document [facility] [place] [facility] [place] [address] ProviderTrevor MD [address] [place] [address] Social History Tobacco Use Types Packs/Day Years Used Date Smoking Tobacco: Never Assessed Comments Unknown Sex and Gender Information Value Date Recorded Sex Assigned at Not on file Legal Sex Female 6:31 PM CDT Gender Identity Not on file Sexual Orientation Not on file documented as of this encounter Miscellaneous Notes * [employer]ner Conversion Note - Trevor ProviderMD - 08/18/2020 10:27 AM CDT Vital Measurements Entered On: 08/18/2020 10:27 EDT Performed On: 08/18/2020 10:27 EDT by PAYTON WATTERS RN Vital Measurements Temperature, Fahrenheit : 97.2 Deg F Clinical Temperature, C : 36.2 Deg C Peripheral Pulse Rate : 89 bpm Systolic Blood Pressure : 145 mmHg (HI) Diastolic Blood Pressure : 72 mmHg Oxygen Saturation : 96 % PAYTON WATTERS RN - 08/18/2020 10:27 EDT Electronically signed by Rose[facility] Conversion Family And Divorce Legal Assistant Cerhetal at 09/10/2022 8:05 PM CDT documented in this encounter Plan of Treatment Not on file documented as of this encounter Visit Diagnoses Not on filedocumented in this encounter
--- OUTSIDE RECORDS SUMMARY | 2024-04-16 08:45 | XMS_ITS | Encounter Summary ---
Author Organization [employer] Address [address] [place], [place] [id number] Care Team Providers Care Security Administrator Name Role Phone Unavailable Primary Care Provider Unavailabl e Encounter Details Date Type Department Care Team (Late st Contact Info) Description 08/18/2020 Transcribed Document [facility] [place] [facility] [place] [address] ProviderTrevor MD [facility] [place] [address] Social History Tobacco Use Types Packs/Day Years Used Date Smoking Tobacco: Never Assessed Comments Unknown Sex and Gender Information Value Date Recorded Sex Assigned at Not on file Legal Sex Female 6:31 PM CDT Gender Identity Not on file Sexual Orientation Not on file documented as of this encounter Miscellaneous Notes * [employer] Conversion Note - Historical ProviderMD - 08/18/2020 10:27 AM CDT Height and Weight, Routine Entered On: 08/18/2020 10:27 EDT Performed On: 08/18/2020 10:27 EDT by PAYTON WATTERS RN Height and Weight, Routine Routine Weight Source : Standing scale Routine Weight Entry Format : [place] Routine Weight, Pounds : 163 lb Routine Weight Calculation : 74.09 kg Height Source : Measured Height Entry Format : [place] Height, Feet : 5 ft Height, Inches : 7 Inch Clinical Height : 170.18 cm Body Surface Area (BSA), Routine : 1.86 m2 Body Mass Index (BMI), Routine : 25.58 kg/m2 PAYTON WATTERS RN - 08/18/2020 10:27 EDT documented in this encounter Plan of Treatment Not on file documented as of this encounter Visit Diagnoses Not on filedocumented in this encounter
--- OUTSIDE RECORDS SUMMARY | 2024-04-16 08:45 | XMS_ITS | Encounter Summary ---
Author Organization [employer] Address [address] [place] [id number] Care Team Providers Care Credit Support Specialist Name Role Phone Unavailable Primary Care Provider Unavailabl e Encounter Details Date Type Department Care Team (Late st Contact Info) Description 08/18/2020 Historic Encounter [facility] [address] [place] [address] Provider, [facility] Historical Social History Tobacco Use Types Packs/Day Years [...] Procedure Name Priority Date/Time Associated Diagnosis Comments GLUCOSE-POC Routine 08/18/2020 10:38 AM EDT documented in this encounter Results * (ABNORMAL) Glucose, Point of Care (08/18/2020 10:38 AM EDT) Glucose POC2 136(H) 70 - 110 mg/dL 08/18/2020 2:38 PM EDT [facility] Geochemist [id number] 08/18/2020 2:38 PM EDT [facility] Device SN [id number] 08/18/2020 2:38 PM EDT [facility] Blood 08/18/2020 10:3 8 AM EDT 08/18/2020 6:18 PM EDT [facility] Historical Provider POINT OF CARE TEST ANKUR STARKS Final Result [facility] [address] [place], [place] [address] [place] [address] documented in this encounter Visit Diagnoses Not on filedocumented in this encounter
--- OUTSIDE RECORDS SUMMARY | 2024-04-16 08:45 | XMS_ITS | Encounter Summary ---
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 Role Phone Unavailable Primary Care Provider Unavailabl e Encounter Details Date Type Department Care Team (Late st Contact Info) Description 08/18/2020 Transcribed Document [facility] [place] [facility] [address] ProviderTrevor MD [facility] [place] [address] Social History Tobacco Use Types Packs/Day Years Used Date Smoking Tobacco: Never Assessed Comments Unknown Sex and Gender Information Value Date Recorded Sex Assigned at Not on file Legal Sex Female 6:31 PM CDT Gender Identity Not on file Sexual Orientation Not on file documented as of this encounter Miscellaneous Notes * Cerner Conversion Note - Trevor Milner MD - 08/18/2020 2:24 PM CDT [facility] [place] [id number] RADHA MARTINEZ :1965 Visit Time:08/18/2020 Your Visit Summary Your Care Team Admitting Physician - JOSE ELIAS LIN MD-JOVITA Attending Physician - JOSE ELIAS LIN MD-SNU Primary Care Physician - SMILEY AKINS MD-[facility] Referring Physician - JOSE ELIAS LIN MD-SNU Your Diagnosis Radiculopathy, lumbar region, Radiculopathy, lumbar region Discharge Vitals Temperature 36.2 ??C Blood Pressure 113/57 What to do next Follow-Up Appointments Follow Up with JOSE ELIAS LIN MD-SNU When Within 2 to 3 days Comments Call for follow up appointment for results Where: [address] [facility] [id number] [place] [id number]- Medications What How Much When Instructions Next Dose albuterol (Ventolin HFA 90 mcg/ inh inhalation aerosol) 2 Puff(s) Inhalation Every 6 Hours as needed for Shortness of Breath aspirin 81 Milligram(s) Every Day bifidobacterium-lactobacillus (Probiotic Formula oral capsule) 1 Capsule(s) Oral Every Day biotin 1,000 Microgram(s) Oral Every Day bismuth subsalicylate (Pepto-Bismol) Four Times A Day as needed for Indigestion carBAMazepine 200 Milligram(s) Two Times A Day colesevelam (Colesevelam Hydrochloride 625 mg oral tablet) 2 Tablet(s) Oral At Bedtime cyclobenzaprine 10 Milligram(s) Oral Every 6 Hours as needed for Spasms dextromethorphan-guaifenesin (Tussin DM Max 20 mg-400 mg/ 20 mL oral liquid) 20 Milliliter(s) Oral At Bedtime as needed for Cough ergocalciferol (Vitamin D2 50,000 intl units (1.25 mg) oral capsule) 1 Capsule(s) Oral Weekly estradiol 2 Milligram(s) Every Day fluticasone nasal (Flonase) 2 [place](s) Every Day as needed for Congestion guaiFENesin (Mucus Relief ER 600 mg oral tablet, extended release) 1 Tablet(s) Oral Every 12 hours as needed for Congestion hydroCHLOROthiazide 12.5 Milligram(s) Oral Every Day hydrOXYzine (hydrOXYzine hydrochloride) 25 Milligram(s) Oral Every 8 Hours as needed for as needed for anxiety ibuprofen 800 Milligram(s) Two Times A Day as needed for as needed for pain levothyroxine 75 Microgram(s) Every Day metFORMIN 500 Milligram(s) Oral Two Times A Day montelukast 10 Milligram(s) Every Day as needed for Congestion multivitamin Every Day ofloxacin otic (ofloxacin 0.3% otic solution) 2 Drop(s) Three Times A Day as needed for Pain omega-3 polyunsaturated fatty acids (Fish Oil) 1,000 Milligram(s) Oral Every Day omeprazole 40 Milligram(s) Oral Two Times A Day potassium chloride (potassium chloride 20 mEq oral tablet, extended release) 1 Tablet(s) Oral Every Day simethicone (Gas Relief Extra Strength) 125 Milligram(s) Four times a day (after meals and at bedtime) traMADol 50 Milligram(s) Oral Four Times A Day as needed for as needed for pain Take your medications faithfully. Do NOT skip medication. Do NOT stop taking medications without the direction of a physician. Carry a list of your medications with you at all times, and take this medication list with you to your first follow up visit. Report any side effects. Avoid herbal remedies unless discussed with your physician. As part of your treatment plan, your physician may have prescribed a limited course of a controlled substance. This medication may be given to help people with moderate or severe pain or for other medical conditions, but there are risks involved with treatment. Common side effects may include nausea, constipation, drowsiness, sweating, itching, dry mouth, and rash. More serious side effects may include cognitive and motor impairment, like problems with thinking, concentrating, alertness, and movement (e.g. slowed reflexes), and driving and operating heavy machinery can be dangerous. It is important for you to talk to your physician if you have these side effects or questions. These controlled substances can produce physical dependence and be habit-forming if taken for an extended period of time, which means that the body has gotten used to them and may experience withdrawal symptoms if they are abruptly stopped. Withdrawal symptoms can include runny nose, sweating, goose bumps, diarrhea, abdominal cramping, rapid heartbeat, difficulty sleeping, and nervousness. Please dispose of unused and medications per your retail pharmacy guidance. Allergies Latex Immunizations This Visit No Immunizations Found Education Materials FAQ ??? Patient COVID-19 testing Why do I need a COVID-19 test in the hospital? We are testing patients as part of an overall effort to ensure the safety of our patients, staff and providers, and to limit the spread of the novel coronavirus throughout our community. What happens if I test positive for COVID-19? Any scheduled elective procedure will be postponed and treatment for the coronavirus will follow the protocol that is currently in place. If you are admitted to the hospital, we will use droplet precautions for patients who test positive for COVID-19. If I???m a patient, should I wear a mask? Yes. When you are in your room alone, you may remove your mask. When anyone enters your room, you should put your mask back on. Will I be allowed to have visitors if I am admitted to the hospital with COVID-19? As part of the standard care for COVID-19 patients, visitors will not be allowed to protect them from potential exposure to the novel coronavirus. If you have a health care support person with you during a pending test and the test comes back positive, your visitor will be asked to leave and follow up with their primary care provider. Public health may reach out to them to complete contact tracing. Will my status as COVID-19 positive be reported? Because COVID-19 is a public health threat, all positive cases are reported through the local health department and the [place] Department for Public Health. Those organizations are responsible for monitoring public health threats. What is contact tracing? The public health departments at the state and local levels use contact tracing to prevent the spread of infectious disease. They will work to identify people who have COVID-19 and their contacts who may have been exposed. What does contact tracing involve? Typically, a contact tracer will interview patients with COVID-19 to identify everyone with whom they have had close contact during the time they may have been infectious and then notify those contacts of potential exposure and refer them for testing. They may monitor the contacts for symptoms of COVID-19 and connect the contacts with services they may need during a recommended self-quarantine period. The patient???s name is not revealed to anyone during the contact tracing interviews, even if a contact asks. Who would be considered a ???close contact?? ? According to the CDC, a close contact is defined as someone who was within 6 feet of an infected person for at least 15 minutes, starting from 48 hours before the person began feeling sick until the time the patient was isolated. What can a close contact expect during this process? A contact tracer from the health department will contact that person to inform them they have been exposed to COVID-19. If that happens, the contact should self-quarantine for 14 days, starting from the last date of possible exposure, monitor their health, wear a face covering and maintain social distancing ??? at least 6 feet from others at all times. Should a close contact seek medical care? Close contacts should take their temperature twice a day, watch for COVID-19 symptoms and notify the health department if they develop symptoms. They should also notify people with whom they have had recent close contact if they become ill. They should seek medical care if symptoms worsen or become severe, including trouble breathing, persistent pain or pressure in the chest, confusion, inability to wait or stay awake, or bluish lips or face. Steps to Help Prevent the Spread of COVID-19 if You Are Sick In all cases, follow the guidance of your health care provider and local health department. Your local health department determines the length of time for quarantine and will notify you with detailed information. Monitor your symptoms. Common symptoms of COVID-19 include fever, fatigue, diarrhea/vomiting, loss of taste and smell, and cough. Trouble breathing is a more serious symptom that means you should get medical attention. If you develop emergency warning signs for COVID-19 get medical attention immediately. Emergency warning signs include*: ??? Trouble breathing ??? Persistent pain or pressure in the chest ??? New confusion or inability to arouse ??? Bluish lips or face *This list is not all inclusive. Please consult your medical provider for any other symptoms that are severe or concerning. Call 911 if you have a medical emergency. If you have a medical emergency and need to call 911, notify the squaring machine operator that you have, or think you might have, COVID-19. If possible, put on a facemask before medical help arrives. Stay home except to get medical care. ??? Stay home: Most people with COVID-19 have mild illness and can recover at home without medical care. Do not leave your home, except to get medical care. Do not visit public areas. ??? Stay in touch with your doctor. Call before you get medical care. Be sure to get care if you have trouble breathing, or have any other emergency warning signs, or if you think it is an emergency. Separate yourself from other people in your home; this is known as home isolation. ??? Stay away from others: As much as possible, stay away from others. You should stay in a specific ???sick room?? if possible, and away from other people in your home. Use a separate bathroom, if available. Call ahead before visiting your doctor. ??? Call ahead: Many medical visits for routine care are being postponed or done by phone or telemedicine. If you have a medical appointment that cannot be postponed, call your doctor's office, and tell them you have or may have COVID-19. This will help the office protect themselves and other patients. If you are sick, wear a facemask in the following situations, if available. ??? If you are sick: You should wear a facemask, if available, when you are around other people (including before you enter a health care provider???s office). ??? If you are caring for others: If the person who is sick is not able to wear a facemask (for example, because it causes trouble breathing), then as their caregiver, you should wear a facemask when in the same room with them. Visitors, other than caregivers, are not recommended. Cover your coughs and sneezes. ??? Cover: Cover your mouth and nose with a tissue when you cough or sneeze. ??? Dispose: Throw used tissues into a lined trash can. ??? Wash hands: Immediately wash your hands with soap and water for at least 20 seconds. If soap and water are not available, clean your hands with an alcohol-based hand air intercept controller that contains at least 60% alcohol. Clean your hands often. ??? Wash hands: Wash your hands often with soap and water for at least 20 seconds when visibly dirty. This is especially important after blowing your nose, coughing or sneezing, and going to the bathroom, and before eating or preparing food. ??? Hand air intercept controller: Use an alcohol-based hand air intercept controller with at least 60% alcohol, covering all surfaces of your hands and rubbing them together until they feel dry. ??? Avoid touching: Avoid touching your eyes, nose and mouth with unwashed hands. Avoid sharing personal household items. ??? Do not share: Do not share dishes, drinking glasses, cups, eating utensils, towels or bedding with other people in your home. ??? Wash thoroughly after use: After using these items, wash them thoroughly with soap and water or put them in the team supervisor. Clean all high-touch surfaces every day. Clean high-touch surfaces in your isolation area (???sick room?? and bathroom) every day; let a caregiver clean and disinfect high-touch surfaces in other areas of the home. ??? Clean and disinfect: Routinely clean high-touch surfaces in your ???sick room?? and bathroom. Let someone else clean and disinfect surfaces in common areas, but not your bedroom and bathroom. ? If a caregiver or other person needs to clean and disinfect a sick person???s bedroom or bathroom, they should do so on an as-needed basis. The caregiver/other person should wear a mask and wait as long as possible after the sick person has used the bathroom. ? High-touch surfaces include phones, remote controls, counters, tabletops, doorknobs, bathroom fixtures, toilets, keyboards, tablets and bedside tables. ??? Clean and disinfect areas that may have blood, stool, or body fluids on them. ??? Household district traffic chief and disinfectants: Clean the area or item with soap and water or another detergent if it is dirty. Then, use a household disinfectant. ??? Be sure to follow the instructions on the label to ensure safe and effective use of the product. Many products recommend keeping the surface wet for several minutes to ensure germs are killed. Many also recommend precautions such as wearing gloves and making sure you have good ventilation during use of the product. ??? Most EPA-registered household disinfectants should be effective. A full list of disinfectants can be found here: https://www.epa.gov/pesticide-registration/wvyb-w-wqetqdtvaxorl-bth-edzwztg-bc rs-cov-2 Lumbar Puncture, Care After This sheet gives you information about how to care for yourself after your procedure. Your health care provider may also give you more specific instructions. If you have problems or questions, contact your health care provider. What can I expect after the procedure? After the procedure, it is common to have: ??? Mild discomfort or pain at the puncture site. ??? A mild headache that is relieved with pain medicines. Follow these instructions at home: Activity ??? Lie down flat or rest for as long as directed by your health care provider. ??? Return to your normal activities as told by your health care provider. Ask your health care provider what activities are safe for you. ??? Avoid lifting anything heavier than 10 lb (4.5 kg) for at least 12 hours after the procedure. ??? Do not drive for 24 hours if you were given a medicine to help you relax (sedative) during your procedure. ??? Do not drive or use heavy machinery while taking prescription pain medicine. Puncture site care ??? Remove or change your bandage (dressing) as told by your health care provider. ??? Check your puncture area every day for signs of infection. Check for: ? More pain. ? Redness or swelling. ? Fluid or blood leaking from the puncture site. ? Warmth. ? Pus or a bad smell. General instructions ??? Take yhrr-jze-orsuzgb and prescription medicines only as told by your health care provider. ??? Drink enough fluids to keep your urine clear or pale yellow. Your health care provider may recommend drinking caffeine to prevent a headache. ??? Keep all follow-up visits as told by your health care provider. This is important. Contact a health care provider if: ??? You have fever or chills. ??? You have nausea or vomiting. ??? You have a headache that lasts for more than 2 days or does not get better with medicine. Get help right away if: ??? You develop any of the following in your legs: ? Weakness. ? Numbness. ? Tingling. ??? You are unable to control when you urinate or have a bowel movement (incontinence). ??? You have signs of infection around your puncture site, such as: ? More pain. ? Redness or swelling. ? Fluid or blood leakage. ? Warmth. ? Pus or a bad smell. ??? You are dizzy or you feel like you might faint. ??? You have a severe headache, especially when you sit or stand. Summary ??? A lumbar puncture is a procedure in which a small needle is inserted into the lower back to remove fluid that surrounds the brain and spinal cord. ??? After this procedure, it is common to have a headache and pain around the needle insertion area. ??? Lying flat, staying hydrated, and drinking caffeine can help prevent headaches. ??? Monitor your needle insertion site for signs of infection, including warmth, fluid, or more pain. ??? Get help right away if you develop leg weakness, leg numbness, incontinence, or severe headaches. This information is not intended to replace advice given to you by your health care provider. Make sure you discuss any questions you have with your health care provider. Document Revised: 06/27/2017 Document Reviewed: 06/27/2017 [employer] Patient Education ?? 2020 [employer] Myelogram A myelogram is an imaging study of the spinal cord and the places where nerves attach to the spinal cord (nerve roots). A dye (contrast material) is injected into the spine before the X-ray. This provides a clearer image for your health care provider to see. You may need this study done if you have a spinal cord problem that cannot be diagnosed with other imaging studies, such as a CT scan or an MRI. You may also have this study to check your spine after surgery. Tell a health care provider about: ??? Any allergies you have, especially to iodine. ??? All medicines you are taking, including vitamins, herbs, eye drops, creams, and jzna-cpb-gjuxrgo medicines. ??? Any problems you or family members have had with anesthetic medicines or contrast material. ??? Any blood disorders you have. ??? Any surgeries you have had. ??? Any medical conditions you have or have had, including asthma. ??? Whether you are or may be . What are the risks? Generally, this is a safe procedure. However, problems may occur, including: ??? Infection. ??? Bleeding. ??? Allergic reaction to medicines or dyes. ??? Damage to your spinal cord or nerves. ??? Loss or leaking of spinal fluid. This can lead to headaches. ??? Damage to kidneys. ??? Seizures. This is rare. What happens before the procedure? Follow instructions from your health care provider about eating or drinking restrictions. You may be asked to drink more fluids. ??? Ask your health care provider about changing or stopping your regular medicines. This is especially important if you are taking diabetes medicines or blood thinners. ??? Plan to have someone take you home from the hospital or clinic. ??? If you will be going home right after the procedure, plan to have someone with you for 24 hours. What happens during the procedure? You will lie face down on a table. ??? Your health care provider will locate the best injection site on your spine. This is most often in the lower back. ??? The area of injection will be washed with soap. ??? You will be given a medicine to numb the area (local anesthetic). ??? Your health care provider will insert a long needle into the space around your spinal cord (subarachnoid space). ??? A sample of spinal fluid may be taken and sent to the lab for testing. ??? The contrast material will be injected into the subarachnoid space. ??? The exam table may be tilted to help the contrast material flow up or down your spine. ??? The X-ray will take images of your spinal cord for your health care provider to examine. ??? A bandage (dressing) may be placed over the injection site. The procedure may vary among health care providers and hospitals. What can I expect after this procedure? Your blood pressure, heart rate, breathing rate, and blood oxygen level may be monitored until you leave the hospital or clinic. ??? You may have: ? Soreness on your injection site. ? A mild headache. ??? You will be asked to lie down with your head raised (elevated). This reduces the risk of a headache. ??? It is up to you to get the results of your procedure. Ask your health care provider, or the department that is doing the procedure, when your results will be ready. Follow these instructions at home: ??? Rest as told by your health care provider. Lie flat with your head slightly elevated to reduce the risk of a headache. ??? Do not bend, lift, or do hard work for 24???48 hours, or as told by your health care provider. ??? Take hojj-yov-kmvgsvj and prescription medicines only as told by your health care provider. ??? Take care of your dressing as told by your health care provider. ??? Drink enough fluid to keep your urine pale yellow. ??? Bathe or shower as told by your health care provider. Contact a health care provider if: ??? You have a fever. ??? You have a headache that lasts longer than 24 hours. ??? You feel nauseous or vomit. ??? You have a stiff neck or numbness in your legs. ??? You are unable to urinate or have a bowel movement. ??? You develop a rash, itching, or sneezing. Get help right away if: ??? You have new symptoms or your symptoms get worse. ??? You have a seizure. ??? You have trouble breathing. Summary ??? A myelogram is an imaging study of the spinal cord and the places where nerves attach to the spinal cord (nerve roots). ??? Before the procedure, follow instructions from your health care provider about changing or stopping your regular medicines, and eating and drinking restrictions. ??? After this procedure, you will be asked to lie down with your head raised (elevated). This reduces your risk of a headache. ??? Do not bend, lift, or do hard work for 24???48 hours, or as told by your health care provider. ??? Contact a health care provider if you have a stiff neck or numbness in your legs. Get help right away if symptoms get worse, or you have a seizure or trouble breathing. This information is not intended to replace advice given to you by your health care provider. Make sure you discuss any questions you have with your health care provider. Document Revised: 07/23/2019 Document Reviewed: 07/24/2019 [employer] Patient Education ?? 2020 [employer]. Emergency Awareness and Preventative Care STROKE is an EMERGENCY Every Minute Counts Act FAST and Check for these signs: FACE Does the face look uneven? ARM Does one arm drift down? SPEECH Does their speech sound strange? TIME Call at any sign of stroke Stroke Risk Factors Atrial Fibrillation (irregular heartbeat) Diabetes Family history of stroke Heart Disease Heavy alcohol use High Blood Pressure High Cholesterol Physical inactivity and obesity Smoking Cigarette Smoking The facts are clear, cigarette smoking will shorten your life. Smoking can cause many illnesses along the way. As a healthcare provider, we recommend that you stop smoking. Assistance with quitting is available by contacting 7-138-BIXT-NOW. This is a free resource providing counseling, support, and referral. Or you may contact your personal physician. National Suicide Prevention Lifeline: The National Suicide Prevention Lifeline is a national network of local crisis centers that provides free and confidential emotional support to people in suicidal crisis or emotional distress 24 hours a day, 7 days a week. Don't Wait! Stop a Heart Attack Before it Starts What is a heart attack? A heart attack is damage or to a part of the heart from severely decreased or lack of blood flow to the heart. Over time, arteries can become narrow from the buildup of fat and cholesterol, which is called plaque. The plaque can rupture causing a blood clot to form. When the blood clot forms, the artery can become severely narrowed or completely blocked, causing a heart attack. Heart attack is the leading cause of in the [place]. 85% of muscle damage occurs within the first 2 hours. Delay in the recognition of heart attack symptoms increases the chances of . Know the early symptoms of a heart attack: Nausea Feeling of fullness in chest Jaw Pain Pain that travels down one or both arms Fatigue/being tired Anxiety Back Pain Chest pressure, squeezing, or discomfort Shortness of breath Sweating, or a cold sweat Feeling of impending doom There are unusual signs of a heart attack, too! Women, the elderly, and diabetics may present with atypical symptoms: Fainting/dizziness Weakness Confusion Risk Factors for a Heart Attack Some heart disease risk factors, such as age and family history, cannot be changed. Others, like smoking and lack of exercise, can be changed. Smoking High Cholesterol High Blood Pressure Family History Obesity Age Gender (Males are at higher risk) Lack of Exercise Diabetes Diet Stress Excessive Alcohol Intake If you or someone you know is experiencing the signs and symptoms of a heart attack, DON???T DELAY. Call immediately and seek help. If someone collapses, perform CPR! Do not attempt to drive if you are having symptoms of heart attack. Hands-Only CPR Why Hands-Only CPR? Hands-Only CPR has been shown to be as effective as conventional CPR for cardiac arrests that occur outside of a hospital. Survival depends on immediately receiving CPR from someone nearby. How do you perform Hands-Only CPR? There are two easy steps: Call if you see a teen or adult collapse Push hard and fast in the center of the chest at a beat of 100 beats per minute. Save a life! 4 WAYS TO GET AHEAD OF SEPSIS SEPSIS is a MEDICAL EMERGENCY. Time matters! Infections put you and your family at risk for a life-threatening condition called sepsis. Sepsis is the body's extreme response to an infection. It is life-threatening, and without timely treatment, sepsis can rapidly lead to tissue damage, organ failure, and . Sepsis happens when an infection you already have-in your skin, lungs, urinary tract or somewhere else-triggers a chain reaction throughout your body. 1 PREVENT INFECTIONS Take good care of chronic conditions. Talk to your doctor about getting the recommended vaccines. 2 PRACTICE GOOD HYGIENE Wash your hands frequently. Keep cuts or open sores clean and covered until they are healed. 3 KNOW THE SYMPTOMS Confusion or disorientation Shortness of breath High heart rate Fever, shivering, or feeling very cold Extreme pain or discomfort Clammy or sweaty skin 4 ACT FAST Get medical care IMMEDIATELY if you suspect sepsis or if you have an infection that is not getting better or is getting worse. To learn more about sepsis and how to prevent infections, visit www.cdc.gov/sepsis. Test Results Laboratory or Other Results This Visit (last charted value for your 08/18/2020 visit) General Chemistry 08/18/2020 1:08 PM Glucose POC2: 121 mg/dL -- Normal range between ( 70 and 110 ) Device Comment 1: Device Comment 1 Patient Name:RADHA MARTINEZ XAVIER I have received and understand this information and was given the opportunity to ask questions. Patient/Wheel Filler Name: Patient/Wheel Filler Signature: Relationship to Patient: Clinician/Hospital Wheel Filler Signature: Date: Electronically signed by Rosemary, [facility] Conversion Food Beverage Attendant Cerner at 09/10/2022 8:10 PM CDT documented in this encounter Plan of Treatment Not on file documented as of this encounter Visit Diagnoses Not on filedocumented in this encounter
--- OUTSIDE RECORDS SUMMARY | 2024-04-16 08:45 | XMS_ITS | Clinical Summary ---
Author Organization [employer] [facility] Address [address] [place] [address] Care Team Providers Care Embosser Apprentice Name Role Phone Unavailable Primary Care Provider Unavailabl e Social History Tobacco Use Types Packs/Day Years Used Date Smoking Tobacco: Never Assessed Comments Unknown Sex and Gender Information Value Date Recorded Sex Assigned at Not on file Legal Sex Female 6:31 PM CDT Gender Identity Not on file Sexual Orientation Not on file Plan of Treatment Not on file
--- OUTSIDE RECORDS SUMMARY | 2024-04-16 08:45 | XMS_ITS | Encounter Summary ---
Author Organization [employer] Address [address] [place] [address] Care Team Providers Care Tool Operator Name Role Phone Unavailable Primary Care Provider Unavailabl e Encounter Details Date Type Department Care Team (Late st Contact Info) Description 08/18/2020 Transcribed Document [facility] Family Medicine [facility] [place] [address] ProviderTrevor MD [facility] [place], [place] [address] Social History Tobacco Use Types Packs/Day Years Used Date Smoking Tobacco: Never Assessed Comments Unknown Sex and Gender Information Value Date Recorded Sex Assigned at Not on file Legal Sex Female 6:31 PM CDT Gender Identity Not on file Sexual Orientation Not on file documented as of this encounter Miscellaneous Notes * Cerner Conversion Note - Trevor ProviderMD - 08/18/2020 2:23 PM CDT Nursing Discharge Summary Entered On: 08/18/2020 14:24 EDT Performed On: 08/18/2020 14:23 EDT by JOAQUINA GUTIERREZ RN Discharge Documentation Discharge Date/Time : 08/18/2020 16:30 EDT Patient Disposition, General : Discharge Discharge To : Home with ambulatory/outpatient follow-up Mode Of Departure, General Discharge : Private vehicle, Wheelchair Accompanied By, Discharge : Sibling IV Discontinued : Not applicable Personal Belongings With Patient : Yes Discharge Instructions Reviewed With, Opportunity For Questions Given : Patient, Sibling Patient Education Completed : Yes Teaching Method : Explanation, Printed materials Teaching Evaluation : Verbalizes understanding JOAQUINA GUTIERREZ RN - 08/18/2020 14:23 EDT Electronically signed by Rosemary [facility] Conversion Insurance Policy Issue Clerk Cerner at 09/10/2022 7:53 PM CDT documented in this encounter Plan of Treatment Not on file documented as of this encounter Visit Diagnoses Not on filedocumented in this encounter
--- OUTSIDE RECORDS SUMMARY | 2024-04-16 08:45 | XMS_ITS | Encounter Summary ---
Author Organization [employer] Address [address] [place] [address] Care Team Providers Care Equipment Sales Specialist Name Role Phone Unavailable Primary Care Provider Unavailabl e Encounter Details Date Type Department Care Team (Late st Contact Info) Description 08/18/2020 Historic Encounter [facility] [address] [place] [address] Provider, [facility] Historical Social History Tobacco Use Types Packs/Day [...] Date/Time Associated Diagnosis Comments GLUCOSE-POC Routine 08/18/2020 1:08 PM EDT documented in this encounter Results * (ABNORMAL) Glucose, Point of Care (08/18/2020 1:08 PM EDT) Glucose POC2 121(H) 70 - 110 mg/dL 08/18/2020 5:08 PM EDT [facility] Guyline Operator [id number] 08/18/2020 5:08 PM EDT [facility] Device SN [id number] 08/18/2020 5:08 PM EDT [facility] Device Comment1 Protocols Followed 08/18/2020 5:08 PM EDT [facility] Blood 08/18/2020 1:08 PM EDT 08/18/2020 6:20 PM EDT [facility] Historical Provider POINT OF CARE TEST ORDE RAUDEL Final Result [facility] [address] [phone] documented in this encounter Visit Diagnoses Not on filedocumented in this encounter
--- OUTSIDE RECORDS SUMMARY | 2024-04-16 08:45 | XMS_ITS | Encounter Summary ---
Author Organization [employer] [facility] [facility] Address [address] [place] [address] Care Team Providers Care Personal Shopper Name Role Phone Unavailable Primary Care Provider Unavailabl e Encounter Details Date Type Department Care Team (Late st Contact Info) Description 08/18/2020 Transcribed Document [facility] Family Medicine [facility] [place] [address] ProviderTrevor MD [facility] [place] [address] Social History Tobacco Use Types Packs/Day Years Used Date Smoking Tobacco: Never Assessed Comments Unknown Sex and Gender Information Value Date Recorded Sex Assigned at Not on file Legal Sex Female 6:31 PM CDT Gender Identity Not on file Sexual Orientation Not on file documented as of this encounter Miscellaneous Notes * Cerner Conversion Note - Trevor Milner MD - 08/18/2020 2:23 PM CDT Patient Education Materials Follows: FAQ - Patient COVID-19 testing Why do I need [...] patients who test positive for COVID-19. If I'm a patient, should I wear a mask? [...] through the local health department and the [place] Department for Public Health. Those organizations are [...] need during a recommended self-quarantine period. The patient's name is not revealed to anyone during the contact tracing interviews, even if a contact asks. Who would be considered a close contact ? According to the CDC, a close [...] a face covering and maintain social distancing - at least 6 feet from others at [...] and need to call 911, notify the dozer operator that you have, or think you [...] others. You should stay in a specific sick room if possible, and away from other people [...] (including before you enter a health care provider's office). ??? If you are caring for [...] clean your hands with an alcohol-based hand banquet food server that contains at least 60% alcohol. Clean your hands often. ??? Wash hands: Wash your hands often with soap and water for at least 20 seconds when visibly dirty. This is especially important after blowing your nose, coughing or sneezing, and going to the bathroom, and before eating or preparing food. ??? Hand banquet food server: Use an alcohol-based hand banquet food server with at least 60% alcohol, covering all [...] and water or put them in the machine or machinery mechanic. Clean all high-touch surfaces every day. Clean high-touch surfaces in your isolation area ( sick room and bathroom) every day; let a caregiver clean and disinfect high-touch surfaces in other areas of the home. ??? Clean and disinfect: Routinely clean high-touch surfaces in your sick room and bathroom. Let someone else clean and disinfect surfaces in common areas, but not your bedroom and bathroom. ? If a caregiver or other person needs to clean and disinfect a sick person's bedroom or bathroom, they should do so [...] or body fluids on them. ??? Household vice president of news and disinfectants: Clean the area or item with soap and water or another detergent if it is dirty. Then, use a household disinfectant. ?? Be sure to follow the instructions on the label to ensure safe and effective use of the product. Many products recommend keeping the surface wet for several minutes to ensure germs are killed. Many also recommend precautions such as wearing gloves and making sure you have good ventilation during use of the product. ?? Most EPA-registered household disinfectants should be effective. A full list of disinfectants can be found here: https://www.epa.gov/pesticide-registration/spcd-u-hxhdlgwhlplos-jgd-tisqnbd-ty rs-cov-2 Lumbar Puncture, Care After This sheet [...] a bad smell. General instructions ??? Take ilnb-vpi-vzbwzey and prescription medicines only as told by [...] provider. Document Revised: 06/27/2017 Document Reviewed: 06/27/2017 [employer] Patient Education ? 2020 [employer] Myelogram A myelogram is an imaging [...] including vitamins, herbs, eye drops, creams, and vddr-npm-mwjztrw medicines. ??? Any problems you or family [...] bend, lift, or do hard work for 24?48 hours, or as told by your health care provider. ??? Take dxwv-bgl-jwgjruj and prescription medicines only as told by [...] bend, lift, or do hard work for 24?48 hours, or as told by your health [...] provider. Document Revised: 07/23/2019 Document Reviewed: 07/24/2019 [employer] Patient Education ? 2020 [employer] documented in this encounter Plan of Treatment Not on file documented as of this encounter Visit Diagnoses Not on filedocumented in this encounter
--- OUTSIDE RECORDS SUMMARY | 2024-04-16 08:45 | XMS_ITS | Encounter Summary ---
Author Organization [employer] [facility] Address [address] [place] [address] Care Team Providers Care Household Appliance Mechanic Name Role Phone Unavailable Primary Care Provider Unavailabl e Encounter Details Date Type Department Care Team (Late st Contact Info) Description 08/18/2020 Transcribed Document [facility] Family Medicine [facility] [place] [address] ProviderTrevor MD [facility] [place], [place] [address] Social History Tobacco Use Types Packs/Day Years Used Date Smoking Tobacco: Never Assessed Comments Unknown Sex and Gender Information Value Date Recorded Sex Assigned at Not on file Legal Sex Female 6:31 PM CDT Gender Identity Not on file Sexual Orientation Not on file documented as of this encounter Miscellaneous Notes * Cerner Conversion Note - Trevor ProviderMD - 08/18/2020 1:35 PM CDT Patient: RADHA MARTINEZ Age: 55 years Sex: Female : 1965 Associated Diagnoses: None Author: MANUELA DAN PA Fluoroscopically guided lumbar puncture was perfomed at the L3-4 level and 10 mls of contrast injected. Cervical, thoracic, and lumbar meylograms were then performed. CT and report to follow. documented in this encounter Plan of Treatment Not on file documented as of this encounter Visit Diagnoses Not on filedocumented in this encounter
--- OUTSIDE RECORDS SUMMARY | 2024-04-16 08:45 | XMS_ITS | Encounter Summary ---
Author Organization [employer] Address [address] [place] [address] Care Team Providers Care Ski Binding Fitter And Repairer Name Role Phone Unavailable Primary Care Provider Unavailabl e Encounter Details Date Type Department Care Team (Late st Contact Info) Description 08/18/2020 Historic Encounter [facility] Radiology [address] [place] [address] Davina Pickard MD [facility] [address] [address] Social History Tobacco Use Types [...] Name Priority Date/Time Associated Diagnosis Comments CT LUMBAR SPINE WITH IV CONTRAST Routine 08/18/2020 2:10 PM EDT documented in this encounter Results * CT spine lumbar with IV contrast (08/18/2020 2:10 PM EDT) Anatomical Region Laterality Modality T-spine, L-spine, Pelvis Compute d Tomography 08/18/2020 2:10 PM EDT Narrative 08/18/2020 [...]
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
[2024-04-16 09:38] VITALS: BP 149/93; PULSE 83; RESP 14; O2SAT 97; BMI 23.5
== END 2024-04-16 23:59 | disposition home or self-care (01) ==
PROVIDERS: PCP Nurse Practitioner; Visit Provider Nurse Practitioner Family
DX: M79.18 Myalgia, other site (principal); M50.10 Cervical disc disorder with radiculopathy, unspecified cervical region; F17.210 Nicotine dependence, cigarettes, uncomplicated; Z79.899 Other long term (current) drug therapy
CPT/HCPCS: 99212; G0463

== ENCOUNTER 2024-05-15 09:56 | Outpatient (POV) | payer MEDICARE, MEDICAID, SELFPAY ==
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
[2024-05-15 10:19] VITALS: BP 157/89; PULSE 94; RESP 18; O2SAT 96; BMI 24.3
== END 2024-05-15 23:59 | disposition home or self-care (01) ==
PROVIDERS: PCP Nurse Practitioner; Visit Provider Nurse Practitioner Family
DX: M46.1 Sacroiliitis, not elsewhere classified (principal); M50.10 Cervical disc disorder with radiculopathy, unspecified cervical region; M51.16 Intervertebral disc disorders with radiculopathy, lumbar region; F17.210 Nicotine dependence, cigarettes, uncomplicated; Z79.899 Other long term (current) drug therapy
CPT/HCPCS: 99212; G0463

== ENCOUNTER 2024-06-11 09:12 | Outpatient (POV) | payer MEDICARE, MEDICAID, SELFPAY ==
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
[2024-06-11 11:17] VITALS: BP 188/96; PULSE 98; RESP 14; O2SAT 98; BMI 23.5
== END 2024-06-11 23:59 | disposition home or self-care (01) ==
PROVIDERS: PCP Nurse Practitioner; Visit Provider Nurse Practitioner Family
DX: M51.16 Intervertebral disc disorders with radiculopathy, lumbar region (principal); M25.569 Pain in unspecified knee; F17.210 Nicotine dependence, cigarettes, uncomplicated
CPT/HCPCS: 99212; G0463

== ENCOUNTER 2024-07-14 08:45 | Outpatient (POV) | payer MEDICARE, MEDICAID, SELFPAY ==
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
[2024-07-14 09:30] VITALS: BP 178/105; PULSE 87; RESP 14; O2SAT 98; BMI 25.0
== END 2024-07-14 23:59 | disposition home or self-care (01) ==
PROVIDERS: PCP Family Medicine; Visit Provider Nurse Practitioner Family
DX: M51.16 Intervertebral disc disorders with radiculopathy, lumbar region (principal); F17.210 Nicotine dependence, cigarettes, uncomplicated; Z79.899 Other long term (current) drug therapy
CPT/HCPCS: 99212; G0463

== ENCOUNTER 2024-07-21 08:06 | Outpatient (CLI) | payer MEDICARE, MEDICAID, SELFPAY ==
--- NOTE | 2024-07-21 08:39 | MM_ITS ---
PROCEDURE INFORMATION: Exam: MG Bilateral Screening 3D Mammography Exam date and time: 07/21/2024 8:40 AM Age: 59 years old Clinical indication: Screening examination TECHNIQUE: Imaging protocol: Bilateral Screening tomosynthesis and 2D mammography including computer-aided detection (CAD) when performed. COMPARISON: 1. MG MM DIG MAMM DX UNILAT RT CAD 03/02/2022 1:43 PM 2. MG MM CLIP PLACEMENT RT 09/01/2021 8:24 AM FINDINGS: MAMMOGRAPHY: Breast composition: There are scattered areas of fibroglandular density. Mass: None. Architectural distortion: None. Calcifications: No suspicious calcifications. Asymmetric density: None. Skin thickening: None. Axillary adenopathy: None. IMPRESSION: No mammographic evidence of malignancy. Annual screening is recommended unless otherwise clinically indicated. ASSESSMENT: BI-RADS Category 1: Negative.
== END 2024-07-21 23:59 | disposition home or self-care (01) ==
LOC: RAD 08:07
PROVIDERS: Visit Provider Nurse Practitioner
DX: Z12.31 Encounter for screening mammogram for malignant neoplasm of breast (principal)
CPT/HCPCS: 77063; 77067

== ENCOUNTER 2024-08-11 09:37 | Outpatient (POV) | payer MEDICARE, MEDICAID, SELFPAY ==
[2024-08-11 09:48] VITALS: BP 154/86; PULSE 94; RESP 16; O2SAT 95; BMI 24.3
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
== END 2024-08-11 23:59 | disposition home or self-care (01) ==
PROVIDERS: PCP Nurse Practitioner; Visit Provider Nurse Practitioner Family
DX: M25.561 Pain in right knee (principal); M50.10 Cervical disc disorder with radiculopathy, unspecified cervical region; F17.210 Nicotine dependence, cigarettes, uncomplicated; Z73.89 Other problems related to life management difficulty; Z79.899 Other long term (current) drug therapy
CPT/HCPCS: 99212; G0463

== ENCOUNTER 2024-09-02 08:00 | Day surgery (SDC) | payer MEDICARE, MEDICAID, SELFPAY ==
[2024-09-02 08:09] VITALS: BP 175/91; PULSE 94; RESP 18; O2SAT 95; BMI 24.3
[2024-09-02] MEDS: IOPAMIDOL-200 (41%);10ML VIAL 10 ML IV (08:34)
[2024-09-02] MEDS: methylPREDNISolone ACETATE 80MG/ML VIAL 80 MG (08:57)
[2024-09-02 08:59] VITALS: BP 182/95; PULSE 99; RESP 18; O2SAT 93
[2024-09-02 09:00] VITALS: BP 182/95; PULSE 99; RESP 18; O2SAT 93
[2024-09-02 09:10] VITALS: BP 120/64; PULSE 96; RESP 17; O2SAT 96
--- NOTE | 2024-09-02 09:13 | XR_ITS ---
FINAL REPORT CLINICAL HISTORY: Right knee pain COMPARISON: None FINDINGS: RIGHT KNEE: Four views of the right knee show no evidence of an acute, displaced fracture or dislocation of the visualized bony architecture. The joint spaces appear normal. IMPRESSION: Unremarkable exam. Reviewed, Interpreted and Dictated by Jake Gagnon MD Transcribed by Malka Goldberg Authenticated and [facility]
--- NOTE | 2024-09-02 12:52 | P.PCN_ITS ---
Procedure Date: 09/02/24 Time: 08:35 Anesthesiologist:: Diaz Mcnair CRNA Complications:: None Pre-procedure Diagnosis:: Degenerative disc cervical spine multilevels. Cervical radiculopathy. Post-procedure Diagnosis:: Same. Indications for Procedure:: Patient is a very pleasant 59-year-old female who comes to clinic today for cervical epidural steroid injection. Patient describes cervical neck pain as constant, dull, aching. Patient also reports bilateral arm radicular symptoms at times. She rates her pain 7/10. Procedure Details:: Procedure:Cervical epidural steroid injection Informed consent was obtained and the risks and benefits of the procedure were explained to the patient. The patient was taken to the procedure room and noninvasive monitors placed, including noninvasive blood pressure cuff and pulse oximeter. The neck was prepped using Chloraprep as a cleansing solution. The C6- C7 interspace was viewed using fluroscopy. The skin and subcutaneous tissues were anesthetized using lidocaine 1.5% and a 25-gauge needle. After this an 18- gauge Touhy epidural needle was placed into the C6-C7 interspace under fluroscopy guidance and advanced using loss of resistance to air until the epidural space was encountered. After confirmation of needle placement in the epidural space using contrast dye, a solution containing normal saline, 2 mL and Depo-Medrol 80 mg was incrementally injected into the cervical epidural space.~ The patient tolerated the procedure well with no complications. The patient was observed in the Pain Clinic and then discharged home neurologically intact. Plan and Disposition:: Patient was discharged without incident.
== END 2024-09-02 09:10 | disposition home or self-care (01) ==
PROVIDERS: PCP Nurse Practitioner; Visit Provider Nurse Anesthetist, Certified Registered
DX: M25.561 Pain in right knee (principal); M50.30 Other cervical disc degeneration, unspecified cervical region; M54.12 Radiculopathy, cervical region
CPT/HCPCS: 62321; 73564; J1010; Q9966

== ENCOUNTER 2024-09-11 09:08 | Outpatient (POV) | payer MEDICARE, MEDICAID, SELFPAY ==
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
[2024-09-11 09:47] VITALS: BP 139/75; PULSE 98; RESP 14; O2SAT 98; BMI 25.0
== END 2024-09-11 23:59 | disposition home or self-care (01) ==
PROVIDERS: PCP Family Medicine; Visit Provider Nurse Practitioner Family
DX: M25.561 Pain in right knee (principal); M50.10 Cervical disc disorder with radiculopathy, unspecified cervical region; F17.210 Nicotine dependence, cigarettes, uncomplicated; Z79.899 Other long term (current) drug therapy
CPT/HCPCS: 99212; G0463

== ENCOUNTER 2024-10-13 09:08 | Outpatient (POV) | payer MEDICARE, MEDICAID, SELFPAY ==
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
[2024-10-13 10:02] VITALS: BP 140/83; PULSE 89; RESP 16; O2SAT 97; BMI 24.3
== END 2024-10-13 23:59 | disposition home or self-care (01) ==
LOC: SC.PAIN 09:09
PROVIDERS: PCP Nurse Practitioner Family; Visit Provider Nurse Practitioner Family
DX: M51.369 Other intervertebral disc degeneration, lumbar region without mention of lumbar back pain or lower extremity pain (principal); M50.10 Cervical disc disorder with radiculopathy, unspecified cervical region; F17.210 Nicotine dependence, cigarettes, uncomplicated; Z79.899 Other long term (current) drug therapy
CPT/HCPCS: 99212; G0463

== ENCOUNTER 2024-11-10 09:25 | Outpatient (POV) | payer MEDICARE, MEDICAID, SELFPAY ==
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
--- OUTSIDE RECORDS SUMMARY | 2024-11-10 09:29 | XMS_ITS | Encounter Summary ---
Author Organization [employer] Address [address] [place] [address] Care Team Providers Care Blow Mold Operator Name Role Phone Unavailable Primary Care Provider Unavailabl e Encounter Details Date Type Department Care Team (Late st Contact Info) Description 08/18/2020 Transcribed Document [facility] [place] Medicine [address] [place] [address] ProviderTrevor MD [address], [place] [id number] Social History Tobacco Use Types Packs/Day Years Used Date Smoking Tobacco: Never Assessed Comments Unknown Sex and Gender Information Value Date Recorded Sex Assigned at Not on file Legal Sex Female 6:31 PM CDT Gender Identity Not on file Sexual Orientation Not on file documented as of this encounter Miscellaneous Notes * Cerner Conversion Note - Historical ProviderMD - 08/18/2020 2:23 PM CDT Nursing [...] JOAQUINA GUTIERREZ RN - 08/18/2020 14:23 EDT documented in this encounter Plan of Treatment Not on file documented as of this encounter Visit Diagnoses Not on filedocumented in this encounter
--- OUTSIDE RECORDS SUMMARY | 2024-11-10 09:29 | XMS_ITS ---
Author Organization Unknown TREATMENT PLAN [facility] Start Date Provider Encounter for Check-up [id number] CHAD Sunshine
--- OUTSIDE RECORDS SUMMARY | 2024-11-10 09:29 | XMS_ITS | Clinical Summary ---
Author Organization [employer] Address [address] [place], [place] [id number] Care Team Providers Care Castables Worker Name Role Phone Unavailable Primary Care Provider [...]
--- OUTSIDE RECORDS SUMMARY | 2024-11-10 09:29 | XMS_ITS | Encounter Summary ---
Author Organization [employer] Address [address] [place] [id number] Care Team Providers Care Igniter Capper Name Role Phone Unavailable Primary Care Provider Unavailabl e Encounter Details Date Type Department Care Team (Late st Contact Info) Description 08/18/2020 Transcribed Document [facility] [place] Family Medicine [address] [place] [address] ProviderTrevor MD [address] [place] [address] Social History Tobacco Use Types [...] through the local health department and the [place] Department for Public Health. Those organizations are [...] and need to call 911, notify the burr bench operator that you have, or think you [...] clean your hands with an alcohol-based hand string top sealer that contains at least 60% alcohol. Clean your hands often. ??? Wash hands: Wash your hands often with soap and water for at least 20 seconds when visibly dirty. This is especially important after blowing your nose, coughing or sneezing, and going to the bathroom, and before eating or preparing food. ??? Hand string top sealer: Use an alcohol-based hand string top sealer with at least 60% alcohol, covering all [...] and water or put them in the roustabout. Clean all high-touch surfaces every day. Clean [...] or body fluids on them. ??? Household wrap knitting machine operator and disinfectants: Clean the area or item [...] list of disinfectants can be found here: https://www.epa.gov/pesticide-registration/gkfg-l-qwsotekmwbfbp-opd-hbxqfws-fh rs-cov-2 Lumbar Puncture, Care After This sheet [...] a bad smell. General instructions ??? Take hzbz-zwh-ozinitt and prescription medicines only as told by [...] provider. Document Revised: 06/27/2017 Document Reviewed: 06/27/2017 [employer] Patient Education ? 2020 [employer] Myelogram A myelogram is an imaging [...] including vitamins, herbs, eye drops, creams, and eaug-qzt-gzosvrr medicines. ??? Any problems you or family [...] by your health care provider. ??? Take iemq-bhr-sidhren and prescription medicines only as told by [...] provider. Document Revised: 07/23/2019 Document Reviewed: 07/24/2019 [email or web address] Patient Education ? 2020 [employer] documented in this encounter Plan of Treatment Not on file documented as of this encounter Visit Diagnoses Not on filedocumented in this encounter
--- OUTSIDE RECORDS SUMMARY | 2024-11-10 09:29 | XMS_ITS | Encounter Summary ---
Author Organization [employer] Address [address] [place] [address] Care Team Providers Care Index Editor Name Role Phone Unavailable Primary Care Provider Unavailabl e Encounter Details Date Type Department Care Team (Late st Contact Info) Description 08/18/2020 Transcribed Document [facility] [place] Family Medicine [address] [place] [address] ProviderTrevor MD [address] [place] [address] Social History Tobacco Use Types [...] Standing scale Routine Weight Entry Format : Ninety Six Routine Weight, Pounds : 163 lb Routine Weight Calculation : 74.09 kg Height Source : Measured Height Entry Format : Ninety Six Height, Feet : 5 ft Height, Inches [...]
--- OUTSIDE RECORDS SUMMARY | 2024-11-10 09:29 | XMS_ITS | Encounter Summary ---
Author Organization [employer] Address [address] [place] [id number] Care Team Providers Care Optical Instrument Assembly Supervisor Name Role Phone Unavailable Primary Care Provider Unavailabl e Encounter Details Date Type Department Care Team (Late st Contact Info) Description 08/18/2020 Transcribed Document [facility] [place] Family Medicine [address] [place] [address] ProviderTrevor MD [address] [place] [address] Social History Tobacco Use Types [...]
--- OUTSIDE RECORDS SUMMARY | 2024-11-10 09:29 | XMS_ITS | Data Portability ---
Author Organization [place] - [facility] - [facility] ADMIN Address [address] [place] [id number] Assessment Encounter Date Assessment Date Assessment LastModified by Organization Details LastModified Time 05/30/2023 05/30/2023 58-year-old zehra aguirre with : Right lower quadrant pain with intermittent nausea vomiting, as well as postprandial diarrhea and urgency: -Will order GI panel, CRP, pancreatic elastase, fecal fat, ova and parasites, calprotectin, celiac disease panel to asses for infectious etiology, functional disorders and organic disorders. The patient reports her thyroid has been recently checked by her PCP. 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 The patient is status post cholecystectomy and experiences postprandial diarrhea with fecal urgency. - Discussed dicyclomine or hyoscyamine for abdominal cramping. This medication is contraindicated with her current potassium medication. Liquid potassium can be administered with dicyclomine. May need to revisit this in the future -Continue simethicone and Pepto-Bismol as needed -Will discuss EGD/Colonoscopy a follow-up for further evaluation 3 week f/u [email or web address] Not available 05/30/2023 22:20:10 08/15/2023 08/15/2023 58-year-old zehra aguirre with: 1) Abdominal pain/discomfort -Will order EGD and Colonoscopy for further evaluation -May consider CT scan if no etiology is found -Will reorder stool tests per below that were not processed by the lab after last OV to asses for infectious etiology, functional disorders and organic disorders. CRP WDL. Strongyloides Ab negative, celiac panel negative. -Continue simethicone and Pepto-Bismol as needed. Advised Patient to decrease Pepto Bismol use and follow dosing instructions on label. Discussed risks, benefits and expected outcomes. 2) Dysphagia -EGD per above -Discussed dissolving two peppermint Altoids in mouth before meals -If dysphagia occurs while eating, stop eating, get up and stretch and walk around during meal to attempt to relieve pressure -Eat small bites and small meals. Chew food thoroughly 3) Diarrhea -Colonoscopy per above -GI tests per above -Can use Imodium as needed for symptom control -Xifaxan trial could be an option if no etiology is found 4) Pruritis -Will check hepatic function panel per below F/u after EGD/Colon [email or web address] Not available 08/15/2023 17:05:53 09/18/2023 09/18/2023 58-year-old fema le with: 1) Abdominal pain/discomfort -EGD/colonoscopy unremarkable. Colonoscopy with poor prep. Repeat recommended. -Will treat possible constipation with overflow diarrhea per below. -May consider CT scan if no etiology is found -Stool tests negative. -Continue simethicone for epigastric gas pain 2) Dysphagia: improved with empiric dilation on EGD. -Discussed dissolving two peppermint Altoids in mouth before meals -If dysphagia occurs while eating, stop eating, get up and stretch and walk around during meal to attempt to relieve pressure -Eat small bites and small meals. Chew food thoroughly -Can repeat EGD with dilation if necessary in the future for symptom relief -If symptoms persist or worsen will consider manometry 3) Possible overflow diarrhea from constipation -Colonoscopy unremarkable, but with poor prep. The patient states she drank all of her preparation before her procedure. Suspect possible underlying constipation with overflow diarrhea. -Stool tests unremarkable. -Gave patient samples of Linzess 145mcg. Instructed Patient to take two 145mcg Linzess x1 day for bowel purge, followed by Linzess 145mcg once daily to treat underlying constipation with overflow. -Xifaxan trial could be an option at follow up 4) Pruritis: resolved -Hepatic function panel WDL. 4-6 week f/u [email or web address] Not available 09/18/2023 23:43:44 Plan of Treatment Reminders Order Date Submit Date Provider Last Modified By Organization Details Last Modified Time Details Appointments None recorded. Lab gastrointes tinal pathogens DNA + RNA panel, JUWAN+non-pro be, stool 2023 024 JHON [facility], [address], [address], [place], [address], 4 16:13:18 O&P (ova & parasites), stool 2023 024 JHON [facility], [address], [address], [place], [address], 4 16:13:23 calprotecti n, stool 2023 024 JHON [facility], [address], [address], [place], [address], 4 16:13:22 fat panel, stool 2023 024 JHON [facility], [address], [address], [place], [address], 4 16:13:21 pancreatic elastase, quant, stool 2023 024 JHON [facility], [address], [address], [place], [address], 4 16:13:22 hepatic function panel, serum 2023 024 JHON [facility], [address], [address], [place], [address], 4 16:13:20 Strongyloid es sp Ab, QL, serum 2023 024 JHON [facility], [address], [address], [place], [address], 4 16:14:12 gastrointes tinal pathogens DNA + RNA panel, JUWAN+non-pro be, stool 2023 024 [email or web address] [id number] [facility], [address], [address], [place], [address], 4 09:11:47 O&P (ova & parasites), stool 2023 024 BOQUERON [facility], [address], [address], [place], [address], 4 16:14:14 calprotecti n, stool 2023 024 [facility], [address], [address], [place], [address], 4 09:11:47 fat panel, stool 2023 024 [facility], [address], [address], [place], [address], 4 09:11:47 pancreatic elastase, quant, stool 2023 024 [email or web address] [facility], [address], [address], [place], [address], 4 17:05:26 celiac disease serology panel, serum 2023 024 BOQUERON [facility], [address], [address], [place], [address], 4 16:14:11 C reactive protein, QN, serum or plasma 2023 024 BOQUERON [facility], [address], [address], [place], [address], 4 16:14:13 Referral None recorded. Procedures None recorded. Surgeries None recorded. Imaging None recorded. Medication Orders Linzess 145 mcg capsule 2023 024 [facility], [address] [place] [address] [address], [place], [id number], 15:34:27 colestipol 1 gram tablet 2023 024 [facility], [address] [facility] [address] [place], [id number], 4 16:20:57 Patient TargetsNo targets recorded. Patient InstructionsNo instructions recorded. Reason for Referral None Reported. Results Created Date Observation Date Name Description Value Unit Range Abnormal Flag Note LastModifiedBy Organization Detail LastModifiedTime 05/30/19 24 05/31/2023 BETO C DISEA SE PANEL T-transgluta minase (ttg) IgA <2 U/mL 0-3 Negat rhianna 0 - 3 Weak Posit rhianna 4 - 10 Posit rhianna >10 Tissu e Trans gluta leti e (tTG) has been ident ified as the endom ysial antig en. Studi es have demon str- ated that endom ysial IgA antib odies have over 99% speci ficit y for glute n sensi tive enter opath y. Not Available [facility] ([facility]) [address] [place], [address], 06/01/2023 16:14:11 05/30/19 24 05/31/2023 BETO C DISEA SE PANEL immunoglobul in A, qn, serum 139 mg/dL 87-352 Not Available [facility] ([facility]) [address] [place], [address], 06/01/2023 16:14:11 05/30/19 24 06/01/2023 BETO C DISEA SE PANEL endomysial antibody IgA NEGATI VE negati ve Not Available [facility] ([facility]) [address] [place], [address], 06/01/2023 16:14:11 05/30/19 24 06/01/2023 STRON GYLOI AMIRA IGG ANTIB CORRIE strongyloide s IgG antibody NEGATI VE negati ve Not Available [facility] ([facility]) [address] [facility] [place], [address], 06/01/2023 16:14:12 05/30/19 24 05/31/2023 C-MADELINE CTIVE PROTE IN, QUANT C-reactive protein, quant 8 mg/L 0-10 Not Available [facility] ([facility]) [address] [place], [address], 06/01/2023 16:14:13 05/30/19 24 05/31/2023 OVA + АНДРЕЙ ITE EXAM ova + parasite exam TNP Test not perfo rmed Not Available [facility] ([facility]) [address] [place], [address], 06/01/2023 16:14:14 05/30/19 24 05/31/2023 SPECI MEN STATU S REPOR T specimen status report TNP Test not perfo rmed. No stool speci men recei greer. TEST: [id number] 0 GI Profi le, Stool , PCR 34272 7 Fecal Fat, Quali tativ e 58044 4 Pancr eatic Elast ase, Fecal 66747 5 Calpr otect in, Fecal 19882 3 Ova + Андрей ite Exam Not Available [facility] ([facility]) [address] [place], [address], 06/01/2023 16:14:15 08/15/19 24 08/24/2023 GI PROFI LE, STOOL , PCR campylobacte r COMMEN T Test not perfo rmed. We have recei greer your reque st for addit ional testi ng. We are not able to add the test( s) reque sted. Not Available [facility] ([facility]) [address] [place], [address], 08/31/2023 07:16:56 08/15/19 24 08/24/2023 GI PROFI LE, STOOL , PCR C difficile toxin A/B TNP Test not perfo rmed Not Available [facility] ([facility]) [address] [place], [address], 08/31/2023 07:16:56 08/15/19 24 08/24/2023 GI PROFI LE, STOOL , PCR plesiomonas shigelloides TNP Test not perfo rmed Not Available [facility] ([facility]) [address] [facility], [place], [address], 08/31/2023 07:16:56 08/15/19 24 08/24/2023 GI PROFI LE, STOOL , PCR salmonella TNP Test not perfo rmed Not Available [facility] ([facility]) [address] [facility], [place], [address], 08/31/2023 07:16:56 08/15/19 24 08/24/2023 GI PROFI LE, STOOL , PCR vibrio TNP Test not perfo rmed Not Available [facility] ([facility]) [address] [place], [address], 08/31/2023 07:16:56 08/15/19 24 08/24/2023 GI PROFI LE, STOOL , PCR vibrio cholerae TNP Test not perfo rmed Not Available [facility] ([facility]) [address] [place], [address], 08/31/2023 07:16:56 08/15/19 24 08/24/2023 GI PROFI LE, STOOL , PCR yersinia enterocoliti ca TNP Test not perfo rmed Not Available [facility] ([facility]) [address] [place], [address], 08/31/2023 07:16:56 08/15/19 24 08/24/2023 GI PROFI LE, STOOL , PCR enteroaggreg ative E coli TNP Test not perfo rmed Not Available [facility] ([facility]) [address] [place], [address], 08/31/2023 07:16:56 08/15/19 24 08/24/2023 GI PROFI LE, STOOL , PCR enteropathog enic E coli TNP Test not perfo rmed Not Available [facility] ([facility]) [address] [place], [address], 08/31/2023 07:16:56 08/15/19 24 08/24/2023 GI PROFI LE, STOOL , PCR enterotoxige tor E coli TNP Test not perfo rmed Not Available [facility] ([facility]) [address] [place], [address], 08/31/2023 07:16:56 08/15/19 24 08/24/2023 GI PROFI LE, STOOL , PCR shiga-toxin- producing E coli TNP Test not perfo rmed Not Available [facility] ([facility]) [address] [place], [address], 08/31/2023 07:16:56 08/15/19 24 08/24/2023 GI PROFI LE, STOOL , PCR E coli O157 TNP Test not perfo rmed Not Available [facility] ([facility]) [address] [place], [address], 08/31/2023 07:16:56 08/15/19 24 08/24/2023 GI PROFI LE, STOOL , PCR shigella/ent eroinvasive E coli TNP Test not perfo rmed Not Available [facility] ([facility]) [address] [place], [address], 08/31/2023 07:16:56 08/15/19 24 08/24/2023 GI PROFI LE, STOOL , PCR cryptosporid ium TNP Test not perfo rmed Not Available [facility] ([facility]) [address] [place], [address], 08/31/2023 07:16:56 08/15/19 24 08/24/2023 GI PROFI LE, STOOL , PCR cyclospora cayetanensis TNP Test not perfo rmed Not Available [facility] ([facility]) [address] [place], [address], 08/31/2023 07:16:56 08/15/19 24 08/24/2023 GI PROFI LE, STOOL , PCR entamoeba histolytica TNP Test not perfo rmed Not Available [facility] ([facility]) [address] [place], [address], 08/31/2023 07:16:56 08/15/19 24 08/24/2023 GI PROFI LE, STOOL , PCR giardia lamblia TNP Test not perfo rmed Not Available [facility] ([facility]) [address] [place], [address], 08/31/2023 07:16:56 08/15/19 24 08/24/2023 GI PROFI LE, STOOL , PCR adenovirus F 40/41 TNP Test not perfo rmed Not Available [facility] ([facility]) [address] [place], [address], 08/31/2023 07:16:56 08/15/19 24 08/24/2023 GI PROFI LE, STOOL , PCR astrovirus TNP Test not perfo rmed Not Available [facility] ([facility]) [address] [place], [address], 08/31/2023 07:16:56 08/15/19 24 08/24/2023 GI PROFI LE, STOOL , PCR norovirus GI/gii TNP Test not perfo rmed Not Available [facility] ([facility]) [address] [place], [address], 08/31/2023 07:16:56 08/15/19 24 08/24/2023 GI PROFI LE, STOOL , PCR rotavirus A TNP Test not perfo rmed Not Available [facility] ([facility]) [address] [place], [address], 08/31/2023 07:16:56 08/15/19 24 08/24/2023 GI PROFI LE, STOOL , PCR sapovirus TNP Test not perfo rmed Not Available [facility] ([facility]) [address] [facility], [place], [address], 08/31/2023 07:16:56 08/15/19 24 08/16/2023 HEPAT IC FUNCT ION PANEL (7) protein, total 7.2 g/dL 6.0-8. 5 Not Available [facility] ([facility]) [address] [facility], [place], [address], 08/16/2023 16:13:19 08/15/19 24 08/16/2023 HEPAT IC FUNCT ION PANEL (7) albumin 4.6 g/dL 3.8-4. 9 Not Available [facility] ([facility]) [address] [facility], [place], [address], 08/16/2023 16:13:19 08/15/19 24 08/16/2023 HEPAT IC FUNCT ION PANEL (7) bilirubin, total <0.2 mg/dL 0.0-1. 2 Not Available [facility] ([facility]) [address] [facility], [place], [address], 08/16/2023 16:13:19 08/15/19 24 08/16/2023 HEPAT IC FUNCT ION PANEL (7) bilirubin, direct <0.10 mg/dL 0.00-0 .40 Not Available [facility] ([facility]) [address] [facility], [place], [address], 08/16/2023 16:13:19 08/15/19 24 08/16/2023 HEPAT IC FUNCT ION PANEL (7) alkaline phosphatase 73 IU/L 44-121 Not Available [facility]) [address] [facility], [place], [address], 08/16/2023 16:13:19 08/15/19 24 08/16/2023 HEPAT IC FUNCT ION PANEL (7) AST (SGOT) 15 IU/L 0-40 Not Available [facility] ([facility]) [address] [place], [address], 08/16/2023 16:13:19 08/15/19 24 08/16/2023 HEPAT IC FUNCT ION PANEL (7) ALT (SGPT) 6 IU/L 0-32 Not Available [facility] ([facility]) [address] [place], [address], 08/16/2023 16:13:19 08/15/19 24 08/30/2023 FECAL FAT, QUALI TATIV E fats, neutral NORMAL Aida l (<60 Dropl ets/H PF) Not Available [facility] ([facility]) [address] [place], [address], 08/31/2023 07:16:57 08/15/19 24 08/30/2023 FECAL FAT, QUALI TATIV E fats, total NORMAL Aida l (<100 Dropl ets/H PF) Not Available [facility] ([facility]) [address] [place], [address], 08/31/2023 07:16:57 08/15/19 24 08/27/2023 PANCR EATIC ELAST ASE, FECAL pancreatic elastase, fecal 332 ug_el ast./ g >200 Sever e Pancr eatic Insuf ficie ncy: <100 Moder ate Pancr eatic Insuf ficie ncy: 100 - 200 Aida l: >200 Not Available [facility] ([facility]) [address] [place], [address], 08/31/2023 07:16:58 08/15/19 24 08/25/2023 CALPR OTECT IN, FECAL calprotectin , fecal 35 ug/g 0-120 Emilia ntrat ion Inter preta tion Follo w-Up < 5 - 50 ug/g Aida l None >50 -120 ug/g Borde rline Re-ev aluat e in 4-6 weeks >120 ug/g Abnor mal Repea t as clini hillary indic ated Not Available [facility] ([facility]) [address] [place], [address], 08/31/2023 07:16:59 08/15/19 24 08/24/2023 OVA + АНДРЕЙ ITE EXAM ova + parasite exam TNP Test not perfo rmed. No Ova / Андрей ite trans port conta iners recei greer. These resul ts were obtai natacha using wet prepa ratio n(s) and trich gene stain ed smear . This test does not inclu de testi ng for Crypt ospor idium parvu m, Cyclo spora , or Micro spori sis. Not Available [facility] ([facility]) [address] [facility], [place], [address], 08/31/2023 07:17:00 08/15/19 24 08/16/2023 SPECI MEN STATU S REPOR T specimen status report TNP Test not perfo rmed. No stool speci men recei greer. TEST: [id number] 0 GI Profi le, Stool , PCR 85171 7 Fecal Fat, Quali tativ e 28967 4 Pancr eatic Elast ase, Fecal 53783 5 Calpr otect in, Fecal 72482 3 Ova + Андрей ite Exam Not Available [facility] ([facility]) [address] [facility], [place], [address], 08/16/2023 16:13:24 08/15/19 24 08/24/[address] PROBL EM request problem COMMEN T Test not perfo rmed. We have recei greer your reque st for addit ional testi ng. We are not able to add the test( s) reque sted. TEST: [id number] 0 GI Profi le, Stool , PCR Not Available [facility] ([facility]) [address] [place], [address], 08/31/2023 07:17:01 08/20/19 24 08/23/2023 GI PROFI LE, STOOL , PCR campylobacte r NOT DETECT ED not detect ed Not Available [facility] ([facility]) [address] [place], [address], 08/31/2023 07:17:04 08/20/19 24 08/23/2023 GI PROFI LE, STOOL , PCR C difficile toxin A/B NOT DETECT ED not detect ed Not Available [facility] ([facility]) [address] [place], [address], 08/31/2023 07:17:04 08/20/19 24 08/23/2023 GI PROFI LE, STOOL , PCR plesiomonas shigelloides NOT DETECT ED not detect ed Not Available [facility] ([facility]) [address] [place], [address], 08/31/2023 07:17:04 08/20/19 24 08/23/2023 GI PROFI LE, STOOL , PCR salmonella NOT DETECT ED not detect ed Not Available [facility] ([facility]) [address] [place], [address], 08/31/2023 07:17:04 08/20/19 24 08/23/2023 GI PROFI LE, STOOL , PCR vibrio NOT DETECT ED not detect ed Not Available [facility] ([facility]) [address] [place], [address], 08/31/2023 07:17:04 08/20/19 24 08/23/2023 GI PROFI LE, STOOL , PCR vibrio cholerae NOT DETECT ED not detect ed Not Available [facility] ([facility]) [address] [place], [address], 08/31/2023 07:17:04 08/20/19 24 08/23/2023 GI PROFI LE, STOOL , PCR yersinia enterocoliti ca NOT DETECT ED not detect ed Not Available [facility] ([facility]) [address] [place], [address], 08/31/2023 07:17:04 08/20/19 24 08/23/2023 GI PROFI LE, STOOL , PCR enteroaggreg ative E coli NOT DETECT ED not detect ed Not Available [facility] ([facility]) [address] [place], [address], 08/31/2023 07:17:04 08/20/19 24 08/23/2023 GI PROFI LE, STOOL , PCR enteropathog enic E coli NOT DETECT ED not detect ed Not Available [facility] ([facility]) [address] [place], [address], 08/31/2023 07:17:04 08/20/19 24 08/23/2023 GI PROFI LE, STOOL , PCR enterotoxige tro E coli NOT DETECT ED not detect ed Not Available [facility] ([facility]) [address] [place], [address], 08/31/2023 07:17:04 08/20/19 24 08/23/2023 GI PROFI LE, STOOL , PCR shiga-toxin- producing E coli NOT DETECT ED not detect ed Not Available [facility] ([facility]) [address] [place], [address], 08/31/2023 07:17:04 08/20/19 24 08/23/2023 GI PROFI LE, STOOL , PCR E coli O157 NOT APPLIC ABLE not detect ed Not Available [facility] ([facility]) [address] [place], [address], 08/31/2023 07:17:04 08/20/19 24 08/23/2023 GI PROFI LE, STOOL , PCR shigella/ent eroinvasive E coli NOT DETECT ED not detect ed Not Available [facility] ([facility]) [address] [place], [address], 08/31/2023 07:17:04 08/20/19 24 08/23/2023 GI PROFI LE, STOOL , PCR cryptosporid ium NOT DETECT ED not detect ed Not Available [facility] ([facility]) [address] [place], [address], 08/31/2023 07:17:04 08/20/19 24 08/23/2023 GI PROFI LE, STOOL , PCR cyclospora cayetanensis NOT DETECT ED not detect ed Not Available [facility] ([facility]) [address] [place], [address], 08/31/2023 07:17:04 08/20/19 24 08/23/2023 GI PROFI LE, STOOL , PCR entamoeba histolytica NOT DETECT ED not detect ed Not Available [facility] ([facility]) [address] [place], [address], 08/31/2023 07:17:04 08/20/19 24 08/23/2023 GI PROFI LE, STOOL , PCR giardia lamblia NOT DETECT ED not detect ed Not Available [facility] ([facility]) [address] [place], [address], 08/31/2023 07:17:04 08/20/19 24 08/23/2023 GI PROFI LE, STOOL , PCR adenovirus F 40/41 NOT DETECT ED not detect ed Not Available [facility] ([facility]) [address] [place], [address], 08/31/2023 07:17:04 08/20/19 24 08/23/2023 GI PROFI LE, STOOL , PCR astrovirus NOT DETECT ED not detect ed Not Available [facility] ([facility]) [address] [place], [address], 08/31/2023 07:17:04 08/20/19 24 08/23/2023 GI PROFI LE, STOOL , PCR norovirus GI/gii NOT DETECT ED not detect ed Not Available [facility] ([facility]) [address] [place], [address], 08/31/2023 07:17:04 08/20/19 24 08/23/2023 GI PROFI LE, STOOL , PCR rotavirus A NOT DETECT ED not detect ed Not Available [facility] ([facility]) [address] [place], [address], 08/31/2023 07:17:04 08/20/19 24 08/23/2023 GI PROFI LE, STOOL , PCR sapovirus NOT DETECT ED not detect ed Not Available [facility] ([facility]) [address] [place], [address], 08/31/2023 07:17:04 08/20/19 24 08/27/2023 FECAL FAT, QUALI TATIV E fats, neutral NORMAL Aida l (<60 Dropl ets/H PF) Not Available [facility] ([facility]) [address] [place], [address], 08/31/2023 07:17:05 08/20/19 24 08/27/2023 FECAL FAT, QUALI TATIV E fats, total NORMAL Aida l (<100 Dropl ets/H PF) Not Available [facility] ([facility]) [address] [place], [address], 08/31/2023 07:17:05 08/20/19 24 08/25/2023 CALPR OTECT IN, FECAL calprotectin , fecal 42 ug/g 0-120 Emilia ntrat ion Inter preta tion Follo w-Up < 5 - 50 ug/g Aida l None >50 -120 ug/g Borde rline Re-ev aluat e in 4-6 weeks >120 ug/g Abnor mal Repea t as clini hillary indic ated Not Available [facility] ([facility]) [address] [place], [address], 08/31/2023 07:17:06 08/20/19 24 08/26/2023 PANCR EATIC ELAST ASE, FECAL pancreatic elastase, fecal 251 ug_el ast./ g >200 Sever e Pancr eatic Insuf ficie ncy: <100 Moder ate Pancr eatic Insuf ficie ncy: 100 - 200 Aida l: >200 Not Available [facility] ([facility]) [address] [place], [address], 08/31/2023 07:17:07 08/20/19 24 08/30/2023 OVA + АНДРЕЙ ITE EXAM ova + parasite exam Final report These resul ts were obtai natacha using wet prepa ratio n(s) and trich gene stain ed smear . This test does not inclu de testi ng for Crypt ospor idium parvu m, Cyclo spora , or Micro spori sis. Not Available [facility] ([facility]) [address] [place], [address], 08/31/2023 07:17:08 08/20/19 24 08/30/2023 OVA + АНДРЕЙ ITE EXAM result 1 COMMEN T No ova, cysts , or андрей ites seen. One negat rhianna speci men does not rule out the possi bilit y of a андрей itic infec tion. Not Available [facility] ([facility]) [address] [place], [address], 08/31/2023 07:17:08 Result Notes None recorded. Procedures Surgical History Date Name Laterality Status Provider Name and Address Organization Details Recorded Time cholecystectomy completed Radha HARPER [facility] 05/30/2023 15:30:19 Imaging Results None recorded. Procedure Notes None recorded. Medical Equipment None Reported. Allergies Allergen ID Allergen Name Allergen Category Reaction Reaction Severity Criticality Documentation Date Start Date Code Code System Note Provider Name and Address Organization Details Recorded Time 226175 latex environme nt,medica tion Not available Not available high 05/30/2023 33158 91 RxNorm ZACHARIAH Michelle [facility] [place] 15:27:16 517563 Propylami ne derivativ e with histamine receptor antagonis t mechanism of action (substanc e) medicatio n Not available Not available Not available 05/30/2023 83269 8008 SNOMED Radha saldana, [place] - [facility] - [place] [facility] [place] 4 15:27:09 Medications Name Sig Start Date Stop Date Status Note LastModified by Organization Details LastModified Time fluoxetine 40 mg capsule TAKE ONE CAPSULE BY MOUTH EVERY DAY active Not Available Not Available No t Available fluconazole 100 mg tablet TAKE ONE TABLET BY MOUTH EVERY DAY NEEDED TO PREVENT YEAST INFECTION active Not Available Not Available No t Available prednisone 10 mg tablet TAKE ACCORDING TO PRINTED OUT INSTRUCTION SHEET active Not Available Not Available No t Available colistin (colistimeth ate sodium) 150 mg solution for injection active Not Available Not Available No t Available clindamycin HCl 300 mg capsule TAKE ONE CAPSULE BY MOUTH THREE TIMES DAILY -- FINISH ALL MEDICINE -- active Not Available Not Available Not Available fluconazole 150 mg tablet TAKE ONE TABLET BY MOUTH EVERY DAY NEEDED FOR 5 DAYS active Not Available Not Available No t Available hydrocodone 5 mg-acetamino phen 325 mg tablet TAKE ONE TABLET BY MOUTH THREE TIMES DAILY MAY CAUSE DROWSINESS active Not Available Not Available N ot Available phenazopyrid ine 200 mg tablet TAKE ONE TABLET BY MOUTH THREE TIMES DAILY FOR 2 DAYS -- FINISH ALL MEDICINE -- active Not Available Not Available Not Available lisinopril 20 mg tablet TAKE ONE TABLET BY MOUTH EVERY DAY active Not Available Not Available No t Available prednisone 20 mg tablet TAKE TWO TABLETS BY MOUTH ONCE DAILY FOR 7 DAYS -- FINISH ALL MEDICINE -- --TAKE WITH FOOD-- active Not Available Not Available No t Available omeprazole 40 mg capsule,ladan yed release TAKE ONE CAPSULE BY MOUTH EVERY DAY 30 minutes BEFORE morning meal active Not Available Not Available No t Available triamcinolon e acetonide 0.1 % topical cream APPLY TOPICALLY TO THE AFFECTED AREA(S) TWICE DAILY FOR FOURTEEN DAYS, THEN STOP FOR FOURTEEN DAYS THEN continue using NEEDED active Not Available Not Available No t Available levothyroxin e 75 mcg tablet TAKE ONE TABLET BY MOUTH EVERY MORNING ON an EMPTY stomach active Not Available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
--- OUTSIDE RECORDS SUMMARY | 2024-11-10 09:29 | XMS_ITS | Encounter Summary ---
Author Organization [employer] [facility] [employer] Address [address] [place] [address] Care Team Providers Care Hairspring Cutter Name Role Phone Unavailable Primary Care Provider Unavailabl e Encounter Details Date Type Department Care Team (Late st Contact Info) Description 08/18/2020 Transcribed Document [facility] Family Medicine [address] [place] [address] ProviderTrevor MD [address] [place] [address] Social History Tobacco Use Types [...] then performed. CT and report to follow. Electronically signed by Velma Riley Conversion Hand Method Lasting Machine Operator Cerner at 09/10/2022 7:55 PM CDT documented in this encounter Plan of Treatment Not on file documented as of this encounter Visit Diagnoses Not on filedocumented in this encounter
--- OUTSIDE RECORDS SUMMARY | 2024-11-10 09:29 | XMS_ITS | Referral Summary ---
Author Organization [employer] [facility] [employer] Address [address] [place], [place] [id number] Care Team Providers Care Night Baker Name Role Phone Unavailable Primary Care Provider [...]
--- OUTSIDE RECORDS SUMMARY | 2024-11-10 09:29 | XMS_ITS | Clinical Summary ---
Author Organization Healthcare Address [address] [place] [address] Care Team Providers Care Boiler Helper Name Role Phone Unavailable Primary Care Provider [...] X-Ray: Full Mouth 1965 [facility]-Depression Screening 1965 [facility]-/Child/Adol SDOH Screenings 1965 [facility]- SDOH Screenings 1981 [facility]-Adult SDOH Screenings 1981 [facility]-DTaP,Tdap,and Td Vaccine s (1 - Tdap) 1982 [facility]-Pap Smear 1984 [facility]-Cervical Cancer Screening 1993 [facility]-HPV/Cotest 1993 CT Colonography 2008 Colonoscopy 2008 FIT-DNA 2008 FIT 2008 FOBT 2008 Sigmoidoscopy 2008 [facility]-Colorectal Cancer Screening 2008 [facility]-Pneumococcal Vaccine: 50 + Years (1 of 1 - PCV) 2013 [facility]-Zoster Vaccines (1 of 2) 2013 [facility]-DUYNV-76 Vaccine (1 - 20 24-25 season) 2024 [facility]-Influenza Vaccine (Seaso n Ended) 2025 [facility]-RSV Vaccine: 60+ Years o r (1 - 1-dose 75+ series) 2038 HPV Vaccines Aged Out No longer eligi ble based on patient's age to complete this topic [facility]-HIB Vaccines Aged Out No longer e [...]
--- OUTSIDE RECORDS SUMMARY | 2024-11-10 09:29 | XMS_ITS | Encounter Summary ---
Author Organization [employer] [facility] [employer] Address [address] [place] [address] Care Team Providers Care Efficiency Clerk Name Role Phone Unavailable Primary Care Provider Unavailabl e Encounter Details Date Type Department Care Team (Late st Contact Info) Description 08/18/2020 Transcribed Document [facility] Family Medicine [address] [place] [address] ProviderTrevor MD [address] [place] [address] Social History Tobacco Use Types [...] Milner MD - 08/18/2020 2:24 PM CD[place] [address] RADHA MARTINEZ :1965 Visit Time:08/18/2020 Your Visit Summary Your Care Team Admitting Physician - JOSE ELIAS LIN MD-SNU Attending Physician - JOSE ELIAS LIN MD-SNU Primary Care Physician - SMILEY AKINS MD-[facility] Referring Physician - JOSE ELIAS LIN MD-SNU Your Diagnosis Radiculopathy, lumbar region, Radiculopathy, lumbar region Discharge Vitals Temperature 36.2 ??C Blood Pressure 113/57 What to do next Follow-Up Appointments Follow Up with JOSE ELIAS LIN MD-SNU When Within 2 to 3 days Comments Call for follow up appointment for results Where: [address] [facility] [address] [place] [address]- Medications What How Much When Instructions Next [...] Milligram(s) Every Day fluticasone nasal (Flonase) 2 [place](s) Every Day as needed for Congestion guaiFENesin [...] through the local health department and the [place] Department for Public Health. Those organizations are [...] and need to call 911, notify the resaw operator that you have, or think you [...] clean your hands with an alcohol-based hand accounts receivable supervisor that contains at least 60% alcohol. Clean your hands often. ??? Wash hands: Wash your hands often with soap and water for at least 20 seconds when visibly dirty. This is especially important after blowing your nose, coughing or sneezing, and going to the bathroom, and before eating or preparing food. ??? Hand accounts receivable supervisor: Use an alcohol-based hand accounts receivable supervisor with at least 60% alcohol, covering all [...] and water or put them in the manager mobility. Clean all high-touch surfaces every day. Clean [...] or body fluids on them. ??? Household continuous improvement coordinator and disinfectants: Clean the area or item [...] list of disinfectants can be found here: https://www.epa.gov/pesticide-registration/kvqm-r-jgybhmcdtnmhc-gpx-vprqymh-pd rs-cov-2 Lumbar Puncture, Care After This sheet [...] a bad smell. General instructions ??? Take eyqm-buh-cmnvthg and prescription medicines only as told by [...] provider. Document Revised: 06/27/2017 Document Reviewed: 06/27/2017 [employer] Patient Education ?? 2020 [employer] Myelogram A myelogram is an imaging [...] including vitamins, herbs, eye drops, creams, and cokg-tvi-dzhlulr medicines. ??? Any problems you or family [...] by your health care provider. ??? Take hzce-vdj-auhhjza and prescription medicines only as told by [...] provider. Document Revised: 07/23/2019 Document Reviewed: 07/24/2019 [employer] Patient Education ?? 2020 [employer]. Emergency Awareness and Preventative Care STROKE is [...] Assistance with quitting is available by contacting 2-520-JYUS-NOW. This is a free resource providing counseling, [...] 1: Device Comment 1 Patient Name:RADHA MARTINEZ I have received and understand this information and was given the opportunity to ask questions. Patient/Real Estate Administrative Assistant Name: Patient/Real Estate Administrative Assistant Signature: Relationship to Patient: Clinician/Hospital Real Estate Administrative Assistant Signature: Date: Electronically signed by Rosemary, Velma Conversion Conservation Science Officer Cerner at 09/10/2022 8:10 PM CDT documented in this encounter Plan of Treatment Not on file documented as of this encounter Visit Diagnoses Not on filedocumented in this encounter
[2024-11-10 09:51] VITALS: BP 134/80; PULSE 93; RESP 14; O2SAT 97; BMI 24.3
== END 2024-11-10 23:59 | disposition home or self-care (01) ==
PROVIDERS: PCP Nurse Practitioner; Visit Provider Nurse Practitioner Family
DX: M50.120 Mid-cervical disc disorder, unspecified level (principal); M51.16 Intervertebral disc disorders with radiculopathy, lumbar region; Z79.1 Long term (current) use of non-steroidal anti-inflammatories (NSAID); Z79.891 Long term (current) use of opiate analgesic; Z79.899 Other long term (current) drug therapy
CPT/HCPCS: 99212; G0463

== ENCOUNTER 2024-12-10 13:08 | Outpatient (POV) | payer MEDICARE, MEDICAID, SELFPAY ==
--- OUTSIDE RECORDS SUMMARY | 2024-12-10 13:11 | XMS_ITS | Referral Summary ---
Author Organization [employer] ([place], [place], [place], [place]) Address [address] [place] [address] Care Team Providers Care Glory Hole Tender Name Role Phone Unavailable Primary Care Provider [...]
--- OUTSIDE RECORDS SUMMARY | 2024-12-10 13:11 | XMS_ITS | Encounter Summary ---
Author Organization [employer] ([place], [place], [place], [place]) Address [address] [place] [address] Care Team Providers Care Tax Accounting Assistant Name Role Phone Unavailable Primary Care Provider Unavailabl e Encounter Details Date Type Department Care Team (Late st Contact Info) Description 08/18/2020 Transcribed Document [facility] [place] [address] [place] [address] ProviderTrevor MD [address] [place] [address] Social History Tobacco Use Types [...] Historical ProviderMD - 08/18/2020 10:27 AM CDT Vital [...]
--- OUTSIDE RECORDS SUMMARY | 2024-12-10 13:11 | XMS_ITS | Encounter Summary ---
Author Organization [employer] ([place], [place], [place], [place]) Address [address] [place] [address] Care Team Providers Care Inter Com Installer Name Role Phone Unavailable Primary Care Provider Unavailabl e Encounter Details Date Type Department Care Team (Late st Contact Info) Description 08/18/2020 Transcribed Document [facility] [place] Family Medicine [address] [place] [address] ProviderTrevor MD [address] [place] [address] Social History Tobacco Use Types [...] Standing scale Routine Weight Entry Format : [place] Routine Weight, Pounds : 163 lb Routine Weight Calculation : 74.09 kg Height Source : Measured Height Entry Format : [place] Height, Feet : 5 ft Height, Inches [...]
--- OUTSIDE RECORDS SUMMARY | 2024-12-10 13:11 | XMS_ITS | Encounter Summary ---
Author Organization [employer] ([place], [place], [place], [place]) Address [address] [place] [address] Care Team Providers Care Orchard Manager Name Role Phone Unavailable Primary Care Provider Unavailabl e Encounter Details Date Type Department Care Team (Late st Contact Info) Description 08/18/2020 Transcribed Document [facility] [place] [address] [place] [address] ProviderTrevor MD [address] [id number] Social History Tobacco Use Types Packs/Day Years Used Date Smoking Tobacco: Never Assessed Comments Unknown Sex and Gender Information Value Date Recorded Sex Assigned at Not on file Legal Sex Female 6:31 PM CDT Gender Identity Not on file Sexual Orientation Not on file documented as of this encounter Miscellaneous Notes * Cerner Conversion Note - Historical ProviderMD - 08/18/2020 1:35 PM CDT Patient: [...]
--- OUTSIDE RECORDS SUMMARY | 2024-12-10 13:11 | XMS_ITS | Encounter Summary ---
Author Organization [employer] ([place], [place], [place], [place]) Address [address] [place] [address] Care Team Providers Care Pool Servicer Name Role Phone Unavailable Primary Care Provider Unavailabl e Encounter Details Date Type Department Care Team (Late st Contact Info) Description 08/18/2020 Transcribed Document [facility] [place] Family Medicine [address] [place] [address] ProviderTrevor MD [address] [place] [address] Social History Tobacco Use Types Packs/Day Years Used Date Smoking Tobacco: Never Assessed Comments Unknown Sex and Gender Information Value Date Recorded Sex Assigned at Not on file Legal Sex Female 6:31 PM CDT Gender Identity Not on file Sexual Orientation Not on file documented as of this encounter Miscellaneous Notes * Cerner Conversion Note - Trevor ProviderMD - 08/18/2020 2:24 PM CDT [facility] [place] [address] RADHA CHAPPELL :1965 Visit Time:08/18/2020 Your Visit Summary Your Care Team Admitting Physician - JOSE ELIAS LIN MD-SNU Attending Physician - JOSE ELIAS LIN MD-SNU Primary Care Physician - SMILEY AKINS [facility] Referring Physician - JOSE ELIAS LIN MD-SNU Your Diagnosis Radiculopathy, lumbar region, Radiculopathy, lumbar region Discharge Vitals Temperature 36.2 ??C Blood Pressure 113/57 What to do next Follow-Up Appointments Follow Up with JOSE ELIAS LIN MD-SNU When Within 2 to 3 days Comments Call for follow up appointment for results Where: [address] [facility] [address] [place] [address]- Medications What How Much When Instructions Next [...] Milligram(s) Every Day fluticasone nasal (Flonase) 2 [place](s) Every Day as needed for Congestion guaiFENesin [...] through the local health department and the [place] Department for Public Health. Those organizations are [...] and need to call 911, notify the grommet machine operator that you have, or think [...] clean your hands with an alcohol-based hand firearms inspector that contains at least 60% alcohol. Clean your hands often. ??? Wash hands: Wash your hands often with soap and water for at least 20 seconds when visibly dirty. This is especially important after blowing your nose, coughing or sneezing, and going to the bathroom, and before eating or preparing food. ??? Hand firearms inspector: Use an alcohol-based hand firearms inspector with at least 60% alcohol, covering all [...] and water or put them in the oil recovery operator. Clean all high-touch surfaces every day. Clean [...] or body fluids on them. ??? Household directory operator and disinfectants: Clean the area or [...] list of disinfectants can be found here: https://www.epa.gov/pesticide-registration/nime-f-sfwgusthhzjnk-sgd-jfpymjr-bl rs-cov-2 Lumbar Puncture, Care After This sheet [...] a bad smell. General instructions ??? Take kvlq-yel-ckvzcbr and prescription medicines only as told by [...] provider. Document Revised: 06/27/2017 Document Reviewed: 06/27/2017 [employer] Patient Education ?? 2020 [employer] Myelogram A myelogram is an imaging [...] including vitamins, herbs, eye drops, creams, and bfyb-zxc-tutkvcx medicines. ??? Any problems you or family [...] by your health care provider. ??? Take kcmj-tuj-fnodkny and prescription medicines only as told by [...] provider. Document Revised: 07/23/2019 Document Reviewed: 07/24/2019 [employer] Patient Education ?? 2020 [employer] Emergency Awareness and Preventative Care STROKE is [...] Assistance with quitting is available by contacting 2-807-DKYV-NOW. This is a free resource providing counseling, [...] Comment 1: Device Comment 1 Patient Name:RADHA CHAPPELL XAVIER I have received and understand this information and was given the opportunity to ask questions. 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
--- OUTSIDE RECORDS SUMMARY | 2024-12-10 13:11 | XMS_ITS | Encounter Summary ---
Author Organization [employer] ([place], [place], [place], [place]) Address [address] [place] [address] Care Team Providers Care Corporate Tax Manager Name Role Phone Unavailable Primary Care Provider Unavailabl e Encounter Details Date Type Department Care Team (Late st Contact Info) Description 08/18/2020 Transcribed Document [facility] [place] Medicine [facility] [place] [address] ProviderTrevor MD [address] [place] [address] Social History Tobacco Use Types [...] Trevor ProviderMD - 08/18/2020 2:23 PM CDT Patient Education [...] through the local health department and the [place] Department for Public Health. Those organizations are [...] and need to call 911, notify the asphalt heater operator that you have, or think you [...] clean your hands with an alcohol-based hand belt knife feeder that contains at least 60% alcohol. Clean your hands often. ??? Wash hands: Wash your hands often with soap and water for at least 20 seconds when visibly dirty. This is especially important after blowing your nose, coughing or sneezing, and going to the bathroom, and before eating or preparing food. ??? Hand belt knife feeder: Use an alcohol-based hand belt knife feeder with at least 60% alcohol, covering all [...] and water or put them in the electronic prepress operator. Clean all high-touch surfaces every day. [...] or body fluids on them. ??? Household sterile tech and disinfectants: Clean the area or item [...] list of disinfectants can be found here: https://www.epa.gov/pesticide-registration/bjsm-v-gaqnahnqyzslm-tyn-ueasevb-mz rs-cov-2 Lumbar Puncture, Care After This sheet [...] a bad smell. General instructions ??? Take emzq-miq-hwmnkxn and prescription medicines only as told by [...] provider. Document Revised: 06/27/2017 Document Reviewed: 06/27/2017 [employer] Patient Education ? 2020 [employer] Myelogram A myelogram is an imaging [...] including vitamins, herbs, eye drops, creams, and qmdh-fsx-ricrugd medicines. ??? Any problems you or family [...] by your health care provider. ??? Take epzd-egw-ceqsrpj and prescription medicines only as told by [...] provider. Document Revised: 07/23/2019 Document Reviewed: 07/24/2019 [employer] Patient Education ? 2020 [employer] documented in this encounter Plan of Treatment Not on file documented as of this encounter Visit Diagnoses Not on filedocumented in this encounter
--- OUTSIDE RECORDS SUMMARY | 2024-12-10 13:11 | XMS_ITS | Clinical Summary ---
Author Organization [employer] ([place], [place], [place], [place]) Address [address] [place] [address] Care Team Providers Care Head Animal Trainer Name Role Phone Unavailable Primary Care Provider [...]
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
--- OUTSIDE RECORDS SUMMARY | 2024-12-10 13:12 | XMS_ITS | Encounter Summary ---
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 Name Role Phone Unavailable Primary Care Provider Unavailabl e Encounter Details Date Type Department Care Team (Late st Contact Info) Description 08/18/2020 Transcribed Document [facility] [place] [address] [place] [address] ProviderTrevor MD [address] [place] [address] Social History Tobacco Use Types [...] materials Teaching Evaluation : Verbalizes understanding JOAQUINA GUTIERREZ, MENDEL - 08/18/2020 14:23 EDT Electronically signed by Rosemary [facility] Conversion Economic Research Analyst Cerner at 09/10/2022 7:53 PM CDT documented in this encounter Plan of Treatment Not on file documented as of this encounter Visit Diagnoses Not on filedocumented in this encounter
--- OUTSIDE RECORDS SUMMARY | 2024-12-10 13:12 | XMS_ITS | Clinical Summary ---
Author Organization Healthcare Address [address] [place] [address] Care Team Providers Care Post Graduate Intern Name Role Phone Unavailable Primary Care Provider Unavailabl e Social History Tobacco Use Types Packs/Day Years Used Date Smoking Tobacco: Never Assessed Comments Unknown Sex and Gender Information Value Date Recorded Sex Assigned at Not on file Legal Sex Female 7:47 PM EDT Gender Identity Not on file Sexual Orientation Not on file Plan of Treatment Health Maintenance Due Date Last Done Comments [facility]Y-Depression Screening 1965 [facility]-/Child/Adol SDOH Screenings 1965 [...] 2013 [facility]Y-Zoster Vaccines (1 of 2) 2013 TVC-AMULX-69 Vaccine (1 - 20 24-25 season) 2024 UKY-Influenza Vaccine (#1) 2025 UKY-RSV Vaccine: 60+ Years o r [...]
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
[2024-12-10 13:47] VITALS: BP 109/61; PULSE 84; RESP 18; O2SAT 94; BMI 23.5
== END 2024-12-10 23:59 | disposition home or self-care (01) ==
PROVIDERS: PCP Nurse Practitioner; Visit Provider Nurse Practitioner Family
DX: M50.10 Cervical disc disorder with radiculopathy, unspecified cervical region (principal); M51.16 Intervertebral disc disorders with radiculopathy, lumbar region; Z79.891 Long term (current) use of opiate analgesic; Z79.1 Long term (current) use of non-steroidal anti-inflammatories (NSAID); Z79.899 Other long term (current) drug therapy
CPT/HCPCS: 99212; G0463

== ENCOUNTER 2024-12-17 13:47 | Outpatient (POV) | payer MEDICARE, MEDICAID, SELFPAY ==
--- OUTSIDE RECORDS SUMMARY | 2024-12-17 13:51 | XMS_ITS | Clinical Summary ---
Author Organization Healthcare Address [address] [place] [address] Care Team Providers Care Tip Stitcher Name Role Phone Unavailable Primary Care Provider [...] 2013 [facility]Y-Zoster Vaccines (1 of 2) 2013 [id number] Vaccine (1 - 20 24-25 season) 2024 [...]
--- OUTSIDE RECORDS SUMMARY | 2024-12-17 13:51 | XMS_ITS | Encounter Summary ---
Author Organization [employer] ([place], [place], [place], [place]) Address [address] [place] [address] Care Team Providers Care Fitness Technician Name Role Phone Unavailable Primary Care Provider Unavailabl e Encounter Details Date Type Department Care Team (Late st Contact Info) Description 08/18/2020 Transcribed Document [facility] [place] Family Medicine [address] [place] [address] ProviderTrevor MD [address] [place] [address] Social History Tobacco Use Types [...] Trevor ProviderMD - 08/18/2020 2:[address] [facility] [place] [address] RADHA CHAPPELL :1965 Visit Time:08/18/2020 Your Visit Summary Your Care Team Admitting Physician - JOSE ELIAS LIN MD-SNU Attending Physician - JOSE ELIAS LIN MD-SNU Primary Care Physician - SMILEY AKINS MD-[facility] Referring Physician - JOSE ELIAS LIN MD-SNU Your Diagnosis Radiculopathy, lumbar region, Radiculopathy, lumbar region Discharge Vitals Temperature 36.2 ??C Blood Pressure 113/57 What to do next Follow-Up Appointments Follow Up with JOSE ELIAS LIN MD-SNU When Within 2 to 3 days Comments Call for follow up appointment for results Where: [address] [facility] [address] [place] [address]- Medications What How Much When Instructions Next [...] Milligram(s) Every Day fluticasone nasal (Flonase) 2 [place]inchester(s) Every Day as needed for Congestion guaiFENesin [...] through the local health department and the [place] Department for Public Health. Those organizations are [...] and need to call 911, notify the automatic drilling machine operator that you have, or think [...] clean your hands with an alcohol-based hand roving technician that contains at least 60% alcohol. Clean your hands often. ??? Wash hands: Wash your hands often with soap and water for at least 20 seconds when visibly dirty. This is especially important after blowing your nose, coughing or sneezing, and going to the bathroom, and before eating or preparing food. ??? Hand roving technician: Use an alcohol-based hand roving technician with at least 60% alcohol, covering all [...] and water or put them in the metal smelter. Clean all high-touch surfaces every day. Clean [...] or body fluids on them. ??? Household stock receiver and disinfectants: Clean the area or item [...] list of disinfectants can be found here: https://www.epa.gov/pesticide-registration/xogd-l-hpqkdmnnoasbs-ljn-fixohdo-li rs-cov-2 Lumbar Puncture, Care After This sheet [...] a bad smell. General instructions ??? Take vjug-ujn-ebnyprl and prescription medicines only as told by [...] provider. Document Revised: 06/27/2017 Document Reviewed: 06/27/2017 [employer] Patient Education ?? 2020 [employer] Myelogram A myelogram is an imaging [...] including vitamins, herbs, eye drops, creams, and mpnz-ivs-gsujylg medicines. ??? Any problems you or family [...] by your health care provider. ??? Take mxqe-hly-ugkcyqv and prescription medicines only as told by [...] provider. Document Revised: 07/23/2019 Document Reviewed: 07/24/2019 [employer] Patient Education ?? 2020 [employer]. Emergency Awareness and Preventative Care [place] is [...] Assistance with quitting is available by contacting 2-967-MTZM-NOW. This is a free resource providing counseling, [...] was given the opportunity to ask questions. Patient/Edge Stitcher Name: Patient/Edge Stitcher Signature: Relationship to Patient: Clinician/Hospital Edge Stitcher Signature: Date: Electronically signed by Rosemary, [facility] Conversion Appellate Conferee Cerner at 09/10/2022 8:10 PM CDT documented in this encounter Plan of Treatment Not on file documented as of this encounter Visit Diagnoses Not on filedocumented in this encounter
--- OUTSIDE RECORDS SUMMARY | 2024-12-17 13:51 | XMS_ITS | Encounter Summary ---
Author Organization [employer] ([place], [place], [place], [place]) Address [address] [place] [address] Care Team Providers Care Trench Shovel Operator Name Role Phone Unavailable Primary Care Provider Unavailabl e Encounter Details Date Type Department Care Team (Late st Contact Info) Description 08/18/2020 Transcribed Document [facility] [place] [address] [place] [address] ProviderTrevor MD [address] [place] [address] Social History Tobacco Use Types [...] - 08/18/2020 10:27 EDT Electronically signed by Velma Riley Conversion Bullet Swaging Machine Operator Cerner at 09/10/2022 8:05 PM CDT documented in this encounter Plan of Treatment Not on file documented as of this encounter Visit Diagnoses Not on filedocumented in this encounter
--- OUTSIDE RECORDS SUMMARY | 2024-12-17 13:51 | XMS_ITS | Encounter Summary ---
Author Organization [employer] ([place], [place], [place], [place]) Address [address] [place] [address] Care Team Providers Care Seismograph Computer Name Role Phone Unavailable Primary Care Provider Unavailabl e Encounter Details Date Type Department Care Team (Late st Contact Info) Description 08/18/2020 Transcribed Document [facility] [place] Family Medicine [address] [place] [address] ProviderTrevor MD [address] [place] [address] Social History Tobacco Use Types [...] Standing scale Routine Weight Entry Format : Mcdonough Routine Weight, Pounds : 163 lb Routine Weight Calculation : 74.09 kg Height Source : Measured Height Entry Format : Mcdonough Height, Feet : 5 ft Height, Inches [...]
--- OUTSIDE RECORDS SUMMARY | 2024-12-17 13:51 | XMS_ITS | Clinical Summary ---
Author Organization [employer] ([place], [place], [place], [place]) Address [address] [place] [address] Care Team Providers Care Flagman Name Role Phone Unavailable Primary Care Provider [...]
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
--- OUTSIDE RECORDS SUMMARY | 2024-12-17 13:51 | XMS_ITS | Encounter Summary ---
Author Organization [employer] ([place], [place], [place], [place]) Address [address] [place] [address] Care Team Providers Care Production Team Leader Name Role Phone Unavailable Primary Care Provider Unavailabl e Encounter Details Date Type Department Care Team (Late st Contact Info) Description 08/18/2020 Transcribed Document [facility] Family Medicine [address] [place] [address] ProviderTrevor MD [address] [place] [address] Social History Tobacco Use Types [...] 08/18/2020 14:23 EDT Electronically signed by Rosemary [facility] Conversion [employer] Exchange Administrator Cerner at 09/10/2022 7:53 PM CDT documented in this encounter Plan of Treatment Not on file documented as of this encounter Visit Diagnoses Not on filedocumented in this encounter
--- OUTSIDE RECORDS SUMMARY | 2024-12-17 13:51 | XMS_ITS | Encounter Summary ---
Author Organization [employer] ([place], [place], [place], [place]) Address [address] [place] [address] Care Team Providers Care Commercial Lines Sales Executive Name Role Phone Unavailable Primary Care Provider Unavailabl e Encounter Details Date Type Department Care Team (Late st Contact Info) Description 08/18/2020 Transcribed Document [facility] [place] [address] [place] [address] ProviderTrevor MD [address], [place] [id number] Social History Tobacco Use Types Packs/Day Years [...]
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
--- OUTSIDE RECORDS SUMMARY | 2024-12-17 13:51 | XMS_ITS | Referral Summary ---
Author Organization [employer] ([place], [place], [place]) Address [address] [place] [address] Care Team Providers Care Vamp Stitcher Name Role Phone Unavailable Primary Care [...]
--- OUTSIDE RECORDS SUMMARY | 2024-12-17 13:51 | XMS_ITS | Encounter Summary ---
Author Organization [employer] ([place], [place], [place], [place]) Address [address] [place] [address] Care Team Providers Care Order Builder Loader Name Role Phone Unavailable Primary Care Provider Unavailabl e Encounter Details Date Type Department Care Team (Late st Contact Info) Description 08/18/2020 Transcribed Document [facility] [place] Family Medicine [facility] [place] [address] ProviderTrevor MD [address] [place] [address] Social History Tobacco Use Types [...] through the local health department and the [place] Department for Public Health. Those organizations are [...] and need to call 911, notify the teletypesetter operator that you have, or think you [...] clean your hands with an alcohol-based hand gm video that contains at least 60% alcohol. Clean your hands often. ??? Wash hands: Wash your hands often with soap and water for at least 20 seconds when visibly dirty. This is especially important after blowing your nose, coughing or sneezing, and going to the bathroom, and before eating or preparing food. ??? Hand gm video: Use an alcohol-based hand gm video with at least 60% alcohol, covering all [...] and water or put them in the pond worker. Clean all high-touch surfaces every day. Clean [...] body fluids on them. ??? Household stock transfer clerk and disinfectants: Clean the area or item [...] list of disinfectants can be found here: https://www.epa.gov/pesticide-registration/aerw-c-dbwifahhrnash-pzh-sqjlrxh-rs rs-cov-2 Lumbar Puncture, Care After This sheet [...] a bad smell. General instructions ??? Take fute-wls-zabwjoj and prescription medicines only as told by [...] provider. Document Revised: 06/27/2017 Document Reviewed: 06/27/2017 [employer] Patient Education ? 2020 [employer]. Myelogram A myelogram is an imaging [...] including vitamins, herbs, eye drops, creams, and ghkh-xxu-smjrimy medicines. ??? Any problems you or family [...] by your health care provider. ??? Take kywm-tfd-elnfnif and prescription medicines only as told by [...] provider. Document Revised: 07/23/2019 Document Reviewed: 07/24/2019 ElseOntela Patient Education ? 2020 [employer] documented in this encounter Plan of Treatment Not on file documented as of this encounter Visit Diagnoses Not on filedocumented in this encounter
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
[2024-12-17 14:37] VITALS: BP 165/89; BP 168/90; PULSE 91; RESP 14; O2SAT 97; BMI 24.3
== END 2024-12-17 23:59 | disposition home or self-care (01) ==
LOC: SC.PAIN 13:48
PROVIDERS: PCP Nurse Practitioner; Visit Provider Nurse Practitioner Family
DX: G56.02 Carpal tunnel syndrome, left upper limb (principal); Z79.1 Long term (current) use of non-steroidal anti-inflammatories (NSAID); Z79.891 Long term (current) use of opiate analgesic; Z79.899 Other long term (current) drug therapy
CPT/HCPCS: 99212; G0463

== ENCOUNTER 2024-12-30 08:47 | Outpatient (CLI) | payer MEDICARE, MEDICAID, SELFPAY ==
--- NOTE | 2024-12-30 08:48 | XR_ITS ---
FINAL REPORT CLINICAL HISTORY: Left Wrist pain COMPARISON: 06/14/2020 FINDINGS: LEFT WRIST Three views were obtained. There is no fracture or dislocation. There are minimal hypertrophic changes of osteoarthritis at the basilar joint. No soft tissue abnormality is identified. IMPRESSION: No acute process. Reviewed, Interpreted and Dictated by Pacheco Shoemaker MD Transcribed by Catherine Rojo Authenticated and [facility]
--- OUTSIDE RECORDS SUMMARY | 2024-12-30 08:50 | XMS_ITS | Clinical Summary ---
Author Organization [employer] ([place], [place], [place], [place]) Address [address] [place] [address] Care Team Providers Care Design/Animation Instructor Name Role Phone Unavailable Primary Care Provider [...]
--- OUTSIDE RECORDS SUMMARY | 2024-12-30 08:50 | XMS_ITS | Encounter Summary ---
Author Organization [employer] ([place], [place], [place], [place]) Address [address] [place] [address] Care Team Providers Care Operations Assistant Name Role Phone Unavailable Primary Care Provider Unavailabl e Encounter Details Date Type Department Care Team (Late st Contact Info) Description 08/18/2020 Transcribed Document [facility] [place] [address] [place] [address] ProviderTrevor MD [address] [place], [place] [id number] Social History Tobacco Use Types Packs/Day Years [...]
--- OUTSIDE RECORDS SUMMARY | 2024-12-30 08:51 | XMS_ITS | Referral Summary ---
Author Organization [employer] ([place], [place], [place], [place]) Address [address] [place] [address] Care Team Providers Care Neonatal Pediatric Nurse Name Role Phone Unavailable Primary Care Provider [...]
--- OUTSIDE RECORDS SUMMARY | 2024-12-30 08:51 | XMS_ITS | Encounter Summary ---
Author Organization [employer] ([place], [place], [place], [place]) Address [address] [place] [address] Care Team Providers Care Elephant Keeper Name Role Phone Unavailable Primary Care Provider Unavailabl e Encounter Details Date Type Department Care Team (Late st Contact Info) Description 08/18/2020 Transcribed Document [facility] [place] Family Medicine [address] [place] [address] ProviderTrevor MD [address] [place] [address] Social History Tobacco Use Types [...] 08/18/2020 14:23 EDT Electronically signed by Rosemary [facility] Conversion Hydrodynamics Teacher Cerner at 09/10/2022 7:53 PM CDT documented in this encounter Plan of Treatment Not on file documented as of this encounter Visit Diagnoses Not on filedocumented in this encounter
--- OUTSIDE RECORDS SUMMARY | 2024-12-30 08:51 | XMS_ITS | Encounter Summary ---
Author Organization [employer] ([place], [place], [place], [place]) Address [address] [place] [address] Care Team Providers Care Needle Felt Making Machine Operator Name Role Phone Unavailable Primary Care Provider Unavailabl e Encounter Details Date Type Department Care Team (Late st Contact Info) Description 08/18/2020 Transcribed Document [facility] [place] [address] [place] [address] ProviderTrevor MD [address] [place] [address] Social History Tobacco Use Types [...] ProviderMD - 08/18/2020 2:24 PM CDT [facility] [place] [id number] RADHA CHAPPELL :1965 Visit Time:08/18/2020 Your Visit Summary Your Care Team Admitting Physician - JOSE ELIAS LIN MD-SNU Attending Physician - JOSE ELIAS LIN MD-SNU Primary Care Physician - SMILEY AKINS MD-[facility] Referring Physician - JOSE ELIAS LIN MD-SNU Your Diagnosis Radiculopathy, lumbar region, Radiculopathy, lumbar region Discharge Vitals Temperature 36.2 ??C Blood Pressure 113/57 What to do next Follow-Up Appointments Follow Up with JOSE ELIAS LIN MD-SNU When Within 2 to 3 days Comments Call for follow up appointment for results Where: [address] [facility] [address] [place] [address]- Medications What How Much When Instructions Next [...] Milligram(s) Every Day fluticasone nasal (Flonase) 2 Sterling(s) Every Day as needed for Congestion guaiFENesin [...] through the local health department and the [place] Department for Public Health. Those organizations are [...] and need to call 911, notify the tubing machine operator that you have, or think [...] clean your hands with an alcohol-based hand rotary slicing machine operator that contains at least 60% alcohol. Clean your hands often. ??? Wash hands: Wash your hands often with soap and water for at least 20 seconds when visibly dirty. This is especially important after blowing your nose, coughing or sneezing, and going to the bathroom, and before eating or preparing food. ??? Hand rotary slicing machine operator: Use an alcohol-based hand rotary slicing machine operator with at least 60% alcohol, covering all [...] and water or put them in the real estate appraiser. Clean all high-touch surfaces every day. Clean [...] or body fluids on them. ??? Household tube puller and disinfectants: Clean the area or item [...] list of disinfectants can be found here: https://www.epa.gov/pesticide-registration/erei-c-cvfbwfykzimpu-bdb-rqdhnjg-jz rs-cov-2 Lumbar Puncture, Care After This sheet [...] a bad smell. General instructions ??? Take urkr-wrt-luwabtq and prescription medicines only as told by [...] provider. Document Revised: 06/27/2017 Document Reviewed: 06/27/2017 ElseFieldLens Patient Education ?? 2020 [employer] Myelogram A myelogram is an imaging [...] including vitamins, herbs, eye drops, creams, and wzrv-mhb-igsqntj medicines. ??? Any problems you or family [...] by your health care provider. ??? Take gjci-mat-mmdunhn and prescription medicines only as told by [...] provider. Document Revised: 07/23/2019 Document Reviewed: 07/24/2019 [employer] Patient Education ?? 2020 [employer]. Emergency Awareness and Preventative Care STROKE is [...] Assistance with quitting is available by contacting 7-417-GCYD-NOW. This is a free resource providing counseling, [...] was given the opportunity to ask questions. Patient/Quality Assurance Coach Name: Patient/Quality Assurance Coach Signature: Relationship to Patient: Clinician/Hospital Quality Assurance Coach Signature: Date: Electronically signed by Rosemary, [facility] Conversion Scan Coordinator Cerner at 09/10/2022 8:10 PM CDT documented in this encounter Plan of Treatment Not on file documented as of this encounter Visit Diagnoses Not on filedocumented in this encounter
--- OUTSIDE RECORDS SUMMARY | 2024-12-30 08:51 | XMS_ITS | Clinical Summary ---
Author Organization [facility] Address [address] [place] [address] Care Team Providers Care Professor Of Communication Name Role Phone Unavailable Primary Care Provider [...] Date Last Done Comments [facility]-Depression Screening 1965 [facility]-Infant/Child/Adol SDOH Screenings 1965 [...] 2013 [facility]-Zoster Vaccines (1 of 2) 2013 FKU-PTHKS-56 Vaccine (1 - 20 24-25 season) 2024 [...]
--- OUTSIDE RECORDS SUMMARY | 2024-12-30 08:51 | XMS_ITS | Encounter Summary ---
Author Organization [employer] ([place], [place], [place], [place]) Address [address] [place] [address] Care Team Providers Care Space Buyer Name Role Phone Unavailable Primary Care Provider Unavailabl e Encounter Details Date Type Department Care Team (Late st Contact Info) Description 08/18/2020 Transcribed Document [facility] [place] [facility] [address] ProviderTrevor MD [address] [place] [address] Social History Tobacco Use Types [...] and need to call 911, notify the rounding and backing machine operator that you have, or think [...] clean your hands with an alcohol-based hand artillery maintenance supervisor that contains at least 60% alcohol. Clean your hands often. ??? Wash hands: Wash your hands often with soap and water for at least 20 seconds when visibly dirty. This is especially important after blowing your nose, coughing or sneezing, and going to the bathroom, and before eating or preparing food. ??? Hand artillery maintenance supervisor: Use an alcohol-based hand artillery maintenance supervisor with at least 60% alcohol, covering [...] and water or put them in the telecom sales consultant. Clean all high-touch surfaces every day. Clean [...] or body fluids on them. ??? Household embossing clerk and disinfectants: Clean the area or [...] list of disinfectants can be found here: https://www.epa.gov/pesticide-registration/icdl-w-ocxloqivesjyx-cjp-uwzqgeg-qu rs-cov-2 Lumbar Puncture, Care After This sheet [...] a bad smell. General instructions ??? Take zxpk-vvr-mzyelga and prescription medicines only as told by [...] provider. Document Revised: 06/27/2017 Document Reviewed: 06/27/2017 Epigami Patient Education ? 2020 [employer]. Myelogram A myelogram is an imaging [...] including vitamins, herbs, eye drops, creams, and ccbq-ncu-pmqtgcl medicines. ??? Any problems you or family [...] by your health care provider. ??? Take fiay-prg-efwpnrn and prescription medicines only as told by [...] provider. Document Revised: 07/23/2019 Document Reviewed: 07/24/2019 ElseTusaar Corp Patient Education ? 2020 [employer] Inc. documented in this encounter Plan of Treatment Not on file documented as of this encounter Visit Diagnoses Not on filedocumented in this encounter
--- OUTSIDE RECORDS SUMMARY | 2024-12-30 08:51 | XMS_ITS | Encounter Summary ---
Author Organization [employer] ([place], [place], [place], [place]) Address [address] [place] [address] Care Team Providers Care Predictive Maintenance Specialist Name Role Phone Unavailable Primary Care Provider Unavailabl e Encounter Details Date Type Department Care Team (Late st Contact Info) Description 08/18/2020 Transcribed Document [facility] [place] [address] [place] [address] ProviderTrevor MD [address] [place] [address] Social History Tobacco Use Types [...] Standing scale Routine Weight Entry Format : Greenwood Routine Weight, Pounds : 163 lb Routine Weight Calculation : 74.09 kg Height Source : Measured Height Entry Format : [place]wood Height, Feet : 5 ft Height, Inches [...]
--- OUTSIDE RECORDS SUMMARY | 2024-12-30 08:51 | XMS_ITS | Encounter Summary ---
Author Organization [employer] ([place], [place], [place], [place]) Address [address] [place] [address] Care Team Providers Care Sas Clinical Programmer Name Role Phone Unavailable Primary Care Provider Unavailabl e Encounter Details Date Type Department Care Team (Late st Contact Info) Description 08/18/2020 Transcribed Document [facility] [place] Family Medicine [address] [place] [address] ProviderTrevor MD [address] [place] [address] Social History Tobacco Use Types [...]
== END 2024-12-30 23:59 | disposition home or self-care (01) ==
LOC: RAD 08:48
PROVIDERS: PCP Nurse Practitioner; Visit Provider Physician Assistant Surgical
DX: G56.02 Carpal tunnel syndrome, left upper limb (principal)
CPT/HCPCS: 73110

== ENCOUNTER 2025-01-08 09:40 | Outpatient (POV) | payer MEDICARE, MEDICAID, SELFPAY ==
--- OUTSIDE RECORDS SUMMARY | 2025-01-08 09:42 | XMS_ITS | Clinical Summary ---
Author Organization [employer] ([place], [place], [place], [place]) Address [address] [place] [address] Care Team Providers Care Manager Intensive Care Unit Name Role Phone Unavailable Primary Care Provider [...]
--- OUTSIDE RECORDS SUMMARY | 2025-01-08 09:42 | XMS_ITS | Encounter Summary ---
Author Organization [employer] ([place], [place], [place], [place]) Address [address] [place] [address] Care Team Providers Care Switchboard Wirer Name Role Phone Unavailable Primary Care Provider Unavailabl e Encounter Details Date Type Department Care Team (Late st Contact Info) Description 08/18/2020 Transcribed Document [facility] [place] Medicine [address] [place] [address] ProviderTrevor MD [address] [place] [address] Social History Tobacco Use Types [...] Standing scale Routine Weight Entry Format : Hoffman Routine Weight, Pounds : 163 lb Routine Weight Calculation : 74.09 kg Height Source : Measured Height Entry Format : Hoffman Height, Feet : 5 ft Height, Inches [...]
--- OUTSIDE RECORDS SUMMARY | 2025-01-08 09:42 | XMS_ITS | Encounter Summary ---
Author Organization [employer] ([place], [place], [place], [place]) Address [address] [place] [address] Care Team Providers Care Hydraulic Plumber Helper Name Role Phone Unavailable Primary Care Provider Unavailabl e Encounter Details Date Type Department Care Team (Late st Contact Info) Description 08/18/2020 Transcribed Document [facility] [place] [facility] [place] [address] ProviderTrevor MD [address] [place] [address] Social History Tobacco Use Types [...] through the local health department and the [place] Department for Public Health. Those organizations are [...] and need to call 911, notify the ballast cleaning machine operator that you have, or think [...] clean your hands with an alcohol-based hand director underwriter sales that contains at least 60% alcohol. Clean your hands often. ??? Wash hands: Wash your hands often with soap and water for at least 20 seconds when visibly dirty. This is especially important after blowing your nose, coughing or sneezing, and going to the bathroom, and before eating or preparing food. ??? Hand director underwriter sales: Use an alcohol-based hand director underwriter sales with at least 60% alcohol, covering all [...] and water or put them in the lawn caretaker. Clean all high-touch surfaces every day. Clean [...] or body fluids on them. ??? Household transitional care manager and disinfectants: Clean the area or item [...] list of disinfectants can be found here: https://www.epa.gov/pesticide-registration/ryod-p-rtzrwfiaqiylb-nxd-mrduehv-tr rs-cov-2 Lumbar Puncture, Care After This sheet [...] a bad smell. General instructions ??? Take uyvb-kng-jebzvbt and prescription medicines only as told by [...] provider. Document Revised: 06/27/2017 Document Reviewed: 06/27/2017 [employer] Patient Education ? 2020 [employer]. Myelogram A myelogram is an imaging [...] including vitamins, herbs, eye drops, creams, and gaow-xkm-gyvncoa medicines. ??? Any problems you or family [...] by your health care provider. ??? Take yiqe-nkv-teehgev and prescription medicines only as told by [...] provider. Document Revised: 07/23/2019 Document Reviewed: 07/24/2019 ElseFutureAdvisor Patient Education ? 2020 [employer]. Electronically signed by Velma Riley Conversion Hardware Supplies Sales Representative Cerner at 09/10/2022 8:12 PM CDT documented in this encounter Plan of Treatment Not on file documented as of this encounter Visit Diagnoses Not on filedocumented in this encounter
--- OUTSIDE RECORDS SUMMARY | 2025-01-08 09:42 | XMS_ITS | Encounter Summary ---
Author Organization [employer] ([place], [place], [place], [place]) Address [address] [place] [address] Care Team Providers Care Bsa/Aml Compliance Officer Name Role Phone Unavailable Primary Care Provider Unavailabl e Encounter Details Date Type Department Care Team (Late st Contact Info) Description 08/18/[address] [facility] [place] [address] [place] [address] ProviderTrevor MD [address] [place] [address] Social History Tobacco Use Types [...]
--- OUTSIDE RECORDS SUMMARY | 2025-01-08 09:42 | XMS_ITS | Referral Summary ---
Author Organization [employer] ([place], [place], [place], [place]) Address [address] [place] [address] Care Team Providers Care Bran Mixer Name Role Phone Unavailable Primary Care Provider [...]
--- OUTSIDE RECORDS SUMMARY | 2025-01-08 09:42 | XMS_ITS | Clinical Summary ---
Author Organization Healthcare Address [address] [place] [address] Care Team Providers Care Computer Publisher Name Role Phone Unavailable Primary Care Provider [...] 2013 UKY-Zoster Vaccines (1 of 2) 2013 [id number] Vaccine (1 - 20 24-25 season) 2024 [...]
--- OUTSIDE RECORDS SUMMARY | 2025-01-08 09:42 | XMS_ITS | Encounter Summary ---
Author Organization [employer] ([place], [place], [place], [place]) Address [address] [place] [address] Care Team Providers Care Forest Engineer Name Role Phone Unavailable Primary Care Provider Unavailabl e Encounter Details Date Type Department Care Team (Late st Contact Info) Description 08/18/2020 Transcribed Document [facility] [place] Medicine [address] [place] [address] ProviderTrevor MD [address] [place] [address] Social History Tobacco Use Types [...] 08/18/2020 14:23 EDT Electronically signed by Rosemary [facility] Conversion Division Head Cerner at 09/10/2022 7:53 PM CDT documented in this encounter Plan of Treatment Not on file documented as of this encounter Visit Diagnoses Not on filedocumented in this encounter
--- OUTSIDE RECORDS SUMMARY | 2025-01-08 09:42 | XMS_ITS | Encounter Summary ---
Author Organization [employer] ([place], [place], [place], [place]) Address [address] [place] [address] Care Team Providers Care Punchboard Inserter Name Role Phone Unavailable Primary Care Provider Unavailabl e Encounter Details Date Type Department Care Team (Late st Contact Info) Description 08/18/2020 Transcribed Document [facility] [place] [address] [place] [address] ProviderTrevor MD [address] [place] [address] Social History Tobacco Use Types [...] Trevor ProviderMD - 08/18/2020 2:24 PM CD[place] [address] RADHA CHAPPELL :1965 Visit Time:08/18/2020 Your Visit Summary Your Care Team Admitting Physician - JOSE ELIAS LIN MD-SNU Attending Physician - JOSE ELIAS LIN MD-SNU Primary Care Physician - SMILEY AKINS MD-[facility] Referring Physician - JOSE ELIAS LIN MD-SNU Your Diagnosis Radiculopathy, lumbar region, Radiculopathy, lumbar region Discharge Vitals Temperature 36.2 ??C Blood Pressure 113/57 What to do next Follow-Up Appointments Follow Up with JOSE ELIAS LIN MD-SNU When Within 2 to 3 days Comments Call for follow up appointment for results Where: [address] [place] [address]- Medications What How Much When Instructions Next [...] Milligram(s) Every Day fluticasone nasal (Flonase) 2 [place](s) Every Day as needed for Congestion guaiFENesin [...] through the local health department and the [place] Department for Public Health. Those organizations are [...] and need to call 911, notify the pouncing lathe operator that you have, or think you [...] clean your hands with an alcohol-based hand community support worker that contains at least 60% alcohol. Clean your hands often. ??? Wash hands: Wash your hands often with soap and water for at least 20 seconds when visibly dirty. This is especially important after blowing your nose, coughing or sneezing, and going to the bathroom, and before eating or preparing food. ??? Hand community support worker: Use an alcohol-based hand community support worker with at least 60% alcohol, covering all [...] and water or put them in the thread milling machine set up operator. Clean all high-touch surfaces every day. [...] or body fluids on them. ??? Household coding machine operator and disinfectants: Clean the area [...] list of disinfectants can be found here: https://www.epa.gov/pesticide-registration/srey-l-zmtqoqwbaafcb-ihb-awyrvdi-um rs-cov-2 Lumbar Puncture, Care After This sheet [...] a bad smell. General instructions ??? Take aznd-yus-wnzglni and prescription medicines only as told by [...] provider. Document Revised: 06/27/2017 Document Reviewed: 06/27/2017 [employer] Patient Education ?? 2020 [employer] Myelogram A myelogram is an imaging [...] including vitamins, herbs, eye drops, creams, and ygvs-fuo-khcetub medicines. ??? Any problems you or family [...] by your health care provider. ??? Take ppbr-xic-ulsoonh and prescription medicines only as told by [...] provider. Document Revised: 07/23/2019 Document Reviewed: 07/24/2019 [employer] Patient Education ?? 2020 [employer]. Emergency Awareness and Preventative Care STROKE is [...] Assistance with quitting is available by contacting 0-486-BMAM-NOW. This is a free resource providing counseling, [...] was given the opportunity to ask questions. Patient/Ski Production Supervisor Name: Patient/Ski Production Supervisor Signature: Relationship to Patient: Clinician/Hospital Ski Production Supervisor Signature: Date: Electronically signed by Rosemary, [facility] Conversion Admissions Manager Rn Cerner at 09/10/2022 8:10 PM CDT documented in this encounter Plan of Treatment Not on file documented as of this encounter Visit Diagnoses Not on filedocumented in this encounter
--- OUTSIDE RECORDS SUMMARY | 2025-01-08 09:42 | XMS_ITS | Encounter Summary ---
Author Organization [employer] ([place], [place], [place], [place]) Address [address] [place] [address] Care Team Providers Care Operations Research Analyst Name Role Phone Unavailable Primary Care Provider Unavailabl e Encounter Details Date Type Department Care Team (Late st Contact Info) Description 08/18/2020 Transcribed Document [facility] [place] [address] [place] [address] ProviderTrevor MD [address], [place] [id number] Social History Tobacco Use Types Packs/Day Years [...]
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
[2025-01-08 09:57] VITALS: BP 152/81; BP 171/87; PULSE 88; RESP 14; O2SAT 95; BMI 24.1
== END 2025-01-08 23:59 | disposition home or self-care (01) ==
PROVIDERS: PCP Nurse Practitioner; Visit Provider Nurse Practitioner Family
DX: M46.1 Sacroiliitis, not elsewhere classified (principal); Z79.1 Long term (current) use of non-steroidal anti-inflammatories (NSAID); Z79.891 Long term (current) use of opiate analgesic; Z79.899 Other long term (current) drug therapy
CPT/HCPCS: 99212; G0463

== ENCOUNTER 2025-02-17 11:29 | Day surgery (SDC) | payer MEDICARE, MEDICAID, SELFPAY ==
[2025-02-17 11:35] VITALS: BP 156/80; PULSE 83; RESP 18; O2SAT 95; BMI 23.6
[2025-02-17] MEDS: BUPIVACAINE 0.25% 10ML INJ 25 MG IJ (11:40)
[2025-02-17] MEDS: DEXAMETHASONE 10MG/ML 1ML VIAL 10 MG (11:40)
[2025-02-17] MEDS: LIDOCAINE 1% 5ML PF VIAL 5 ML (11:40)
--- NOTE | 2025-02-17 11:43 | P.PCN_ITS ---
Procedure Date: 02/17/25 Time: 11:40 Anesthesiologist:: Burak Mcnair CRNA Complications:: None Pre-procedure Diagnosis:: Bilateral sacroiliitis Post-procedure Diagnosis:: Same Indications for Procedure:: Patient is very pleasant 59-year-old female who comes our clinic today for bilat eral sacroiliac joint injections cortisone local anesthetic. Patient describes low lumbar back pain off midline bilaterally. Bilateral posterior hip pain. Difficulty transitioning from sitting to standing. Difficulty with ambulation. She rates her pain 7/10. Procedure Details:: Procedure: Bilateral sacroiliac joint injections under fluoroscopy Informed consent was obtained and the risks and benefits of the procedure were explained to the patient.~ The patient was taken to the procedure room and noninvasive monitors were placed including a noninvasive blood pressure cuff and pulse oximeter.~ The patient was placed prone on the procedure table. Both hips were cleansed using Betadine as a cleansing solution. C-arm fluoroscopy was used to view the right sacroiliac joint.~ The skin and subcutaneous tissues were anesthetized using lidocaine 1.5% and a 25-gauge needle.~ After this, a 22-gauge spinal needle was inserted under fluoroscopic guidance into the inferior aspect of the right sacroiliac joint.~ Omnipaque dye was injected and good spread was seen throughout the joint.~ After this, approximately 5 mL of bupivacaine, 0.25% and dexamethasone 5 mg was incrementally injected into the right sacroiliac joint. We then moved to the left sacroiliac joint.~ The skin and subcutaneous tissues were anesthetized using lidocaine 1.5% and a 25-gauge needle.~ After this, a 22- gauge spinal needle was inserted under fluoroscopic guidance into the inferior aspect of the left sacroiliac joint.~ Omnipaque dye was injected and good spread was seen throughout the joint. After this, approximately 5 mL of bupivacaine, 0.25% and dexamethasone 5 mg was incrementally injected into the left sacroiliac joint.~ The patient tolerated the procedure well with no complications. The patient was observed in the Pain Clinic and then was discharged home neurologically intact. Plan and Disposition:: Patient was discharged without incident.
[2025-02-17 11:50] VITALS: BP 157/65; PULSE 89; RESP 18; O2SAT 96
[2025-02-17 11:53] VITALS: BP 176/88; PULSE 92; RESP 18; O2SAT 96
[2025-02-17 11:59] VITALS: BP 176/88; PULSE 92; RESP 18; O2SAT 96
== END 2025-02-17 11:50 | disposition home or self-care (01) ==
PROVIDERS: PCP Family Medicine; Visit Provider Nurse Anesthetist, Certified Registered
DX: M46.1 Sacroiliitis, not elsewhere classified (principal); K21.9 Gastro-esophageal reflux disease without esophagitis; F32.A Depression, unspecified; E11.9 Type 2 diabetes mellitus without complications; E78.5 Hyperlipidemia, unspecified; E03.9 Hypothyroidism, unspecified; G40.909 Epilepsy, unspecified, not intractable, without status epilepticus; M19.90 Unspecified osteoarthritis, unspecified site; F17.210 Nicotine dependence, cigarettes, uncomplicated; Z91.040 Latex allergy status; Z88.8 Allergy status to other drugs, medicaments and biological substances; Z79.51 Long term (current) use of inhaled steroids; Z79.84 Long term (current) use of oral hypoglycemic drugs; Z79.890 Hormone replacement therapy; Z79.899 Other long term (current) drug therapy
CPT/HCPCS: 64450; J0665; J1100; J2003